=== PATIENT | male | born 1960 | race American Indian/Alaskan Native ===

== ENCOUNTER 2020-07-05 10:38 | Outpatient (REF) | payer MEDICARE, MEDICAID, SELFPAY ==
[2020-07-05 15:02] LABS: Estimated Average Glucose 154 mg/dL
[2020-07-05 15:15] LABS: Alanine Aminotransferase 23 U/L (0-40); Anion Gap 13 (12-20); Aspartate Amino Transferase 18 U/L (5-37); Blood Urea Nitrogen 25 mg/dL (9-16); Calcium 9.6 mg/dL (8.4-10.2); Carbon Dioxide 28 mmol/L (22-29); Chloride 103 mmol/L (96-108); Cholesterol 135 mg/dL; Estimated Glomerular Filt Rate > 60; Glucose Fasting 112 mg/dL (60-99); HDL Cholesterol 38 mg/dL; LDL Cholesterol Calculated 79 mg/dl; Potassium 4.9 mmol/l (3.3-5.1); Sodium 139 mmol/L (135-145); Triglycerides 91 mg/dL
== END 2020-07-05 10:39 | disposition home or self-care (01) ==
LOC: HO.HMGCLDS 10:38
PROVIDERS: PCP Internal Medicine; Visit Provider Internal Medicine
DX: E11.3213 Type 2 diabetes mellitus with mild nonproliferative diabetic retinopathy with macular edema, bilateral (principal); I10 Essential (primary) hypertension; E78.5 Hyperlipidemia, unspecified; M15.9 Polyosteoarthritis, unspecified; Z79.4 Long term (current) use of insulin
CPT/HCPCS: 80048; 80061; 83036; 84450; 84460

== ENCOUNTER 2020-11-18 09:02 | Outpatient (REF) | payer MEDICARE, MEDICAID, SELFPAY ==
[2020-11-18 11:35] LABS: Alanine Aminotransferase 22 U/L (0-40); Anion Gap 15 (12-20); Aspartate Amino Transferase 17 U/L (5-37); Blood Urea Nitrogen 18 mg/dL (9-16); Calcium 9.4 mg/dL (8.4-10.2); Carbon Dioxide 26 mmol/L (22-29); Chloride 102 mmol/L (96-108); Cholesterol 127 mg/dL; Estimated Glomerular Filt Rate > 60; Glucose Fasting 154 mg/dL (60-99); HDL Cholesterol 38 mg/dL; LDL Cholesterol Calculated 61 mg/dl; Potassium 4.6 mmol/L (3.3-5.1); Sodium 138 mmol/L (135-145); Triglycerides 140 mg/dL
[2020-11-18 11:39] LABS: Estimated Average Glucose 157 mg/dL; Hemoglobin A1c % 7.1 %
[2020-11-18 11:43] LABS: Creatinine Urine 144.13 mg/dL; Microalbumin Urine < 5.0 mg/L
== END 2020-11-18 09:03 | disposition home or self-care (01) ==
LOC: HO.HMGCLDS 09:02
PROVIDERS: PCP Internal Medicine; Visit Provider Internal Medicine
DX: E11.319 Type 2 diabetes mellitus with unspecified diabetic retinopathy without macular edema (principal); E11.8 Type 2 diabetes mellitus with unspecified complications; F32.9 Major depressive disorder, single episode, unspecified; M15.9 Polyosteoarthritis, unspecified; I10 Essential (primary) hypertension; E78.5 Hyperlipidemia, unspecified; Z79.4 Long term (current) use of insulin
CPT/HCPCS: 36415; 80048; 80061; 82043; 83036; 84450; 84460

== ENCOUNTER 2020-12-03 08:33 | Outpatient (REF) | payer MEDICARE, MEDICAID, SELFPAY ==
--- NOTE | ~2020-12-03 | XR_ITS ---
EXAMINATION: XR SHOULDER, LEFT CLINICAL INFORMATION: Left shoulder pain. COMPARISON: Left shoulder radiographs dated 08/04/2016. TECHNIQUE: AP, scapular Y, and axillary views of the left shoulder. FINDINGS: Severe glenohumeral joint space narrowing with bony remodeling, subchondral sclerosis, and prominent marginal osteophytes. Acromioclavicular marginal osteophytes. No acute fracture or dislocation. Ossified loose body within the subcoracoid recess measuring up to 1.8 cm. XR/XR shoulder LT min 2V IMPRESSION: Severe glenohumeral osteoarthritis and mild acromioclavicular osteoarthritis, progressed when compared to the prior examination. Ossified loose body within the subcoracoid recess measuring up to 1.8 cm, increased in size when compared to the prior examination.
== END 2020-12-03 08:34 | disposition home or self-care (01) ==
LOC: HO.HOSX 08:33
PROVIDERS: Visit Provider Orthopaedic Surgery
DX: M19.012 Primary osteoarthritis, left shoulder (principal)
CPT/HCPCS: 20610; 73030; 99212; J1040

== ENCOUNTER 2020-12-17 07:59 | Outpatient (REF) | payer MEDICARE, MEDICAID, SELFPAY | END 2020-12-17 08:00 | disposition home or self-care (01) | LOC: HO.HOSX 07:59 | PROVIDERS: Visit Provider Orthopaedic Surgery | DX: Z13.89 Encounter for screening for other disorder (principal) ==

== ENCOUNTER → 2021-03-05 09:23 | Outpatient (BNVA) | payer MEDICARE, MEDICAID, SELFPAY | PROVIDERS: PCP Internal Medicine; Visit Provider Orthopaedic Surgery | DX: M17.11 Unilateral primary osteoarthritis, right knee (principal) | CPT/HCPCS: 20610; 99212; J1040 ==

== ENCOUNTER 2021-05-21 08:41 | Emergency (ER) | payer MEDICARE, MEDICAID, SELFPAY ==
--- NOTE | ~2021-05-21 | CT_ITS ---
EXAMINATION: CT ABDOMEN AND PELVIS WITHOUT CONTRAST CLINICAL INFORMATION: Left-sided abdominal and back pain radiating to testicles. COMPARISON: CT abdomen pelvis 11/09/2019 TECHNIQUE: Multidetector volumetric imaging was performed from the superior aspect of the liver through the pubic symphysis. Sagittal and coronal reformatted images were obtained on the technologist's workstation. This CT examination was performed using dose optimization techniques as appropriate, variously including the following: *Automated exposure control *Adjustment of mA and/or kV according to patient size (this includes techniques or standardized protocols for targeted exams where dose is matched to indication/reason for exam; i.e. extremities or head) *Use of iterative reconstruction technique DLP: 608 mGy-cm FINDINGS: LUNG BASES: There is bandlike atelectasis right lower lobe. Rest of the visualized lung bases appear unremarkable. The heart size is normal. LIVER, GALLBLADDER, AND BILIARY TREE: The liver is normal in size, shape, and attenuation. No focal hepatic lesion or biliary ductal dilatation is present. The gallbladder is unremarkable with no evidence of radiopaque gallstones, gallbladder wall thickening, or obvious pericholecystic inflammatory changes. PANCREAS: The pancreas is unremarkable. However there is subtle fat stranding seen around the head of the pancreas but without any fluid collection. SPLEEN: Unremarkable. ADRENAL GLANDS: Unremarkable. KIDNEYS AND URETERS: The kidneys are normal in size, shape, and attenuation. There is a 1.2 cm radiopaque calculi mid pole left kidney. Previously it measured 6 mm no additional radiopaque calculi seen. There is no caliectasis or hydronephrosis.. There is mild bilateral perinephric fat stranding. BLADDER: Unremarkable. GASTROINTESTINAL TRACT: There is scattered stool, gas and diverticuli seen throughout the colon without obstruction or diverticulitis. No mural thickening or pericolic fat stranding seen. The small bowel loops are normal caliber. Appendix is not well visualized. No free air or free fluid seen. ABDOMINAL WALL: No significant hernia is appreciated. LYMPH NODES: Normal. VASCULAR: The abdominal aorta is of normal caliber. PELVIC VISCERA: Unremarkable. OSSEOUS STRUCTURES: There is vacuum disc phenomenon with loss of disc at L4-L5 disc level. Mild ventricles bridging osteophyte/spondylosis seen in the L1-L2 through L3-L4 disc levels. No lytic or sclerotic process seen. CT/CT abdomen pelvis wo con IMPRESSION: 1.2 cm nonobstructive radiopaque calculi mid pole left kidney. Previously measured 6 mm. Mild constipation without obstruction. Mild diverticulosis without hiatal hernia. Mild prostate enlargement. Degenerative disc changes L4-L5 disc level and L5/S1 disc level with a left paracentral the
[2021-05-21 08:50] VITALS: BP 124/87; PULSE 86; RESP 16; TEMP 37; O2SAT 97; BMI 29.7
--- NOTE | 2021-05-21 09:23 | ECG_ITS ---
Test Reason : BACK PAIN Blood Pressure : / mmHG Vent. Rate : 069 BPM Atrial Rate : 069 BPM P-R Int : 180 ms QRS Dur : 088 ms QT Int : 398 ms P-R-T Axes : 049 051 047 degrees QTc Int : 426 ms Normal sinus rhythm Normal ECG When compared with ECG of 18-OCT-2017 04:29, No significant change was found Referred By: Norma Price Electronically Signed By:AZAEL MCGUIRE
--- NOTE | 2021-05-21 09:37 | ED.BACK ---
HPI - Back Pain/Injury General Chief Complaint: Back Pain/Injury Stated Complaint: flank pain Time Seen by Provider: 05/21/21 09:02 Source: patient Mode of arrival: ambulatory Limitations: no limitations History of Present Illness HPI Narrative: 60-year-old male with a past medical history of BPH, hypertension, type 2 diabetes, high cholesterol, osteoarthritis, depression here with complaints of lower back pain with radiation to the groin and down the lateral thighs for 4 days. Patient is taking Motrin and Tylenol home with continued symptoms. He denies any numbness in the groin. Denies any bowel or bladder incontinence. He is complaining of some urinary frequency but no dysuria or hematuria. No nausea, vomiting, diarrhea, fevers, chills. Patient denies any known injury or trauma. 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 Related Data Home Medications Medication Instructions Recorded Confirmed insulin aspart U-100 100 unit/mL unit SUBCUT 07/12/20 01/28/21 (3 mL) subcutaneous pen pen needle, diabetic 29 gauge x #100 ea 07/12/20 01/28/21 1/2 tizanidine 4 mg tablet mg PO 07/12/20 01/28/21 insulin syringe-needle U-100 1 mL #10 ea 11/22/20 01/28/21 31 gauge x 01/05 Previous Rx's Medication Instructions Recorded fluoxetine 20 mg capsule 40 mg PO QAM #180 cap 06/14/20 blood sugar diagnostic (FreeStyle #100 ea 07/12/20 Lite Strips) pen needle, diabetic 29 gauge x See Rx Instructions .ROUTE QID 30 09/06/20 1/2 (BD Ultra-Fine Original Pen Days #200 ea Needle) insulin syringes (disposable) 1 mL #500 ea 09/18/20 lancets 28 gauge (FreeStyle See Rx Instructions .ROUTE 09/27/20 Lancets) .COMPLEX 30 Days #100 strip tamsulosin 0.4 mg capsule 0.4 mg PO DAILY #90 cap 11/28/20 dicyclomine 20 mg tablet 20 mg PO TID #270 tab 12/02/20 metformin 1,000 mg tablet 1,000 mg PO BID #180 tab 12/02/20 insulin detemir U-100 100 unit/mL 60 unit SUBCUT BEDTIME #30 ml 06/01/21 subcutaneous solution (Levemir U-100 Insulin) nabumetone 750 mg tablet 750 mg PO BID PRN #60 tab 02/26/21 atorvastatin 10 mg tablet 10 mg PO DAILY #90 tab 02/27/21 lisinopril 20 mg tablet 20 mg PO DAILY #90 tab 04/15/21 zolpidem 10 mg tablet 10 mg PO BEDTIME PRN #30 tab 04/26/21 cyclobenzaprine 10 mg tablet 10 mg PO TID PRN #10 tab 05/21/21 naproxen 500 mg tablet 500 mg PO BID PRN #20 tab 05/21/21 oxycodone 5 mg tablet 5 mg PO Q6H PRN #10 tab 05/21/21 Allergies Allergy/AdvReac Type Severity Reaction Status Date / Time peanuts Allergy Unknown shortness Verified 01/28/21 11:40 of breath, throat swelling Review of Systems Review of Systems: Yes all other systems are reviewed and are negative Constitutional: Constitutional: Reports no additional constitutional complaints, Denies body ache(s), Denies chills, Denies fever(s), Denies headache(s) and Denies weakness Eyes: Eyes: Reports no additional eye complaints and Denies change in vision ENT: Reports system reviewed and no additional complaints, except as documented, Denies dizziness, Denies headache(s), Denies nasal congestion, Denies nasal discharge and Denies neck pain Cardiovascular: Cardiovascular: Reports no additional cardiovascular complaints, Denies chest pain, Denies leg edema and Denies dyspnea Respiratory: Respiratory: Reports no additional respiratory complaints, Denies cough and Denies dyspnea Gastrointestinal: Gastrointestinal: Reports no additional gastrointestinal complaints, Denies abdominal pain, Denies diarrhea, Denies nausea and Denies vomiting Genitourinary: Genitourinary: Denies urinary incontinence Musculoskeletal: Musculoskeletal: Reports no additional musculoskeletal complaints, Denies back pain, Denies arthralgias, Denies joint swelling, Denies neck pain, Denies numbness and Denies tingling Integumentary/Breasts: Skin/Breast: Reports system reviewed and no additional complaints, except as docu and Denies rash Neurologic: Reports system reviewed and no additional complaints, except as documented, Denies Abnormal speech present, Denies dizziness, Denies headache(s), Denies numbness, Denies tingling and Denies weakness PMFSH Past Medical History Attestation statement: The following information was validated with the patient. Source: old records reviewed and nursing notes reviewed Medical History BPH (benign prostatic hyperplasia) Chronic insomnia Chronic left shoulder pain Depression Diabetes mellitus type 2 with retinopathy Diabetes mellitus with complication, with long-term current use of insulin Dyslipidemia HTN (hypertension) Osteoarthritis involving multiple joints on both sides of body Trigger finger of right hand Surgical History Umbilical hernia Family History Family History Father CVD (cardiovascular disease) Mother Unknown family medical history Social History Social History Alcohol intake: never Patient Tobacco Use Status: Never used Tobacco Use of substances other than those prescribed or required for medical reasons: No Advance Directives: No Advance Directives Information Provided: No Current occupational status: disabled 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 Physical Exam Vital Signs: Vital Signs: Last Vital Signs Temp 98.7 F 05/21/21 10:21 Pulse 66 05/21/21 10:21 Resp 16 05/21/21 11:10 BP 133/88 05/21/21 10:21 Pulse Ox 98 05/21/21 10:21 Body Mass Index 29.7 Const: General: cooperative, healthy appearing, comfortable and no acute distress Orientation/consciousness: patient oriented x3 Limitations: no limitations HENMT: Head: Yes normal to inspection Ears: hearing grossly normal bilaterally General nose exam: Normal external nose present Face and sinus: Yes normal facial exam Mouth: Normal oral and palatal mucosa present Throat: Yes posterior oropharynx normal Eyes: General: appearance normal, both eyes and all related structures Pupils: Equal, round and reactive pupils present Neck: Neck: Yes normal visual inspection Chest: Chest palpation & inspection: normal inspection of the chest Resp: Effort & Inspection: normal respiratory effort Auscultation: clear to auscultation bilaterally Cardio: Rate: regular rate Rhythm: regular rhythm Peripheral pulses: Peripheral pulses 2+ throughout GI: Inspection: Yes normal to inspection Palpation (GI): Soft to palpation and nontender Auscultation: normal bowel sounds : Other: No palpable inguinal hernia General: Yes no CVA tenderness Male General Exam: Yes normal external exam Penis: normal penis Scrotum: scrotum normal Testes: Testes normal Back/Spine/Pelvis: Other: Tenderness over the midline lumbar spine and over the soft tissue areas of the lumbar spine no palpable step-offs or deformities Back: no CVA tenderness Thoracic/Lumbar Spine: thoracic and lumbar spine normal to inspection Skin: General skin exam: no rashes or lesions noted Neuro: General: patient oriented x3, no focal motor deficits and normal sensation to monofilament Cranial nerves: Yes CN's II-XII intact bilaterally, Yes Equal, round and reactive pupils present, Yes Bilaterally intact EOM present, Yes Nystagmus not present, Yes Normal facial strength present and Yes Midline tongue present Cognition (Neuro): normal cognition Speech: No Abnormal speech present Gait exam (Neuro): Normal gait present Motor exam (neuro): 5/5 motor strength present throughout Sensory Exam: Normal double simultaneous stimulation for sensation Deep tendon reflexes (DTR's): Right patellar reflex intensity grade: 2+, Left patellar reflex intensity grade: 2+, Right ankle reflex intensity grade: 2+ and Left ankle reflex intensity grade: 2+ Coordination: [id number] test normal, [id number] test normal and tandem gait normal Extrem: General: Yes normal to inspection Course Course Course Narrative: 60-year-old male here with complaints of lower back pain with radiation to the bilateral groin and testicular area and addition to the lateral thighs for about 4-5 days. He is having some urinary frequency but no other urinary symptoms. On exam no CVA tenderness. No palpable abdominal tenderness. Patient does have some midline lumbar tenderness on exam. His exam is normal. Likely referred pain from lumbar spine. Will check labs, UA, CT. Provide pain control. 1220- IMPRESSION: 1.2 cm nonobstructive radiopaque calculi mid pole left kidney. Previously measured 6 mm. ? Mild constipation without obstruction. Mild diverticulosis without hiatal hernia. ? Mild prostate enlargement. ? Degenerative disc changes L4-L5 disc level and L5/S1 disc level with a left paracentral the? Labs and urine are negative. Patient's pain is well controlled. Pain is likely secondary to disc changes. No neurological deficits or red flag symptoms. Recommended patient follow-up with his primary care doctor for outpatient MRI. He tells me he has an appointment on Wednesday. Reviewed worrisome signs and symptoms and when to return to the emergency department. Comfortable discharge home. MDM - Back Pain/Injury Differential Diagnosis Differential diagnosis: Likely lumbar radiculopathy, renal colic and pyelonephritis Medical Records Attestation: I reviewed the patient's medical records. Lab Data Attestation: I reviewed the patient's lab results. Result diagrams: 05/21/21 10:02 05/21/21 10:02 Labs: Lab Results 05/21/21 05/21/21 05/21/21 Range/Units 10:02 10:02 10:02 WBC 7.2 (4.8-10.8) X10*3/uL RBC 4.22 L (4.60-5.80) X10*6/uL Hgb 13.1 L (14.0-18.0) g/dl Hct 38.3 L (42-52) % MCV 90.8 (80-98) fL MCH 31.0 (27.0-33.0) pg MCHC 34.2 (31.0-36.0) g/dl RDW 12.0 (11.0-16.0) % Plt Count 237 (160-400) X10*3/uL MPV 10.9 (9.4-12.4) fL Immature Gran % (Auto) 0.1 (0.0-0.4) % Neut % (Auto) 62.2 (45-73) % Lymph % (Auto) 24.0 (20-40) % [place] % (Auto) 7.6 (2-11) % Eos % (Auto) 5.3 H (0-4) % Baso % (Auto) 0.8 (0-2) % Lymph # (Auto) 1.7 (1.2-4.9) X10*3/uL [place] # (Auto) 0.6 (0.1-1.2) X10*3/uL Eos # (Auto) 0.4 (0.0-0.4) X10*3/uL Baso # (Auto) 0.1 (0.0-0.2) X10*3/uL Abs Immat Gran (auto) 0.01 (0.00-0.03) X10*3/uL Absolute Neuts (auto) 4.5 (2.0-8.3) X10*3/uL Absolute Nucleated RBC 0.000 (0.0-0.012) X10*3/uL Nucleated RBC % (auto) 0.0 (0.0-0.2) /100WBC Sodium 140 (135-145) mmol/L Potassium 4.1 (3.3-5.1) mmol/L Chloride 106 (96-108) mmol/L Carbon Dioxide 26 (22-29) mmol/L Anion Gap 12 (12-20) BUN 17 H (9-16) mg/dL Creatinine 0.86 (0.5-1.4) mg/dL Estim Creat Clear Calc 95.7 Estimated GFR > 60 Random Glucose 117 H (60-115) mg/dL Calcium 9.4 (8.4-10.2) mg/dL Magnesium 1.9 (1.6-2.6) mg/dL Total Bilirubin 0.3 (0.0-1.0) mg/dL Direct Bilirubin 0.2 (0.0-0.5) mg/dL AST 15 (5-37) U/L ALT 21 (0-40) U/L Alkaline Phosphatase 64 (39-117) U/L Total Protein 6.7 (6.5-8.0) g/dL Albumin 4.0 (3.5-5.0) g/dL Urine Color YELLOW Urine Appearance CLEAR Urine pH 6.0 (5.0-8.0) Ur Specific [place] 1.020 (1.005-1.025) Urine Protein NEG (NEG-TRACE) MG/DL Urine Glucose (UA) NEG (NEG) MG/DL Urine Ketones NEG (NEG) MG/DL Urine Blood NEG (NEG) Urine Nitrite NEG (NEG) Ur Leukocyte Esterase NEG (NEG) Urine RBC 0-2 (0) /HPF Urine WBC 0 (0-4) /HPF Ur Squamous Epith Cells TRACE /LPF Urine Bacteria NONE /LPF Imaging Data CT scan - abdomen: Attestation: I personally reviewed and interpreted this imaging study as follows: Radiologist's impression: FINDINGS: LUNG BASES: There is bandlike atelectasis right lower lobe. Rest of the visualized lung bases appear unremarkable. The heart size is normal.? LIVER, GALLBLADDER, AND BILIARY TREE: The liver is normal in size, shape, and attenuation. No focal hepatic lesion or biliary ductal dilatation is present. The gallbladder is unremarkable with no evidence of radiopaque gallstones, gallbladder wall thickening, or obvious pericholecystic inflammatory changes.? PANCREAS: The pancreas is unremarkable. However there is subtle fat stranding seen around the head of the pancreas but without any fluid collection.? SPLEEN: Unremarkable.? ADRENAL GLANDS: Unremarkable.? KIDNEYS AND URETERS: The kidneys are normal in size, shape, and attenuation. There is a 1.2 cm radiopaque calculi mid pole left kidney. Previously it measured 6 mm no additional radiopaque calculi seen. There is no caliectasis or hydronephrosis.. There is mild bilateral perinephric fat stranding.? BLADDER: Unremarkable.? GASTROINTESTINAL TRACT: There is scattered stool, gas and diverticuli seen throughout the colon without obstruction or diverticulitis. No mural thickening or pericolic fat stranding seen. The small bowel loops are normal caliber. Appendix is not well visualized. No free air or free fluid seen.? ABDOMINAL WALL: No significant hernia is appreciated.? LYMPH NODES: Normal. VASCULAR: The abdominal aorta is of normal caliber. PELVIC VISCERA: Unremarkable.? OSSEOUS STRUCTURES: There is vacuum disc phenomenon with loss of disc at L4-L5 disc level. Mild ventricles bridging osteophyte/spondylosis seen in the L1-L2 through L3-L4 disc levels. No lytic or sclerotic process seen.? CT/CT abdomen pelvis wo con IMPRESSION: 1.2 cm nonobstructive radiopaque calculi mid pole left kidney. Previously measured 6 mm. ? Mild constipation without obstruction. Mild diverticulosis without hiatal hernia. ? Mild prostate enlargement. ? Degenerative disc changes L4-L5 disc level and L5/S1 disc level with a left paracentral the? ECG Data Attestation: I personally reviewed and interpreted this ECG as follows: ECG interpretation date: 05/21/21 ECG interpretation time: 10:11 Interpretation: Normal sinus rhythm with a rate of 69, normal TX, normal QRS, normal QT Discharge Plan Discharge Clinical Impression: Lumbar radiculopathy Patient Disposition: Home, Self-Care Instructions: Lumbar Radiculopathy (ED) Additional Instructions: Your CT scan shows a bulging disc in your lumbar spine. Keep your appointment with your primary care doctor on Wednesday and discuss this with them. You will likely need an MRI No heavy lifting or bending Heat or ice, gentle stretching Prescriptions: New cyclobenzaprine 10 mg tablet 10 mg PO TID PRN (Reason: muscle spasm) Qty: 10 RF: 0 naproxen 500 mg tablet 500 mg PO BID PRN (Reason: pain) Qty: 20 RF: 0 oxycodone 5 mg tablet 5 mg PO Q6H PRN (Reason: pain) Qty: 10 RF: 0 No Action fluoxetine 20 mg capsule 40 mg PO QAM Qty: 180 RF: 3 pen needle, diabetic [BD Ultra-Fine Orig Pen Needle] 29 gauge x 1/2 needle See Rx Instructions .ROUTE QID 30 Days Qty: 200 RF: 6 (DME) insulin syringes (disposable) 1 mL syringe See Rx Instructions .ROUTE .MEDSUPPLY Qty: 500 RF: 0 lancets [FreeStyle Lancets] 28 gauge misc See Rx Instructions .ROUTE .COMPLEX 30 Days Qty: 100 RF: 6 tamsulosin 0.4 mg capsule 0.4 mg PO DAILY Qty: 90 RF: 1 metformin 1,000 mg tablet 1,000 mg PO BID Qty: 180 RF: 4 dicyclomine 20 mg tablet 20 mg PO TID Qty: 270 RF: 1 Levemir U-100 Insulin 100 unit/mL solution 60 unit subcut BEDTIME Qty: 30 RF: 4 nabumetone 750 mg tablet 750 mg PO BID PRN (Reason: for pain) Qty: 60 RF: 0 atorvastatin 10 mg tablet 10 mg PO DAILY Qty: 90 RF: 1 lisinopril 20 mg tablet 20 mg PO DAILY Qty: 90 RF: 1 zolpidem 10 mg tablet 10 mg PO BEDTIME PRN (Reason: insomnia) Qty: 30 RF: 0 insulin aspart U-100 100 unit/mL (3 mL) insulin pen subcut RF: 0 tizanidine 4 mg tablet PO RF: 0 (DME) pen needle, diabetic 29 gauge x 1/2 needle See Rx Instructions ea .ROUTE .MEDSUPPLY Qty: 100 RF: 0 (DME) FreeStyle Lite Strips Strip See Rx Instructions .ROUTE .MEDSUPPLY Qty: 100 RF: 8 (DME) insulin syringe-needle U-100 1 mL 31 gauge x 5/16 syringe See Rx Instructions ml .ROUTE .MEDSUPPLY Qty: 10 RF: 0 Referrals: Espinas,Rocio C, MD [Primary Care Provider] - 2 days Stand Alone Forms: Work/School Release
[2021-05-21 10:21] VITALS: BP 133/88; PULSE 66; RESP 19; TEMP 37.1; O2SAT 98
[2021-05-21 10:23] LABS: MANUAL DIFF FLAG NO
[2021-05-21 10:24] LABS: Basophils Absolute Auto 0.1 X10*3/uL (0.0-0.2); Basophils Percent Auto 0.8 % (0-2); Eosinophils Absolute Auto 0.4 X10*3/uL (0.0-0.4); Eosinophils Percent Auto 5.3 % (0-4); Hematocrit 38.3 % (42-52); Hemoglobin 13.1 g/dl (14.0-18.0); Imm Gran Abs Auto 0.01 X10*3/uL (0.00-0.03); Imm Gran Pct Auto 0.1 % (0.0-0.4); Lymphocytes Absolute Auto 1.7 X10*3/uL (1.2-4.9); Mean Corpuscular HGB Conc 34.2 g/dl (31.0-36.0); Mean Corpuscular Volume 90.8 fL (80-98); Mean Platelet Volume 10.9 fL (9.4-12.4); Monocytes Absolute Auto 0.6 X10*3/uL (0.1-1.2); Monocytes Percent Auto 7.6 % (2-11); Neutrophils Absolute Auto 4.5 X10*3/uL (2.0-8.3); Neutrophils Percent Auto 62.2 % (45-73); Platelet Count 237 X10*3/uL (160-400); Red Blood Count 4.22 X10*6/uL (4.60-5.80); White Blood Count 7.2 X10*3/uL (4.8-10.8)
[2021-05-21 10:27] LABS: Appearance Urine CLEAR; Color Urine YELLOW; Glucose Urine UA NEG (NEG); Leukocyte Esterase Urine NEG (NEG); Nitrite Urine NEG (NEG); Urine Blood NEG (NEG); Urine Ketones NEG (NEG); Urine Protein NEG (NEG-TRACE)
[2021-05-21 10:38] LABS: RBC Urine 0-2 /HPF (0); Squamous Epithelial Cell Urine TRACE /LPF; WBC Urine 0 /HPF (0-4)
[2021-05-21 10:46] LABS: Alanine Aminotransferase 21 U/L (0-40); Alkaline Phosphatase 64 U/L (39-117); Anion Gap 12 (12-20); Aspartate Amino Transferase 15 U/L (5-37); Bilirubin Direct 0.2 mg/dL (0.0-0.5); Bilirubin Total 0.3 mg/dL (0.0-1.0); Blood Urea Nitrogen 17 mg/dL (9-16); Calcium 9.4 mg/dL (8.4-10.2); Carbon Dioxide 26 mmol/L (22-29); Chloride 106 mmol/L (96-108); Creatinine Clr Calc Pharmacy 95.7; Estimated Glomerular Filt Rate > 60; Glucose Random 117 mg/dL (60-115); Magnesium 1.9 mg/dL (1.6-2.6); Potassium 4.1 mmol/L (3.3-5.1); Sodium 140 mmol/L (135-145); Total Protein 6.7 g/dL (6.5-8.0)
[2021-05-21 11:10] VITALS: RESP 16
[2021-05-21] MEDS: Morphine Sulfate 4 MG/ML CARTRIDGE IVPUSH (11:10)
[2021-05-21] MEDS: Ketorolac Tromethamine 15 MG/ML VIAL 30 MG IVPUSH (11:11)
[2021-05-21 12:41] VITALS: BP 125/80; PULSE 73; RESP 16; O2SAT 99
[2021-05-21 15:04] LABS: Glucose, Whole Blood 113 mg/dL (60-115)
== END 2021-05-21 12:45 | disposition home or self-care (01) ==
PROVIDERS: Nurse Practitioner Family; Emergency Provider Emergency Medicine Emergency Medical Services; PCP Internal Medicine
DX: M54.16 Radiculopathy, lumbar region (principal); R10.9 Unspecified abdominal pain; E11.9 Type 2 diabetes mellitus without complications; Z79.899 Other long term (current) drug therapy; Z79.4 Long term (current) use of insulin
CPT/HCPCS: 36415; 74176; 80048; 80076; 81001; 82947; 83735; 85025; 93005; 96374; 96375; 99284; 99285; J1885; J2270

== ENCOUNTER 2021-05-22 09:44 | Outpatient (REF) | payer MEDICARE, MEDICAID, SELFPAY ==
[2021-05-22 11:50] LABS: Estimated Average Glucose 163 mg/dL; Hemoglobin A1c % 7.3 %
[2021-05-22 11:51] LABS: Creatinine Urine 190.45 mg/dL; Microalbum/Creatinine Ratio Ur 5.2 ug/mg cr
[2021-05-22 11:53] LABS: Alanine Aminotransferase 25 U/L (0-40); Anion Gap 11 (12-20); Aspartate Amino Transferase 18 U/L (5-37); Blood Urea Nitrogen 21 mg/dL (9-16); Calcium 9.1 mg/dL (8.4-10.2); Carbon Dioxide 27 mmol/L (22-29); Chloride 106 mmol/L (96-108); Cholesterol 130 mg/dL; Estimated Glomerular Filt Rate > 60; Glucose Fasting 138 mg/dL (60-99); HDL Cholesterol 30 mg/dL; LDL Cholesterol Calculated 66 mg/dl; Potassium 4.4 mmol/L (3.3-5.1); Sodium 140 mmol/L (135-145); Triglycerides 172 mg/dL
== END 2021-05-22 09:45 | disposition home or self-care (01) ==
LOC: HO.HMGCLDS 09:44
PROVIDERS: PCP Internal Medicine; Visit Provider Internal Medicine
DX: E78.5 Hyperlipidemia, unspecified (principal); E11.8 Type 2 diabetes mellitus with unspecified complications; E11.3293 Type 2 diabetes mellitus with mild nonproliferative diabetic retinopathy without macular edema, bilateral; I10 Essential (primary) hypertension; Z79.4 Long term (current) use of insulin
CPT/HCPCS: 36415; 80048; 80061; 82043; 83036; 84450; 84460

== ENCOUNTER → 2021-07-22 09:12 | Outpatient (BNVA) | payer MEDICARE, MEDICAID, SELFPAY | PROVIDERS: PCP Internal Medicine; Visit Provider Nurse Practitioner Family | DX: M47.27 Other spondylosis with radiculopathy, lumbosacral region (principal); M79.18 Myalgia, other site | CPT/HCPCS: 99202 ==

== ENCOUNTER 2021-09-11 10:39 | Outpatient (REF) | payer MEDICARE, MEDICAID, SELFPAY | END 2021-09-11 10:40 | disposition home or self-care (01) | LOC: HO.HOSX 10:39 | PROVIDERS: Visit Provider Physician Assistant | DX: Z13.89 Encounter for screening for other disorder (principal) ==

== ENCOUNTER 2021-09-29 08:36 | Outpatient (REF) | payer MEDICARE, MEDICAID, SELFPAY ==
[2021-09-29 11:40] LABS: Alanine Aminotransferase 19 U/L (0-40); Anion Gap 11 (12-20); Aspartate Amino Transferase 15 U/L (5-37); Blood Urea Nitrogen 15 mg/dL (9-16); Calcium 9.6 mg/dL (8.4-10.2); Carbon Dioxide 28 mmol/L (22-29); Chloride 103 mmol/L (96-108); Cholesterol 139 mg/dL; Estimated Glomerular Filt Rate > 60; Glucose Fasting 173 mg/dL (60-99); HDL Cholesterol 32 mg/dL; LDL Cholesterol Calculated 82 mg/dl; Potassium 4.2 mmol/L (3.3-5.1); Sodium 138 mmol/L (135-145); Triglycerides 126 mg/dL
[2021-09-29 12:06] LABS: Estimated Average Glucose 177 mg/dL; Hemoglobin A1c % 7.8 %
== END 2021-09-29 08:37 | disposition home or self-care (01) ==
LOC: HO.HMGCLDS 08:36
PROVIDERS: Visit Provider Internal Medicine
DX: E11.8 Type 2 diabetes mellitus with unspecified complications (principal); E78.5 Hyperlipidemia, unspecified; I10 Essential (primary) hypertension; Z79.4 Long term (current) use of insulin
CPT/HCPCS: 36415; 80048; 80061; 83036; 84450; 84460

== ENCOUNTER → 2021-10-01 11:02 | Outpatient (BNVA) | payer MEDICARE, MEDICAID, SELFPAY | PROVIDERS: PCP Internal Medicine; Visit Provider Nurse Practitioner Family | DX: M79.18 Myalgia, other site (principal); M47.27 Other spondylosis with radiculopathy, lumbosacral region; M19.012 Primary osteoarthritis, left shoulder; M17.11 Unilateral primary osteoarthritis, right knee | CPT/HCPCS: 99212 ==

== ENCOUNTER → 2021-10-07 15:18 | Outpatient (BNVA) | payer MEDICARE, MEDICAID, SELFPAY | PROVIDERS: PCP Internal Medicine; Visit Provider Urology | DX: N20.0 Calculus of kidney (principal) | CPT/HCPCS: 99202 ==

== ENCOUNTER 2021-11-05 06:35 | Day surgery (SDC) | payer MEDICARE, MEDICAID, SELFPAY ==
[2021-10-31 13:23] VITALS: BMI 31.0
--- NOTE | 2021-11-03 12:06 | P.CONAN_ITS ---
Documented by User: Yvette Tan NP 11/03/21 12:08 HPI - Anesthesia Eval Consult details Narrative: 61yo M for Left Lithotripsy ESW No prev ESWL on record PMFSH Active Problems Active Problems: All Active Problems (Updated 09/02/21 @ 09:24 by Rocio Morgan MD) Primary osteoarthritis, left shoulder (Acute) Primary osteoarthritis of right knee (Acute) Myofascial pain (Acute) Lumbosacral radiculopathy due to degenerative joint disease of spine (Acute) Left nephrolithiasis (Acute) Chronic left shoulder pain (Acute) BPH (benign prostatic hyperplasia) (Acute) Chronic insomnia (Acute) Depression (Acute) Osteoarthritis involving multiple joints on both sides of body (Acute) HTN (hypertension) (Acute) Dyslipidemia (Acute) Diabetes mellitus with complication, with long-term current use of insulin (Acute) Diabetes mellitus type 2 with retinopathy (Acute) Past Medical History Medical History BPH (benign prostatic hyperplasia) Chronic insomnia Chronic left shoulder pain Depression Diabetes mellitus type 2 with retinopathy Diabetes mellitus with complication, with long-term current use of insulin Dyslipidemia HTN (hypertension) Left nephrolithiasis Lumbosacral radiculopathy due to degenerative joint disease of spine Osteoarthritis involving multiple joints on both sides of body Trigger finger of right hand Family History Family History Father CVD (cardiovascular disease) Mother Unknown family medical history Surgical History Surgical History H/O colonoscopy History of testicular surgery Umbilical hernia Social History Social History Alcohol intake: never Patient Tobacco Use Status: Former Tobacco user Tobacco use type: Cigarette Use of substances other than those prescribed or required for medical reasons: No Are you DNR?: No Advance Directives: No Advance Directives Information Provided: Yes (brochure mailed) Advance Directives on File: No Eating poorly because of decreased appetite: No Nutrition Risks: No Nutritional Risk Current occupational status: disabled 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 Rate : 069 BPM ? ? Atrial Rate : 069 BPM ?? P-R Int : 180 ms? QRS Dur : 088 ms ? ? QT Int : 398 ms ? ? ? P-R-T Axes : 049 051 047 degrees ?? QTc Int : 426 ms ? Normal sinus rhythm Normal ECG When compared with ECG of 18-OCT-2017 04:29, No significant change was found Assessment and Plan Assessment Anesthesia Assessment: Chart Reviewed Documented by User: Nancy Degroot MD 11/05/21 08:53 PMFSH Past Medical History Medical History BPH (benign prostatic hyperplasia) Chronic insomnia Chronic left shoulder pain Depression Diabetes mellitus type 2 with retinopathy Diabetes mellitus with complication, with long-term current use of insulin Dyslipidemia HTN (hypertension) Left nephrolithiasis Lumbosacral radiculopathy due to degenerative joint disease of spine Osteoarthritis involving multiple joints on both sides of body Trigger finger of right hand Family History Family History Father CVD (cardiovascular disease) Mother Unknown family medical history Surgical History Surgical History H/O colonoscopy History of testicular surgery Umbilical hernia History of Problems with Anesthesia: No Social History Social History Alcohol intake: never Patient Tobacco Use Status: Former Tobacco user Tobacco use type: Cigarette Use of substances other than those prescribed or required for medical reasons: No Are you DNR?: No Advance Directives: No Advance Directives Information Provided: Yes (brochure mailed) Advance Directives on File: No Eating poorly because of decreased appetite: No Nutrition Risks: No Nutritional Risk Current occupational status: disabled 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 Meds Allergies Allergy/AdvReac Type Severity Reaction Status Date / Time peanuts Allergy Intermediate shortness Verified 10/31/21 13:25 of breath, throat swelling Home Medications Medication Instructions Recorded Confirmed Last Taken Type insulin syringe-needle U-100 1 mL #10 ea 11/22/20 10/01/21 Unknown History 31 gauge x 5/16 Exam Airway Mallampati Class: III TM Dist: >3cm Neck ROM: Full Loose/Missing/Broken Teeth: No Heart: RRR Lungs: CTA Assessment and Plan Assessment Anesthesia Assessment: Anesthesia Plan Discussed Final Anesthetic Review History of Problems with Anesthesia: No NPO: Yes ASA Class: II Final Preanesthetic Review: Meds/Allgs Chart Reviewed, Consent Obtained/Reviewed and Anes Risks/Benef Reviewed Patient Risk: Low Procedure Risk: Low Anesthetic Plan Anesthetic Plan: MAC: Disposition: Standard PACU
--- NOTE | ~2021-11-05 | XR_ITS ---
EXAMINATION: XR ABDOMEN KUB CLINICAL INDICATION: Left renal stone COMPARISON: CT 05/21/2021 TECHNIQUE: AP view of the abdomen. FINDINGS: 0.6 cm left lower pole renal calculus again noted. No additional suspicious calcifications overlying the expected position of either kidney or ureter. Normal bowel gas pattern. Gas and stool throughout the colon. The lung bases are clear. Elevated right hemidiaphragm. Degenerative changes of the spine. XR/XR KUB IMPRESSION: Unchanged left lower pole 0.6 cm calculus.
[2021-11-05 06:52] VITALS: BP 135/91; PULSE 72; RESP 18; TEMP 36.3; O2SAT 96
--- NOTE | 2021-11-05 07:01 | ECG_ITS ---
Test Reason : cp Blood Pressure : / mmHG Vent. Rate : 071 BPM Atrial Rate : 071 BPM P-R Int : 174 ms QRS Dur : 086 ms QT Int : 378 ms P-R-T Axes : 039 039 047 degrees QTc Int : 410 ms Normal sinus rhythm Normal ECG When compared with ECG of 21-MAY-2021 10:11, No significant change was found Referred By: Steven Meyer Electronically Signed By:ISHA ENNIS
--- NOTE | 2021-11-05 07:03 | PC.NURSE ---
pt c/o 2/3 muscle soreness left chest & left arm no nausea, no numbness. Dr. Meyer aware, vss 97.4 ,72,18, 135/91 96% ra, no sob . ekg ordered, taken pt states he sleeps on Left side. pain does not increase with palpation
[2021-11-05 07:07] LABS: Glucose, Whole Blood 118 mg/dL (60-115)
[2021-11-05] MEDS: Acetaminophen 325 MG TABLET 650 MG PO (07:28)
[2021-11-05] MEDS: Lactated Ringers 1,000 ML 100 ML IVCONT (07:29)
--- NOTE | 2021-11-05 08:18 | MHC.SHP ---
Pre-Procedural Eval Section A Date of Service: 11/05/21 The patient is an INPATIENT: No Changes since office visit: No Cold of Flu in the past 2 weeks, No New Medical Problems, No Changes in Medication and No Patient answered all questions The History & Physical has been completed within 30 days and I have reviewed it.: No Section B Chief Complaint: calculus of kidney Details of Present Illness: left renal stone Relevant Family History (Specify if Yes): No Relevant Social History: None Present Medications: see Short Stay Collaborative assessment Medical History: No relevant PMH History of Previous Operations: No relevant previous surgery Allergies: Allergies Allergy/AdvReac Type Severity Reaction Status Date / Time peanuts Allergy Intermediate shortness Verified 10/31/21 13:25 of breath, throat swelling Review of Systems Sugical H&P ROS: Negative: Constitution, Cardiovascular, Respiratory, Neurological, Psychiatric, Hem-Onc, Allergic/Immunologic, Gastrointestinal, Genitourinary, Musculoskeletal, Integumentary, Endocrine and Eyes/Ears/Nose/Throat Exam Surgical H&P Exam: Normal: HEENT, Normal: Heart, Normal: Lungs, Normal: Extremities, Normal: Abdomen, Normal: Skin and Normal: Neurological Plan Diagnosis/Plan: Unchanged (left eswl) I have reviewed the history and physical and performed a pertinent physical examination on my patient. No changes have occurred unless specified.
--- NOTE | 2021-11-05 08:54 | W.PM.OPN ---
Operative Note Operative Note Date of Service: 11/05/21 Narrative: PreOperative Diagnosis: left Renal stones Post Operative Diagnosis: left Renal stones Procedure: left ESWL Surgeon: Dr Nhan Lin Anesthesia: mac/sedation Indications for procedure: The patient understands ESWL may be a staged procedure and subsequent intervention may be required based on imaging after ESWL. They also understand there is a risk of bleeding to the kidney, infection, damage to adjacent organs, and stone migration following the procedure. - Imaging 6mm lower pole stone Procedure: After informed consent was verified the patient was brought to the operating room and placed in a supine position. Anesthesia was performed per protocol. Safety pause time-out was performed. Imaging was displayed in the room and laterality confirmed. ESWL was performed. The 1st 500 shocks were performed at 60 hertz. These were performed with increasing power. Once maximum power was reached the rate was increased to 180 hertz. A total of 2500 shocks were given. Targetted imaging with ultrasound/fluoroscopy showed stone smudging suggestive of disintegration. The patient tolerated the procedure well and was transferred to the recovery area upon completion. Post procedure imaging will be organized. There was no evidence for flank discoloration.
[2021-11-05 09:05] VITALS: BP 112/72; PULSE 77; RESP 18; TEMP 36.5; O2SAT 99
[2021-11-05] MEDS: Phenazopyridine HCL 100 MG TABLET PO (09:13)
[2021-11-05 09:20] VITALS: BP 109/70; PULSE 71; RESP 18; TEMP 36.4; O2SAT 97
== END 2021-11-05 09:51 | disposition home or self-care (01) ==
PROVIDERS: PCP Internal Medicine; Visit Provider Urology
PROC: (CPT 50590; principal; 2021-11-05 08:20)
DX: N20.0 Calculus of kidney (principal); N50.819 Testicular pain, unspecified; N40.0 Benign prostatic hyperplasia without lower urinary tract symptoms; E78.5 Hyperlipidemia, unspecified; F32.9 Major depressive disorder, single episode, unspecified; I10 Essential (primary) hypertension; E11.319 Type 2 diabetes mellitus with unspecified diabetic retinopathy without macular edema; E11.8 Type 2 diabetes mellitus with unspecified complications; Z79.4 Long term (current) use of insulin; M51.16 Intervertebral disc disorders with radiculopathy, lumbar region; M15.9 Polyosteoarthritis, unspecified; Z87.891 Personal history of nicotine dependence
CPT/HCPCS: 50590; 74018; 82947; 93005; J2250; J3010

== ENCOUNTER 2021-11-13 14:50 | Outpatient (REF) | payer MEDICARE, MEDICAID, SELFPAY ==
--- NOTE | ~2021-11-13 | US_ITS ---
EXAMINATION: US RETROPERITONEAL LIMITED (RENAL ONLY) CLINICAL INFORMATION: Calculus of kidney. COMPARISON: XR abdomen KUB 11/05/2021. CT abdomen and pelvis without contrast 05/21/2021. TECHNIQUE: Real-time imaging of the kidneys. FINDINGS: RIGHT KIDNEY: 10.7 x 6.3 x 5.3 cm (SAG x AP x TRV). The kidney is normal in size, contour, and echogenicity. Renal cortical thickness is normal. No calculi or focal parenchymal lesions. No hydronephrosis. LEFT KIDNEY: 11.0 x 5.6 x 5.1 cm (SAG x AP x TRV). The kidney is normal in size, contour, and echogenicity. Renal cortical thickness is normal. There is a 6 x 5 x 5 mm stone in the lower pole. No focal parenchymal lesions or hydronephrosis. US/US renal BI IMPRESSION: Left renal stone.
== END 2021-11-13 14:51 | disposition home or self-care (01) ==
LOC: HO.US 14:50
PROVIDERS: PCP Internal Medicine; Visit Provider Urology
DX: N20.0 Calculus of kidney (principal)
CPT/HCPCS: 76775

== ENCOUNTER 2021-11-19 06:06 | Outpatient (REF) | payer MEDICARE, MEDICAID, SELFPAY ==
--- NOTE | ~2021-11-19 | FL_ITS ---
EXAMINATION: XR FLUOROSCOPY WITH IMAGES CLINICAL INFORMATION: Osteoarthritis left shoulder. COMPARISON: None. TECHNIQUE: Fluoroscopy performed by Dr. Zhang Gama. Fluoroscopy time: 0.4 minutes DAP: 1.04 Gy-cm2 Images: 1 FINDINGS: Contrast is seen about the soft tissues of the left shoulder overlying what appears to be a subcoracoid region and within the soft tissues overlying the superior glenohumeral joint. Prominent spurring is seen about the glenohumeral joint. FL/FL guidance in treatment room IMPRESSION: Fluoroscopy provided for pain management.
== END 2021-11-19 06:07 | disposition home or self-care (01) ==
LOC: HO.RADIR 06:06
PROVIDERS: Visit Provider Internal Medicine
DX: M19.012 Primary osteoarthritis, left shoulder (principal); Z87.891 Personal history of nicotine dependence
CPT/HCPCS: 20610; J3300; Q9967

== ENCOUNTER → 2021-12-17 09:23 | Outpatient (BNVA) | payer MEDICARE, MEDICAID, SELFPAY | PROVIDERS: PCP Internal Medicine; Visit Provider Nurse Practitioner Family | DX: M79.18 Myalgia, other site (principal); M19.012 Primary osteoarthritis, left shoulder | CPT/HCPCS: 99212 ==

== ENCOUNTER 2022-01-05 08:54 | Outpatient (REF) | payer MEDICARE, MEDICAID, SELFPAY ==
[2022-01-05 11:50] LABS: Estimated Average Glucose 160 mg/dL; Hemoglobin A1c % 7.2 %
[2022-01-05 12:04] LABS: Alanine Aminotransferase 21 U/L (0-40); Anion Gap 9 (12-20); Aspartate Amino Transferase 16 U/L (5-37); Blood Urea Nitrogen 26 mg/dL (9-16); Calcium 9.5 mg/dL (8.4-10.2); Carbon Dioxide 28 mmol/L (22-29); Chloride 106 mmol/L (96-108); Cholesterol 121 mg/dL; Estimated Glomerular Filt Rate > 60; Glucose Fasting 128 mg/dL (60-99); HDL Cholesterol 36 mg/dL; LDL Cholesterol Calculated 69 mg/dl; Potassium 4.1 mmol/L (3.3-5.1); Sodium 139 mmol/L (135-145); Triglycerides 84 mg/dL
[2022-01-05 12:08] LABS: Creatinine Urine 229.01 mg/dL; Microalbum/Creatinine Ratio Ur 6.5 ug/mg cr
== END 2022-01-05 08:55 | disposition home or self-care (01) ==
LOC: HO.HMGCLDS 08:54
PROVIDERS: Visit Provider Internal Medicine
DX: E11.8 Type 2 diabetes mellitus with unspecified complications (principal); E78.5 Hyperlipidemia, unspecified; I10 Essential (primary) hypertension; Z79.4 Long term (current) use of insulin
CPT/HCPCS: 36415; 80048; 80061; 82043; 83036; 84450; 84460

== ENCOUNTER 2022-02-06 12:44 | Outpatient (REF) | payer MEDICARE, MEDICAID, SELFPAY ==
--- NOTE | ~2022-02-06 | CT_ITS ---
EXAMINATION: CT ABDOMEN AND PELVIS WITHOUT CONTRAST CLINICAL INFORMATION: Left lower quadrant abdominal pain COMPARISON: CT abdomen pelvis 05/21/2021 TECHNIQUE: Multidetector volumetric imaging was performed from the superior aspect of the liver through the pubic symphysis. Sagittal and coronal reformatted images were obtained on the technologist's workstation. This CT examination was performed using dose optimization techniques as appropriate, variously including the following: *Automated exposure control *Adjustment of mA and/or kV according to patient size (this includes techniques or standardized protocols for targeted exams where dose is matched to indication/reason for exam; i.e. extremities or head) *Use of iterative reconstruction technique DLP: 536 mGy-cm FINDINGS: LUNG BASES: Linear subsegmental atelectasis or scarring at right lung base, unchanged. Lung bases otherwise clear. LIVER, GALLBLADDER, AND BILIARY TREE: The liver is normal in size, shape, and attenuation. No focal hepatic lesion or biliary ductal dilatation is present. The gallbladder is unremarkable with no evidence of radiopaque gallstones, gallbladder wall thickening, or obvious pericholecystic inflammatory changes. PANCREAS: Unremarkable. SPLEEN: Unremarkable. ADRENAL GLANDS: Unremarkable. KIDNEYS AND URETERS: The kidneys are normal in size, shape, and attenuation. No hydronephrosis, hydroureter, or calculi seen. Previously seen left renal calculus is no longer present. Mild nonspecific perinephric fat stranding/fascial edema, unchanged. BLADDER: Prominently distended and grossly unremarkable. GASTROINTESTINAL TRACT: The small and large bowel are unremarkable. The appendix is identified. No inflammatory changes in the right lower quadrant about the cecal base. No ascites or free air. Administered oral contrast has transited to the level of the sigmoid colon. ABDOMINAL WALL: Small fat-containing left inguinal hernia. LYMPH NODES: No lymphadenopathy. VASCULAR: Mild vascular calcifications. Normal caliber abdominal aorta. PELVIC VISCERA: Slight prominence of the prostate gland which slightly indents the bladder base OSSEOUS STRUCTURES: . No acute fracture or suspicious osseous lesion. Multilevel degenerative disc disease in the thoracal lumbar spine. CT/CT abdomen pelvis wo con IMPRESSION: 1. No acute intra-abdominal process identified. 2. Previously seen left renal calculus is no longer identified, presumably passed in the interval.
[2022-02-06] MEDS: Barium Sulfate Oral (Mocha) 450 ML ORAL.SUSP 900 ML PO (15:54)
== END 2022-02-06 12:45 | disposition home or self-care (01) ==
LOC: HO.CT 12:44
PROVIDERS: PCP Internal Medicine; Visit Provider Internal Medicine
DX: R10.32 Left lower quadrant pain (principal)
CPT/HCPCS: 74176

== ENCOUNTER → 2022-03-05 11:05 | Outpatient (BNVA) | payer MEDICARE, MEDICAID, SELFPAY | PROVIDERS: PCP Internal Medicine; Referring Provider Internal Medicine; Visit Provider Surgery | DX: K40.90 Unilateral inguinal hernia, without obstruction or gangrene, not specified as recurrent (principal) | CPT/HCPCS: 99212 ==

== ENCOUNTER 2022-03-24 05:51 | Day surgery (SDC) | payer MEDICARE, MEDICAID, SELFPAY ==
[2022-03-18 10:46] VITALS: BMI 29.9
--- NOTE | 2022-03-23 08:13 | HO.ANESPROP2 ---
Documented by User: Yvette Tan NP 03/23/22 08:15 HPI - Anesthesia Eval Consult details Narrative: 61yo M for Left Hernia Repair Inguinal with mesh PMFSH Active Problems Active Problems: All Active Problems (Updated 02/09/22 @ 15:09 by Rocio Morgan MD) Myofascial pain (Acute) Acute abdominal pain in left lower quadrant (Acute) Left inguinal hernia (Acute) Past Medical History Medical History BPH (benign prostatic hyperplasia) Chronic insomnia Depression Diabetes mellitus type 2 with retinopathy Diabetes mellitus with complication, with long-term current use of insulin Dyslipidemia HTN (hypertension) Left nephrolithiasis Lumbosacral radiculopathy due to degenerative joint disease of spine Osteoarthritis involving multiple joints on both sides of body Primary osteoarthritis of right knee Primary osteoarthritis, left shoulder Trigger finger of right hand Family History Family History Father CVD (cardiovascular disease) Mother Unknown family medical history Surgical History Surgical History (Updated 03/18/22 @ 10:42 by Michelle Fraire RN) H/O colonoscopy History of testicular surgery Hx of lithotripsy Umbilical hernia History of Problems with Anesthesia: No Social History Social History Housing: Apartment Alcohol intake: never Patient Tobacco Use Status: Former Tobacco user Tobacco use type: Cigarette e-Cigarette/Vaping Use: Never Used Second Hand Smoke Exposure: No Use of substances other than those prescribed or required for medical reasons: No Are you DNR?: No Advance Directives: No Advance Directives Information Provided: Yes Advance Directives on File: No service: No Current occupational status: employed 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 Rate : 071 BPM ? ? Atrial Rate : 071 BPM ?? P-R Int : 174 ms? QRS Dur : 086 ms ? ? QT Int : 378 ms ? ? ? P-R-T Axes : 039 039 047 degrees ?? QTc Int : 410 ms ? Normal sinus rhythm Normal ECG When compared with ECG of 21-MAY-2021 10:11, No significant change was found Assessment and Plan Assessment Anesthesia Assessment: Chart Reviewed Final Anesthetic Review History of Problems with Anesthesia: No Documented by User: Margy Lazo MD 03/24/22 07:19 [facility] Past Medical History Medical History BPH (benign prostatic hyperplasia) Chronic insomnia Depression Diabetes mellitus type 2 with retinopathy Diabetes mellitus with complication, with long-term current use of insulin Dyslipidemia HTN (hypertension) Left nephrolithiasis Lumbosacral radiculopathy due to degenerative joint disease of spine Osteoarthritis involving multiple joints on both sides of body Primary osteoarthritis of right knee Primary osteoarthritis, left shoulder Trigger finger of right hand Family History Family History Father CVD (cardiovascular disease) Mother Unknown family medical history Family history of problems with anesthesia: No Surgical History Surgical History (Updated 03/18/22 @ 10:42 by Michelle Fraire RN) H/O colonoscopy History of testicular surgery Hx of lithotripsy Umbilical hernia Social History Social History Housing: Apartment Alcohol intake: never Patient Tobacco Use Status: Former Tobacco user Tobacco use type: Cigarette e-Cigarette/Vaping Use: Never Used Second Hand Smoke Exposure: No Use of substances other than those prescribed or required for medical reasons: No Are you DNR?: No Advance Directives: No Advance Directives Information Provided: Yes Advance Directives on File: No service: No Current occupational status: employed 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 Cognitive needs: No Hearing needs: No Vision needs: Yes Meds Allergies Allergy/AdvReac Type Severity Reaction Status Date / Time peanuts Allergy Intermediate shortness Verified 03/05/22 11:13 of breath, throat swelling Exam Airway Mallampati Class: II TM Dist: >3cm Neck ROM: Full Assessment and Plan Assessment Anesthesia Assessment: Anesthesia Plan Discussed Final Anesthetic Review Family History of Problems with Anesthesia: No NPO: Yes Final Preanesthetic Review: No Changes in Pt Med Stat, Meds/Allgs Chart Reviewed, Consent Obtained/Reviewed and Anes Risks/Benef Reviewed Patient Risk: Intermediate Procedure Risk: Intermediate Anesthetic Plan Anesthetic Plan: GA Disposition: Standard PACU
[2022-03-24] VITALS (9 sets, daily range): BP systolic 119–134; BP diastolic 77–91; PULSE 74–90; RESP 12–18; TEMP 36.2–36.4; O2SAT 95–99
[2022-03-24] MEDS: Lactated Ringers 1,000 ML 100 ML IVCONT (06:29)
[2022-03-24 06:31] LABS: Glucose, Whole Blood 119 mg/dL (60-115)
--- NOTE | 2022-03-24 07:18 | MHC.SHP ---
Pre-Procedural Eval Section A Date of Service: 03/24/22 Section B Chief Complaint: Unilateral inguinal hernia, without obstruction Details of Present Illness: reducible mass on the left groin Relevant Family History (Specify if Yes): No Relevant Social History: None Present Medications: see Short Stay Collaborative assessment Medical History: Significant History ( diabetes, hypertension, BPH) History of Previous Operations: No relevant previous surgery Allergies: Allergies Allergy/AdvReac Type Severity Reaction Status Date / Time peanuts Allergy Intermediate shortness Verified 03/05/22 11:13 of breath, throat swelling Review of Systems Sugical H&P ROS: Negative: Constitution, Cardiovascular, Respiratory, Neurological, Psychiatric, Hem-Onc, Allergic/Immunologic, Gastrointestinal, Genitourinary, Musculoskeletal, Integumentary, Endocrine and Eyes/Ears/Nose/Throat Exam Surgical H&P Exam: Normal: HEENT, Normal: Heart, Normal: Lungs, Normal: Extremities, Normal: Skin and Normal: Neurological and Significant Findings: Abdomen ( left inguinal ) Plan Diagnosis/Plan: Unchanged I have reviewed the history and physical and performed a pertinent physical examination on my patient. No changes have occurred unless specified.
--- NOTE | 2022-03-24 08:23 | W.PM.OPN ---
Operative Note Operative Note Date of Service: 03/24/22 Narrative: Preop diagnosis: Left inguinal hernia Postop diagnosis: Left inguinal hernia, indirect Procedure: Repair of a left inguinal hernia with mesh Surgeon: Obi Villagomez MD clinical trial assistant: ELIZABETH Camacho The patient is a 61-year-old male with a reducible mass on the left groin consistent with a left inguinal hernia. He understood the technique of repair with mesh. He was aware of the risks, benefits and alternatives. He was brought to the operating room. He was placed supine under general anesthesia via laryngeal mask airway. The left groin was prepped and draped in the usual sterile fashion. A surgical time-out was done. The patient received cefazolin 2 g IV preoperatively I marked my planned line of incision on an imaginary line from the anterior superior iliac spine to the pubic ramus. I infiltrated this with lidocaine 1%. I made a short incision along this line using blade 15. This was carried down through the full-thickness of the skin and thick subcutaneous fat down to the fascia. I gently dissected the external oblique aponeurosis bluntly to expose the external ring. I then made at the incision on the external oblique aponeurosis using blade 15 and extended this inferomedially to connect with the external ring. The inguinal canal was therefore entered. I applied hemostats on the edges of the divided aponeurosis. I bluntly dissected the underside of the aponeurosis with my index finger to create space for the mesh. I bluntly dissected the spermatic cord and its contents with my index finger until was able to pass a [place] drain around this. This [place] drain was used for retraction. I identified the structures of the spermatic cord. I was able to visualize the deferens and its accompanying vessels and these were protected during the rest of the procedure. I was able to visualize a large fat containing hernia. I gently this from the rest of the cord contents until was able to reduce this completely through the internal ring. This was therefore an indirect hernia. I reinforced the internal ring with the large size Prolene plug. I secured the plug with Prolene 2-0 sutures to the shelving edge of the inguinal laterally and the internal oblique superiorly medially, as well as the pubic ramus inferomedially. I reinforced the floor of the canal with a keyhole mesh. The tails of the mesh were passed around the cord at the level of the internal ring and were secured together with Prolene 2 sutures. I secured the mesh to the pubic ramus inferomedially, the internal oblique medially and the l inguinal ligament laterally using Prolene 2 sutures. I copies irrigated. I observed for hemostasis. Once hemostasis was confirmed, I removed the [place] drain. I closed the the aponeurosis were running Dexon 2-0 stitch to re-create the internal ring. I reapposed the subcutaneous layer with Dexon 3-0 interrupted sutures. Skin closure was achieved with Dexon 4-0 subcuticular running stitch. The incision was infiltrated with Marcaine 0.5% for postop analgesia. Dressings were applied. The procedure was completed The patient tolerated procedure well. There were no complication noted. Initial and final counts of sponges instruments were correct. Estimated blood loss was about 20 cc The patient was extubated without difficulty and transferred to the recovery room with stable vital signs.
[2022-03-24] MEDS: fentaNYL citrate/PF 100 MCG/2 ML VIAL 50 MCG IVPUSH ×2 (08:52→08:57)
[2022-03-24] MEDS: oxyCODONE HCl Immed Release 5 MG TABLET PO (08:52)
== END 2022-03-24 10:13 | disposition home or self-care (01) ==
PROVIDERS: PCP Internal Medicine; Visit Provider Surgery
PROC: (CPT 49505; principal; 2022-03-24 07:30)
DX: K40.90 Unilateral inguinal hernia, without obstruction or gangrene, not specified as recurrent (principal); N40.0 Benign prostatic hyperplasia without lower urinary tract symptoms; I10 Essential (primary) hypertension; E78.5 Hyperlipidemia, unspecified; F32.A Depression, unspecified; E11.319 Type 2 diabetes mellitus with unspecified diabetic retinopathy without macular edema; Z79.4 Long term (current) use of insulin; Z79.899 Other long term (current) drug therapy; Z91.010 Allergy to peanuts; Z87.442 Personal history of urinary calculi; Z87.891 Personal history of nicotine dependence
CPT/HCPCS: 49505; 82947; C1781; J0690; J1100; J2250; J2405; J2795; J3010

== ENCOUNTER → 2022-04-07 15:14 | Outpatient (BNVA) | payer MEDICARE, MEDICAID, SELFPAY | PROVIDERS: PCP Internal Medicine; Visit Provider Surgery | DX: K40.90 Unilateral inguinal hernia, without obstruction or gangrene, not specified as recurrent (principal) | CPT/HCPCS: 99212 ==

== ENCOUNTER 2022-04-17 12:10 | Outpatient (REF) | payer MEDICARE, MEDICAID, SELFPAY ==
[2022-04-17 13:58] LABS: Estimated Average Glucose 148 mg/dL; Hemoglobin A1c % 6.8 %
[2022-04-17 14:05] LABS: Alanine Aminotransferase 16 U/L (0-40); Anion Gap 15 (12-20); Aspartate Amino Transferase 14 U/L (5-37); Blood Urea Nitrogen 17 mg/dL (9-16); Carbon Dioxide 27 mmol/L (22-29); Chloride 103 mmol/L (96-108); Cholesterol 137 mg/dL; Estimated Glomerular Filt Rate > 60; Glucose Fasting 193 mg/dL (60-99); HDL Cholesterol 41 mg/dL; LDL Cholesterol Calculated 79 mg/dl; Potassium 5.1 mmol/L (3.3-5.1); Sodium 140 mmol/L (135-145); Triglycerides 86 mg/dL
[2022-04-17 14:41] LABS: Microalbum/Creatinine Ratio Ur 4.7 ug/mg cr
== END 2022-04-17 12:11 | disposition home or self-care (01) ==
LOC: HO.HMGCLDS 12:10
PROVIDERS: PCP Internal Medicine; Visit Provider Internal Medicine
DX: E11.3293 Type 2 diabetes mellitus with mild nonproliferative diabetic retinopathy without macular edema, bilateral (principal); I10 Essential (primary) hypertension; E78.5 Hyperlipidemia, unspecified; Z79.4 Long term (current) use of insulin
CPT/HCPCS: 36415; 80048; 80061; 82043; 83036; 84450; 84460

== ENCOUNTER → 2022-04-22 15:25 | Outpatient (BNVA) | payer MEDICARE, MEDICAID, SELFPAY | PROVIDERS: PCP Internal Medicine; Visit Provider Surgery | DX: K40.90 Unilateral inguinal hernia, without obstruction or gangrene, not specified as recurrent (principal); Z98.890 Other specified postprocedural states | CPT/HCPCS: 99212 ==

== ENCOUNTER → 2022-05-22 14:14 | Outpatient (BNVA) | payer MEDICARE, MEDICAID, SELFPAY | PROVIDERS: PCP Internal Medicine; Visit Provider Urology | DX: N20.0 Calculus of kidney (principal); E11.69 Type 2 diabetes mellitus with other specified complication; N52.1 Erectile dysfunction due to diseases classified elsewhere; N32.0 Bladder-neck obstruction | CPT/HCPCS: 99212 ==

== ENCOUNTER 2022-08-04 11:53 | Outpatient (REF) | payer MEDICARE, MEDICAID, SELFPAY ==
--- NOTE | ~2022-08-04 | XR_ITS ---
EXAMINATION: XR SHOULDER, LEFT CLINICAL INFORMATION: Pain COMPARISON: Previous x-ray November 2020 TECHNIQUE: AP external rotation, Grashey, scapular Y, and axillary views of the left shoulder. FINDINGS: No fracture or dislocation. There is arthritis at the glenohumeral and acromioclavicular joints. There are 2 soft tissue ossifications inferior to the coracoid process, largest measuring 1.8 cm that appear unchanged. There are faint soft tissue calcifications adjacent to the greater tuberosity. Findings are similar to November 2020 exam. XR/XR shoulder LT min 2V IMPRESSION: Arthritis. Soft tissue ossifications inferior to the coracoid process questionable for a loose bodies in the subcoracoid recess and faint soft tissue calcifications adjacent to the greater tuberosity suggestive of calcific tendinitis or bursitis.
== END 2022-08-04 11:54 | disposition home or self-care (01) ==
LOC: HO.XRAY 11:53
PROVIDERS: Visit Provider Nurse Practitioner Family
DX: M19.012 Primary osteoarthritis, left shoulder (principal)
CPT/HCPCS: 73030; 99212

== ENCOUNTER 2022-08-14 08:29 | Emergency (ER) | payer MEDICARE, MEDICAID, SELFPAY ==
[2022-08-14 08:54] VITALS: BP 140/88; PULSE 90; RESP 18; TEMP 36.7; O2SAT 97
[2022-08-14 09:12] LABS: MANUAL DIFF FLAG NO
[2022-08-14 09:14] LABS: Basophils Absolute Auto 0.1 X10*3/uL (0.0-0.2); Basophils Percent Auto 0.8 % (0-2); Eosinophils Absolute Auto 0.5 X10*3/uL (0.0-0.4); Eosinophils Percent Auto 6.1 % (0-4); Hematocrit 40.8 % (42.0-52.0); Hemoglobin 13.5 g/dl (14.0-18.0); Imm Gran Abs Auto 0.02 X10*3/uL (0.00-0.03); Imm Gran Pct Auto 0.3 % (0.0-0.4); Lymphocytes Absolute Auto 1.7 X10*3/uL (1.2-4.9); Lymphocytes Percent Auto 23.4 % (20-40); Mean Corpuscular HGB Conc 33.1 g/dl (31.0-36.0); Mean Corpuscular Hemoglobin 29.7 pg (27.0-33.0); Mean Corpuscular Volume 89.7 fL (80.0-98.0); Mean Platelet Volume 10.5 fL (9.4-12.4); Monocytes Absolute Auto 0.5 X10*3/uL (0.1-1.2); Monocytes Percent Auto 6.8 % (2-11); Neutrophils Absolute Auto 4.6 x10*3/uL (2.0-8.3); Neutrophils Percent Auto 62.6 % (45-73); Platelet Count 245 X10*3/uL (160-400); Red Blood Count 4.55 X10*6/uL (4.60-5.80); Red Cell Distribution Width 12.6 % (11.0-16.0); White Blood Count 7.4 X10*3/uL (4.8-10.8)
[2022-08-14 09:36] LABS: Alanine Aminotransferase 32 U/L (0-40); Albumin Level 4.1 g/dL (3.5-5.0); Alkaline Phosphatase 74 U/L (39-117); Anion Gap 13 (12-20); Aspartate Amino Transferase 22 U/L (5-37); Bilirubin Direct < 0.2 mg/dL (0.0-0.5); Bilirubin Total 0.3 mg/dL (0.0-1.0); Blood Urea Nitrogen 15 mg/dL (9-16); Calcium 9.4 mg/dL (8.4-10.2); Carbon Dioxide 26 mmol/L (22-29); Chloride 105 mmol/L (96-108); Creatinine Clr Calc Pharmacy 91.8; Estimated Glomerular Filt Rate > 60; Glucose Random 167 mg/dL (60-115); Lipase 25 U/L (8-78); Sodium 140 mmol/L (135-145); Total Protein 6.8 g/dL (6.5-8.0)
[2022-08-14 10:32] VITALS: BP 136/89; PULSE 79; RESP 20; TEMP 36.7; O2SAT 95
[2022-08-14 10:44] LABS: OBS Int Ctl Valid YES; OBS1 NEGATIVE (NEGATIVE)
--- NOTE | 2022-08-14 10:45 | ED.GIBLEED ---
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 Denies any fever, chills, shortness of breath, chest pain/palpitations, abdominal pain. Related Data Previous Rx's Medication Instructions Recorded pen needle, diabetic 29 gauge x See Rx Instructions .Route QID 30 09/06/20/2 (BD Ultra-Fine Original Pen days #200 ea Needle) lancets 28 gauge (FreeStyle See Rx Instructions .Route 09/27/20 Lancets) .COMPLEX for diabetes mellitus 30 days #100 strips blood sugar diagnostic (FreeStyle #100 ea 07/25/21 Lite Strips) insulin syringe-needle U-100 1 mL #100 ea 01/07/22 31 gauge x 01/05 metformin 1,000 mg tablet 1,000 mg PO BID #180 tabs 01/07/22 nystatin-triamcinolone 100,000 1 appl topical DAILY 10 days #30 01/07/22 unit/g-0.1 % topical cream grams clotrimazole-betamethasone 1 1 appl topical BID 2 weeks #45 02/04/22 %-0.05 % topical cream grams tamsulosin 0.4 mg capsule 0.4 mg PO DAILY #90 caps 03/18/22 oxycodone-acetaminophen 5 mg-325 1 tab PO Q4-6H PRN pain #30 tabs 03/24/22 mg tablet (Percocet) pyridoxine (vitamin B6) 100 mg 100 mg PO DAILY 90 days #90 tabs 05/22/22 tablet tadalafil 5 mg tablet 5 mg PO DAILY sexual activity 90 05/22/22 days #90 tabs Novolog Flexpen U-100 Insulin 100 12 unit (0.12 mL) subcut TID #15 mL 06/16/22 unit/mL (3 mL) subcutaneous (insulin aspart U-100) atorvastatin 10 mg tablet 10 mg PO DAILY #90 tabs 06/16/22 fluoxetine 20 mg capsule 40 mg PO QAM #180 caps 06/16/22 insulin detemir U-100 100 unit/mL 60 unit (0.6 mL) subcut BEDTIME 06/16/22 subcutaneous solution (Levemir #20 mL U-100 Insulin) dicyclomine 20 mg tablet 20 mg PO TID #270 tabs 07/13/22 lisinopril 20 mg tablet 20 mg PO DAILY #90 tabs 07/18/22 zolpidem 10 mg tablet 10 mg PO BEDTIME PRN insomnia #30 07/18/22 tabs meloxicam 15 mg tablet 15 mg PO DAILY PRN pain (scale 08/04/22 score 7-10) 30 days #30 tabs Allergies Allergy/AdvReac Type Severity Reaction Status Date / Time peanuts Allergy Intermediate shortness Verified 08/04/22 11:07 of breath, throat swelling Review of Systems Review of Systems: Pertinent positives and negatives as stated in HPI 10 point review of systems is otherwise negative. [facility] Past Medical History Source: nursing notes reviewed Medical History Acquired deformity of toenail BPH (benign prostatic hyperplasia) Chronic insomnia Depression Diabetes mellitus type 2 with retinopathy Diabetes mellitus with complication, with long-term current use of insulin Dyslipidemia HTN (hypertension) Left nephrolithiasis Lumbosacral radiculopathy due to degenerative joint disease of spine Osteoarthritis involving multiple joints on both sides of body Primary osteoarthritis of right knee Primary osteoarthritis, left shoulder Trigger finger of right hand Surgical History H/O colonoscopy History of left inguinal hernia repair (03/24/22) History of testicular surgery Hx of lithotripsy Umbilical hernia Family History Family History Father CVD (cardiovascular disease) Mother Unknown family medical history Social History Social History Housing: Apartment Alcohol intake: current Alcohol intake frequency: a few times a week Alcohol type: beer Patient Tobacco Use Status: Former Tobacco user Tobacco use type: Cigarette e-Cigarette/Vaping Use: Never Used Second Hand Smoke Exposure: No Use of substances other than those prescribed or required for medical reasons: No Advance Directives: No service: No Current occupational status: employed 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 GENERAL: Well developed, well nourished, in no acute distress. HEAD: Normocephalic/atraumatic EYES: PERRLA, EOMI, no pallor conjunctiva EARS: Ext canals without abnormality OROPHARYNX: no oral lesions noted, posterior pharynx clear LUNGS: Normal breath sounds. No adventitious sounds or accessory muscle use. SpO2<95> CARDIOVASCULAR: Regular rate and rhythm without noted murmurs ABDOMEN: Soft, non-tender, non-distended with bowel sounds. NASIM: Noninflamed external hemorrhoid noted at 06:00 o'clock position, small amount of soft stool in the rectal vault, no gross blood but stool is dark in nature, good rectal tone MUSCULOSKELETAL: No tenderness, deformities, or effusions noted on gross inspection. EXTREMITIES: No cyanosis, clubbing or edema. SKIN: Inspection of the skin reveals no rashes, no pallor NEUROLOGIC: Alert and oriented x 4. Strength and sensation to light touch were grossly intact x 4. Medical Decision Making Medical Decision Making [facility] Narrative: 61-year-old male with history and clinical presentation suggestive melena and epigastric pain both likely attributable to patient's use of alcohol in NSAIDs. Differential Diagnosis Differential Diagnoses: The differential diagnosis associated with the presentation includes Melena, upper GI bleed Lab Data [facility] Lab Attestation statement: I reviewed the patient's lab results. I reviewed all laboratory investigations that demonstrate a chronically stable hemoglobin, guaiac is negative, and suspect gastritis from NSAID and alcohol use. Patient was provided with a GI cocktail and was instructed follow-up with primary care provider for re-evaluation and further outpatient management and instructed to minimize the amount NSAIDs that he is using. Result Diagrams: 08/14/22 09:08 08/14/22 09:08 Labs: Lab Results 08/14/22 08/14/22 08/14/22 Range/Units 09:08 09:08 10:38 WBC 7.4 (4.8-10.8) X10*3/uL RBC 4.55 L (4.60-5.80) X10*6/uL Hgb 13.5 L (14.0-18.0) g/dl Hct 40.8 L (42.0-52.0) % MCV 89.7 (80.0-98.0) fL MCH 29.7 (27.0-33.0) pg MCHC 33.1 (31.0-36.0) g/dl RDW 12.6 (11.0-16.0) % Plt Count 245 (160-400) X10*3/uL MPV 10.5 (9.4-12.4) fL Immature Gran % (Auto) 0.3 (0.0-0.4) % Neut % (Auto) 62.6 (45-73) % Lymph % (Auto) 23.4 (20-40) % Chase % (Auto) 6.8 (2-11) % Eos % (Auto) 6.1 H (0-4) % Baso % (Auto) 0.8 (0-2) % Lymph # (Auto) 1.7 (1.2-4.9) X10*3/uL Chase # (Auto) 0.5 (0.1-1.2) X10*3/uL Eos # (Auto) 0.5 H (0.0-0.4) X10*3/uL Baso # (Auto) 0.1 (0.0-0.2) X10*3/uL Abs Immat Gran (auto) 0.02 (0.00-0.03) X10*3/uL Absolute Neuts (auto) 4.6 (2.0-8.3) x10*3/uL Absolute Nucleated RBC 0.000 (0.0-0.012) X10*3/uL Nucleated RBC % (auto) 0.0 (0.0-0.2) /100WBC Sodium 140 (135-145) mmol/L Potassium 4.0 D (3.3-5.1) mmol/L Chloride 105 (96-108) mmol/L Carbon Dioxide 26 (22-29) mmol/L Anion Gap 13 (12-20) BUN 15 (9-16) mg/dL Creatinine 0.89 (0.5-1.4) mg/dL Estim Creat Clear Calc 91.8 Estimated GFR > 60 Random Glucose 167 H (60-115) mg/dL Calcium 9.4 (8.4-10.2) mg/dL Total Bilirubin 0.3 (0.0-1.0) mg/dL Direct Bilirubin < 0.2 (0.0-0.5) mg/dL AST 22 (5-37) U/L ALT 32 (0-40) U/L Alkaline Phosphatase 74 (39-117) U/L Total Protein 6.8 (6.5-8.0) g/dL Albumin 4.1 (3.5-5.0) g/dL Lipase 25 (8-78) U/L Stool Occult Blood NEGATIVE (NEGATIVE) Chronic Conditions Patient?s care impacted by: Diabetes Critical Care Time Critical Care Time Critical Care Time: Yes Total Critical Care Time: 30 Attestation: I personally attest to this time spent taking care of the patient. Discharge Plan Discharge Clinical Impression: Gastritis, Diabetes Patient Disposition: Home, Self-Care Instructions: Diabetes and Nutrition (ED), Diet for Stomach Ulcers and Gastritis (ED), Gastritis (ED) Additional Instructions: 1. Reanudar todos los medicamentos caseros seg?n lo prescrito. 2. Recomendar la reducci?n del uso de KENJI (ibuprofeno/Motrin/naproxeno/aspirina/Aleve). 3. Recomiende medicamentos anti?cidos de venta glenny salo Zantac o Pepcid 4. Oj un seguimiento con bullard proveedor de atenci?n primaria en los pr?ximos 2 a 3 d?as para homero reevaluaci?n. Regrese a la lizzy de emergencias si los s?ntomas empeoran. 1. Resume all home medications as prescribed. 2. Recommend reduction in NSAID use (ibuprofen/Motrin/naproxen/aspirin/Aleve). 3. Recommend nept-trm-ftavzqz anti acid medications such as Zantac or Pepcid 4. Follow-up with your primary care provider in the next 2-3 days for re-evaluation. Return to the ER for worsening symptoms. Prescriptions: No Action pen needle, diabetic [BD Ultra-Fine Orig Pen Needle] 29 gauge x 1/2 needle See Rx Instructions .ROUTE QID 30 Days Qty: 200 6RF Rx Instructions: use as directed 4 times a day, before meals and at bedtime lancets [FreeStyle Lancets] 28 gauge misc See Rx Instructions .ROUTE .COMPLEX 30 Days Qty: 100 6RF Rx Instructions: Check blood sugar t.i.d. a.c. in-vitro; (DME) FreeStyle Lite Strips Strip See Rx Instructions .ROUTE .MEDSUPPLY Qty: 100 8RF Rx Instructions: check fasting blood sugar twice a day before meals metformin 1,000 mg tablet 1,000 mg PO BID Qty: 180 2RF clotrimazole-betamethasone 1-0.05 % cream 1 appl topical BID 14 Days Qty: 45 0RF tamsulosin 0.4 mg capsule 0.4 mg PO DAILY Qty: 90 0RF atorvastatin 10 mg tablet 10 mg PO DAILY Qty: 90 1RF fluoxetine 20 mg capsule 40 mg PO QAM Qty: 180 3RF Levemir U-100 Insulin 100 unit/mL solution 60 unit subcut BEDTIME Qty: 20 5RF insulin aspart U-100 [Novolog Flexpen U-100 Insulin] 100 unit/mL (3 mL) insulin pen 12 unit subcut TID Qty: 15 0RF dicyclomine 20 mg tablet 20 mg PO TID Qty: 270 1RF lisinopril 20 mg tablet 20 mg PO DAILY Qty: 90 0RF zolpidem 10 mg tablet 10 mg PO BEDTIME PRN (Reason: insomnia) Qty: 30 0RF oxycodone-acetaminophen [Percocet] 5-325 mg tablet 1 tab PO Q4-6H PRN (Reason: pain) Qty: 30 0RF Rx Instructions: Partial Fill upon patient request. (DME) insulin syringe-needle U-100 1 mL 31 gauge x 5/16 syringe See Rx Instructions .ROUTE .MEDSUPPLY Qty: 100 3RF Rx Instructions: Use to inject insulin once a day nystatin-triamcinolone 100,000-0.1 unit/g-% cream 1 appl topical DAILY 10 Days Qty: 30 0RF tadalafil 5 mg tablet 5 mg PO DAILY 90 Days Qty: 90 0RF pyridoxine (vitamin B6) 100 mg tablet 100 mg PO DAILY 90 Days Qty: 90 1RF meloxicam 15 mg tablet 15 mg PO DAILY PRN (Reason: pain (scale score 7-10)) 30 Days Qty: 30 0RF Referrals: Rocio Morgan MD [Primary Care Provider] - Print Language: Persian
[2022-08-14] MEDS: Magnesium Hydrox/Alum Hydrox 30 ML ORAL.SUSP PO (11:32)
[2022-08-14] MEDS: Lidocaine HCl Viscous 2 % 15 ML SOLUTION 10 ML MUCOUS MEM (11:32)
== END 2022-08-14 12:09 | disposition home or self-care (01) ==
PROVIDERS: Emergency Provider Student in an Organized Health Care Education/Training Program; PCP Internal Medicine
DX: K29.70 Gastritis, unspecified, without bleeding (principal); E11.9 Type 2 diabetes mellitus without complications; R10.13 Epigastric pain; Z79.4 Long term (current) use of insulin; Z79.899 Other long term (current) drug therapy
CPT/HCPCS: 36415; 80048; 80076; 82272; 83690; 85025; 99283; 99284

== ENCOUNTER → 2022-08-25 15:16 | Outpatient (BNVA) | payer MEDICARE, MEDICAID, SELFPAY | PROVIDERS: PCP Internal Medicine; Visit Provider Urology | DX: N32.0 Bladder-neck obstruction (principal); N52.1 Erectile dysfunction due to diseases classified elsewhere; N20.0 Calculus of kidney; N40.1 Benign prostatic hyperplasia with lower urinary tract symptoms; N13.8 Other obstructive and reflux uropathy; E11.69 Type 2 diabetes mellitus with other specified complication; E11.319 Type 2 diabetes mellitus with unspecified diabetic retinopathy without macular edema; Z79.4 Long term (current) use of insulin; Z79.899 Other long term (current) drug therapy | CPT/HCPCS: 51798; 99212 ==

== ENCOUNTER 2022-08-28 11:53 | Outpatient (REF) | payer MEDICARE, MEDICAID, SELFPAY ==
[2022-08-28 14:24] LABS: Estimated Average Glucose 157 mg/dL; Hemoglobin A1c % 7.1 %
[2022-08-28 14:26] LABS: Alanine Aminotransferase 31 U/L (0-40); Anion Gap 14 (12-20); Aspartate Amino Transferase 19 U/L (5-37); Blood Urea Nitrogen 17 mg/dL (9-16); Calcium 9.6 mg/dL (8.4-10.2); Carbon Dioxide 27 mmol/L (22-29); Chloride 105 mmol/L (96-108); Cholesterol 101 mg/dL; Estimated Glomerular Filt Rate > 60; Glucose Fasting 205 mg/dL (60-99); HDL Cholesterol 32 mg/dL; LDL Cholesterol Calculated 55 mg/dl; Potassium 4.5 mmol/L (3.3-5.1); Sodium 141 mmol/L (135-145); Triglycerides 74 mg/dL
[2022-08-28 14:46] LABS: Prostate Specific Antigen 0.87 ng/mL (<0.05-4.0)
[2022-08-28 14:57] LABS: TSH reflex Free T4 0.63 uIU/mL (0.32-4.0); Vitamin D 25-OH Total 21.2 ng/mL (>30)
== END 2022-08-28 11:54 | disposition home or self-care (01) ==
LOC: HO.HMGCLDS 11:53
PROVIDERS: Urology; PCP Internal Medicine; Visit Provider Internal Medicine
DX: Z12.5 Encounter for screening for malignant neoplasm of prostate (principal); N32.0 Bladder-neck obstruction; N52.1 Erectile dysfunction due to diseases classified elsewhere; E11.319 Type 2 diabetes mellitus with unspecified diabetic retinopathy without macular edema; E78.5 Hyperlipidemia, unspecified; I10 Essential (primary) hypertension; L60.8 Other nail disorders; Z79.4 Long term (current) use of insulin; E11.69 Type 2 diabetes mellitus with other specified complication
CPT/HCPCS: 36415; 80048; 80061; 82043; 82306; 83036; 84153; 84443; 84450; 84460

== ENCOUNTER 2022-09-02 06:01 | Outpatient (REF) | payer MEDICARE, MEDICAID, SELFPAY ==
--- NOTE | ~2022-09-02 | FL_ITS ---
EXAMINATION: XR FLUOROSCOPY WITH IMAGES CLINICAL INFORMATION: M19.012 - Primary osteoarthritis, left shoulder. COMPARISON: Left shoulder radiographs 08/04/2022 TECHNIQUE: Fluoroscopy Supervised By: Dr. Zhang Gama. Fluoroscopy Time: 0.3 minutes. Cumulative Dose: 3.17 mGy. DAP: 0.365 Gycm2. Images: 1. FINDINGS: There is a needle with tip overlying the mid posterior left glenoid. There are degenerative changes again seen glenohumeral joint with associated loose bodies. FL/FL guidance in treatment room IMPRESSION: Fluoroscopy for pain management procedure.
== END 2022-09-02 06:02 | disposition home or self-care (01) ==
LOC: CF 06:01
PROVIDERS: Visit Provider Internal Medicine
DX: M19.012 Primary osteoarthritis, left shoulder (principal)
CPT/HCPCS: 64417; 64418

== ENCOUNTER → 2022-09-04 08:30 | Outpatient (BNVA) | payer MEDICARE, MEDICAID, SELFPAY | PROVIDERS: PCP Internal Medicine; Visit Provider Nurse Practitioner Family | DX: M19.012 Primary osteoarthritis, left shoulder (principal) | CPT/HCPCS: Q3014 ==

== ENCOUNTER → 2022-09-21 13:08 | Outpatient (BNVA) | payer MEDICARE, MEDICAID, SELFPAY | PROVIDERS: PCP Internal Medicine; Visit Provider Internal Medicine | DX: D64.9 Anemia, unspecified (principal); R10.13 Epigastric pain; K29.60 Other gastritis without bleeding; T39.395A Adverse effect of other nonsteroidal anti-inflammatory drugs [NSAID], initial encounter | CPT/HCPCS: 99202 ==

== ENCOUNTER 2022-09-22 12:19 | Outpatient (REF) | payer MEDICARE, MEDICAID, SELFPAY ==
[2022-09-22 14:20] LABS: Iron 68 mcg/dL (45-160); Percent Iron Saturation 23 % (15-50); Total Iron Binding Capacity 295 mcg/dL (228-428); Unsaturated Iron Binding 227 ug/dL
[2022-09-22 14:37] LABS: Ferritin 65 ng/mL (20-250)
[2022-09-24 12:53] LABS: Immunoglobulin A 437 mg/dL (70-320)
[2022-09-24 22:24] LABS: Transglutaminase IgA <1.0 U/mL
== END 2022-09-22 12:20 | disposition home or self-care (01) ==
LOC: HO.10HDL 12:19
PROVIDERS: Visit Provider Internal Medicine
DX: D64.9 Anemia, unspecified (principal)
CPT/HCPCS: 36415; 82728; 82784; 83540; 86364

== ENCOUNTER → 2022-10-27 13:00 | Outpatient (BNVA) | payer MEDICARE, MEDICAID, SELFPAY | PROVIDERS: PCP Internal Medicine; Visit Provider Urology | DX: N20.0 Calculus of kidney (principal); E11.69 Type 2 diabetes mellitus with other specified complication; N52.1 Erectile dysfunction due to diseases classified elsewhere; N32.0 Bladder-neck obstruction | CPT/HCPCS: 51798; 99212 ==

== ENCOUNTER 2022-10-30 08:42 | Emergency (ER) | payer MEDICARE, MEDICAID, SELFPAY ==
[2022-10-30 08:45] VITALS: BP 130/71; PULSE 90; RESP 16; TEMP 36.3; O2SAT 95
--- NOTE | 2022-10-30 09:11 | ED_ITS ---
HPI - General Adult General Chief complaint: Ear Problems Stated complaint: L ear pain Time Seen by Provider: 10/30/22 09:11 Source: patient and family () Mode of arrival: ambulatory Limitations: no limitations History of Present Illness HPI narrative: Patient is a 62 year old assigned male at with a history of DM presenting to the emergency department today with left ear pain. Patient states that he has been having left sided ear pain intermittently for a month. Patient denies any dizziness, lightheadedness, abdominal pain, nausea, vomiting, fever, chills, blurry vision, double vision, loss of vision, chest pain, difficulty breathing, shortness of breath, back pain, night sweats, pain with urination, increased urinary frequency, increased urinary urgency, blood in his urine or stool, syncope or a near syncopal episode, recent trauma or falls, bowel incontinence, bladder incontinence, bowel retention, bladder retention, or any other complaints at this time. Onset (ago): month(s) (1) Location: left (ear) Radiation: non-radiation Severity: mild Severity scale (1-10): 2 Quality: dull Pain Consistency: constant Relieving factors: none Exacerbating factors: none Associated symptoms: denies other symptoms Treatments prior to arrival: none Related Data Home Medications Medication Instructions Recorded Confirmed methocarbamol 500 mg tablet mg PO 10/27/22 Previous Rx's Medication Instructions Recorded pen needle, diabetic 29 gauge x See Rx Instructions .Route QID 30 09/06/20 1/2 (BD Ultra-Fine Original Pen days #200 ea Needle) lancets 28 gauge (FreeStyle See Rx Instructions .Route 09/27/20 Lancets) .COMPLEX for diabetes mellitus 30 days #100 strips insulin syringe-needle U-100 1 mL #100 ea 01/07/22 31 gauge x 01/05 metformin 1,000 mg tablet 1,000 mg PO BID #180 tabs 01/07/22 nystatin-triamcinolone 100,000 1 appl topical DAILY 10 days #30 01/07/22 unit/g-0.1 % topical cream grams clotrimazole-betamethasone 1 1 appl topical BID 2 weeks #45 02/04/22 %-0.05 % topical cream grams pyridoxine (vitamin B6) 100 mg 100 mg PO DAILY 90 days #90 tabs 05/22/22 tablet Novolog FlexPen U-100 Insulin 100 12 unit (0.12 mL) subcut TID #15 mL 06/16/22 unit/mL (3 mL) subcutaneous (insulin aspart U-100) atorvastatin 10 mg tablet 10 mg PO DAILY #90 tabs 06/16/22 fluoxetine 20 mg capsule 40 mg PO QAM #180 caps 06/16/22 insulin detemir U-100 100 unit/mL 60 unit (0.6 mL) subcut BEDTIME 06/16/22 subcutaneous solution (Levemir #20 mL U-100 Insulin) dicyclomine 20 mg tablet 20 mg PO TID #270 tabs 07/13/22 lisinopril 20 mg tablet 20 mg PO DAILY #90 tabs 07/18/22 tadalafil 5 mg tablet 5 mg PO DAILY sexual activity 90 08/25/22 days #90 tabs terazosin 10 mg capsule 10 mg PO BEDTIME 90 days #90 caps 08/25/22 omeprazole 40 mg capsule,delayed 40 mg PO BID 6 weeks #84 caps 09/21/22 release peg 3350-electrolytes 236 240 ml PO Q10M colonoscopy #4,000 09/21/22 gram-22.74 gram-6.74 gram-5.86 mL gram solution (Vincenzo) blood sugar diagnostic (FreeStyle #100 ea 10/15/22 Lite Strips) meloxicam 15 mg tablet 15 mg PO DAILY PRN for pain #30 10/15/22 tabs zolpidem 10 mg tablet 10 mg PO BEDTIME PRN insomnia #30 10/15/22 tabs amoxicillin 875 mg-potassium 1 tab PO BID 7 days #14 tabs 10/30/22 clavulanate 125 mg tablet Allergies Allergy/AdvReac Type Severity Reaction Status Date / Time peanut Allergy Intermediate Shortness Verified 10/27/22 13:09 of Breath, throat swelling Review of Systems Constitutional: Constitutional: Reports no additional constitutional complaints, Denies chills, Denies fever(s) and Denies night sweats Eyes: Eyes: Reports no additional eye complaints, Denies blurry vision, Denies change in vision, Denies diplopia, Denies eye discharge, Denies loss of vision and Denies eye pain ENT: Denies dizziness Comments: left ear pain Cardiovascular: Cardiovascular: Reports no additional cardiovascular complaints, Denies chest pain, Denies lightheadedness, Denies Loss of Consciousness and Denies dyspnea Respiratory: Respiratory: Reports no additional respiratory complaints and Denies dyspnea Gastrointestinal: Gastrointestinal: Reports no additional gastrointestinal complaints, Denies abdominal pain, Denies melena, Denies hematochezia, Denies change in bowel habits and Denies change in stool character Genitourinary: Genitourinary: Reports no additional male genitourinary complaints, Denies hematuria, Denies oliguria, Denies difficulty urinating, Denies dysuria, Denies urinary frequency, Denies urinary hesitancy, Denies urinary incontinence and Denies urinary urgency Musculoskeletal: Musculoskeletal: Reports no additional musculoskeletal complaints, Denies numbness and Denies tingling Neurologic: Denies dizziness, Denies loss of vision, Denies numbness and Denies tingling Psychiatric: Psychiatric: Reports no additional psychiatric complaints Endocrine: Endocrine: Reports no additional endocrine complaints Hematologic/Lymphatic: Hematologic/Lymphatic: Reports no additional hematologic/lymphatic complaints Allergic/Immunologic: Allergic/Immunologic: Reports no additional allergic/immunologic complaints PMF Past Medical History Attestation statement: The following information was validated with the patient. Source: old records reviewed and nursing notes reviewed Medical History Acquired deformity of toenail BPH (benign prostatic hyperplasia) Chronic insomnia Depression Diabetes mellitus type 2 with retinopathy Diabetes mellitus with complication, with long-term current use of insulin Dyslipidemia History of GI bleed HTN (hypertension) Left nephrolithiasis Lumbosacral radiculopathy due to degenerative joint disease of spine Normocytic normochromic anemia Osteoarthritis involving multiple joints on both sides of body Postprandial epigastric pain Primary osteoarthritis of right knee Primary osteoarthritis, left shoulder Trigger finger of right hand Surgical History H/O colonoscopy History of left inguinal hernia repair (03/24/22) History of testicular surgery Hx of lithotripsy Umbilical hernia Family History Family History Father CVD (cardiovascular disease) Mother Unknown family medical history Social History Social History Housing: Apartment Alcohol intake: current Alcohol intake frequency: a few times a week Alcohol type: beer Patient Tobacco Use Status: Former Tobacco user Tobacco use type: Cigarette e-Cigarette/Vaping Use: Never Used Second Hand Smoke Exposure: No service: No Current occupational status: employed 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 Cognitive needs: No Hearing needs: No Vision needs: Yes Physical Exam ED Vital Signs: Vital Signs - 24 hr 10/30/22 08:45 Temperature 97.4 F Pulse Rate 90 Respiratory Rate 16 Blood Pressure 130/71 Pulse Oximetry 95 Oxygen Delivery Method Room Air BMI result Body Mass Index 30.0 Const General: cooperative, no acute distress, alert and awake Nutritional Appearance: well nourished Orientation/consciousness: patient oriented x3 Limitations: no limitations HENMT Head: Yes normal to inspection and Yes atraumatic Ears: hearing grossly normal bilaterally, external ears normal and TM abnormal erythematous on the left General nose exam: Normal external nose present, no nasal discharge noted and no epistaxis Face and sinus: Yes normal facial exam, No abrasion and No laceration Mouth: Normal oral and palatal mucosa present, no drooling and no muffled voice Eyes General: appearance normal, both eyes and all related structures Periorbital: periorbital findings normal Eyelids: Yes eyelids normal Conjunctivae: conjunctivae normal Pupils: Equal, round and reactive pupils present EOM: EOMs intact bilaterally Neck Neck: Yes normal visual inspection, Yes full ROM and Yes no lymphadenopathy Chest Chest palpation & inspection: normal inspection of the chest Resp Effort & Inspection: normal respiratory effort and able to speak in complete sentences Auscultation: clear to auscultation bilaterally Cardio Rate: regular rate Rhythm: regular rhythm GI Inspection: Yes normal to inspection Palpation (GI): Soft to palpation, not firm, nontender, no guarding and not rigid Neuro General: patient oriented x3 and moves all extremities Cranial nerves: Yes Equal, round and reactive pupils present Cognition (Neuro): normal cognition Motor exam (neuro): 5/5 motor strength present throughout Sensory Exam: Normal double simultaneous stimulation for sensation Coordination: [id number] test normal Extrem General: Yes normal to inspection, Yes full ROM and Yes capillary refill normal Psych Appearance: grossly normal Mental Status: mental status grossly normal Affect: normal affect Attitude: cooperative Thought process: Normal thought process present Thought content: Normal thought content present Insight: Good insight present (Psych) Medical Decision Making Medical Decision Making MDM Narrative: Patient is a 62 year old assigned male at with a history of DM presenting to the emergency department today with left ear pain. Patient's physical exam showed left sided TM erythema. I explained my physical exam findings to the patient. I answered all questions asked by the patient and the patient's . I stressed the importance of the patient taking his medication as prescribed. I stressed the importance of the patient following up with his primary care provider and an ENT. I stressed the importance of the patient returning to the emergency department immediately if his symptoms were to worsen or if he were to develop any dizziness, shortness of breath, difficulty breathing, chest pain, blurry vision, loss of vision, nausea, vomiting, abdominal pain, fever, chills, back pain, or any other complaints. Patient and the patient's verbalized agreement and understanding with this treatment plan and discharge. Differential Diagnosis Differential Diagnoses: The differential diagnosis associated with the presentation includes left ear pain, otitis media Independent Historian Clinical information obtained from an independent historian. History obtained from or confirmed by: Spouse Discharge Plan Discharge Clinical Impression: Otitis media Patient Disposition: Home, Self-Care Instructions: Ear Infection (ED) Additional Instructions: Follow up with your primary care provider. Return to the emergency department immediately if your symptoms worsen or if you develop any dizziness, shortness of breath, difficulty breathing, chest pain, blurry vision, loss of vision, nausea, vomiting, abdominal pain, fever, chills, back pain, or any other complaints. Prescriptions: New amoxicillin-pot clavulanate 875-125 mg tablet 1 tab PO BID 7 Days Qty: 14 0RF No Action pen needle, diabetic [BD Ultra-Fine Orig Pen Needle] 29 gauge x 1/2 needle See Rx Instructions .ROUTE QID 30 Days Qty: 200 6RF Rx Instructions: use as directed 4 times a day, before meals and at bedtime lancets [FreeStyle Lancets] 28 gauge misc See Rx Instructions .ROUTE .COMPLEX 30 Days Qty: 100 6RF Rx Instructions: Check blood sugar t.i.d. a.c. in-vitro; metformin 1,000 mg tablet 1,000 mg PO BID Qty: 180 2RF clotrimazole-betamethasone 1-0.05 % cream 1 appl topical BID 14 Days Qty: 45 0RF atorvastatin 10 mg tablet 10 mg PO DAILY Qty: 90 1RF fluoxetine 20 mg capsule 40 mg PO QAM Qty: 180 3RF Levemir U-100 Insulin 100 unit/mL solution 60 unit subcut BEDTIME Qty: 20 5RF insulin aspart U-100 [Novolog FlexPen U-100 Insulin] 100 unit/mL (3 mL) insulin pen 12 unit subcut TID Qty: 15 0RF dicyclomine 20 mg tablet 20 mg PO TID Qty: 270 1RF lisinopril 20 mg tablet 20 mg PO DAILY Qty: 90 0RF (DME) FreeStyle Lite Strips Strip See Rx Instructions .ROUTE .MEDSUPPLY Qty: 100 8RF Rx Instructions: check fasting blood sugar twice a day before meals meloxicam 15 mg tablet 15 mg PO DAILY PRN (Reason: for pain) Qty: 30 0RF zolpidem 10 mg tablet 10 mg PO BEDTIME PRN (Reason: insomnia) Qty: 30 0RF (DME) insulin syringe-needle U-100 1 mL 31 gauge x 5/16 syringe See Rx Instructions .ROUTE .MEDSUPPLY Qty: 100 3RF Rx Instructions: Use to inject insulin once a day nystatin-triamcinolone 100,000-0.1 unit/g-% cream 1 appl topical DAILY 10 Days Qty: 30 0RF pyridoxine (vitamin B6) 100 mg tablet 100 mg PO DAILY 90 Days Qty: 90 1RF methocarbamol 500 mg tablet PO omeprazole 40 mg capsule,delayed release(DR/EC) 40 mg PO BID 42 Days Qty: 84 0RF peg 3350-electrolytes [Golytely] 236-22.74-6.74 -5.86 gram recon soln 240 ml PO Q10M Qty: 4000 0RF Rx Instructions: as per split prep instructions, until fecal effluent is clear tadalafil 5 mg tablet 5 mg PO DAILY 90 Days Qty: 90 1RF terazosin 10 mg capsule 10 mg PO BEDTIME 90 Days Qty: 90 1RF Referrals: Rocio Morgan MD [Primary Care Provider] - Jf Zhao [Physician] - (Call to establish and follow up with an ENT. ) Stand Alone Forms: Work/School Release Interventions: ED Discharge Assessment Last Done: 10/30/22 10:04 Discharge Date/Time: 10/30/22 10:04 Print Language: Belarusian
== END 2022-10-30 10:04 | disposition home or self-care (01) ==
PROVIDERS: Emergency Provider Emergency Medicine; PCP Internal Medicine
DX: H92.02 Otalgia, left ear (principal); E11.9 Type 2 diabetes mellitus without complications; I10 Essential (primary) hypertension; Z79.4 Long term (current) use of insulin
CPT/HCPCS: 99282; 99283

== ENCOUNTER 2022-12-29 10:11 | Outpatient (REF) | payer MEDICARE, MEDICAID, SELFPAY ==
[2022-12-29 11:13] LABS: MANUAL DIFF FLAG NO
[2022-12-29 11:30] LABS: Basophils Absolute Auto 0.1 X10*3/uL (0.0-0.2); Basophils Percent Auto 0.8 % (0-2); Eosinophils Absolute Auto 0.4 X10*3/uL (0.0-0.4); Eosinophils Percent Auto 6.5 % (0-4); Hematocrit 41.4 % (42.0-52.0); Hemoglobin 13.9 g/dl (14.0-18.0); Imm Gran Abs Auto 0.02 X10*3/uL (0.00-0.03); Imm Gran Pct Auto 0.3 % (0.0-0.4); Lymphocytes Absolute Auto 1.7 X10*3/uL (1.2-4.9); Lymphocytes Percent Auto 26.3 % (20-40); Mean Corpuscular HGB Conc 33.6 g/dl (31.0-36.0); Mean Corpuscular Hemoglobin 30.7 pg (27.0-33.0); Mean Corpuscular Volume 91.4 fL (80.0-98.0); Mean Platelet Volume 11.1 fL (9.4-12.4); Monocytes Absolute Auto 0.5 X10*3/uL (0.1-1.2); Monocytes Percent Auto 7.6 % (2-11); Neutrophils Absolute Auto 3.7 x10*3/uL (2.0-8.3); Neutrophils Percent Auto 58.5 % (45-73); Platelet Count 243 X10*3/uL (160-400); Red Blood Count 4.53 X10*6/uL (4.60-5.80); Red Cell Distribution Width 12.5 % (11.0-16.0); White Blood Count 6.3 X10*3/uL (4.8-10.8)
[2022-12-29 12:15] LABS: Estimated Average Glucose 143 mg/dL; Hemoglobin A1c % 6.6 %
[2022-12-29 12:45] LABS: Ferritin 38 ng/mL (20-250)
[2022-12-29 12:46] LABS: Anion Gap 13 (12-20)
[2022-12-29 12:51] LABS: Alanine Aminotransferase 24 U/L (0-40); Aspartate Amino Transferase 19 U/L (5-37); Blood Urea Nitrogen 24 mg/dL (9-16); Calcium 9.4 mg/dL (8.4-10.2); Carbon Dioxide 27 mmol/L (22-29); Chloride 107 mmol/L (96-108); Cholesterol 129 mg/dL; Estimated Glomerular Filt Rate > 60; Glucose Fasting 120 mg/dL (60-99); HDL Cholesterol 37 mg/dL; Iron 70 mcg/dL (45-160); LDL Cholesterol Calculated 75 mg/dl; Percent Iron Saturation 25 % (15-50); Potassium 4.7 mmol/L (3.3-5.1); Sodium 142 mmol/L (135-145); Total Iron Binding Capacity 280 mcg/dL (228-428); Triglycerides 86 mg/dL; Unsaturated Iron Binding 210 ug/dL
[2022-12-29 12:53] LABS: Microalbum/Creatinine Ratio Ur 5.2 ug/mg cr
== END 2022-12-29 10:12 | disposition home or self-care (01) ==
LOC: HO.HMGCLDS 10:11
PROVIDERS: PCP Internal Medicine; Visit Provider Internal Medicine
DX: R10.13 Epigastric pain (principal); I10 Essential (primary) hypertension; D64.9 Anemia, unspecified; E11.319 Type 2 diabetes mellitus with unspecified diabetic retinopathy without macular edema; E78.5 Hyperlipidemia, unspecified; Z79.4 Long term (current) use of insulin; Z87.19 Personal history of other diseases of the digestive system; N32.0 Bladder-neck obstruction
CPT/HCPCS: 36415; 52000; 80048; 80061; 82043; 82728; 83036; 83540; 84450; 84460; 85025; 99212

== ENCOUNTER 2023-01-14 06:21 | Day surgery (SDC) | payer MEDICARE, MEDICAID, SELFPAY ==
[2023-01-12 12:03] VITALS: BMI 31.5
--- NOTE | 2023-01-13 10:36 | HO.ANESPROP2 ---
HPI - Anesthesia Eval Consult details Narrative: 62yo M for Upper Endoscopy and Colonoscopy [facility] Active Problems Active Problems: All Active Problems (Updated 12/31/22 @ 16:37 by Rocio Morgan MD) Positional lightheadedness (Acute) NSAID induced gastritis (Acute) Normocytic normochromic anemia (Acute) Postprandial epigastric pain (Acute) History of GI bleed (Acute) Left shoulder pain (Acute) Primary osteoarthritis, left shoulder (Acute) Nephrolithiasis (Acute) Bladder outlet obstruction (Acute) Erectile dysfunction associated with type 2 diabetes mellitus (Acute) Acquired deformity of toenail (Acute) HTN (hypertension) (Acute) Dyslipidemia (Acute) Diabetes mellitus type 2 with retinopathy (Acute) Diabetes mellitus with complication, with long-term current use of insulin (Acute) Past Medical History Medical History Acquired deformity of toenail BPH (benign prostatic hyperplasia) Chronic insomnia Depression Diabetes mellitus type 2 with retinopathy Diabetes mellitus with complication, with long-term current use of insulin Dyslipidemia History of GI bleed HTN (hypertension) Left nephrolithiasis Lumbosacral radiculopathy due to degenerative joint disease of spine Normocytic normochromic anemia Osteoarthritis involving multiple joints on both sides of body Positional lightheadedness Postprandial epigastric pain Primary osteoarthritis of right knee Primary osteoarthritis, left shoulder Trigger finger of right hand Family History Family History Father CVD (cardiovascular disease) Mother Unknown family medical history Family history of problems with anesthesia: No Surgical History Surgical History History of esophagogastroduodenoscopy (EGD) History of left inguinal hernia repair (03/24/22) History of testicular surgery Hx of colonoscopy Hx of lithotripsy Umbilical hernia History of Problems with Anesthesia: No Social History Social History Housing: Apartment Alcohol intake: current Alcohol intake frequency: a few times a week Alcohol type: beer Patient Tobacco Use Status: Former Tobacco user Quit Date: 30 yr ago Tobacco use type: Cigarette e-Cigarette/Vaping Use: Never Used Second Hand Smoke Exposure: No service: No Current occupational status: employed 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 Cognitive needs: No Hearing needs: No Vision needs: Yes Meds Allergies Allergy/AdvReac Type Severity Reaction Status Date / Time peanut Allergy Intermediate Shortness Verified 01/25/23 11:22 of Breath, throat swelling Home Medications Medication Instructions Recorded Confirmed Last Taken Type methocarbamol 500 mg tablet 500 mg PO BID 10/27/22 01/14/23 Unknown History fluoxetine 20 mg capsule (Prozac) 40 mg PO QAM 01/14/23 01/14/23 Unknown History dicyclomine 20 mg tablet mg PO 01/25/23 Unknown History pyridoxine (vitamin B6) 100 mg 100 mg PO DAILY 01/25/23 Unknown History tablet tadalafil 20 mg tablet 20 mg PO DAILY 01/25/23 Unknown History Exam Exam Date and Time: January 13, 2023 1036 Height,Weight and Vital Signs: Height 5 ft 7 in Weight 91.172 kg Pertinent Lab Results Pertinent Lab Results: Laboratory Tests 12/29/22 12/29/22 10:16 10:16 WBC 6.3 Hgb 13.9 L Hct 41.4 L Plt Count 243 Sodium 142 Potassium 4.7 Chloride 107 Carbon Dioxide 27 BUN 24 H Creatinine 1.05 Assessment and Plan Assessment Anesthesia Assessment: Chart Reviewed Final Anesthetic Review Family History of Problems with Anesthesia: No History of Problems with Anesthesia: No
[2023-01-14 06:36] VITALS: BMI 31.0
[2023-01-14 07:00] VITALS: BP 153/96; PULSE 74; RESP 15; TEMP 36.2; O2SAT 96
[2023-01-14] MEDS: Lactated Ringers 1,000 ML 100 ML IVCONT (07:03)
[2023-01-14 07:09] LABS: Glucose, Whole Blood 86 mg/dL (60-115)
--- NOTE | 2023-01-14 07:33 | MHC.SHP ---
Pre-Procedural Eval Section A Date of Service: 01/14/23 Section B Chief Complaint: anemia,abdominal pain Details of Present Illness: PMH: Acquired deformity of toenail BPH (benign prostatic hyperplasia) Chronic insomnia Depression Diabetes mellitus type 2 with retinopathy Diabetes mellitus with complication, with long-term current use of insulin Dyslipidemia History of GI bleed HTN (hypertension) Left nephrolithiasis Lumbosacral radiculopathy due to degenerative joint disease of spine Normocytic normochromic anemia Osteoarthritis involving multiple joints on both sides of body Postprandial epigastric pain Primary osteoarthritis of right knee Primary osteoarthritis, left shoulder Trigger finger of right hand Surgical History H/O colonoscopy History of left inguinal hernia repair (03/24/22) History of testicular surgery Hx of lithotripsy Umbilical hernia Family History Father CVD (cardiovascular disease) Mother Unknown family medical history Relevant Family History (Specify if Yes): No Relevant Social History: Tobacco Use (Former ) Present Medications: see Short Stay Collaborative assessment Allergies: Allergies Allergy/AdvReac Type Severity Reaction Status Date / Time peanut Allergy Intermediate Shortness Verified 01/14/23 06:32 of Breath, throat swelling Review of Systems Review of Systems Comment: 10 point ROS negative except as above Exam Exam Comment: Gen appear: No acute distress HEENT: no icterus Chest: No overt resp distress Abd: soft, nontender, nondistended Psych: Stable affect, answering questions appropriately Neuro: A/Ox3 noted to move all extremities spontaneously Ext: no peripheral edema Plan Diagnosis/Plan: Unchanged I have reviewed the history and physical and performed a pertinent physical examination on my patient. No changes have occurred unless specified. Time Spent With Patient Time: Total time managing care of this patient today ____ minutes.
--- NOTE | 2023-01-14 07:36 | P.OP_ITS ---
Operative Note Operative Note Date of Service: 01/14/23 Narrative: Procedure: Esophagogastroduodenoscopy and colonoscopy Endoscopist: Millicent Navarro MD Indication: Anemia Anesthesia Provider: Dr Keren Cali Anesthesia Type: MAC Instrument: Olympus [id number]-[id number] and [id number]-[id number] EGD Procedure:?? The procedure, indications, preparation and potential complications were reviewed with the patient, who indicated understanding and gave written informed consent to proceed. A physical exam was performed. The endoscope was introduced through the mouth, and advanced to the second part of duodenum. The mucosa was carefully examined on slow withdrawal of the endoscope. The patient tolerated the procedure well. There were no immediate complications.? EGD Findings:? * Esophagus:? Normal mucosa noted in the entire esophagus. The Z line was at 40 cm. * Stomach:? Normal mucosa was noted in the stomach. Random cold forceps gastric biopsies were taken to rule out H Pylori infection. * Duodenum:? Normal mucosa was noted in the whole of the examined duodenum. Cold forceps biopsies were taken from duodenal bulb and second portion of the duodenum to rule out celiac sprue. Colonoscopy Procedure: The patient was then turned for the colonoscopy. A digital rectal exam was performed which was normal. A distal attachment cap was affixed to the tip of the scope and the colonoscope was then inserted through the anus and advanced through the colon to the cecum at 75 cm,and terminal ileum. Appendiceal orifice and ileocecal valve were identified. Mucosa was carefully examined under high definition white light as the instrument was slowly withdrawn in a retrograde panoramic fashion. Retroflexion was performed in rectum. The procedure was not difficult. There were no immediate obvious complications. The quality of the prep was BBPS: 2+3+2 = adequate Withdrawal time 18 minutes. Limitations: No limitations. Findings: Mucosa: Normal to cecum and terminal ileum. Protruding lesions: * 2 sessile polyp of size 3 and 8 mm in transverse colon. Cold snare polypectomy was performed. The polyps were completely removed and retrieved. * Medium external hemorrhoids without stigmata of recent bleeding. Impression: 1. Normal esophagus 2. Normal stomach (biopsy) 3. Normal duodenum (biopsy) 4. Normal colon mucosa 5. Total of 2 polyps removed from transverse colon. 6. External hemorrhoids Recommendations:?? * Follow biopsy results. Our office will call or send a letter with results within 7-10 days. * If H pylori +, patient will be prescribed eradication therapy followed by test of cure. * Avoid NSAIDs and smoking. * Repeat colonoscopy in 5-7 years if polyps are adenomas or sessile serrated. * Follow up in GI office as scheduled. Above has been reviewed with the patient. Educational hand outs were provided at discharge.
--- NOTE | 2023-01-14 08:03 | HO.ANESPROP2 ---
[facility] Active Problems Active Problems: All Active Problems (Updated 12/31/22 @ 16:37 by Rocio Morgan MD) Erectile dysfunction associated with type 2 diabetes mellitus (Acute) Bladder outlet obstruction (Acute) Nephrolithiasis (Acute) Left shoulder pain (Acute) NSAID induced gastritis (Acute) Positional lightheadedness (Acute) Normocytic normochromic anemia (Acute) Postprandial epigastric pain (Acute) History of GI bleed (Acute) Primary osteoarthritis, left shoulder (Acute) Acquired deformity of toenail (Acute) HTN (hypertension) (Acute) Dyslipidemia (Acute) Diabetes mellitus type 2 with retinopathy (Acute) Diabetes mellitus with complication, with long-term current use of insulin (Acute) Past Medical History Medical History Acquired deformity of toenail BPH (benign prostatic hyperplasia) Chronic insomnia Depression Diabetes mellitus type 2 with retinopathy Diabetes mellitus with complication, with long-term current use of insulin Dyslipidemia History of GI bleed HTN (hypertension) Left nephrolithiasis Lumbosacral radiculopathy due to degenerative joint disease of spine Normocytic normochromic anemia Osteoarthritis involving multiple joints on both sides of body Positional lightheadedness Postprandial epigastric pain Primary osteoarthritis of right knee Primary osteoarthritis, left shoulder Trigger finger of right hand Family History Family History Father CVD (cardiovascular disease) Mother Unknown family medical history Family history of problems with anesthesia: No Surgical History Surgical History History of left inguinal hernia repair (03/24/22) History of testicular surgery Hx of lithotripsy Umbilical hernia History of Problems with Anesthesia: No Social History Social History Housing: Apartment Alcohol intake: current Alcohol intake frequency: a few times a week Alcohol type: beer Patient Tobacco Use Status: Former Tobacco user Quit Date: 30 yr ago Tobacco use type: Cigarette e-Cigarette/Vaping Use: Never Used Second Hand Smoke Exposure: No Use of substances other than those prescribed or required for medical reasons: No Advance Directives: No Advance Directives Information Provided: Yes service: No Current occupational status: employed 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 Cognitive needs: No Hearing needs: No Vision needs: Yes Meds Allergies Allergy/AdvReac Type Severity Reaction Status Date / Time peanut Allergy Intermediate Shortness Verified 01/14/23 06:32 of Breath, throat swelling Active Medications: Current Medications Lactated Ringer's (Lr) 1,000 mls @ 100 mls/hr IVCONT .Q10H SELINA Last Admin: 01/14/23 07:03 Dose: 100 mls/hr Home Medications Medication Instructions Recorded Confirmed Last Taken Type methocarbamol 500 mg tablet 500 mg PO BID 10/27/22 01/14/23 Unknown History atorvastatin 10 mg tablet (Lipitor) 10 mg PO DAILY 01/14/23 01/14/23 Unknown History fluoxetine 20 mg capsule (Prozac) 40 mg PO QAM 01/14/23 01/14/23 Unknown History lisinopril 20 mg tablet (Zestril) 20 mg PO DAILY 01/14/23 01/14/23 Unknown History zolpidem 10 mg tablet (Ambien) 10 mg PO BEDTIME PRN insomnia 01/14/23 01/14/23 Unknown History Exam Exam Date and Time: January 14, 2023 0803 Height,Weight and Vital Signs: Height 5 ft 7 in Weight 89.811 kg Last Vital Signs Temp 97.1 F 01/14/23 07:00 Pulse 74 01/14/23 07:00 Resp 15 01/14/23 07:00 BP 153/96 H 01/14/23 07:00 Pulse Ox 96 01/14/23 07:00 O2 Del Method Room Air 01/14/23 07:00 Pertinent Lab Results Pertinent Lab Results: Laboratory Tests 01/14/23 07:01 POC Glucose 86 Airway Mallampati Class: III TM Dist: >3cm Neck ROM: Full Heart: RRR Lungs: CTA Assessment and Plan Final Anesthetic Review Family History of Problems with Anesthesia: No History of Problems with Anesthesia: No ASA Class: III Final Preanesthetic Review: Meds/Allgs Chart Reviewed, Consent Obtained/Reviewed and Anes Risks/Benef Reviewed Patient Risk: Intermediate Procedure Risk: Low Anesthetic Plan Anesthetic Plan: MAC: Disposition: Standard PACU
[2023-01-14 08:25] VITALS: BP 98/72; PULSE 72; RESP 16; TEMP 36.2; O2SAT 94
[2023-01-14 08:40] VITALS: BP 115/80; PULSE 71; RESP 18; TEMP 36.7; O2SAT 98
[2023-01-14 08:55] VITALS: BP 134/88; PULSE 71; RESP 20; TEMP 36.3; O2SAT 97
--- NOTE | 2023-01-14 09:53 | HO.POSTANES ---
Post Anesthesia Evaluation Post Anesthesia Evaluation Date of Service: 01/14/23 Vital Signs: Vital Signs Temp Pulse Resp BP Pulse Ox O2 Del Method 01/14/23 08:55 97.3 F 71 20 134/88 97 Room Air 01/14/23 08:40 98.1 F 71 18 115/80 98 Room Air 01/14/23 08:25 97.2 F 72 16 98/72 94 Room Air 01/14/23 07:00 97.1 F 74 15 153/96 H 96 Room Air Anesthesia: Monitored Mental Status: Awake Pain Control: Satisfactory Nausea/Vomiting: None Hydration: Adequate Anesthesia-Related Issues: No Anes. Related Issues
== END 2023-01-14 09:42 | disposition home or self-care (01) ==
PROVIDERS: PCP Internal Medicine; Visit Provider Internal Medicine
PROC: (CPT 45385; principal; 2023-01-14 07:30)
DX: D64.9 Anemia, unspecified (principal); D12.3 Benign neoplasm of transverse colon; K64.4 Residual hemorrhoidal skin tags; R10.9 Unspecified abdominal pain; K29.50 Unspecified chronic gastritis without bleeding; N40.0 Benign prostatic hyperplasia without lower urinary tract symptoms; I10 Essential (primary) hypertension; E78.5 Hyperlipidemia, unspecified; M15.9 Polyosteoarthritis, unspecified; E11.319 Type 2 diabetes mellitus with unspecified diabetic retinopathy without macular edema; Z79.4 Long term (current) use of insulin; Z79.899 Other long term (current) drug therapy; Z87.442 Personal history of urinary calculi; Z98.890 Other specified postprocedural states; Z87.891 Personal history of nicotine dependence
CPT/HCPCS: 45385; 43239; 82947; 88305; 88342

== ENCOUNTER → 2023-01-25 11:17 | Outpatient (BNVA) | payer MEDICARE, MEDICAID, SELFPAY | PROVIDERS: PCP Internal Medicine; Referring Provider Internal Medicine; Visit Provider Internal Medicine | DX: D64.9 Anemia, unspecified (principal); R10.13 Epigastric pain; K29.60 Other gastritis without bleeding; T39.395D Adverse effect of other nonsteroidal anti-inflammatory drugs [NSAID], subsequent encounter; Z86.010 Personal history of colon polyps | CPT/HCPCS: 99212 ==

== ENCOUNTER 2023-01-28 13:58 | Outpatient (RCR) | payer MEDICARE, MEDICAID, SELFPAY | END 2023-04-15 08:33 | disposition home or self-care (01) | LOC: HO.PT 13:58 | PROVIDERS: PCP Internal Medicine; Visit Provider Internal Medicine | DX: R42 Dizziness and giddiness (principal) ==

== ENCOUNTER 2023-01-29 09:10 | Outpatient (RCR) | payer MEDICARE, MEDICAID, SELFPAY ==
[2023-01-29 09:26] VITALS: BP 185/100; PULSE 75
== END 2023-02-15 14:03 | disposition home or self-care (01) ==
LOC: HO.PT 09:10
PROVIDERS: PCP Internal Medicine; Visit Provider Internal Medicine
DX: R42 Dizziness and giddiness (principal)
CPT/HCPCS: 97161

== ENCOUNTER 2023-03-29 09:00 | Day surgery (SDC) | payer MEDICARE, MEDICAID, SELFPAY ==
[2023-03-24 14:59] VITALS: BMI 31.6
[2023-03-29] VITALS (8 sets, daily range): BP systolic 91–135; BP diastolic 56–90; PULSE 67–78; RESP 12–18; TEMP 36.1–36.8; O2SAT 97–100
--- NOTE | 2023-03-29 09:33 | ECG_ITS ---
Test Reason : CHEST PRESSURE Blood Pressure : / mmHG Vent. Rate : 080 BPM Atrial Rate : 080 BPM P-R Int : 164 ms QRS Dur : 094 ms QT Int : 376 ms P-R-T Axes : 044 045 052 degrees QTc Int : 433 ms Normal sinus rhythm Normal ECG When compared with ECG of 05-NOV-2021 07:09, No significant change was found Referred By: Steven Meyer Electronically Signed By:Ronaldo Ricketts
[2023-03-29 09:49] LABS: Glucose, Whole Blood 135 mg/dL (60-115)
--- NOTE | 2023-03-29 10:11 | P.CONAN_ITS ---
[facility] Active Problems Active Problems: All Active Problems (Updated 01/25/23 @ 12:32 by Millicent Navarro MD) Erectile dysfunction associated with type 2 diabetes mellitus (Acute) Bladder outlet obstruction (Acute) Nephrolithiasis (Acute) Left shoulder pain (Acute) NSAID induced gastritis (Acute) Personal history of colonic polyps (Acute) Positional lightheadedness (Acute) Normocytic normochromic anemia (Acute) Postprandial epigastric pain (Acute) History of GI bleed (Acute) Primary osteoarthritis, left shoulder (Acute) Acquired deformity of toenail (Acute) HTN (hypertension) (Acute) Dyslipidemia (Acute) Diabetes mellitus type 2 with retinopathy (Acute) Diabetes mellitus with complication, with long-term current use of insulin (Acute) Past Medical History Medical History Acquired deformity of toenail BPH (benign prostatic hyperplasia) Chronic insomnia Depression Diabetes mellitus type 2 with retinopathy Diabetes mellitus with complication, with long-term current use of insulin Dyslipidemia History of GI bleed HTN (hypertension) Left nephrolithiasis Lumbosacral radiculopathy due to degenerative joint disease of spine Normocytic normochromic anemia Osteoarthritis involving multiple joints on both sides of body Positional lightheadedness Postprandial epigastric pain Primary osteoarthritis of right knee Primary osteoarthritis, left shoulder Trigger finger of right hand Family History Family History Father CVD (cardiovascular disease) Mother Unknown family medical history Family history of problems with anesthesia: No Surgical History Surgical History History of esophagogastroduodenoscopy (EGD) History of left inguinal hernia repair (03/24/22) History of testicular surgery Hx of colonoscopy Hx of lithotripsy Umbilical hernia History of Problems with Anesthesia: No Social History Social History Housing: Apartment Alcohol intake: current Alcohol intake frequency: a few times a week Alcohol type: beer Patient Tobacco Use Status: Former Tobacco user Quit Date: age 32 Tobacco use type: Cigarette e-Cigarette/Vaping Use: Never Used Second Hand Smoke Exposure: No Use of substances other than those prescribed or required for medical reasons: No Have you been hit, kicked, punched, or otherwise hurt by someone within the past year? 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 Cognitive needs: No Hearing needs: No Vision needs: Yes Meds Allergies Allergy/AdvReac Type Severity Reaction Status Date / Time peanut Allergy Intermediate Shortness Verified 02/01/23 11:38 of Breath, throat swelling Active Medications: Current Medications Levofloxacin (Levaquin) 500 mg in 100 mls @ 100 mls/hr IV PREOP ONE Stop: 03/29/23 10:15 Lactated Ringer's (Lr) 1,000 mls @ 100 mls/hr IVCONT .Q10H SELINA Home Medications Medication Instructions Recorded Confirmed Last Taken Type methocarbamol 500 mg tablet 500 mg PO BID 10/27/22 03/24/23 Unknown History fluoxetine 20 mg capsule (Prozac) 40 mg PO QAM 01/14/23 03/24/23 Unknown History dicyclomine 20 mg tablet 20 mg PO BID 01/25/23 03/24/23 Unknown History pyridoxine (vitamin B6) 100 mg 100 mg PO DAILY 01/25/23 03/24/23 Unknown History tablet tadalafil 20 mg tablet 20 mg PO DAILY 01/25/23 03/24/23 Unknown History Exam Exam Date and Time: March 29, 2023 1011 Height,Weight and Vital Signs: Height 5 ft 7 in Weight 91.626 kg Last Vital Signs Temp 98.2 F 03/29/23 09:56 Pulse 78 03/29/23 09:56 Resp 18 03/29/23 09:56 BP 135/90 H 03/29/23 09:56 Pulse Ox 98 03/29/23 09:56 O2 Del Method Room Air 03/29/23 09:56 Pertinent Lab Results Pertinent Lab Results: Laboratory Tests 03/29/23 09:38 POC Glucose 135 H Airway Mallampati Class: II TM Dist: >3cm Neck ROM: Full Assessment and Plan Assessment Anesthesia Assessment: Anesthesia Plan Discussed and Chart Reviewed Final Anesthetic Review Family History of Problems with Anesthesia: No History of Problems with Anesthesia: No NPO: Yes ASA Class: III Final Preanesthetic Review: No Changes in Pt Med Stat, Meds/Allgs Chart Reviewed, Consent Obtained/Reviewed and Anes Risks/Benef Reviewed Patient Risk: Intermediate Procedure Risk: Intermediate Anesthetic Plan Anesthetic Plan: GA Disposition: Standard PACU
--- NOTE | 2023-03-29 10:42 | MHC.SHP ---
Pre-Procedural Eval Section A Date of Service: 03/29/23 The patient is an INPATIENT: No Changes since office visit: No Cold of Flu in the past 2 weeks, No New Medical Problems, No Changes in Medication and No Patient answered all questions The History & Physical has been completed within 30 days and I have reviewed it.: No Section B Chief Complaint: Bladder-neck obstruction Details of Present Illness: laser incision Relevant Social History: None Present Medications: see Short Stay Collaborative assessment Medical History: No relevant PMH History of Previous Operations: No relevant previous surgery Allergies: Allergies Allergy/AdvReac Type Severity Reaction Status Date / Time peanut Allergy Intermediate Shortness Verified 02/01/23 11:38 of Breath, throat swelling Review of Systems Sugical H&P ROS: Negative: Constitution, Cardiovascular, Respiratory, Neurological, Psychiatric, Hem-Onc, Allergic/Immunologic, Gastrointestinal, Genitourinary, Musculoskeletal, Integumentary, Endocrine and Eyes/Ears/Nose/Throat Exam Surgical H&P Exam: Normal: HEENT, Normal: Heart, Normal: Lungs, Normal: Extremities, Normal: Abdomen, Normal: Skin and Normal: Neurological Plan Diagnosis/Plan: Unchanged (laser incision of prostate) I have reviewed the history and physical and performed a pertinent physical examination on my patient. No changes have occurred unless specified. Time Spent With Patient Time: Total time managing care of this patient today ____ minutes.
--- NOTE | 2023-03-29 11:45 | W.PM.OPN ---
Operative Note Operative Note Date of Service: 03/29/23 Narrative: PreOperative Diagnosis: Bladder outlet obstruction Post Operative Diagnosis: Bladder outlet obstruction Procedure: GreenLight Laser Enucleation of the prostate Surgeon: Dr Nhan Lin Anesthesia: General Indications for procedure: bladder outlet obstruction History of bladder outlet obstruction. Treated with alpha-steph and other medications. Still with symptoms. On cystoscopy in office has tight bladder neck. Recommendation for prostate procedure with laser enucleation of prostate. Risks and benefits have been discussed. Focus was placed on development of retrograde ejaculation which is a normal part of this procedure. Procedure: After informed consent was verified the patient was brought to the operating room and placed in a supine position. Anesthesia was administered per protocol. Patient was placed in modified dorsal lithotomy position and prepped and draped in a sterile fashion. Safety pause time-out was confirmed. Antibiotics have been given. A Twenty-four Wolof laser cystoscope was inserted per urethra. No abnormalities were found of the anterior and bulbar urethra. The bladder was examined and both ureteric orifices were seen in their normal positions away from the area of interest. Using a GreenLight laser with settings of 80 w incisions were made at the 5 and 7 o'clock position. The incisions were taken down from the bladder neck down to the level of the veru. These were gradually deepened in order to define the lateral aspects of the median lobe area. Once clearly defined they will also extended in the lateral directions in order to create a deep groove. The median lobe was then ablated and enucleated tissue released into the bladder with the laser power increased to 120 W. When this was had been completed debris and pieces of prostate were removed from the bladder with irrigation. Both ureteric orifices were reviewed again in shown to be patent in away from any areas of energy damage. The apical area was reviewed in any stray ooze was controlled. A 22 Wolof 30 cc balloon Owens catheter was placed over a stylet into the bladder. Clear efflux was obtained upopn irrigation with a Lisa piston syringe. 30 cc was placed in the balloon and gentle traction was placed. A snap was used to hold tension on the catheter to control bleeding during patient moved and transported. A drainage bag was placed. Once transportation is complete to the PACU the snap will be removed. The patient tolerated the procedure well, he was extubated in the operating and transferred in a stable condition to the recovery area. Total Power 37 kW Lasing time 5:40 Pathology: Prostate tissue Drains: Owens catheter
== END 2023-03-29 13:25 | disposition home or self-care (01) ==
PROVIDERS: PCP Internal Medicine; Visit Provider Urology
PROC: (CPT 52649; principal; 2023-03-29 10:50)
DX: N32.0 Bladder-neck obstruction (principal); N40.0 Benign prostatic hyperplasia without lower urinary tract symptoms; I10 Essential (primary) hypertension; E11.319 Type 2 diabetes mellitus with unspecified diabetic retinopathy without macular edema; Z79.4 Long term (current) use of insulin; D64.9 Anemia, unspecified; Z91.010 Allergy to peanuts; Z98.890 Other specified postprocedural states; Z87.891 Personal history of nicotine dependence
CPT/HCPCS: 52649; 82947; 88305; 93005; J0131; J1100; J1956; J2250; J2405; J3010

== ENCOUNTER → 2023-03-29 09:00 | Outpatient (BNV) | payer MEDICARE, MEDICAID, SELFPAY | PROVIDERS: PCP Internal Medicine; Visit Provider Urology | DX: N32.0 Bladder-neck obstruction (principal) | CPT/HCPCS: 52649 ==

== ENCOUNTER → 2023-03-29 09:33 | Outpatient (BNV) | payer MEDICARE, MEDICAID, SELFPAY | PROVIDERS: PCP Internal Medicine; Visit Provider Internal Medicine Cardiovascular Disease | DX: R07.9 Chest pain, unspecified (principal) | CPT/HCPCS: 93010 ==

== ENCOUNTER → 2023-04-01 11:17 | Outpatient (BNVA) | payer MEDICARE, MEDICAID, SELFPAY | PROVIDERS: PCP Internal Medicine; Visit Provider Urology ==

== ENCOUNTER 2023-05-12 14:23 | Outpatient (AMB) | payer MEDICARE, MEDICAID, SELFPAY ==
--- NOTE | 2023-05-12 14:25 | MHC.OFFVIS ---
Intake Intake Visit Reasons: Tulp post op Intake Note: Patient is present for Follow Up TURP Post Op Urology Med: Patient states that he is no longer taking Oxybutynin, Vitamin B6, Tadalafil, Terazosin because none was refilled Antibiotic Allergy: None Blood Thinner: None Pharmacy: [facility] Allergies peanut Allergy (Intermediate, Verified 05/12/23 14:26) Shortness of Breath, throat swelling HPI HPI Comments History of Present Illness Details Germán IYER is a very pleasant male. He is a patient of Dr Morgan. He is seen for the following urologic conditions. - testicular pain - nephrolithiasis - lower urinary tract symptoms PVR review 6 weeks post TURP Would restart tadalafil daily And vitamin B6 nephrolithiasis Lower urinary tract symptoms Progressive Hesitancy with feeling of incomplete emptying Current medications terazosin 10 mg PSA 09/14 0.9 Erectile dysfunction setting of type 2 diabetes Type 2 diabetic - HBA1c 06/13 6.8 Progressive Able to obtain but cannot maintain erection Tadalafil daily trial 05/14 with on demand 20 mg Nephrolithiasis Follow-up nephrolithiasis Current therapy includes vitamin B6 Imaging - 05/13 CT scan 1.2 cm left renal stone - 02/11 CT no stone seen Intervention - 11/11 left ESWL Testicular/Scotal orchalgia-swelling:? Primary complaint of?inguinal groins, pain.? The symptoms started or were observed:?since May 2018 ?- prior bilateral hydrocele repair.? The pain is located?bilaterally, groin.? Imaging includes?07/10 , testicular ultrasound, reported as, normal epididiymal head, normal parenchyma and normal flow.? Character of the pain is?constant, chronic.? Based on imaging and exam diagnosis is most consistent with?inguinal disruption ?- bilateral insertion tenderness.? Prior therapy(ies) include?no prior therapy.? Therapeutic plan includes?conservative therapy PFSH Medical History Positional lightheadedness Normocytic normochromic anemia Postprandial epigastric pain History of GI bleed Acquired deformity of toenail Lumbosacral radiculopathy due to degenerative joint disease of spine Left nephrolithiasis Primary osteoarthritis of right knee Primary osteoarthritis, left shoulder Trigger finger of right hand BPH (benign prostatic hyperplasia) Chronic insomnia Depression Osteoarthritis involving multiple joints on both sides of body HTN (hypertension) Dyslipidemia Diabetes mellitus with complication, with long-term current use of insulin Diabetes mellitus type 2 with retinopathy Surgical History Hx of colonoscopy History of esophagogastroduodenoscopy (EGD) History of left inguinal hernia repair (03/24/22) Hx of lithotripsy History of testicular surgery Umbilical hernia Family History Father CVD (cardiovascular disease) Mother Unknown family medical history Social History Housing: Apartment Alcohol intake: current Alcohol intake frequency: a few times a week Alcohol type: beer Patient Tobacco Use Status: Former Tobacco user Quit Date: age 32 Tobacco use type: Cigarette e-Cigarette/Vaping Use: Never Used Second Hand Smoke Exposure: No service: No Current occupational status: employed 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 Cognitive needs: No Hearing needs: No Vision needs: Yes Review of Systems Const Denies chills and Denies fever(s) Card Reports no additional complaints and Denies syncope Resp Denies cough GI Denies abdominal pain and Denies heartburn Reports as per HPI and Denies change in libido Neuro Denies syncope Psych Denies change in libido Endo Denies change in libido Physical Exam Const General: cooperative, healthy appearing, comfortable and no acute distress Orientation/consciousness: patient oriented x3 HEENT Face and sinus: Yes normal facial exam Mouth: moist mucous membranes Neck Neck: Yes normal visual inspection, Yes full ROM and Yes trachea midline Chest Chest palpation & inspection: normal inspection of the chest Resp Effort & Inspection: normal respiratory effort, able to speak in complete sentences and no respiratory distress GI Inspection: Yes normal to inspection Back/Spine/Pelvis Cervical Spine: normal cervical lordosis Thoracic/Lumbar Spine: thoracic and lumbar spine normal to inspection Skin General skin exam: no rashes or lesions noted Neuro General: patient oriented x3, gait normal, tone normal and moves all extremities Extrem General: Yes normal to inspection and Yes capillary refill normal Assessment & Plan Assessment & Plan (1) Nephrolithiasis: Code(s): N20.0 - Calculus of kidney (2) Bladder outlet obstruction: Code(s): N32.0 - Bladder-neck obstruction (3) Erectile dysfunction associated with type 2 diabetes mellitus: Code(s): E11.69 - Type 2 diabetes mellitus with other specified complication; N52.1 - Erectile dysfunction due to diseases classified elsewhere Plan Six month follow-up Orders: Orders US renal BI 6 Months - Type 2 diabetes mellitus with other specified complication, N52.1 - Erectile dysfunction due to diseases classified elsewhere Medications: New pyridoxine (vitamin B6) 50 mg PO DAILY 90 tabs 1RF 90 days - Type 2 diabetes mellitus with other specified complication, N20.0 - Calculus of kidney, N52.1 - Erectile dysfunction due to diseases classified elsewhere tadalafil 5 mg PO DAILY 90 tabs 1RF sexual activity 90 days - Type 2 diabetes mellitus with other specified complication, N52.1 - Erectile dysfunction due to diseases classified elsewhere Patient Instructions: Imaging studies, laboratory and physical exam results were discussed and reviewed in detail. No major barriers to patient understanding were identified. An opportunity to ask questions regarding the treatment plan was provided. All questions were answered. The patient expressed understanding and agreement with the above treatment plan. The patient is aware they should contact our office by phone for worsening of their current condition or the appearance of new urologic symptoms. Compliance is encouraged with any medications and followup testing that is ordered. It is a privilege to participate in the urologic care of your patient. If you have any questions or concerns regarding treatment for the above conditions, or other urologic issues, please do not hesitate to contact me. The office telephone contact is [phone]. This note is constructed using voice recognition software. While every effort has been made to ensure accuracy senior application software engineer errors may have been included. Yours sincerely, Dr Nhan Lin MD, [facility] - Urology Providers of Expert, Compassionate Care for the Genitourinary System Coding Level of Care Code Est Pt Level 4 (94813) Diagnoses Nephrolithiasis N20.0 Bladder outlet obstruction N32.0 Erectile dysfunction associated with type 2 diabetes mellitus E11.; N52.1
== END 2023-05-12 14:44 | disposition home or self-care (01) ==
PROVIDERS: PCP Internal Medicine; Visit Provider Urology
DX: N20.0 Calculus of kidney (principal); N32.0 Bladder-neck obstruction; E11.69 Type 2 diabetes mellitus with other specified complication; N52.1 Erectile dysfunction due to diseases classified elsewhere
CPT/HCPCS: 99024

== ENCOUNTER → 2023-05-12 14:23 | Outpatient (BNVA) | payer MEDICARE, MEDICAID, SELFPAY | PROVIDERS: PCP Internal Medicine; Visit Provider Urology | DX: N20.0 Calculus of kidney (principal); N32.0 Bladder-neck obstruction; E11.69 Type 2 diabetes mellitus with other specified complication; N52.1 Erectile dysfunction due to diseases classified elsewhere | CPT/HCPCS: 99212 ==

== ENCOUNTER 2023-06-01 08:32 | Outpatient (AMB) | payer MEDICARE, MEDICAID, SELFPAY ==
--- NOTE | 2023-06-01 09:17 | MHC.PC.OV ---
Vital Signs 06/01/23 09:21 Height 5 ft 7 in Weight 202 lb BMI 31.6 BP 120/78 Blood Pressure Location Lt brachial Position Sitting Pulse 86 Pulse Source Pulse Oximeter Pulse Oximetry (%) 98 Oxygen Delivery Method Room Air Intake Visit Reasons: Loss of Hearing Intake Note: patient is here today for loss of hearing Allergies peanut Allergy (Intermediate, Verified 06/01/23 09:18) Shortness of Breath, throat swelling Medication List - Last Reconciled 06/01/23 by Rocio Morgan MD amlodipine 5 mg PO QPM atorvastatin (Lipitor) 10 mg PO DAILY blood sugar diagnostic (FreeStyle Lite Strips) check fasting blood sugar twice a day before meals dicyclomine 20 mg PO BID fluoxetine 40 mg (2 x 20 mg) PO QAM insulin detemir U-100 (Levemir U-100 Insulin) 60 units (0.6 mL) subcut BEDTIME insulin syringe-needle U-100 Use to inject insulin once a day lisinopril (Zestril) 20 mg PO DAILY meloxicam 15 mg PO DAILY PRN metformin 1,000 mg PO BID methocarbamol 500 mg PO BID Novolog FlexPen U-100 Insulin (insulin aspart U-100) 12 units (0.12 mL) subcut TID NS omeprazole 40 mg PO DAILY 6 weeks oxybutynin chloride 5 mg PO TID PRN 3 days pyridoxine (vitamin B6) 100 mg PO DAILY pyridoxine (vitamin B6) 50 mg PO DAILY 90 days sulfamethoxazole-trimethoprim 400-80 mg (Bactrim) 1 tab PO DAILY tadalafil 20 mg PO DAILY tadalafil 5 mg PO DAILY 90 days terazosin 10 mg PO BEDTIME 90 days zolpidem (Ambien) 10 mg PO BEDTIME PRN Tobacco use date assessed: 06/01/23 Dental Screening Dental Screen Date: 06/01/23 Did you have a dental visit in the last 12 months?: No Did you have a dental problem in the last 6 months where you did not have access to dental care?: No Was dental information given to patient?: Patient has dentist HPI Loss of Hearing HPI Details 62-year-old male here today complaining of decreased hearing in left ear accompanied by pain inside left ear canal. Denies any fever, no ear discharge reported. Also requesting a refill on a cream that he was prescribed in the past for recurrent itchy rash in his groin area [facility] Medical History Positional lightheadedness Normocytic normochromic anemia Postprandial epigastric pain History of GI bleed Acquired deformity of toenail Lumbosacral radiculopathy due to degenerative joint disease of spine Left nephrolithiasis Primary osteoarthritis of right knee Primary osteoarthritis, left shoulder Trigger finger of right hand BPH (benign prostatic hyperplasia) Chronic insomnia Depression Osteoarthritis involving multiple joints on both sides of body HTN (hypertension) Dyslipidemia Diabetes mellitus with complication, with long-term current use of insulin Diabetes mellitus type 2 with retinopathy Surgical History Hx of colonoscopy History of esophagogastroduodenoscopy (EGD) History of left inguinal hernia repair (03/24/22) Hx of lithotripsy History of testicular surgery Umbilical hernia Family History Father CVD (cardiovascular disease) Mother Unknown family medical history Social History Housing: Apartment Alcohol intake: current Alcohol intake frequency: a few times a week Alcohol type: beer Patient Tobacco Use Status: Former Tobacco user Quit Date: age 32 Tobacco use type: Cigarette e-Cigarette/Vaping Use: Never Used Second Hand Smoke Exposure: No service: No Current occupational status: employed 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 How often do you have a drink containing alcohol?: Monthly or less 2. How many drinks containing alcohol do you have on a typical day when you are drinking?: 1 or 2 Total Score: 1 YASMEEN-7 AMB Questionnaire YASMEEN-7 Date YASMEEN - 7 assessed: 12/31/22 Source: Developed by Drs. Junior Kennedy, Brianna Adhikari, Nixon Abreu and colleagues, with an educational milagros from [employer]. Review of Systems Const Denies frequent falls, Denies headache(s) and Denies weakness Eyes Reports no additional complaints ENT Denies vertigo, Denies dizziness, Denies ear discharge, Denies headache(s), Denies tinnitus, Denies sinus pain and Denies sore throat Skin/Breast Reports as per HPI Neuro Denies vertigo, Denies dizziness, Denies frequent falls, Denies headache(s) and Denies weakness Physical exam (Primary Care) Vital Signs: Last Vital Signs Pulse 86 06/01/23 09:21 BP 120/78 06/01/23 09:21 Pulse Ox 98 06/01/23 09:21 Oxygen Delivery Method Room Air 06/01/23 09:21 BMI result Body Mass Index 31.6 Tobacco/Smoking Status: Tobacco use Status Tobacco use date assessed 06/01/23 06/01/23 09:18 Patient Tobacco Use Status Former Tobacco user 06/01/23 09:18 Tobacco use type Cigarette 06/01/23 09:18 e-Cigarette/Vaping Use Never Used 06/01/23 09:18 Thrive Assessment: Date of Thrive Assessment Date Thrive assessed 12/31/22 06/01/23 09:18 Const Other: Alert oriented x3, no acute distress noted, ambulatory normal gait HENMT Head: Yes normocephalic and Yes atraumatic Ears: TM normal on the left and Abnormal EAC present erythema on the left, edema on the left and EAC tenderness on the left General nose exam: Normal external nose present and No nasal discharge present Neck Neck: Yes full ROM, Yes no lymphadenopathy and Yes supple Resp Auscultation: clear to auscultation bilaterally Skin Other: Moist hyper pigmented patch on right groin/inguinal area Assessment and Plan Assessment & Plan (1) Tinea cruris: Code(s): B35.6 - Tinea cruris Plan: Prescription sent for clotrimazole-betamethasone 1-0.05% cream to apply sparingly to affected area twice a day for no more than 10 days at a time, advised to keep areas clean and dry at all times (2) Otitis externa in other diseases classified elsewhere, left ear: Code(s): H62.42 - Otitis externa in other diseases classified elsewhere, left ear Plan: Prescription sent for ofloxacin 0.3%, instill 10 drops inside left ear canal for 7 days. To the clinic if no improvement of symptoms noted Medications: New clotrimazole-betamethasone 1-0.05 % 1 appl topical BID 45 grams 0RF 10 days ofloxacin 0.3% 10 drps otic (ear) left DAILY 10 mL 0RF 7 days H62.42 - Otitis externa in other diseases classified elsewhere, left ear Coding Level of Care Code Est Pt Level 3 (52721) Diagnoses Tinea cruris B35.6 Otitis externa in other diseases classified elsewhere, left ear H62.42
[2023-06-01 09:21] VITALS: BP 120/78; PULSE 86; O2SAT 98; BMI 31.6
== END 2023-06-01 11:36 | disposition home or self-care (01) ==
PROVIDERS: PCP Internal Medicine; Visit Provider Internal Medicine
DX: B35.6 Tinea cruris (principal); H62.42 Otitis externa in other diseases classified elsewhere, left ear; E11.8 Type 2 diabetes mellitus with unspecified complications
CPT/HCPCS: 99213

== ENCOUNTER 2023-07-01 09:42 | Outpatient (REF) | payer MEDICARE, MEDICAID, SELFPAY ==
[2023-07-01 13:17] LABS: MANUAL DIFF FLAG NO
[2023-07-01 13:26] LABS: Basophils Absolute Auto 0.1 X10*3/uL (0.0-0.2); Basophils Percent Auto 1.1 % (0-2); Eosinophils Absolute Auto 0.3 X10*3/uL (0.0-0.4); Eosinophils Percent Auto 5.3 % (0-4); Hematocrit 43.3 % (42.0-52.0); Hemoglobin 14.3 g/dl (14.0-18.0); Imm Gran Abs Auto 0.01 X10*3/uL (0.00-0.03); Imm Gran Pct Auto 0.2 % (0.0-0.4); Lymphocytes Absolute Auto 1.6 X10*3/uL (1.2-4.9); Lymphocytes Percent Auto 29.1 % (20-40); Mean Corpuscular Hemoglobin 30.4 pg (27.0-33.0); Mean Corpuscular Volume 91.9 fL (80.0-98.0); Mean Platelet Volume 11.3 fL (9.4-12.4); Monocytes Absolute Auto 0.3 X10*3/uL (0.1-1.2); Monocytes Percent Auto 5.9 % (2-11); Neutrophils Absolute Auto 3.2 x10*3/uL (2.0-8.3); Neutrophils Percent Auto 58.4 % (45-73); Platelet Count 227 X10*3/uL (160-400); Red Blood Count 4.71 X10*6/uL (4.60-5.80); Red Cell Distribution Width 12.2 % (11.0-16.0); White Blood Count 5.5 X10*3/uL (4.8-10.8)
[2023-07-01 13:44] LABS: Alanine Aminotransferase 21 U/L (0-40); Anion Gap 13 (12-20); Aspartate Amino Transferase 18 U/L (5-37); Blood Urea Nitrogen 18 mg/dL (9-16); Calcium 9.8 mg/dL (8.4-10.2); Carbon Dioxide 29 mmol/L (22-29); Chloride 105 mmol/L (96-108); Cholesterol 122 mg/dL (<200); Estimated Glomerular Filt Rate > 60; Glucose Fasting 165 mg/dL (60-99); HDL Cholesterol 39 mg/dL (>40); LDL Cholesterol Calculated 68 mg/dL (<100); Potassium 4.5 mmol/L (3.3-5.1); Sodium 142 mmol/L (135-145); Triglycerides 76 mg/dL (<150)
[2023-07-01 13:59] LABS: Prostate Specific Antigen 0.98 ng/mL (<0.05-4.0)
[2023-07-01 14:08] LABS: Creatinine Urine 109.36 mg/dL; Microalbum/Creatinine Ratio Ur 19.2 ug/mg cr (<30)
== END 2023-07-01 09:43 | disposition home or self-care (01) ==
LOC: HO.HMGCLDS 09:42
PROVIDERS: Urology; PCP Internal Medicine; Visit Provider Internal Medicine
DX: Z12.5 Encounter for screening for malignant neoplasm of prostate (principal); N52.1 Erectile dysfunction due to diseases classified elsewhere; E11.69 Type 2 diabetes mellitus with other specified complication; R42 Dizziness and giddiness; D64.9 Anemia, unspecified; I10 Essential (primary) hypertension; E78.5 Hyperlipidemia, unspecified; E11.319 Type 2 diabetes mellitus with unspecified diabetic retinopathy without macular edema; Z79.4 Long term (current) use of insulin
CPT/HCPCS: 36415; 80048; 80061; 82043; 82570; 84153; 84450; 84460; 85025

== ENCOUNTER 2023-07-06 11:55 | Outpatient (AMB) | payer MEDICARE, MEDICAID, SELFPAY ==
[2023-07-06 11:59] VITALS: BP 120/80; PULSE 76; O2SAT 97; BMI 31.0
--- NOTE | 2023-07-06 11:59 | A.OFFPC_ITS ---
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 Required: No Accompanied by: Self / Same As Patient Allergies peanut Allergy (Intermediate, Verified 11/10/23 01:12) Shortness of Breath, throat swelling Medication List - Last Reconciled 07/06/23 by Rocio Morgan MD amlodipine 5 mg PO QPM atorvastatin (Lipitor) 10 mg PO DAILY blood sugar diagnostic (FreeStyle Lite Strips) check fasting blood sugar twice a day before meals clotrimazole-betamethasone 1-0.05 % 1 appl topical BID 10 days dicyclomine 20 mg PO BID PRN fluoxetine 40 mg (2 x 20 mg) PO QAM insulin detemir U-100 (Levemir U-100 Insulin) 60 units (0.6 mL) subcut BEDTIME insulin syringe-needle U-100 Use to inject insulin once a day lisinopril (Zestril) 20 mg PO DAILY meloxicam 15 mg PO DAILY PRN metformin 1,000 mg PO BID methocarbamol 500 mg PO BID Novolog FlexPen U-100 Insulin (insulin aspart U-100) 12 units (0.12 mL) subcut TID NS omeprazole 40 mg PO DAILY 6 weeks pyridoxine (vitamin B6) 50 mg PO DAILY 90 days tadalafil 20 mg PO DAILY terazosin 10 mg PO BEDTIME 90 days zolpidem (Ambien) 10 mg PO BEDTIME PRN Tobacco use date assessed: 06/01/23 Dental Screening Dental Screen Date: 07/06/23 Did you have a dental visit in the last 12 months?: Yes Did you have a dental problem in the last 6 months where you did not have access to dental care?: No Was dental information given to patient?: Patient has dentist HPI 6m dm,lipids, htn HPI Details 63-year-old male with hypertension, hype r lipidemia and diabetes mellitus, here today for his follow-up. He has been compliant with taking his medications, stays active, and compliant with diet. He has been feeling well [facility] Medical History Hypercalcemia Positional lightheadedness Normocytic normochromic anemia Postprandial epigastric pain History of GI bleed Acquired deformity of toenail Lumbosacral radiculopathy due to degenerative joint disease of spine Left nephrolithiasis Primary osteoarthritis of right knee Primary osteoarthritis, left shoulder Trigger finger of right hand BPH (benign prostatic hyperplasia) Chronic insomnia Depression Osteoarthritis involving multiple joints on both sides of body HTN (hypertension) Dyslipidemia Diabetes mellitus with complication, with long-term current use of insulin Diabetes mellitus type 2 with retinopathy Surgical History Hx of colonoscopy History of esophagogastroduodenoscopy (EGD) History of left inguinal hernia repair (03/24/22) Hx of lithotripsy History of testicular surgery Umbilical hernia Family History Father CVD (cardiovascular disease) Mother Unknown family medical history Social History Housing: Apartment Alcohol intake: current Alcohol intake frequency: a few times a week Alcohol type: beer Comment: COUNTS CORRECT Patient Tobacco Use Status: Former Tobacco user Quit Date: 30 yrs ago Tobacco use type: Cigarette e-Cigarette/Vaping Use: Never Used Second Hand Smoke Exposure: No Use of substances other than those prescribed or required for medical reasons: No Are you DNR?: No Advance Directives: No Advance Directives Information Provided: Yes service: No Current occupational status: employed 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 Junior Kennedy, Brianna Adhikari, Nixon Abreu and colleagues, with an educational milagros from [employer]. Review of Systems Const Denies body aches, Denies fatigue and Denies headache(s) Eyes Details: Goes to [facility] Denies change in vision ENT Denies dizziness, Denies headache(s), Denies tinnitus and Denies sinus pain Card Denies chest pain, Denies chest pain with activity, Denies irregular heart rhythm, Denies lightheadedness, Denies palpitations and Denies dyspnea Resp Denies cough and Denies dyspnea GI Denies abdominal pain, Denies change in bowel habits and Denies heartburn (Controlled on omeprazole) Denies hematuria, Denies oliguria, Denies difficulty urinating, Denies dysuria, Denies penile discharge and Denies testicular mass Musc Reports no additional complaints Skin/Breast Denies rash Neuro Reports as per HPI, Denies dizziness, Denies headache(s) and Denies focal weakness Endo Denies fatigue, Denies polydipsia, Denies polyuria and Denies palpitations Bruno/Lymph Reports no additional complaints Aller/Immun Reports no additional complaints Physical exam (Primary Care) Vital Signs: Last Vital Signs Pulse 76 07/06/23 11:59 BP 120/80 07/06/23 11:59 Pulse Ox 97 07/06/23 11:59 Oxygen Delivery Method Room Air 07/06/23 11:59 BMI result Body Mass Index 31.0 Tobacco/Smoking Status: Tobacco use Status Tobacco use date assessed 06/01/23 07/06/23 12:02 Patient Tobacco Use Status Former Tobacco user 07/06/23 12:02 Tobacco use type Cigarette 07/06/23 12:02 e-Cigarette/Vaping Use Never Used 07/06/23 12:02 Thrive Assessment: Date of Thrive Assessment Date Thrive assessed 12/31/22 07/06/23 12:02 Const General: comfortable, no acute distress and alert Nutritional Appearance: obese Orientation/consciousness: patient oriented x3 HENMT Mouth: Normal oral and palatal mucosa present, oropharynx normal and moist mucous membranes Eyes General: appearance normal, both eyes and all related structures Conjunctivae: conjunctivae normal Sclerae: sclerae normal Pupils: Equal, round and reactive pupils present EOM: EOMs intact bilaterally Neck Neck: Yes full ROM, Yes no lymphadenopathy and Yes supple Resp Effort & Inspection: normal respiratory effort and able to speak in complete sentences Auscultation: clear to auscultation bilaterally Cardio Rate: regular rate Rhythm: regular rhythm Heart sounds: S1 normal heart sound present and S2 normal heart sound present GI Inspection: Yes obesity Palpation (GI): Soft to palpation, nontender, no guarding and No Rebound tenderness present Auscultation: normal bowel sounds Male General Exam: Yes normal external exam Back/Spine/Pelvis Back: No back tenderness Skin General skin exam: no rashes or lesions noted Neuro General: patient oriented x3, gait normal, tone normal, moves all extremities, no focal motor deficits and decrease sensation to monofilament (Both feet) Cranial nerves: Yes CN's II-XII intact bilaterally and Yes Equal, round and reactive pupils present Cognition (Neuro): normal cognition Gait exam (Neuro): Normal gait present Extrem General: Yes full ROM, Yes no joint enlargement, Yes no clubbing, cyanosis or edema and Yes no calf tenderness Psych Appearance: grossly normal and well kempt Mental Status: mental status grossly normal Speech and movement: Normal speech and movement present Affect: normal affect Attitude: cooperative Thought process: Normal thought process present Results AMB Hemoglobin A1c AMB Hemoglobin A1c 6.5 % Last Edit by Alex Fan CMA on 07/06/23 12: 48 Results Reviewed Results Reviewed: Laboratory Last Values Hgb A1c (Clinic) 6.5 % (4.0-6.0) H 07/06/23 12:48 Name: Germán Carlos Age/Sex: 62/M : 1960 Unit#: [id number] Attend Dr: Rocio Morgan MD Re07/01/23 Status: DEP REF Location: [facility] Disch: SPEC : [id number] SUSAN: 07/01/23 STATUS: COMP REQ : [id number] RECD: 07/01/[address]: Rocio Morgan MD COMP: 07/01/23 ENTERED: 07/01/[address] [facility] [address]: ORDERED: CBC Auto Diff Test Result Flag Reference Site WBC 5.5 4.8-10.8 X10*3/uL RBC 4.71 4.60-5.80 X10*6/uL HGB 14.3 14.0-18.0 g/dl HCT 43.3 42.0-52.0 % MCV 91.9 80.0-98.0 fL MCH 30.4 27.0-33.0 pg MCHC 33.0 31.0-36.0 g/dl RDW 12.2 11.0-16.0 % PLT 227 160-400 X10*3/uL RUN: 07/06/23 1233 PAGE 1 [facility] [address] [place] [id number] Microwave Oven Assembler: Constantin Briones M.D. Specimen Inquiry Name: Germán Carlos Age/Sex: 62/M : 1960 Unit#: [id number] Attend Dr: Rocio Morgan MD Re07/01/23 Status: DEP REF Location: [facility] Disch: SPEC : [id number] SUSAN: 07/01/23 STATUS: COMP REQ : [id number] RECD: 07/01/[address]: Rocio Morgan MD COMP: 07/01/23 ENTERED: 07/01/[address] [facility] [address]: ORDERED: Met Prof Fast, AST, ALT, Lipid Panel Test Result Flag Reference Site Sodium 142 135-145 mmol/L Potassium 4.5 3.3-5.1 mmol/L CL 105 96-108 mmol/L CO2 29 22-29 mmol/L Gap 13 12-20 BUN 18 H 9-16 mg/dL Creat 0.91 0.5-1.4 mg/dL EGFR > 60 NOTE: For -[place] individuals, multiply the result by 1.210. Chronic Kidney Disease: Estimated GFR < 60 mL/min/1.73m2 Severe Kidney Disease: Estimated GFR < 15 mL/min/1.73m2 FBS 165 H 60-99 mg/dL A fasting glucose of 126 mg/dl or greater on more than one occasion is considered diagnostic of diabetes. CA 9.8 8.4-10.2 mg/dL AST (GOT) 18 5-37 U/L ALT (GPT) 21 0-40 U/L Triglyceride 76 <150 mg/dL Desirable Triglyceride: less than 150 mg/dL Borderline High Triglyceride 150-199 mg/dL High Triglyceride: 200-499 mg/dL Very High Triglyceride: greater than or equal to 5OO mg/dL Cholesterol 122 <200 mg/dL Desirable Cholesterol: less than 200 mg/dL Borderline High Cholesterol: 200-239 mg/dL High Cholesterol: greater than 239 mg/dL LDL Calculated 68 <100 mg/dL Desirable LDL: less than 100 mg/dL Near Optimal/Above Optimal LDL: 110-129 mg/dL Borderline High LDL: 130-159 mg/dL High LDL: 160-189 mg/dL Very High LDL: greater than or equal to 190 mg/dL HDL 39 L >40 mg/dL Desirable HDL: greater than 40 mg/dL Assessment and Plan Assessment & Plan (1) HTN (hypertension): Code(s): I10 - Essential (primary) hypertension Qualifiers: Hypertension type: essential hypertension Qualified Code(s): I10 - Essential (primary) hypertension Plan: Blood pressure at goal of less than 130/80. Continue with current medication. Reinforced importance of following a low sodium diet, getting regular exercise, and lowering stress levels. (2) Dyslipidemia: Code(s): E78.5 - Hyperlipidemia, unspecified Plan: Lipids are within normal limits, continue with atorvastatin 10 mg daily. (3) Diabetes mellitus type 2 with retinopathy: Code(s): E11.319 - Type 2 diabetes mellitus with unspecified diabetic retinopathy without macular edema Qualifiers: Diabetes mellitus terminal clerk insulin use: with terminal clerk use Diabetes mellitus macular edema: without macular edema Diabetic retinopathy severity: with mild nonproliferative retinopathy Laterality: bilateral Qualified Code(s): E11.3293 - Type 2 diabetes mellitus with mild nonproliferative diabetic retinopathy without macular edema, bilateral; Z79.4 - vermin exterminator (current) use of insulin Plan: Diabetes mellitus stable controlled with hemoglobin A1c at 6.5%, continued on Levemir 60 units at bedtime, metformin 1000 mg twice a day and NovoLog t.i.d. by sliding scale coverage. Reminded to get yearly diabetes retinopathy screening and yearly diabetes foot exam Orders: Orders AMB Hemoglobin A1c 07/06/23 Z13.9 - Encounter for screening, unspecified, E11.8 - Type 2 diabetes mellitus with unspecified complications, Z79.4 - FDC (current) use of insulin Lipid Panel 10/22/23 I10 - Essential (primary) hypertension, E78.5 - Hyperlipidemia, unspecified, E11.319 - Type 2 diabetes mellitus with unspecified diabetic retinopathy without macular edema Aspartate Amino Transferase 10/22/23 I10 - Essential (primary) hypertension, E78.5 - Hyperlipidemia, unspecified, E11.319 - Type 2 diabetes mellitus with unspecified diabetic retinopathy without macular edema Basic Metabolic Panel Fasting 10/22/23 I10 - Essential (primary) hypertension, E78.5 - Hyperlipidemia, unspecified, E11.319 - Type 2 diabetes mellitus with unspecified diabetic retinopathy without macular edema Microalbumin, Random (w Creat) 10/22/23 I10 - Essential (primary) hypertension, E78.5 - Hyperlipidemia, unspecified, E11.319 - Type 2 diabetes mellitus with unspecified diabetic retinopathy without macular edema Hemoglobin A1c 10/22/23 I10 - Essential (primary) hypertension, E78.5 - H yperlipidemia, unspecified, E11.319 - Type 2 diabetes mellitus with unspecified diabetic retinopathy without macular edema Alanine Aminotransferase 10/22/23 I10 - Essential (primary) hypertension, E78.5 - Hyperlipidemia, unspecified, E11.319 - Type 2 diabetes mellitus with unspecified diabetic retinopathy without macular edema Coding Level of Care Code Est Pt Level 4 (23825) Diagnoses Essential hypertension I10 Hypertension type: essential hypertension Dyslipidemia E78.5 Type 2 diabetes mellitus with both eyes affected by mild nonproliferative retinopathy without macular edema, with long-term current use of insulin E11.3293; Z79.4 Diabetes mellitus long-term insulin use: with terminal clerk use Diabetes mellitus macular edema: without macular edema Diabetic retinopathy severity: with mild nonproliferative retinopathy Laterality: bilateral
== END 2023-07-06 13:37 | disposition home or self-care (01) ==
PROVIDERS: Visit Provider Internal Medicine
DX: I10 Essential (primary) hypertension (principal); E78.5 Hyperlipidemia, unspecified; E11.3293 Type 2 diabetes mellitus with mild nonproliferative diabetic retinopathy without macular edema, bilateral; Z79.4 Long term (current) use of insulin
CPT/HCPCS: 83036; 99214

== ENCOUNTER 2023-07-23 08:17 | Outpatient (AMB) | payer MEDICARE, MEDICAID, SELFPAY ==
--- NOTE | 2023-07-23 09:19 | AM.OFFWIN_ITS ---
Intake Vital Signs 07/23/23 09:20 Height 5 ft 7 in Weight 198 lb BMI 31.0 BP 130/92 H Blood Pressure Location Rt brachial Position Sitting Pulse 74 Pulse Source Pulse Oximeter Temp 96.9 F Temp Source Temporal Artery Scan Pulse Oximetry (%) 97 Oxygen Delivery Method Room Air Intake Visit Reasons: EP, body ache, cough, congestion ([phone]) Intake Note: Pt is here c/o body aches, cough and chest congestion for 4 days. Patient Tobacco Use Status: Former Tobacco user Quit Date: age 32 Allergies peanut Allergy (Intermediate, Verified 07/23/23 09:19) Shortness of Breath, throat swelling Do you need a note to return to daycare/school/sports/work: Yes HPI HPI Comments History of Present Illness Details This is a 62-year-old male who presents to the office today for sick visit. Patient complaining of chest congestion and cough, which is sometimes dry but sometimes productive. patient states he did have an episode of shortness of breath several days ago, but he has had no further shortness of breath. He denies any chest pain. He denies any abdominal pain or nausea/ vomiting / diarrhea. He reports chills but no fevers. He reports some nasal congestion and rhinorrhea as well as sore throat. He reports feeling fatigued and malaise. FOR[facility]LY [facility], [facility] Medical History Positional lightheadedness Normocytic normochromic anemia Postprandial epigastric pain History of GI bleed Acquired deformity of toenail Lumbosacral radiculopathy due to degenerative joint disease of spine Left nephrolithiasis Primary osteoarthritis of right knee Primary osteoarthritis, left shoulder Trigger finger of right hand BPH (benign prostatic hyperplasia) Chronic insomnia Depression Osteoarthritis involving multiple joints on both sides of body HTN (hypertension) Dyslipidemia Diabetes mellitus with complication, with long-term current use of insulin Diabetes mellitus type 2 with retinopathy Surgical History Hx of colonoscopy History of esophagogastroduodenoscopy (EGD) History of left inguinal hernia repair (03/24/22) Hx of lithotripsy History of testicular surgery Umbilical hernia Family History Father CVD (cardiovascular disease) Mother Unknown family medical history Social History Housing: Apartment Alcohol intake: current Alcohol intake frequency: a few times a week Alcohol type: beer Patient Tobacco Use Status: Former Tobacco user Quit Date: age 32 Tobacco use type: Cigarette e-Cigarette/Vaping Use: Never Used Second Hand Smoke Exposure: No service: No Current occupational status: employed 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 Cognitive needs: No Hearing needs: No Vision needs: Yes Review of Systems Const All systems reviewed & are unremarkable except as noted in HPI and below Reports no additional complaints Eyes Reports no additional complaints ENT Reports no additional complaints Card Reports no additional complaints Resp Reports no additional complaints GI Reports no additional complaints Reports no additional complaints Musc Reports no additional complaints Skin/Breast Reports system reviewed and no additional complaints, except as documented Neuro Reports no additional complaints Psych Reports no additional complaints Endo Reports no additional complaints Bruno/Lymph Reports no additional complaints Aller/Immun Reports no additional complaints Physical Exam Vital Signs: Last Vital Signs Temp 96.9 F 07/23/23 09:20 Pulse 74 07/23/23 09:20 BP 130/92 H 07/23/23 09:20 Pulse Ox 97 07/23/23 09:20 Oxygen Delivery Method Room Air 07/23/23 09:20 BMI result Body Mass Index 31.0 Const Other: Vital signs reviewed. Constitutional: Non-toxic appearing. No acute distress. Well-developed and well-nourished. HEENT: Normocephalic and atraumatic. Tympanic membranes without erythema, edema, or bulging bilaterally. External auditory canals without erythema or edema bilaterally. Moist mucous membranes. No pharyngeal erythema or exudates. Skin: Warm and dry. No rashes or lesions noted. Neck: Full and painless range of motion. No cervical lymphadenopathy. Cardio: Regular rate and rhythm. No murmurs, gallops, or rubs. No lower extremity edema. No JVD. Pulmonary: No respiratory distress. No accessory muscle usage. Clear to auscultation bilaterally without wheezing, crackles, or rhonchi. Gastrointestinal: Soft, nontender, and nondistended in all 4 quadrants. Normoactive bowel sounds in all 4 quadrants. Genitourinary: No CVA tenderness. Musculoskeletal: Normal range of motion in joints throughout the body. No deformity or other signs of injury. Neuro: Alert and oriented x4. Cranial nerves 2-12 grossly intact. No focal deficits appreciated. Psych: Normal mood and affect. Assessment & Plan Assessment & Plan (1) Upper respiratory tract infection: Code(s): J06.9 - Acute upper respiratory infection, unspecified Plan: This is a 62-year-old male presenting to the office complaining of chest congestion and sometimes productive cough in the setting of viral URI symptoms. Patient presenting with signs and symptoms most consistent with acute respiratory tract infection. Recommended symptomatic management including rest, increased fluids, advil/tylenol for pain/fever as long as he has no medical contraindications, and over the counter throat lozenges/decongestants and mucinex. COVID/flu/ RSV sent. Chest x-ray ordered to evaluate for pneumonia; if positive, will send antibiotics to patient's pharmacy. Patient has no expiratory wheezing or shortness of breath to suggest acute bronchitis. I do not believe that steroids are warranted at this time. Patient's vital signs are stable, his physical exam is benign, and he is overall nontoxic appearing. Patient advised to follow up here or go to the emergency room for worsening/persistent symptoms. Patient verbalized understanding and is agreeable with the plan. Orders: Orders XR chest 2V Today R05.9 - Cough, unspecified SARS-CoV2/FLU/RSV Today R09.89 - Other specified symptoms and signs involving the circulatory and respiratory systems Coding Level of Care Code Est Pt Level 3 (06669) Diagnoses Upper respiratory tract infection J06.9
[2023-07-23 09:20] VITALS: BP 130/92; PULSE 74; TEMP 36.1; O2SAT 97; BMI 31.0
== END 2023-07-23 09:46 | disposition home or self-care (01) ==
PROVIDERS: PCP Internal Medicine; Visit Provider Physician Assistant Medical
DX: J06.9 Acute upper respiratory infection, unspecified (principal)
CPT/HCPCS: 99213

== ENCOUNTER 2023-07-23 09:45 | Outpatient (REF) | payer MEDICARE, MEDICAID, SELFPAY ==
--- NOTE | ~2023-07-23 | XR_ITS ---
EXAMINATION: XR CHEST CLINICAL INFORMATION: Cough COMPARISON: None available. TECHNIQUE: 2 views of the chest were obtained. FINDINGS: No significant abnormality is noted involving the heart, lungs, mediastinum, bony thorax or soft tissues. XR/XR chest 2V IMPRESSION: Unremarkable chest examination.
[2023-07-23 13:00] LABS: Influenza A PCR NEGATIVE (Negative); Influenza B PCR NEGATIVE (Negative); Resp Syncy Virus RNA Qual PCR NEGATIVE (Negative); SARS COV2 PCR INHOUSE NEGATIVE (Negative)
== END 2023-07-23 09:46 | disposition home or self-care (01) ==
LOC: HO.HMGCX 09:45
PROVIDERS: PCP Internal Medicine; Visit Provider Physician Assistant Medical
DX: Z11.52 Encounter for screening for COVID-19 (principal); Z20.822 Contact with and (suspected) exposure to COVID-19; R05.9 Cough, unspecified; R09.89 Other specified symptoms and signs involving the circulatory and respiratory systems
CPT/HCPCS: 0241U; 71046

== ENCOUNTER 2023-08-05 10:02 | Outpatient (AMB) | payer MEDICARE, MEDICAID, SELFPAY ==
[2023-08-05 12:22] VITALS: BP 120/80; PULSE 88; TEMP 36.7; O2SAT 96; BMI 31.2
--- NOTE | 2023-08-05 12:22 | AM.OFFWIN_ITS ---
Intake Vital Signs 08/05/23 12:22 Height 5 ft 7 in Weight 199 lb BMI 31.2 BP 120/80 Blood Pressure Location Lt brachial Position Sitting Pulse 88 Pulse Source Pulse Oximeter Temp 98.0 F Temp Source Temporal Artery Scan Pulse Oximetry (%) 96 Oxygen Delivery Method Room Air Intake Visit Reasons: Est/eye irritation ([id number]) Intake Note: pt is here today for eye irritation started 2 days ago Patient Tobacco Use Status: Former Tobacco user Quit Date: age 32 Allergies peanut Allergy (Intermediate, Verified 08/05/23 12:35) Shortness of Breath, throat swelling Do you need a note to return to daycare/school/sports/work: No HPI Est/eye irritation ([id number]) HPI Details Patient presents today with a 2-3 day history of b/l eye itchiness and irritation R>L. He states he has been waking up with yellowish crust on lashes and watery eye discharge. Denies known exposure to contacts with similar symptoms. Denies any known irritants that he has come in contact with. Is not a contact lens wear. Denies any eye pain, vision changes, or photophobia. [facility] Medical History Positional lightheadedness Normocytic normochromic anemia Postprandial epigastric pain History of GI bleed Acquired deformity of toenail Lumbosacral radiculopathy due to degenerative joint disease of spine Left nephrolithiasis Primary osteoarthritis of right knee Primary osteoarthritis, left shoulder Trigger finger of right hand BPH (benign prostatic hyperplasia) Chronic insomnia Depression Osteoarthritis involving multiple joints on both sides of body HTN (hypertension) Dyslipidemia Diabetes mellitus with complication, with long-term current use of insulin Diabetes mellitus type 2 with retinopathy Surgical History Hx of colonoscopy History of esophagogastroduodenoscopy (EGD) History of left inguinal hernia repair (03/24/22) Hx of lithotripsy History of testicular surgery Umbilical hernia Family History Father CVD (cardiovascular disease) Mother Unknown family medical history Social History Housing: Apartment Alcohol intake: current Alcohol intake frequency: a few times a week Alcohol type: beer Patient Tobacco Use Status: Former Tobacco user Quit Date: age 32 Tobacco use type: Cigarette e-Cigarette/Vaping Use: Never Used Second Hand Smoke Exposure: No service: No Current occupational status: employed 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 Cognitive needs: No Hearing needs: No Vision needs: Yes Review of Systems Const All systems reviewed & are unremarkable except as noted in HPI and below Physical Exam Vital Signs: Last Vital Signs Temp 98.0 F 08/05/23 12:22 Pulse 88 08/05/23 12:22 BP 120/80 08/05/23 12:22 Pulse Ox 96 08/05/23 12:22 Oxygen Delivery Method Room Air 08/05/23 12:22 BMI result Body Mass Index 31.2 Const General: cooperative, healthy appearing, comfortable and no acute distress HEENT Head: Yes normal to inspection Ears: hearing grossly normal bilaterally General nose exam: Normal external nose present Eyes Alignment and Position: alignment normal Eyelids: Yes eyelids normal Conjunctivae: conjunctival abnormal bilateral conjunctival injection (R>L) diffuse and discharge mucoid Pupils: Equal, round and reactive pupils present and Pupil accommodation reflex normal Direct Ophthalmoscopy: normal light reflex and no photophobia Resp Effort & Inspection: normal respiratory effort Skin General skin exam: no rashes or lesions noted Neuro Cranial nerves: Yes Equal, round and reactive pupils present Extrem General: Yes no clubbing, cyanosis or edema Psych Appearance: grossly normal Mental Status: mental status grossly normal Assessment & Plan Assessment & Plan (1) Conjunctivitis, acute, bilateral: Code(s): H10.33 - Unspecified acute conjunctivitis, bilateral Qualifiers: Acute conjunctivitis type: unspecified Qualified Code(s): H10.33 - Unspecified acute conjunctivitis, bilateral Plan: Erythromycin ointment for b/l conjuntivitis treatment. Reviewed indications, use, application, possible side effects of this medication. Reviewed good hand hygiene and recommended avoidance of touching eyes as much as possible. He may do warm compresses for any crusty discharge on eyes. If he does not improve with treatment, or if any symptoms worsen or new eye symptoms/vision changes develop, he should return to the clinic for further evaluation. He verbalizes understanding and agrees to plan. Medications: New erythromycin Apply 0.5 inch to lower lid of left eye 4 times daily for 5 days 1 appl ophthalmic (eye) QID 5 days 3.5 grams 1RF H10.33 - Unspecified acute conjunctivitis, bilateral Coding Level of Care Code Est Pt Level 3 (39641) Diagnoses Acute conjunctivitis of both eyes, unspecified acute conjunctivitis type H10.33 Acute conjunctivitis type: unspecified
== END 2023-08-05 13:10 | disposition home or self-care (01) ==
PROVIDERS: PCP Internal Medicine; Visit Provider Nurse Practitioner Family
DX: H10.33 Unspecified acute conjunctivitis, bilateral (principal)
CPT/HCPCS: 99213

== ENCOUNTER 2023-09-29 08:29 | Outpatient (AMB) | payer OTHER, SELFPAY ==
[2023-09-29 08:28] VITALS: BP 130/90; PULSE 91; TEMP 36.6; O2SAT 96; BMI 29.4
--- NOTE | 2023-09-29 08:28 | AM.OFFWIN_ITS ---
Intake Vital Signs 09/29/23 08:28 Height 5 ft 7 in Weight 188 lb BMI 29.4 BP 130/90 H Blood Pressure Location Lt brachial Position Sitting Pulse 91 Pulse Source Pulse Oximeter Temp 97.9 F Temp Source Temporal Artery Scan Pulse Oximetry (%) 96 Intake Visit Reasons: EP Pain lower AB Intake Note: pt is here today for pain lower AB started 1 week ago Patient Tobacco Use Status: Former Tobacco user Quit Date: age 32 Allergies peanut Allergy (Intermediate, Verified 09/29/23 08:29) Shortness of Breath, throat swelling Do you need a note to return to daycare/school/sports/work: No HPI HPI Comments History of Present Illness Details This is a 62-year-old male with a past medical history of insulin- dependent diabetes, hyperlipidemia, hypertension and abdominal hernia repair presenting for evaluation of lower abdominal pain that he has had for the past 1 week. Patient describes the pain as an aching sensation that is intermittent and has not worsened throughout the week however has not resolved. Patient has not taken any medication for treatment of his discomfort. Patient describes having bowel movements of normal caliber, last bowel movement last night, denies any hyperglycemia fevers, chills, chest pain, nausea, vomiting, diarrhea or dysuria. Patient does report urinary frequency. [facility] Medical History Positional lightheadedness Normocytic normochromic anemia Postprandial epigastric pain History of GI bleed Acquired deformity of toenail Lumbosacral radiculopathy due to degenerative joint disease of spine Left nephrolithiasis Primary osteoarthritis of right knee Primary osteoarthritis, left shoulder Trigger finger of right hand BPH (benign prostatic hyperplasia) Chronic insomnia Depression Osteoarthritis involving multiple joints on both sides of body HTN (hypertension) Dyslipidemia Diabetes mellitus with complication, with long-term current use of insulin Diabetes mellitus type 2 with retinopathy Surgical History Hx of colonoscopy History of esophagogastroduodenoscopy (EGD) History of left inguinal hernia repair (03/24/22) Hx of lithotripsy History of testicular surgery Umbilical hernia Family History Father CVD (cardiovascular disease) Mother Unknown family medical history Social History Housing: Apartment Alcohol intake: current Alcohol intake frequency: a few times a week Alcohol type: beer Patient Tobacco Use Status: Former Tobacco user Quit Date: age 32 Tobacco use type: Cigarette e-Cigarette/Vaping Use: Never Used Second Hand Smoke Exposure: No service: No Current occupational status: employed 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 Cognitive needs: No Hearing needs: No Vision needs: Yes Review of Systems Const All systems reviewed & are unremarkable except as noted in HPI and below Denies body aches, Denies chills and Denies fever(s) Eyes Reports no additional complaints ENT Reports no additional complaints Card Reports no additional complaints GI Reports abdominal pain (lower), Denies melena, Denies bloating, Denies change in bowel habits, Denies constipation, Denies diarrhea, Denies loose stools, Denies nausea and Denies vomiting Denies difficulty urinating, Denies dysuria and Reports urinary frequency Skin/Breast Reports system reviewed and no additional complaints, except as documented Physical Exam Const General: no acute distress Nutritional Appearance: well nourished Orientation/consciousness: patient oriented x3 Limitations: no limitations Cardio Rate: regular rate Rhythm: regular rhythm GI Inspection: Yes normal to inspection Palpation (GI): Soft to palpation, not firm, nontender (no pain on examination of the abdomen, no CVAT, no flank tenderness), no guarding and not rigid Auscultation: normal bowel sounds Rectal Exam - Male: Yes deferred Skin General skin exam: no rashes or lesions noted Neuro General: patient oriented x3 Psych Appearance: grossly normal Mental Status: mental status grossly normal Insight: Good insight present (Psych) Judgement: Good judgement present (Psych) Results Reviewed Results Reviewed: POC glucose and urinalysis reviewed with patient. Assessment & Plan Assessment & Plan (1) Lower abdominal pain: Comment: There is no evidence of an acute urinary tract infection and the patient's blood glucose is 161mg/dL. Code(s): R10.30 - Lower abdominal pain, unspecified Plan: No intervention warranted today; patient to monitor sx. and follow-up with PCP as needed. Return precautions reviewed and patient is agreeable with this plan of care. Orders: Orders AMB Urinalysis Automated Today Z13.9 - Encounter for screening, unspecified AMB Random Glucose (hemocue) Today Z13.9 - Encounter for screening, unspecified Coding Level of Care Code Est Pt Level 3 (22640) Diagnoses Lower abdominal pain R10.30 Time Spent (min) 25
== END 2023-09-29 08:55 | disposition home or self-care (01) ==
PROVIDERS: PCP Internal Medicine; Visit Provider Physician Assistant
DX: R10.30 Lower abdominal pain, unspecified (principal)
CPT/HCPCS: 81003; 82948; 99213

== ENCOUNTER 2023-10-08 10:35 | Emergency (ER) | payer OTHER, SELFPAY ==
--- NOTE | ~2023-10-08 | CT_ITS ---
EXAMINATION: CT ABDOMEN AND PELVIS WITHOUT CONTRAST CLINICAL INFORMATION: Right inguinal hernia COMPARISON: Previous CT of the abdomen and pelvis January 2022 TECHNIQUE: Multidetector volumetric imaging was performed from the superior aspect of the liver through the pubic symphysis. Sagittal and coronal reformatted images were obtained on the technologist's workstation. This CT examination was performed using dose optimization techniques as appropriate, variously including the following: *Automated exposure control *Adjustment of mA and/or kV according to patient size (this includes techniques or standardized protocols for targeted exams where dose is matched to indication/reason for exam; i.e. extremities or head) *Use of iterative reconstruction technique DLP: 7 5 8 mGy-cm FINDINGS: LUNG BASES: The visualized lung bases are unremarkable. LIVER, GALLBLADDER, AND BILIARY TREE: The liver is normal in size, shape, and attenuation. No focal hepatic lesion or biliary ductal dilatation is present. The gallbladder is unremarkable with no evidence of radiopaque gallstones, gallbladder wall thickening, or obvious pericholecystic inflammatory changes. PANCREAS: Unremarkable. SPLEEN: Unremarkable. ADRENAL GLANDS: Unremarkable. KIDNEYS AND URETERS: The kidneys are normal in size, shape, and attenuation. No hydronephrosis, hydroureter, or calculi seen. No perinephric stranding. BLADDER: Unremarkable. GASTROINTESTINAL TRACT: The small and large bowel are unremarkable. The appendix is unremarkable. ABDOMINAL WALL: Small right inguinal hernia containing fat. New postsurgical change in the left inguinal region. LYMPH NODES: Normal. VASCULAR: Unremarkable. PELVIC VISCERA: Crosstable gland is slightly enlarged. OSSEOUS STRUCTURES: Degenerative changes of the spine and mild scoliosis. CT/CT abdomen pelvis wo IV con IMPRESSION: Small right inguinal hernia containing fat. Fleischner guidelines were followed.
[2023-10-08 10:39] VITALS: BP 132/79; PULSE 87; RESP 16; TEMP 36.1; O2SAT 97; BMI 29.4
[2023-10-08 11:19] LABS: MANUAL DIFF FLAG NO
[2023-10-08 11:40] LABS: Anion Gap 12 (12-20); Blood Urea Nitrogen 19 mg/dL (9-16); Calcium 10.8 mg/dL (8.4-10.2); Carbon Dioxide 26 mmol/L (22-29); Chloride 105 mmol/L (96-108); Creatinine Clr Calc Pharmacy 88.7; Estimated Glomerular Filt Rate > 60; Glucose Random 137 mg/dL (60-115); Potassium 4.3 mmol/L (3.3-5.1); Sodium 139 mmol/L (135-145)
[2023-10-08 11:46] LABS: Appearance Urine Clear; Color Urine Yellow; Glucose Urine UA Negative (Negative); Leukocyte Esterase Urine Negative (Negative); Nitrite Urine Negative (Negative); PH 5.5 (5.0-9.0); Urine Blood Negative (Negative); Urine Ketones Negative (Negative); Urine Protein Negative (Neg-Trace)
[2023-10-08 11:57] LABS: Basophils Absolute Auto 0.1 X10*3/uL (0.0-0.2); Basophils Percent Auto 0.7 % (0-2); Eosinophils Absolute Auto 0.2 X10*3/uL (0.0-0.4); Eosinophils Percent Auto 3.1 % (0-4); Hematocrit 40.3 % (42.0-52.0); Hemoglobin 13.6 g/dl (14.0-18.0); Imm Gran Abs Auto 0.03 X10*3/uL (0.00-0.03); Imm Gran Pct Auto 0.4 % (0.0-0.4); Lymphocytes Absolute Auto 1.6 X10*3/uL (1.2-4.9); Lymphocytes Percent Auto 20.9 % (20-40); Mean Corpuscular HGB Conc 33.7 g/dl (31.0-36.0); Mean Corpuscular Hemoglobin 30.5 pg (27.0-33.0); Mean Corpuscular Volume 90.4 fL (80.0-98.0); Mean Platelet Volume 10.8 fL (9.4-12.4); Monocytes Absolute Auto 0.4 X10*3/uL (0.1-1.2); Monocytes Percent Auto 5.7 % (2-11); Neutrophils Absolute Auto 5.3 x10*3/uL (2.0-8.3); Neutrophils Percent Auto 69.2 % (45-73); Platelet Count 258 X10*3/uL (160-400); Red Blood Count 4.46 X10*6/uL (4.60-5.80); Red Cell Distribution Width 12.7 % (11.0-16.0); White Blood Count 7.7 X10*3/uL (4.8-10.8)
[2023-10-08 13:47] VITALS: BP 146/84; PULSE 76; RESP 18; O2SAT 98
--- NOTE | 2023-10-08 13:47 | ED.ABDPAIN ---
HPI - Abdominal Pain General Chief Complaint: Abdominal Pain Stated Complaint: lower abd pain Time Seen by Provider: 10/08/23 16:15 Source: patient Mode of arrival: ambulatory Limitations: no limitations History of Present Illness HPI narrative: 62 year old male with pmhx significant for T2DM, HTN, HDL, OA, normocytic normochromic anemia, gastritis and left inguinal hernia requiring surgical repair presents to the ED today for evaluation of right lower quadrant pain/groin pain x1 week. Has noticed a bulge to his right groin present with coughing and straining. States this feels like his previous hernia. Saw general surgeon, Dr. Villagomez for previous hernia. Denies fever, chills, nausea, vomiting, diarrhea, dysuria, hematuria, penile discharge. Denies scrotal swelling. MD elicited complaint: abdominal pain Pertinent past history: other (inguinal hernia) Onset (ago): week(s) (1) Pain Consistency: constant Location: RLQ and groin Severity: mild Quality: dull Related Data Home Medications Medication Instructions Recorded Confirmed tadalafil 20 mg tablet 20 mg PO DAILY 01/25/23 07/06/23 tadalafil 5 mg tablet 5 mg PO DAILY 09/29/23 Previous Rx's Medication Instructions Recorded Novolog FlexPen U-100 Insulin 100 12 unit (0.12 mL) subcut TID #15 mL 06/16/22 unit/mL (3 mL) subcutaneous (insulin aspart U-100) terazosin 10 mg capsule 10 mg PO BEDTIME 90 days #90 caps 08/25/22 blood sugar diagnostic (FreeStyle #100 ea 10/15/22 Lite Strips) amlodipine 5 mg tablet 5 mg PO QPM #90 tabs 05/12/23 pyridoxine (vitamin B6) 50 mg 50 mg PO DAILY 90 days #90 tabs 05/12/23 tablet insulin detemir U-100 100 unit/mL 60 unit (0.6 mL) subcut BEDTIME 05/25/23 subcutaneous solution (Levemir #20 mL U-100 Insulin) fluoxetine 20 mg capsule 40 mg (2 x 20 mg) PO QAM #180 caps 05/26/23 clotrimazole-betamethasone 1 1 appl topical BID 10 days #45 06/01/23 %-0.05 % topical cream grams insulin syringe-needle U-100 1 mL #100 ea 06/21/23 31 gauge x 01/05 metformin 1,000 mg tablet 1,000 mg PO BID #180 tabs 06/21/23 lisinopril 20 mg tablet (Zestril) 20 mg PO DAILY #90 tabs 07/12/23 methocarbamol 500 mg tablet 500 mg PO TID PRN muscle spasm #90 07/19/23 tabs erythromycin 5 mg/gram (0.5 %) eye 1 appl ophthalmic (eye) QID 5 days 08/05/23 ointment #3.5 grams atorvastatin 10 mg tablet (Lipitor) 10 mg PO DAILY #90 tabs 08/18/23 omeprazole 40 mg capsule,delayed 40 mg PO DAILY 6 weeks #84 caps 08/18/23 release zolpidem 10 mg tablet (Ambien) 10 mg PO BEDTIME PRN insomnia #30 09/16/23 tabs meloxicam 15 mg tablet 15 mg PO DAILY PRN for pain #30 09/27/23 tabs dicyclomine 20 mg tablet 20 mg PO BID PRN abdominal pain 09/28/23 #180 tabs Allergies Allergy/AdvReac Type Severity Reaction Status Date / Time peanut Allergy Intermediate Shortness Verified 09/29/23 08:29 of Breath, throat swelling Review of Systems Review of Systems Constitutional: No fever, chills, fatigue, night sweats, weight changes ENT/Mouth: No ear pain, hearing loss, nasal congestion, sinus pain, rhinorrhea, sore throat Eyes: No eye pain, swelling, redness, vision changes, discharge Cardio: No chest pain, palpitations, ALEXIS, orthopnea, peripheral edema Pulm: No SOB, cough, sputum, wheezing, dyspnea, hemoptysis GI: No nausea, vomiting, hematemesis,+abdominal pain, No diarrhea, constipation, hematochezia, melena : No irregular bleeding, dysuria, frequency, urgency, hesitancy, hematuria, flank pain, urinary flow changes, urinary incontinence or retention MSK: No back pain, neck pain, joint pain, myalgias Skin: No lesions, rashes Neuro: No weakness, numbness, paresthesias, LOC, dizziness, headache All other systems reviewed and are negative. [facility] Past Medical History Attestation statement: The following information was validated with the patient. Source: old records reviewed and nursing notes reviewed Medical History Positional lightheadedness Normocytic normochromic anemia Postprandial epigastric pain History of GI bleed Acquired deformity of toenail Lumbosacral radiculopathy due to degenerative joint disease of spine Left nephrolithiasis Primary osteoarthritis of right knee Primary osteoarthritis, left shoulder Trigger finger of right hand BPH (benign prostatic hyperplasia) Chronic insomnia Depression Osteoarthritis involving multiple joints on both sides of body HTN (hypertension) Dyslipidemia Diabetes mellitus with complication, with long-term current use of insulin Diabetes mellitus type 2 with retinopathy Surgical History Hx of colonoscopy History of esophagogastroduodenoscopy (EGD) History of left inguinal hernia repair (03/24/22) Hx of lithotripsy History of testicular surgery Umbilical hernia Family History Family History Father CVD (cardiovascular disease) Mother Unknown family medical history Social History Social History Housing: Apartment Alcohol intake: current Alcohol intake frequency: a few times a week Alcohol type: beer Patient Tobacco Use Status: Former Tobacco user Quit Date: age 32 Tobacco use type: Cigarette e-Cigarette/Vaping Use: Never Used Second Hand Smoke Exposure: No Advance Directives: No Advance Directives Information Provided: Yes service: No Current occupational status: employed 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 Cognitive needs: No Hearing needs: No Vision needs: Yes Physical Exam ED Vital Signs: Vital Signs - 24 hr 10/08/23 10:39 10/08/23 13:47 Temperature 97 F Pulse Rate 87 76 Respiratory Rate 16 18 Blood Pressure 132/79 146/84 H Pulse Oximetry 97 98 Oxygen Delivery Method Room Air Room Air BMI result Body Mass Index 29.4 Vitals WNL Const General: cooperative, healthy appearing, comfortable and no acute distress Orientation/consciousness: patient oriented x3 Limitations: no limitations HENMT Head: Yes normal to inspection Eyes General: appearance normal, both eyes and all related structures Conjunctivae: conjunctivae normal Sclerae: sclerae normal Pupils: Equal, round and reactive pupils present Resp Effort & Inspection: normal respiratory effort Auscultation: clear to auscultation bilaterally Cardio Rate: regular rate Rhythm: regular rhythm Peripheral pulses: Peripheral pulses 2+ throughout GI Other: + right sided inguinal bulge palpated on coughing Inspection: Yes normal to inspection Other: + sensitive exam performed with Kimmie CHÁVEZ in the room to chaparone + external genetalia without lesions. no penile discharge. Normal testicular lie. no scrotal swelling or varicosities. No palpable masses. Positive cremasteric reflex. General: Yes no CVA tenderness Back/Spine/Pelvis Back: no CVA tenderness Skin General skin exam: no rashes or lesions noted Neuro General: patient oriented x3 Cranial nerves: Yes Equal, round and reactive pupils present Gait exam (Neuro): Normal gait present Extrem General: Yes normal to inspection Course Course Course Narrative: RME:?62 year old male gx id T2DM, HTN, HDL, gastritis, and left inguinal hernia, here for eval of right lower quadrant/right groin pain x1 week. Pain is worse with coughing and straining. Reports bump in his right groin area. Reports history of left inguinal hernia requiring repair. States this feels similar. pain has been worsening over last week. Denies nausea, vomiting, diarrhea, dysuria, hematuria, penile discharge. labs, UA, ct ordered. Full HPI, ROS and PE to be performed by the primary ED provider. Reevaluation(s) Reevaluation #1: 1865-- mildly anemic, H and H stable when compared to priors. No leukocytosis or left shift. Chemistry without acute electrolyte abnormality requiring intervention. Calcium slightly elevated to 10.8. He is asymptomatic and I advised him to follow up with his PCP regarding this. Urine is negative for infection. CT abdomen and pelvis shows a small right inguinal hernia containing fat. There is no bowel involvement and I do not have concern for incarceration or strangulation. I have discussed workup results with patient. I will provide him with referral to General surgery. He has previously seen Dr. Villagomez and I advised him to call their office for an appointment. Discussed worrisome signs and symptoms of when to return to the ED. All questions answered at this time. Patient is agreeable disposition stable for discharge. Medical Decision Making Medical Decision Making MDM Narrative: 62 year old male with pmhx significant for T2DM, HTN, HDL, OA, normocytic normochromic anemia, gastritis and left inguinal hernia requiring surgical repair presents to the ED today for evaluation of right lower quadrant pain/groin pain x1 week. Vital signs WNL. Afebrile. He is nontoxic-appearing and in no acute distress. Please refer to physical exam section for findings. Clinical concern for inguinal hernia, UTI. Unlikely incarcerated or strangulated hernia, testicular torsion, epididymitis, varicocele, hydrocele, SBO or acute abdomen. Plan for labs, UA, CT scan, and re-evaluation. Differential Diagnosis Differential Diagnoses: The differential diagnosis associated with the presentation includes As above. Admission/Observation Not indicated. Lab Data MDM Lab Attestation statement: I reviewed the patient's lab results. As above. 10/08/23 11:16 10/08/23 11:16 Labs: Lab Results 10/08/23 10/08/23 Range/Units 11:16 11:20 WBC 7.7 (4.8-10.8) X10*3/uL RBC 4.46 L (4.60-5.80) X10*6/uL Hgb 13.6 L (14.0-18.0) g/dl Hct 40.3 L (42.0-52.0) % MCV 90.4 (80.0-98.0) fL MCH 30.5 (27.0-33.0) pg MCHC 33.7 (31.0-36.0) g/dl RDW 12.7 (11.0-16.0) % Plt Count 258 (160-400) X10*3/uL MPV 10.8 (9.4-12.4) fL Immature Gran % (Auto) 0.4 (0.0-0.4) % Neut % (Auto) 69.2 (45-73) % Lymph % (Auto) 20.9 (20-40) % [place] % (Auto) 5.7 (2-11) % Eos % (Auto) 3.1 (0-4) % Baso % (Auto) 0.7 (0-2) % Lymph # (Auto) 1.6 (1.2-4.9) X10*3/uL [place] # (Auto) 0.4 (0.1-1.2) X10*3/uL Eos # (Auto) 0.2 (0.0-0.4) X10*3/uL Baso # (Auto) 0.1 (0.0-0.2) X10*3/uL Abs Immat Gran (auto) 0.03 (0.00-0.03) X10*3/uL Absolute Neuts (auto) 5.3 (2.0-8.3) x10*3/uL Absolute Nucleated RBC 0.000 (0.0-0.012) X10*3/uL Nucleated RBC % (auto) 0.0 (0.0-0.2) /100WBC Sodium 139 (135-145) mmol/L Potassium 4.3 (3.3-5.1) mmol/L Chloride 105 (96-108) mmol/L Carbon Dioxide 26 (22-29) mmol/L Anion Gap 12 (12-20) BUN 19 H (9-16) mg/dL Creatinine 0.90 (0.5-1.4) mg/dL Estim Creat Clear Calc 88.7 Estimated GFR > 60 Random Glucose 137 H (60-115) mg/dL Calcium 10.8 H D (8.4-10.2) mg/dL Urine Color Yellow Urine Appearance Clear Urine pH 5.5 (5.0-9.0) Ur Specific [place] 1.020 (1.005-1.025) Urine Protein Negative (Neg-Trace) mg/dL Urine Glucose (UA) Negative (Negative) mg/dL Urine Ketones Negative (Negative) mg/dL Urine Blood Negative (Negative) Urine Nitrite Negative (Negative) Ur Leukocyte Esterase Negative (Negative) Independent Interpretation I performed an independent interpretation of an: CT Scan Interpretation: I have personally reviewed CT scan abdomen/pelvis and agree with radiologist's interpretation. Radiology Impression Discussion of test interpretation with radiology: I have reviewed the radiologist's reading. Radiologist Impression: CT abdomen pelvis wo IV con IMPRESSION: Small right inguinal hernia containing fat. Fleischner guidelines were followed. External Record Review External record reviewed: Inpatient record, Office record, Outpatient record, Prior outpatient labs, Prior outpatient radiology, Primary care record and Outside ED record Prescription Management I considered prescription management with: Pain Medication Social Determinants Patient?s care significantly limited by Social Determinants of Health including: Other Social Determinant of Health Critical Care Time Critical Care Time Critical Care Time: Yes Total Critical Care Time: 34 Attestation: Critical care time in the amount of 34minutes has been provided to the patient in terms of direct patient care, frequent reevaluation, review and interpretation of medical data and results, and management of potentially life-threatening conditions. This is all outside of any medical procedures. Discharge Plan Discharge Clinical Impression: Right inguinal hernia Patient Disposition: Home, Self-Care Instructions: Inguinal Hernia (ED), Inguinal Hernia Repair (DC) Additional Instructions: your labs today are reassuring. Your calcium was slightly elevated. Please follow-up with PCP regarding this finding as this may requiring serial calcium levels or further workup. The CT scan of your abdomen shows a small right inguinal hernia containing fat. You have been provided with a referral to a general surgeon. Call them to make an appointment for evaluation as this may acquire surgical repair. You may take Tylenol and ibuprofen as needed for pain or discomfort. If pain is intractable with medications or if the hernia protrudes and does not go back in, please return to the ED as this may require emergent surgery. The case of an emergency call 911. [facility] general surgery: [phone] Prescriptions: No Action insulin aspart U-100 [Novolog FlexPen U-100 Insulin] 100 unit/mL (3 mL) insulin pen 12 unit subcut TID Qty: 15 0RF (DME) FreeStyle Lite Strips Strip See Rx Instructions .ROUTE .MEDSUPPLY Qty: 100 8RF Rx Instructions: check fasting blood sugar twice a day before meals amlodipine 5 mg tablet 5 mg PO QPM Qty: 90 1RF Levemir U-100 Insulin 100 unit/mL solution 60 unit subcut BEDTIME Qty: 20 5RF fluoxetine 20 mg capsule 40 mg PO QAM Qty: 180 1RF metformin 1,000 mg tablet 1,000 mg PO BID Qty: 180 1RF (DME) insulin syringe-needle U-100 1 mL 31 gauge x 5/16 syringe See Rx Instructions .ROUTE .MEDSUPPLY Qty: 100 3RF Rx Instructions: Use to inject insulin once a day lisinopril [Zestril] 20 mg tablet 20 mg PO DAILY Qty: 90 1RF methocarbamol 500 mg tablet 500 mg PO TID PRN (Reason: muscle spasm) Qty: 90 3RF omeprazole 40 mg capsule,delayed release(DR/EC) 40 mg PO DAILY 42 Days Qty: 84 0RF atorvastatin [Lipitor] 10 mg tablet 10 mg PO DAILY Qty: 90 1RF zolpidem [Ambien] 10 mg tablet 10 mg PO BEDTIME PRN (Reason: insomnia) Qty: 30 0RF meloxicam 15 mg tablet 15 mg PO DAILY PRN (Reason: for pain) Qty: 30 0RF dicyclomine 20 mg tablet 20 mg PO BID PRN (Reason: abdominal pain) Qty: 180 0RF erythromycin 5 mg/gram (0.5 %) ointment 1 appl ophthalmic (eye) QID 5 Days Qty: 3.5 1RF Rx Instructions: Apply 0.5 inch to lower lid of left eye 4 times daily for 5 days clotrimazole-betamethasone 1-0.05 % cream 1 appl topical BID 10 Days Qty: 45 0RF tadalafil 5 mg tablet 5 mg PO DAILY terazosin 10 mg capsule 10 mg PO BEDTIME 90 Days Qty: 90 1RF tadalafil 20 mg tablet 20 mg PO DAILY pyridoxine (vitamin B6) 50 mg tablet 50 mg PO DAILY 90 Days Qty: 90 1RF Referrals: [facility] General Surgeons [Provider Group] Interventions: ED Discharge Assessment Last Done: 10/08/23 16:23 Discharge Date/Time: 10/08/23 16:24
== END 2023-10-08 16:24 | disposition home or self-care (01) ==
PROVIDERS: Emergency Provider Emergency Medicine; PCP Internal Medicine
DX: K40.90 Unilateral inguinal hernia, without obstruction or gangrene, not specified as recurrent (principal); R10.30 Lower abdominal pain, unspecified; R10.2 Pelvic and perineal pain; Z79.899 Other long term (current) drug therapy
CPT/HCPCS: 36415; 74176; 80048; 81003; 85025; 99284

== ENCOUNTER 2023-10-15 09:54 | Outpatient (REF) | payer OTHER, SELFPAY ==
--- NOTE | ~2023-10-15 | US_ITS ---
EXAMINATION: US RETROPERITONEAL LIMITED (RENAL ONLY) CLINICAL INFORMATION: Type 2 diabetes mellitus with other specified complication. COMPARISON: CT abdomen and pelvis 10/08/2023. Renal ultrasound 11/13/2021. X-ray KUB 11/05/2021. TECHNIQUE: Real-time imaging of the kidneys. Limited visualization due to bowel gas. FINDINGS: RIGHT KIDNEY: 10.1 x 6.4 x 5.3 cm (SAG x AP x TRV). Midpole 0.5 cm calculus. Renal cortical thickness is normal. No hydronephrosis. Limited visualization. LEFT KIDNEY: 10.4 x 5.6 x 5.4 cm (SAG x AP x TRV). 0.6 cm lower pole calculus. No hydronephrosis. No renal calculi. Limited visualization. US/US renal BI IMPRESSION: Bilateral renal calculi. No hydronephrosis.
== END 2023-10-15 09:55 | disposition home or self-care (01) ==
LOC: HO.US 09:54
PROVIDERS: PCP Internal Medicine; Visit Provider Urology
DX: E11.69 Type 2 diabetes mellitus with other specified complication (principal); N52.1 Erectile dysfunction due to diseases classified elsewhere
CPT/HCPCS: 76775

== ENCOUNTER 2023-10-21 09:02 | Outpatient (AMB) | payer OTHER, SELFPAY ==
--- NOTE | 2023-10-21 09:18 | MHC.OFFVIS ---
Intake Vital Signs 10/21/23 09:34 Height 5 ft 7 in Weight 188 lb BMI 29.4 Intake Visit Reasons: Inguinal hernia, 10/08/23 [facility] follow up Intake Note: This patient presents for [facility] follow-up for right inguinal hernia. Patient c/o; reports bulge, reports throbbing sensation when coughs, reports pain last week. Customer Service Coordinator Required: Yes Customer Service Coordinator Language: Irish Information Interpreted: non-clinical & clinical Accompanied by: Self / Same As Patient Allergies peanut Allergy (Intermediate, Verified 10/21/23 09:22) Shortness of Breath, throat swelling Medication List - Last Reconciled 10/21/23 by Obi Villagomez MD amlodipine 5 mg PO QPM atorvastatin (Lipitor) 10 mg PO DAILY blood sugar diagnostic (FreeStyle Lite Strips) check fasting blood sugar twice a day before meals clotrimazole-betamethasone 1-0.05 % 1 appl topical BID 10 days dicyclomine 20 mg PO BID PRN erythromycin 1 appl ophthalmic (eye) QID 5 days fluoxetine 40 mg (2 x 20 mg) PO QAM insulin detemir U-100 (Levemir U-100 Insulin) 60 units (0.6 mL) subcut BEDTIME insulin syringe-needle U-100 Use to inject insulin once a day lisinopril (Zestril) 20 mg PO DAILY meloxicam 15 mg PO DAILY PRN metformin 1,000 mg PO BID methocarbamol 500 mg PO TID PRN Novolog FlexPen U-100 Insulin (insulin aspart U-100) 12 units (0.12 mL) subcut TID NS omeprazole 40 mg PO DAILY 6 weeks pyridoxine (vitamin B6) 50 mg PO DAILY 90 days tadalafil 5 mg PO DAILY tadalafil 20 mg PO DAILY terazosin 10 mg PO BEDTIME 90 days zolpidem (Ambien) 10 mg PO BEDTIME PRN HPI Inguinal hernia, 10/08/23 [facility] follow up HPI Details 63-year-old male referred for right inguinal hernia. He went to the ER last October 15, 2023 because of what he felt was right groin pain along with a palpable mass. He said that he had been noticing this for about a month now. He would feel this lump whenever he is coughing or straining. He had a CAT scan showing a right inguinal hernia which was fat containing. He denies GI complaints. He says he feels well overall. [facility] Medical History Positional lightheadedness Normocytic normochromic anemia Postprandial epigastric pain History of GI bleed Acquired deformity of toenail Lumbosacral radiculopathy due to degenerative joint disease of spine Left nephrolithiasis Primary osteoarthritis of right knee Primary osteoarthritis, left shoulder Trigger finger of right hand BPH (benign prostatic hyperplasia) Chronic insomnia Depression Osteoarthritis involving multiple joints on both sides of body HTN (hypertension) Dyslipidemia Diabetes mellitus with complication, with long-term current use of insulin Diabetes mellitus type 2 with retinopathy Surgical History Hx of colonoscopy History of esophagogastroduodenoscopy (EGD) History of left inguinal hernia repair (03/24/22) Hx of lithotripsy History of testicular surgery Umbilical hernia Family History Father CVD (cardiovascular disease) Mother Unknown family medical history Social History Housing: Apartment Alcohol intake: current Alcohol intake frequency: a few times a week Alcohol type: beer Patient Tobacco Use Status: Former Tobacco user Quit Date: age 32 Tobacco use type: Cigarette e-Cigarette/Vaping Use: Never Used Second Hand Smoke Exposure: No service: No Current occupational status: employed 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 Cognitive needs: No Hearing needs: No Vision needs: Yes Review of Systems Const Denies chills and Denies fever(s) Card Denies chest pain, Denies dyspnea and Denies dyspnea on exertion Resp Denies cough, Denies dyspnea and Denies dyspnea on exertion GI Denies hematochezia and Denies change in bowel habits Denies hematuria and Denies difficulty urinating Musc Denies back pain and Denies limited range of motion Neuro Denies focal weakness and Denies convulsions Psych Denies depression and Denies mood swings Physical Exam Vital Signs: BMI result Body Mass Index 29.4 Const General: comfortable and no acute distress Orientation/consciousness: patient oriented x3 Neck Neck: Yes no lymphadenopathy Resp Auscultation: clear to auscultation bilaterally Cardio Rhythm: regular rhythm GI Other: Right inguinal hernia, palpable with Valsalva easily reducible Palpation (GI): Soft to palpation, nontender and no guarding Neuro General: patient oriented x3 Assessment & Plan Assessment & Plan (1) Right inguinal hernia: Comment: Seen on CT scan done 10/08/2023 at ER, referred to surgery Code(s): K40.90 - Unilateral inguinal hernia, without obstruction or gangrene, not specified as recurrent Plan: He has a reducible right inguinal hernia. He says that this has been causing him some occasional pain and discomfort. He wants to proceed with repair. I explained the technique of repair with mesh placement. I reviewed the risks including but not limited to bleeding, infections, injury to other organs including bowel and testicle, recurrence, postop pain, as well as the benefits and alternatives. I described to him what to expect postoperatively He is given consent. Coding Level of Care Code New Pt Level 3 (20658) Diagnoses Right inguinal hernia K40.90
[2023-10-21 09:34] VITALS: BMI 29.4
== END 2023-10-21 09:35 | disposition home or self-care (01) ==
PROVIDERS: PCP Internal Medicine; Visit Provider Surgery
DX: K40.90 Unilateral inguinal hernia, without obstruction or gangrene, not specified as recurrent (principal)
CPT/HCPCS: 99213

== ENCOUNTER → 2023-10-21 09:02 | Outpatient (BNVA) | payer OTHER, SELFPAY | PROVIDERS: PCP Internal Medicine; Visit Provider Surgery | DX: K40.90 Unilateral inguinal hernia, without obstruction or gangrene, not specified as recurrent (principal) | CPT/HCPCS: 99212 ==

== ENCOUNTER 2023-11-04 09:51 | Outpatient (AMB) | payer OTHER, SELFPAY ==
[2023-11-04 09:57] VITALS: BP 138/82; PULSE 84; O2SAT 97; BMI 30.7
--- NOTE | 2023-11-04 09:57 | A.OFFPC_ITS ---
Vital Signs 11/04/23 09:57 Height 5 ft 7 in Weight 196 lb BMI 30.7 BP 138/82 Blood Pressure Location Rt brachial Position Sitting Pulse 84 Pulse Source Pulse Oximeter Pulse Oximetry (%) 97 Oxygen Delivery Method Room Air Intake Visit Reasons: Annual PE Allergies peanut Allergy (Intermediate, Verified 11/05/23 23:54) Shortness of Breath, throat swelling Medication List - Last Reconciled 11/05/23 by Rocio Morgan MD amlodipine 5 mg PO QPM atorvastatin (Lipitor) 10 mg PO DAILY blood sugar diagnostic (FreeStyle Lite Strips) check fasting blood sugar twice a day before meals clotrimazole-betamethasone 1-0.05 % 1 appl topical BID 10 days dicyclomine 20 mg PO BID PRN erythromycin 1 appl ophthalmic (eye) QID 5 days fluoxetine 40 mg (2 x 20 mg) PO QAM insulin detemir U-100 (Levemir U-100 Insulin) 60 units (0.6 mL) subcut BEDTIME insulin syringe-needle U-100 Use to inject insulin once a day lisinopril (Zestril) 20 mg PO DAILY meloxicam 15 mg PO DAILY PRN metformin 1,000 mg PO BID methocarbamol 500 mg PO TID PRN Novolog FlexPen U-100 Insulin (insulin aspart U-100) 12 units (0.12 mL) subcut TID NS omeprazole 40 mg PO DAILY 6 weeks pyridoxine (vitamin B6) 50 mg PO DAILY 90 days tadalafil 5 mg PO DAILY terazosin 10 mg PO BEDTIME 90 days zolpidem (Ambien) 10 mg PO BEDTIME PRN Tobacco use date assessed: 11/04/23 Dental Screening Dental Screen Date: 11/04/23 Did you have a dental visit in the last 12 months?: No Was dental information given to patient?: Patient has dentist HPI Annual PE HPI Details 63-year-old male, with history of diabet es mellitus with retinopathy and neuropathy, has dyslipidemia, hypertension, anemia, osteoarthritis, depression , history of bladder outlet obstruction and chronic insomnia, here today for his annual physical exam. He is up-to-date with his screening colono scopy, done 01/14/23, and latest hemoglobin A1c is at 6.6%. Last fasting lipids were done in June 2023 which showed results within normal limits. He has been feeling well, except for intermittent episodes of numbness and tingling in both feet extending to toes. He had labs done which showed presence of elevated serum calcium. [facility] Medical History (Updated 11/04/23 @ 10:42 by Rocio Morgan MD) Hypercalcemia Positional lightheadedness Normocytic normochromic anemia Postprandial epigastric pain History of GI bleed Acquired deformity of toenail Lumbosacral radiculopathy due to degenerative joint disease of spine Left nephrolithiasis Primary osteoarthritis of right knee Primary osteoarthritis, left shoulder Trigger finger of right hand BPH (benign prostatic hyperplasia) Chronic insomnia Depression Osteoarthritis involving multiple joints on both sides of body HTN (hypertension) Dyslipidemia Diabetes mellitus with complication, with long-term current use of insulin Diabetes mellitus type 2 with retinopathy Surgical History Hx of colonoscopy History of esophagogastroduodenoscopy (EGD) History of left inguinal hernia repair (03/24/22) Hx of lithotripsy History of testicular surgery Umbilical hernia Family History Father CVD (cardiovascular disease) Mother Unknown family medical history Social History Housing: Apartment Alcohol intake: current Alcohol intake frequency: a few times a week Alcohol type: beer Patient Tobacco Use Status: Former Tobacco user Quit Date: age 32 Tobacco use type: Cigarette e-Cigarette/Vaping Use: Never Used Second Hand Smoke Exposure: No service: No Current occupational status: employed 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 1. Little interest or pleasure in doing things: not at all 2. Feeling down, depressed, or hopeless: not at all 3. Trouble falling or staying asleep, or sleeping too much: more than half the days 4. Feeling tired or having little energy: not at all 5. Poor appetite or overeating: not at all 6. Feeling bad about yourself - or that you are a failure or have let yourself or your family down: not at all 7. Trouble concentrating on things, such as reading the newspaper or watching television: not at all 8. Moving or speaking so slowly that other people could have noticed. Or the opposite - being so fidgety or restless that you have been moving around a lot more than usual: not at all 9. Thoughts that you would be better off or of hurting yourself in some way: not at all Total score: 2 Depression Screening Interpretation: Negative (Depression stable controlled on fluoxetine) Depression Screening Done: Yes 85875 - PHQ-9 Billing: Yes Source: Developed by Drs. Junior Kennedy, Biranna Adhikari, Nixon Abreu and colleagues, with an educational milagros from [employer]. Thrive Questionnaire Date Thrive assessed: 11/04/23 I am a: Patient What is your living situation today?: I have a steady place to live Within the past 12 months, did the food you bought not last and you didn't have the money to get more?: Never true Within the past 12 months, did you worry whether your food would run out before you got money to buy more?: Never true Do you have trouble paying for medicines?: No Do you have trouble getting transportation to medical appointments?: No Do you have trouble paying your heating and electricity bill?: No Do you have trouble taking care of your child, family member or friend?: No Do you have trouble with day-to-day activities such as bathing, preparing meals, shopping, managing finances, etc.?: No Are you currently unemployed and looking for a job?: No Are you interested in more education?: No THRIVE Score: 0 AUDIT C Alcohol Use Questionnaire (AUDIT-C) 1. How often do you have a drink containing alcohol?: Monthly or less 2. How many drinks containing alcohol do you have on a typical day when you are drinking?: 1 or 2 3. How often do you have six or more drinks on one occasion?: Never Total Score: 1 YASMEEN-7 AMB Questionnaire YASMEEN-7 Date YASMEEN - 7 assessed: 11/04/23 Feeling nervous, anxious, or on edge: 0 = Not at all Not being able to stop or control worryin = Not at all Worrying too much about different things: 0 = Not at all Trouble relaxin = Not at all Being so restless that it is hard to sit still: 0 = Not at all Becoming easily annoyed or irritable: 0 = Not at all Feeling afraid as if something awful might happen: 0 = Not at all Total YASMEEN-7 score (0-4 normal; 5-9 mild; 10-14 moderate; 15-21 severe): 0 Source: Developed by Drs. Junior Kennedy, Brianna Adhikari, Nixon Abreu and colleagues, with an educational milagros from [employer]. YASMEEN-7 Assessment Billing YASMEEN-7 Assessment Tool: YASMEEN-7 Assessment 02432 Review of Systems Const Denies body aches, Denies fatigue and Denies headache(s) Eyes Details: Goes to [facility] Denies change in vision ENT Denies dizziness, Denies headache(s), Denies tinnitus and Denies sinus pain Card Denies chest pain, Denies chest pain with activity, Denies irregular heart rhythm, Denies lightheadedness, Denies palpitations and Denies dyspnea Resp Denies cough and Denies dyspnea GI Denies abdominal pain, Denies change in bowel habits and Denies heartburn (Controlled on omeprazole) Denies hematuria, Denies oliguria, Denies difficulty urinating, Denies dysuria, Denies penile discharge and Denies testicular mass Musc Reports no additional complaints Skin/Breast Denies rash Neuro Reports as per HPI, Denies dizziness, Denies headache(s) and Denies focal weakness Psych Reports as per HPI Endo Denies fatigue, Denies polydipsia, Denies polyuria and Denies palpitations Bruno/Lymph Reports no additional complaints Aller/Immun Reports no additional complaints Physical exam (Primary Care) Vital Signs: Last Vital Signs Pulse 84 11/04/23 09:57 BP 138/82 11/04/23 09:57 Pulse Ox 97 11/04/23 09:57 Oxygen Delivery Method Room Air 11/04/23 09:57 BMI result Body Mass Index 30.7 Tobacco/Smoking Status: Tobacco use Status Tobacco use date assessed 11/04/23 11/04/23 10:08 Patient Tobacco Use Status Former Tobacco user 11/04/23 10:00 Tobacco use type Cigarette 11/04/23 10:00 e-Cigarette/Vaping Use Never Used 11/04/23 10:00 PHQ-9: PHQ-9 Score PHQ-9: Total score 2 11/06/23 00:34 Depression Screening Interpretation: Negative (Depression stable controlled on fluoxetine) Thrive Assessment: Date of Thrive Assessment Date Thrive assessed 11/04/23 11/06/23 00:34 Const General: comfortable, no acute distress and alert Nutritional Appearance: obese Orientation/consciousness: patient oriented x3 HENMT Mouth: Normal oral and palatal mucosa present, oropharynx normal and moist mucous membranes Eyes General: appearance normal, both eyes and all related structures Conjunctivae: conjunctivae normal Sclerae: sclerae normal Pupils: Equal, round and reactive pupils present EOM: EOMs intact bilaterally Neck Neck: Yes full ROM, Yes no lymphadenopathy and Yes supple Resp Effort & Inspection: normal respiratory effort and able to speak in complete sentences Auscultation: clear to auscultation bilaterally Cardio Rate: regular rate Rhythm: regular rhythm Heart sounds: S1 normal heart sound present and S2 normal heart sound present GI Inspection: Yes obesity Palpation (GI): Soft to palpation, nontender, no guarding and No Rebound tenderness present Auscultation: normal bowel sounds Male General Exam: Yes normal external exam Back/Spine/Pelvis Back: No back tenderness Skin General skin exam: no rashes or lesions noted Neuro General: patient oriented x3, gait normal, tone normal, moves all extremities, no focal motor deficits and decrease sensation to monofilament (Both feet) Cranial nerves: Yes CN's II-XII intact bilaterally and Yes Equal, round and reactive pupils present Cognition (Neuro): normal cognition Gait exam (Neuro): Normal gait present Extrem General: Yes full ROM, Yes no joint enlargement, Yes no clubbing, cyanosis or edema and Yes no calf tenderness Psych Appearance: grossly normal and well kempt Mental Status: mental status grossly normal Speech and movement: Normal speech and movement present Affect: normal affect Attitude: cooperative Thought process: Normal thought process present Results AMB Hemoglobin A1c AMB Hemoglobin A1c 6.6 % Last Edit by Briseyda Bright CMA on 11/04/23 10:28 Results Reviewed Results Reviewed: Laboratory Last Values Hgb A1c (Clinic) 6.6 % (4.0-6.0) H 11/04/23 10:03 ENTERED: 10/08/23-[address]: Rocio Morgan MD Generic ED Physician ORDERED: CBC Auto Diff Test Result Flag Reference WBC 7.7 4.8-10.8 X10*3/uL RBC 4.46 L 4.60-5.80 X10*6/uL HGB 13.6 L 14.0-18.0 g/dl HCT 40.3 L 42.0-52.0 % MCV 90.4 80.0-98.0 fL MCH 30.5 27.0-33.0 pg MCHC 33.7 31.0-36.0 g/dl RDW 12.7 11.0-16.0 % PLT 258 160-400 X10*3/uL MPV 10.8 9.4-12.4 fL Neut Pct Auto 69.2 45-73 % ImGran Pct Auto 0.4 0.0-0.4 % Lymp Pct Auto 20.9 20-40 % Weston Pct Auto 5.7 2-11 % Eos Pct Auto 3.1 0-4 % Baso Pct Auto 0.7 0-2 % NRBC Pct Auto 0.0 0.0-0.2 /100WBC ANC Neut Abs # 5.3 2.0-8.3 x10*3/uL ImGran Abs Auto 0.03 0.00-0.03 X10*3/uL Lymph Abs Auto 1.6 1.2-4.9 X10*3/uL Weston Abs Auto 0.4 0.1-1.2 X10*3/uL Eos Abs Auto 0.2 0.0-0.4 X10*3/uL Baso Abs Auto 0.1 0.0-0.2 X10*3/uL NRBC Abs Auto 0.000 0.0-0.012 X10*3/uL RUN: 11/04/23 1025 PAGE 1 [facility] [address] [place] [id number] Bi Manager: Constantin Briones M.D. Specimen Inquiry Name: Germán Carlos Age/Sex: 62/[facility] 1960 [id number]#: [id number] Attend Dr: Candace Amador MD Re10/08/23 Status: [facility] Dis[facility]: SPEC : [id number] SUSAN: 10/08/23-1115 STATUS: COMP REQ : [id number] RECD: 10/08/23-[address]: Candace Amador MD COMP: 10/08/23-114 ENTERED: 10/08/23-[address]: Rocio Morgan MD [facility] ED Physician ORDERED: BMP Test Result Flag Reference Sodium 139 135-145 mmol/L Potassium 4.3 3.3-5.1 mmol/L CL 105 96-108 mmol/L CO2 26 22-29 mmol/L Gap 12 12-20 BUN 19 H 9-16 mg/dL Creat 0.90 0.5-1.4 mg/dL Estimated CrCl 88.7 eGFR (calculated from the MDRD study equation) and eCrCl (calculated from the Cockcroft-Gault equation) are based on different parameters and may not yield comparable results. If eCrCl result is absurd, please check patient's height/weight. EGFR > 60 NOTE: For -Spanish individuals, multiply the result by 1.210. Chronic Kidney Disease: Estimated GFR < 60 mL/min/1.73m2 Severe Kidney Disease: Estimated GFR < 15 mL/min/1.73m2 Glucose, Random 137 H 60-115 mg/dL CA 10.8 # H 8.4-10.2 mg/dL Assessment and Plan Assessment & Plan (1) Annual visit for general adult medical examination with abnormal findings: Code(s): Z00.01 - Encounter for general adult medical examination with abnormal findings Plan: Fasting labs ordered. Up-to-date with his screening colonoscopy, reminded to get his diabetes retinopathy screening. Continue with adherence to healthy eating habits and regular exercise. Up-to-date with all his vaccinations. (2) Hypercalcemia: Code(s): E83.52 - Hypercalcemia Plan: Ordered ionized serum calcium (3) Normocytic normochromic anemia: Code(s): D64.9 - Anemia, unspecified (4) Dyslipidemia: Code(s): E78.5 - Hyperlipidemia, unspecified Plan: Fasting lipid panel to be done again in February 2024, continue with atorvastatin 10 mg daily (5) Diabetes mellitus type 2 with retinopathy: Code(s): E11.319 - Type 2 diabetes mellitus with unspecified diabetic retinopathy without macular edema Qualifiers: Diabetes mellitus custodial insulin use: with middle or intermediate school principal use Diabetes mellitus macular edema: without macular edema Diabetic retinopathy severity: with mild nonproliferative retinopathy Laterality: bilateral Qualified Code(s): E11.3293 - Type 2 diabetes mellitus with mild nonproliferative diabetic retinopathy without macular edema, bilateral; Z79.4 - MCFP (current) use of insulin Plan: today's HBA1c is at 6.6%, continue with Levemir, mealtime NovoLog and metformin at the same dose. Reminded to get a diabetic retinopathy eye screening this year, overdue, goes to [facility] (6) Diabetes mellitus with complication, with long-term current use of insulin: Code(s): E11.8 - Type 2 diabetes mellitus with unspecified complications; Z79.4 - MCFP (current) use of insulin (7) Numbness and tingling of both lower extremities: Code(s): R20.0 - Anesthesia of skin; R20.2 - Paresthesia of skin Plan: Referred to podiatry for diabetes foot (8) HTN (hypertension): Code(s): I10 - Essential (primary) hypertension Qualifiers: Hypertension type: essential hypertension Qualified Code(s): I10 - Essential (primary) hypertension Plan: Continue lisinopril and amlodipine, reinforced importance of following a low- salt diet and getting regular exercise. Orders: Orders Calcium, Ionized 11/04/23 D64.9 - Anemia, unspecified, E11.319 - Type 2 diabetes mellitus with unspecified diabetic retinopathy without macular edema, E11.8 - Type 2 diabetes mellitus with unspecified complications, E78.5 - Hyperlipidemia, unspecified, E83.52 - Hypercalcemia, Z79.4 - MCFP (current) use of insulin Hemoglobin A1c 02/21/24 D64.9 - Anemia, unspecified, E11.319 - Type 2 diabetes mellitus with unspecified diabetic retinopathy without macular edema, E11.8 - Type 2 diabetes mellitus with unspecified complications, E78.5 - Hyperlipidemia, unspecified, I10 - Essential (primary) hypertension, Z79.4 - MCFP (current) use of insulin, Z87.19 - Personal history of other diseases of the digestive system Basic Metabolic Panel Fasting 02/21/24 D64.9 - Anemia, unspecified, E11.319 - Type 2 diabetes mellitus with unspecified diabetic retinopathy without macular e jordin, E11.8 - Type 2 diabetes mellitus with unspecified complications, E78.5 - Hyperlipidemia, unspecified, I10 - Essential (primary) hypertension, Z79.4 - intermediate project manager (current) use of insulin, Z87.19 - Personal history of other diseases of the digestive system Aspartate Amino Transferase 02/21/24 D64.9 - Anemia, unspecified, E11.319 - Type 2 diabetes mellitus with unspecified diabetic retinopathy without macular edema, E11.8 - Type 2 diabetes mellitus with unspecified complications, E78.5 - Hyperlipidemia, unspecified, I10 - Essential (primary) hypertension, Z79.4 - L leanna term (current) use of insulin, Z87.19 - Personal history of other diseases of the digestive system Alanine Aminotransferase 02/21/24 D64.9 - Anemia, unspecified, E11.319 - Type 2 diabetes mellitus with unspecified diabetic retinopathy without macular edema, E11.8 - Type 2 diabetes mellitus with unspecified complications, E78.5 - Hyperlipidemia, unspecified, I10 - Essential (primary) hypertension, Z79.4 - intermediate project manager (current) use of insulin, Z87.19 - Personal history of other diseases of the digestive system Complete Blood Count Auto Diff 02/21/24 D64.9 - Anemia, unspecified, E11.319 - Type 2 diabetes mellitus with unspecified diabetic retinopathy without macular edema, E11.8 - Type 2 diabetes mellitus with unspecified complications, E78.5 - Hyperlipidemia, unspecified, I10 - Essential (primary) hypertension, Z79.4 - intermediate project manager (current) use of insulin, Z87.19 - Personal history of other diseases of the digestive system AMB Hemoglobin A1c 11/04/23 E11.319 - Type 2 diabetes mellitus with unspecified diabetic retinopathy without macular edema Parathyroid Hormone Intact 11/04/23 D64.9 - Anemia, unspecified, E11.319 - Type 2 diabetes mellitus with unspecified diabetic retinopathy without macular edema, E11.8 - Type 2 diabetes mellitus with unspecified complications, E78.5 - Hyperlipidemia, unspecified, E83.52 - Hypercalcemia, Z79.4 - intermediate project manager (current) use of insulin Lipid Panel 02/21/24 D64.9 - Anemia, unspecified, E11.319 - Type 2 diabetes m ellitus with unspecified diabetic retinopathy without macular edema, E11.8 - Type 2 diabetes mellitus with unspecified complications, E78.5 - Hyperlipidemia, unspecified, I10 - Essential (primary) hypertension, Z79.4 - intermediate project manager (current) use of insulin, Z87.19 - Personal history of other diseases of the digestive system Referrals Podiatry Referral E11.319 - Type 2 diabetes mellitus with unspecified diabetic retinopathy without macular edema, E11.8 - Type 2 diabetes mellitus with unspecified complications, R20.0 - Anesthesia of skin, R20.2 - Paresthesia of skin, Z79.4 - MCFP (current) use of insulin Coding Level of Care Code Est [facility] 40-64y([id number]) Diagnoses Annual visit for general adult medical examination with abnormal findings Z00.01 Hypercalcemia E83.52 Normocytic normochromic anemia D64.9 Dyslipidemia E78.5 Type 2 diabetes mellitus with both eyes affected by mild nonproliferative retinopathy without macular edema, with long-term current use of insulin E11.3293; Z79.4 Diabetes mellitus custodial insulin use: with middle or intermediate school principal use Diabetes mellitus macular edema: without macular edema Diabetic retinopathy severity: with mild nonproliferative retinopathy Laterality: bilateral Diabetes mellitus with complication, with long-term current use of insulin E11.8; Z79.4 Numbness and tingling of both lower extremities R20.0; R20.2 Essential hypertension I10 Hypertension type: essential hypertension Additional Codes YASMEEN-7 Assessment Billing - YASMEEN-7 Assessment Tool: YASMEEN-7 Assessment [id number] ([id number])
== END 2023-11-04 10:53 | disposition home or self-care (01) ==
PROVIDERS: PCP Internal Medicine; Visit Provider Internal Medicine
DX: Z00.00 Encounter for general adult medical examination without abnormal findings (principal); E11.3293 Type 2 diabetes mellitus with mild nonproliferative diabetic retinopathy without macular edema, bilateral; Z79.4 Long term (current) use of insulin; E11.8 Type 2 diabetes mellitus with unspecified complications; E83.52 Hypercalcemia; D64.9 Anemia, unspecified; E78.5 Hyperlipidemia, unspecified; R20.0 Anesthesia of skin; R20.2 Paresthesia of skin; I10 Essential (primary) hypertension
CPT/HCPCS: 83036; 99396

== ENCOUNTER 2023-11-08 09:34 | Outpatient (AMB) | payer OTHER, SELFPAY ==
--- NOTE | 2023-11-08 10:08 | MHC.OFFVIS ---
Intake Vital Signs 11/08/23 10:09 Height 5 ft 7 in Weight 198 lb 13.711 oz BMI 31.1 BP 165/98 H Blood Pressure Location Rt brachial Position Sitting Pulse 81 Pulse Source Pulse Oximeter Intake Visit Reasons: diarrhea, stomach pain Intake Note: Pt presents to the office today for diarrhea and stomach pain. Pt states this started a few weeks ago. Pt states almost everytime that he eats he gets stomach pain. He states he is having acid reflux as well. Pt denies any N/V. Allergies peanut Allergy (Intermediate, Verified 11/08/23 10:10) Shortness of Breath, throat swelling HPI HPI Comments History of Present Illness Details This is a 61y.o M with PMH of T2DM, HTN, ED who presented to the ER for melena last month and is here today for follow up for GI sx as below. Pt reports that almost 3-4 weeks ago, he developed severe epigatric pain with burning, associated with nausea and loss of appetite. He also started noticing black soft stools 2-3 times a day. Eating made sx worse. Also with some correlation to movement. This was in the context of taking motrin/meloxicam 3-4 times a day for arthritis. When he was seen in the ER, he was advised to minimize NSAIDs and given Omeprazole. CBC with mild anemia. Interestingly FOBT was negative. His melena resolved in 3-4 days after starting the Omeprazole and discontinuing NSAIDs. However he continues to have epigastric pain. No diarrhea or bunny blood in stool. No unintentional weight loss. Non smoker, Occ etOH. No fam hx of CRC. Last colonoscopy 2018: (Dr Villagomez) hyperplastic polyp EGD/colo 01/14/23: 1. Normal esophagus 2. Normal stomach (biopsy) 3. Normal duodenum (biopsy) 4. Normal colon mucosa 5. Total of 2 polyps removed from transverse colon. 6. External hemorrhoids Path: A.? Duodenum, biopsy:? Duodenal mucosa with preserved villi and no specific change.? B.? Stomach, random, biopsy:? Gastric antral and body mucosa with mild chronic inactive gastritis and focal intestinal metaplasia; negative for H pylori and dysplasia. C.? Colon, transverse, polyps:? Tubulovillous adenomas with focal serrated features; multiple pieces involved; negative for high-grade dysplasia and carcinoma.? 01/25/23: Reports no acute gastrointestinal complaints. His epigastric pain and nausea and have resolved. EGD and colonoscopy path reviewed with the patient. 11/08/23: For a few weeks has been experiencing epigastric pain which is sharp and associated with frequent burping and soft bowel movements. Noted the color of the stools was like charcoal initially and then improved after 2-3 days. Now brown. Loss of appetite. No nausea or vomiting. Was seen in ER last month for R inguinal hernia sx at which time H/H noted to be lower than baseline. Cont to use NSAIDS (meloxicam) off and on for arthritis pain. USe is limited to 2-3 tiems a week. [facility] Medical History Hypercalcemia Positional lightheadedness Normocytic normochromic anemia Postprandial epigastric pain History of GI bleed Acquired deformity of toenail Lumbosacral radiculopathy due to degenerative joint disease of spine Left nephrolithiasis Primary osteoarthritis of right knee Primary osteoarthritis, left shoulder Trigger finger of right hand BPH (benign prostatic hyperplasia) Chronic insomnia Depression Osteoarthritis involving multiple joints on both sides of body HTN (hypertension) Dyslipidemia Diabetes mellitus with complication, with long-term current use of insulin Diabetes mellitus type 2 with retinopathy Surgical History Hx of colonoscopy History of esophagogastroduodenoscopy (EGD) History of left inguinal hernia repair (03/24/22) Hx of lithotripsy History of testicular surgery Umbilical hernia Family History Father CVD (cardiovascular disease) Mother Unknown family medical history Social History Housing: Apartment Alcohol intake: current Alcohol intake frequency: a few times a week Alcohol type: beer Patient Tobacco Use Status: Former Tobacco user Quit Date: age 32 Tobacco use type: Cigarette e-Cigarette/Vaping Use: Never Used Second Hand Smoke Exposure: No service: No Current occupational status: employed 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 Cognitive needs: No Hearing needs: No Vision needs: Yes Review of Systems Const All systems reviewed & are unremarkable except as noted in HPI and below Physical Exam Vital Signs: Last Vital Signs Pulse 81 11/08/23 10:09 BP 165/98 H 11/08/23 10:09 BMI result Body Mass Index 31.1 NAD Abd soft, nondistended NO resp distress A/Ox3, normal gait Assessment & Plan Assessment & Plan (1) NSAID induced gastritis: Code(s): K29.60 - Other gastritis without bleeding; T39.395A - Adverse effect of other nonsteroidal anti-inflammatory drugs [NSAID], initial encounter (2) Abdominal pain: Code(s): R10.9 - Unspecified abdominal pain (3) Normocytic normochromic anemia: Code(s): D64.9 - Anemia, unspecified Plan Has prev CLINICAL hx of NSAID related gastritis - EGD 12/2022 was normal. Currently given report of recurrent anemia with ? melena in the background of meloxicam use, PUD vs gastritis vs duodenitis as differentials. Plan: - Start omeprazole 40mg BID x 8 weeks - Check CBC and iron studies - Pt was given the option to assess response with high dose PPI obed as had also responded last time and by the time EGD was done it was normal, but prefers to book EGD today regardless. - Again counseled to avoid NSAIDs. Tylenol ok. Can use celecoxib instead for short term. Follow up after EGD Medications: New omeprazole 40 mg PO BID 60 caps 0RF Z87.19 - Personal history of other diseases of the digestive system Discontinued omeprazole Discontinued Reason: Doctor's Order 40 mg PO DAILY 6 weeks 84 caps 0RF Coding Level of Care Code Est Pt Level 4 (98966) Diagnoses NSAID induced gastritis K29.60; T39.395A Abdominal pain R10.9 Normocytic normochromic anemia D64.9
[2023-11-08 10:09] VITALS: BP 165/98; PULSE 81; BMI 31.1
== END 2023-11-08 10:29 | disposition home or self-care (01) ==
PROVIDERS: PCP Internal Medicine; Visit Provider Internal Medicine
DX: K29.60 Other gastritis without bleeding (principal); T39.395A Adverse effect of other nonsteroidal anti-inflammatory drugs [NSAID], initial encounter; R10.9 Unspecified abdominal pain; D64.9 Anemia, unspecified
CPT/HCPCS: 99214

== ENCOUNTER → 2023-11-08 09:34 | Outpatient (BNVA) | payer OTHER, SELFPAY | PROVIDERS: PCP Internal Medicine; Visit Provider Internal Medicine | DX: R19.7 Diarrhea, unspecified (principal); R10.9 Unspecified abdominal pain; K29.60 Other gastritis without bleeding; D64.9 Anemia, unspecified; T39.395A Adverse effect of other nonsteroidal anti-inflammatory drugs [NSAID], initial encounter | CPT/HCPCS: 99212 ==

== ENCOUNTER 2023-11-08 11:41 | Outpatient (REF) | payer OTHER, SELFPAY ==
[2023-11-08 14:18] LABS: Parathyroid Hormone Intact 35.5 pg/mL (8.7-77.1)
[2023-11-08 14:22] LABS: Cholesterol 149 mg/dL (<200); HDL Cholesterol 46 mg/dL (>40); LDL Cholesterol Calculated 91 mg/dL (<100); Triglycerides 64 mg/dL (<150)
[2023-11-08 16:50] LABS: Creatinine Urine 44.09 mg/dL; Microalbumin Urine < 5.0 mg/L
[2023-11-10 14:48] LABS: Calcium, Ionized 5.3 mg/dL (4.7-5.5)
== END 2023-11-08 11:42 | disposition home or self-care (01) ==
LOC: HO.HMGCLDS 11:41
PROVIDERS: PCP Internal Medicine; Visit Provider Internal Medicine
DX: E83.52 Hypercalcemia (principal); D64.9 Anemia, unspecified; E78.5 Hyperlipidemia, unspecified; E11.319 Type 2 diabetes mellitus with unspecified diabetic retinopathy without macular edema; E11.8 Type 2 diabetes mellitus with unspecified complications; I10 Essential (primary) hypertension; Z79.4 Long term (current) use of insulin
CPT/HCPCS: 36415; 80061; 82043; 82330; 82570; 83970

== ENCOUNTER 2023-11-09 08:50 | Day surgery (SDC) | payer OTHER, SELFPAY ==
[2023-11-05 13:50] VITALS: BMI 29.4
--- NOTE | 2023-11-08 10:53 | HO.ANESPROP2 ---
Documented by User: Yvette Tan NP 11/08/23 10:54 HPI - Anesthesia Eval Consult details Narrative: 63yo M for Right Hernia Inguinal Reducible with mesh PMFSH Active Problems Active Problems: All Active Problems (Updated 11/04/23 @ 10:42 by Rocio Morgan MD) Hypercalcemia (Acute) Lower abdominal pain (Acute) Personal history of colonic polyps (Acute) NSAID induced gastritis (Acute) Left shoulder pain (Acute) Nephrolithiasis (Acute) Bladder outlet obstruction (Acute) Erectile dysfunction associated with type 2 diabetes mellitus (Acute) Positional lightheadedness (Acute) Normocytic normochromic anemia (Acute) Postprandial epigastric pain (Acute) History of GI bleed (Acute) Primary osteoarthritis, left shoulder (Acute) Acquired deformity of toenail (Acute) HTN (hypertension) (Acute) Dyslipidemia (Acute) Diabetes mellitus type 2 with retinopathy (Acute) Diabetes mellitus with complication, with long-term current use of insulin (Acute) Past Medical History Medical History Anemia Hypercalcemia Positional lightheadedness Normocytic normochromic anemia Postprandial epigastric pain History of GI bleed Acquired deformity of toenail Lumbosacral radiculopathy due to degenerative joint disease of spine Left nephrolithiasis Primary osteoarthritis of right knee Primary osteoarthritis, left shoulder Trigger finger of right hand BPH (benign prostatic hyperplasia) Chronic insomnia Depression Osteoarthritis involving multiple joints on both sides of body HTN (hypertension) Dyslipidemia Diabetes mellitus with complication, with long-term current use of insulin Diabetes mellitus type 2 with retinopathy Family History Family History Father CVD (cardiovascular disease) Mother Unknown family medical history Family history of problems with anesthesia: No Surgical History Surgical History Hx of colonoscopy History of esophagogastroduodenoscopy (EGD) History of left inguinal hernia repair (03/24/22) Hx of lithotripsy History of testicular surgery Umbilical hernia History of Problems with Anesthesia: No Social History Social History Housing: Apartment Alcohol intake: current Alcohol intake frequency: a few times a week Alcohol type: beer Patient Tobacco Use Status: Former Tobacco user Quit Date: 30 yrs ago Tobacco use type: Cigarette e-Cigarette/Vaping Use: Never Used Second Hand Smoke Exposure: No Use of substances other than those prescribed or required for medical reasons: No Are you DNR?: No Advance Directives: No Advance Directives Information Provided: Yes service: No Current occupational status: employed 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 Cognitive needs: No Hearing needs: No Vision needs: Yes Meds Allergies Allergy/AdvReac Type Severity Reaction Status Date / Time peanut Allergy Intermediate Shortness Verified 11/09/23 09:25 of Breath, throat swelling Home Medications Medication Instructions Recorded Confirmed Last Taken Type tadalafil 5 mg tablet 5 mg PO DAILY 09/29/23 11/09/23 11/02/23 History Exam Height,Weight and Vital Signs: Height 5 ft 7 in Weight 85.275 kg Pertinent Lab Results Pertinent Lab Results: Laboratory Tests 10/08/23 11:16 WBC 7.7 Hgb 13.6 L Hct 40.3 L Plt Count 258 Sodium 139 Potassium 4.3 Chloride 105 Carbon Dioxide 26 BUN 19 H Creatinine 0.90 Narrative Narrative: EKG 03/2023 Vent. Rate : 080 BPM Atrial Rate : 080 BPM P-R Int : 164 ms QRS Dur : 094 ms QT Int : 376 ms P-R-T Axes : 044 045 052 degrees QTc Int : 433 ms Normal sinus rhythm Normal ECG When compared with ECG of 05-NOV-2021 07:09, No significant change was found Assessment and Plan Assessment Anesthesia Assessment: Chart Reviewed Final Anesthetic Review Family History of Problems with Anesthesia: No History of Problems with Anesthesia: No Documented by User: Karol Caputo MD 11/09/23 09:58 [facility] Active Problems Active Problems: All Active Problems (Updated 11/08/23 @ 09:27 by Karol Caputo MD) Hypercalcemia (Acute) Lower abdominal pain (Acute) Personal history of colonic polyps (Acute) NSAID induced gastritis (Acute) Left shoulder pain (Acute) Nephrolithiasis (Acute) Bladder outlet obstruction (Acute) Erectile dysfunction associated with type 2 diabetes mellitus (Acute). Last dose of tadalafil 1 week ago Positional lightheadedness (Acute) Normocytic normochromic anemia (Acute) Postprandial epigastric pain (Acute) History of GI bleed (Acute) Primary osteoarthritis, left shoulder (Acute) Acquired deformity of toenail (Acute) HTN (hypertension) (Acute) Dyslipidemia (Acute) Diabetes mellitus type 2 with retinopathy (Acute) Diabetes mellitus with complication, with long-term current use of insulin (Acute) Past Medical History Medical History Anemia Hypercalcemia Positional lightheadedness Normocytic normochromic anemia Postprandial epigastric pain History of GI bleed Acquired deformity of toenail Lumbosacral radiculopathy due to degenerative joint disease of spine Left nephrolithiasis Primary osteoarthritis of right knee Primary osteoarthritis, left shoulder Trigger finger of right hand BPH (benign prostatic hyperplasia) Chronic insomnia Depression Osteoarthritis involving multiple joints on both sides of body HTN (hypertension) Dyslipidemia Diabetes mellitus with complication, with long-term current use of insulin Diabetes mellitus type 2 with retinopathy Family History Family History Father CVD (cardiovascular disease) Mother Unknown family medical history Family history of problems with anesthesia: No Surgical History Surgical History Hx of colonoscopy History of esophagogastroduodenoscopy (EGD) History of left inguinal hernia repair (03/24/22) Hx of lithotripsy History of testicular surgery Umbilical hernia History of Problems with Anesthesia: Yes (Slow awakening ) Social History Social History Housing: Apartment Alcohol intake: current Alcohol intake frequency: a few times a week Alcohol type: beer Patient Tobacco Use Status: Former Tobacco user Quit Date: 30 yrs ago Tobacco use type: Cigarette e-Cigarette/Vaping Use: Never Used Second Hand Smoke Exposure: No Use of substances other than those prescribed or required for medical reasons: No Are you DNR?: No Advance Directives: No Advance Directives Information Provided: Yes service: No Current occupational status: employed 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 Cognitive needs: No Hearing needs: No Vision needs: Yes Meds Allergies Allergy/AdvReac Type Severity Reaction Status Date / Time peanut Allergy Intermediate Shortness Verified 11/09/23 09:25 of Breath, throat swelling Home Medications Medication Instructions Recorded Confirmed Last Taken Type tadalafil 5 mg tablet 5 mg PO DAILY 09/29/23 11/09/23 11/02/23 History Exam Height,Weight and Vital Signs: Height 5 ft 7 in Weight 85.275 kg Vital Signs Temp Pulse Resp BP Pulse Ox O2 Del Method 11/09/23 09:32 97.8 F 78 15 144/91 H 99 Room Air Pertinent Lab Results Pertinent Lab Results: Laboratory Tests 10/08/23 11:16 WBC 7.7 Hgb 13.6 L Hct 40.3 L Plt Count 258 Sodium 139 Potassium 4.3 Chloride 105 Carbon Dioxide 26 BUN 19 H Creatinine 0.90 Lab Results 11/09/23 Range/Units 09:30 POC Glucose 179 H (60-115) mg/dL Airway Mallampati Class: III TM Dist: >3cm Neck ROM: Full Loose/Missing/Broken Teeth: Yes (Missing tooth bootom front. Denies broken or loose teeth) Heart: RRR Lungs: CTAB Assessment and Plan Assessment Anesthesia Assessment: Anesthesia Plan Discussed and Chart Reviewed Final Anesthetic Review Family History of Problems with Anesthesia: No History of Problems with Anesthesia: Yes (Slow awakening ) NPO: Yes ASA Class: III Final Preanesthetic Review: No Changes in Pt Med Stat, Meds/Allgs Chart Reviewed, Consent Obtained/Reviewed and Anes Risks/Benef Reviewed Patient Risk: Intermediate Procedure Risk: Low Assessment/Block/Sedation in SS: Assess/Block/Sedation- Anesthetic Plan Anesthetic Plan: GA Disposition: Standard PACU
[2023-11-09] VITALS (15 sets, daily range): BP systolic 113–144; BP diastolic 69–92; PULSE 4–81; RESP 7–20; TEMP 36.1–36.6; O2SAT 94–100; BMI 30.1
[2023-11-09 09:34] LABS: Glucose, Whole Blood 179 mg/dL (60-115)
--- NOTE | 2023-11-09 09:55 | MHC.SHP ---
Pre-Procedural Eval Section A - 24 Hr Update-Section A only Date of Service: 11/09/23 The patient is an INPATIENT: No Changes since office visit: No Cold of Flu in the past 2 weeks, No New Medical Problems, No Changes in Medication and No Patient answered all questions The patient has been examined within 24 hours of the surgical procedure. The History & Physical has been completed within 30 days and I have reviewed it.: Yes Section B - Complete if H&P > 30 days Chief Complaint: Unilateral inguinal hernia, without obstruction Allergies: Allergies Allergy/AdvReac Type Severity Reaction Status Date / Time peanut Allergy Intermediate Shortness Verified 11/09/23 09:25 of Breath, throat swelling Plan I have reviewed the history and physical and performed a pertinent physical examination on my patient. No changes have occurred unless specified. Time Spent With Patient Time: Total time managing care of this patient today ____ minutes.
--- NOTE | 2023-11-09 11:26 | P.OP_ITS ---
Operative Note Operative Note Date of Service: 11/09/23 Narrative: Preop diagnosis: Right inguinal hernia Postop diagnosis: Right inguinal hernia, indirect Procedure: Repair of a right inguinal hernia with mesh Surgeon: Obi Villagomez MD volleyball assistant coach: ELIZABETH Jarquin The patient is a 63 year old male with a reducible mass on the right groin consistent with a right inguinal hernia. He understood the technique of repair with mesh. He was aware of the risks, benefits, and alternatives. He was brought to the operating room. He was placed supine under general anesthesia via laryngeal mask airway. The right groin was prepped and draped in the usual sterile fashion. A surgical time-out was done. The patient received cefazolin 2 g IV preoperatively. I infiltrated my planned line of incision with lidocaine 1%. I made the incision on the skin using blade 15 along an imaginary line from the anterior superior iliac spine to the pubic ramus. This was carried down through the full-thickness of the skin and subcutaneous fat until I was able to visualize the external oblique aponeurosis. We were able to clearly define the external ring. I made an incision on the external oblique aponeurosis overlying the canal and this was extended inferomedially to connect to the external ring. At this point the inguinal canal was therefore entered. I applied hemostats at the divided edges of the external oblique aponeurosis for retraction. The spermatic cord was seen. I was able to pass a [place] drain around this to use this for retraction. I proceeded to bluntly dissect the cord to visualize the structures within the cord itself especially the vas deferens. I identified a fat containing hernia on the anterior medial aspect. I carefully this from the rest of the cord contents. I identified the vas deferens and accompanying vessels. These were protected during the dissection. I the sac off of the rest of the cord contents. This sac contained fat. I was able to reduce the sac and omental fat through the internal ring. This was therefore an indirect hernia.. I reinforced the internal ring with a medium sized Prolene plug. The plug was secured to the shelving edge of the inguinal ligament laterally and the internal oblique superiorly and medially using the inner leaves of the mesh with Prolene 2 sutures. I reinforced the floor of the canal with a keyhole mesh. The tails of the mesh were passed around the cord at the level of the internal ring and were secured together with Prolene 2 sutures. I flattened the mesh to cover the entire floor. Secured the mesh with Prolene 2 sutures to the shelving edge of the inguinal meant laterally and the internal oblique superiorly and medially as well as the pubic ramus inferomedially. I copiously irrigated. There was note of good hemostasis. Once hemostasis was confirmed, I proceeded to close the divided external oblique aponeurosis using Prolene 2 sutures to recreate the external ring. I reapposed the subcutaneous layer with Polysorb 3- 0 interrupted sutures. Skin closure was achieved with Polysorb 4-0 subcuticular running sutures. The incision was infiltrated with Marcaine 0.5% for postop analgesia. Dressings were applied. The procedure was completed. The patient tolerated procedure well. There were no immediate complications. Initial and final counts of sponges and instruments were correct. Estimated blood loss was about 20 cc. The patient was extubated without difficulty and transferred to the recovery room with stable vital signs.
[2023-11-09] MEDS: fentaNYL citrate/PF 100 MCG/2 ML VIAL 50 MCG IVPUSH ×3 (12:05→12:32)
== END 2023-11-09 13:38 | disposition home or self-care (01) ==
PROVIDERS: PCP Internal Medicine; Visit Provider Surgery
PROC: (CPT 49505; principal; 2023-11-09 10:50)
DX: K40.90 Unilateral inguinal hernia, without obstruction or gangrene, not specified as recurrent (principal); I10 Essential (primary) hypertension; E78.5 Hyperlipidemia, unspecified; E11.319 Type 2 diabetes mellitus with unspecified diabetic retinopathy without macular edema; Z79.4 Long term (current) use of insulin; Z79.84 Long term (current) use of oral hypoglycemic drugs; Z79.899 Other long term (current) drug therapy; Z98.890 Other specified postprocedural states; Z87.442 Personal history of urinary calculi; Z91.010 Allergy to peanuts
CPT/HCPCS: 49505; 82947; C1781; J0131; J0690; J1100; J2250; J2371; J2405; J2704; J2795; J3010

== ENCOUNTER → 2023-11-09 08:50 | Outpatient (BNV) | payer OTHER, SELFPAY | PROVIDERS: PCP Internal Medicine; Visit Provider Surgery | DX: K40.90 Unilateral inguinal hernia, without obstruction or gangrene, not specified as recurrent (principal) | CPT/HCPCS: 49505 ==

== ENCOUNTER 2023-11-22 10:50 | Outpatient (AMB) | payer OTHER, SELFPAY ==
--- NOTE | 2023-11-22 10:51 | A.OFFVIS_ITS ---
Intake Vital Signs 11/22/23 10:56 Weight 192 lb BP 144/94 H Blood Pressure Location Rt brachial Position Sitting Pulse 89 Intake Visit Reasons: S/P RIH w/mesh Intake Note: This patient presents for a post-op assessment status post right inguinal hernia repair with mesh. Pt c/o; reports right groin pain and right testicular pain. Surgery date: 11/09/2023 Student Accounts Coordinator Required: No Accompanied by: Self / Same As Patient Allergies peanut Allergy (Intermediate, Verified 11/22/23 10:57) Shortness of Breath, throat swelling HPI S/P RIH w/mesh HPI Details He underwent repair of a right inguinal hernia with mesh last 11/09/2023. He tolerated the procedure well. He currently denies significant complaints. [facility] Medical History Hypercalcemia Positional lightheadedness Normocytic normochromic anemia Postprandial epigastric pain History of GI bleed Acquired deformity of toenail Lumbosacral radiculopathy due to degenerative joint disease of spine Left nephrolithiasis Primary osteoarthritis of right knee Primary osteoarthritis, left shoulder Trigger finger of right hand BPH (benign prostatic hyperplasia) Chronic insomnia Depression Osteoarthritis involving multiple joints on both sides of body HTN (hypertension) Dyslipidemia Diabetes mellitus with complication, with long-term current use of insulin Diabetes mellitus type 2 with retinopathy Surgical History History of right inguinal hernia repair (~11/09/23) Hx of colonoscopy History of esophagogastroduodenoscopy (EGD) History of left inguinal hernia repair (03/24/22) Hx of lithotripsy History of testicular surgery Umbilical hernia Family History Father CVD (cardiovascular disease) Mother Unknown family medical history Social History Housing: Apartment Alcohol intake: current Alcohol intake frequency: a few times a week Alcohol type: beer Comment: COUNTS CORRECT Patient Tobacco Use Status: Former Tobacco user Quit Date: 30 yrs ago Tobacco use type: Cigarette e-Cigarette/Vaping Use: Never Used Second Hand Smoke Exposure: No service: No Current occupational status: employed 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 Cognitive needs: No Hearing needs: No Vision needs: Yes Review of Systems Const Denies chills and Denies fever(s) Card Denies chest pain, Denies dyspnea and Denies dyspnea on exertion Resp Denies cough, Denies dyspnea and Denies dyspnea on exertion GI Denies hematochezia and Denies change in bowel habits Denies hematuria and Denies difficulty urinating Musc Denies back pain and Denies limited range of motion Neuro Denies focal weakness and Denies convulsions Psych Denies depression and Denies mood swings Physical Exam Const General: comfortable and no acute distress Resp Effort & Inspection: normal respiratory effort GI Other: Right inguinal repair site is well healed, not infected, repair site intact Assessment & Plan Assessment & Plan (1) Right inguinal hernia: Comment: Seen on CT scan done 10/08/2023 at ER, referred to surgery Code(s): K40.90 - Unilateral inguinal hernia, without obstruction or gangrene, not specified as recurrent Plan: Status post repair. He is doing very well. Repair site is intact. The incision is well healing. I advised him to avoid lifting anything with 20 lb for at least 3 more weeks. He can follow up on a p.r.n. basis. Coding Level of Care Code Global (32836) Diagnoses Right inguinal hernia K40.90
[2023-11-22 10:56] VITALS: BP 144/94; PULSE 89
== END 2023-11-22 11:18 | disposition home or self-care (01) ==
PROVIDERS: PCP Internal Medicine; Visit Provider Surgery
DX: K40.90 Unilateral inguinal hernia, without obstruction or gangrene, not specified as recurrent (principal)
CPT/HCPCS: 99024

== ENCOUNTER → 2023-11-22 10:50 | Outpatient (BNVA) | payer OTHER, SELFPAY | PROVIDERS: PCP Internal Medicine; Visit Provider Surgery | DX: Z48.815 Encounter for surgical aftercare following surgery on the digestive system (principal); Z98.890 Other specified postprocedural states | CPT/HCPCS: 99212 ==

== ENCOUNTER 2023-12-21 13:50 | Outpatient (AMB) | payer OTHER, SELFPAY ==
--- NOTE | 2023-12-21 14:07 | MHC.OFFVIS ---
Intake Visit Reasons: 6M US(set) Intake Note: Patient is Present for Follow Up Urology Medication:Tadalafil, Vitamin B6 Antibiotic Allergies: None Blood Thinners: Allergies peanut Allergy (Intermediate, Verified 11/22/23 10:57) Shortness of Breath, throat swelling Medication List - Last Reconciled 12/21/23 by Nhan Lin MD atorvastatin (Lipitor) 10 mg PO DAILY blood sugar diagnostic (FreeStyle Lite Strips) check fasting blood sugar twice a day before meals clotrimazole-betamethasone 1-0.05 % 1 appl topical BID 10 days fluoxetine 40 mg (2 x 20 mg) PO QAM insulin detemir U-100 (Levemir U-100 Insulin) 60 units (0.6 mL) subcut BEDTIME insulin syringe-needle U-100 Use to inject insulin once a day lisinopril (Zestril) 20 mg PO DAILY meloxicam 15 mg PO DAILY PRN metformin 1,000 mg PO BID methocarbamol 500 mg PO TID PRN Novolog FlexPen U-100 Insulin (insulin aspart U-100) 12 units (0.12 mL) subcut TID NS omeprazole 40 mg PO BID oxycodone-acetaminophen 5-325 mg (Percocet) 1 tab PO Q4-6H PRN pyridoxine (vitamin B6) 50 mg PO DAILY 90 days tadalafil 20 mg PO ONCE PRN 30 days tadalafil 5 mg PO DAILY 90 days zolpidem (Ambien) 10 mg PO BEDTIME PRN HPI Comments Details: Germán IYER is a very pleasant male. He is a patient of Dr Morgan. He is seen for the following urologic conditions. - testicular pain - nephrolithiasis - lower urinary tract symptoms PVR review 6 weeks post TURP Would restart tadalafil daily And vitamin B6 nephrolithiasis Lower urinary tract symptoms Progressive Hesitancy with feeling of incomplete emptying Current medications terazosin 10 mg PSA 09/14 0.9 GreenLight laser 11/13 Erectile dysfunction setting of type 2 diabetes Type 2 diabetic - HBA1c 06/13 6.8 Progressive Able to obtain but cannot maintain erection Tadalafil daily trial 05/14 with on demand 20 mg Nephrolithiasis Follow-up nephrolithiasis Current therapy includes vitamin B6 Imaging - 05/13 CT scan 1.2 cm left renal stone - 02/11 CT no stone seen Intervention - 11/11 left ESWL Testicular/Scotal orchalgia-swelling:? Primary complaint of?inguinal groins, pain.? The symptoms started or were observed:?since May 2018 ?- prior bilateral hydrocele repair.? The pain is located?bilaterally, groin.? Imaging includes?07/10 , testicular ultrasound, reported as, normal epididiymal head, normal parenchyma and normal flow.? Character of the pain is?constant, chronic.? Based on imaging and exam diagnosis is most consistent with?inguinal disruption ?- bilateral insertion tenderness.? Prior therapy(ies) include?no prior therapy.? Therapeutic plan includes?conservative therapy PFSH Medical History Hypercalcemia Positional lightheadedness Normocytic normochromic anemia Postprandial epigastric pain History of GI bleed Acquired deformity of toenail Lumbosacral radiculopathy due to degenerative joint disease of spine Left nephrolithiasis Primary osteoarthritis of right knee Primary osteoarthritis, left shoulder Trigger finger of right hand BPH (benign prostatic hyperplasia) Chronic insomnia Depression Osteoarthritis involving multiple joints on both sides of body HTN (hypertension) Dyslipidemia Diabetes mellitus with complication, with long-term current use of insulin Diabetes mellitus type 2 with retinopathy Surgical History History of right inguinal hernia repair (~11/09/23) Hx of colonoscopy History of esophagogastroduodenoscopy (EGD) History of left inguinal hernia repair (03/24/22) Hx of lithotripsy History of testicular surgery Umbilical hernia Family History Father CVD (cardiovascular disease) Mother Unknown family medical history Social History Housing: Apartment Alcohol intake: current Alcohol intake frequency: a few times a week Alcohol type: beer Comment: COUNTS CORRECT Patient Tobacco Use Status: Former Tobacco user Tobacco use type: Cigarette e-Cigarette/Vaping Use: Never Used Second Hand Smoke Exposure: No service: No Current occupational status: employed 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 Cognitive needs: No Hearing needs: No Vision needs: Yes Review of Systems Const Denies chills and Denies fever(s) Card Reports no additional complaints and Denies syncope Resp Denies cough GI Denies abdominal pain and Denies heartburn Reports as per HPI and Denies change in libido Neuro Denies syncope Psych Denies change in libido Endo Denies change in libido Physical Exam Const General: cooperative, healthy appearing, comfortable and no acute distress Orientation/consciousness: patient oriented x3 HEENT Face and sinus: Yes normal facial exam Mouth: moist mucous membranes Neck Neck: Yes normal visual inspection, Yes full ROM and Yes trachea midline Chest Chest palpation & inspection: normal inspection of the chest Resp Effort & Inspection: normal respiratory effort, able to speak in complete sentences and no respiratory distress GI Inspection: Yes normal to inspection Back/Spine/Pelvis Cervical Spine: normal cervical lordosis Thoracic/Lumbar Spine: thoracic and lumbar spine normal to inspection Skin General skin exam: no rashes or lesions noted Neuro General: patient oriented x3, gait normal, tone normal and moves all extremities Extrem General: Yes normal to inspection and Yes capillary refill normal Assessment & Plan Assessment & Plan (1) Nephrolithiasis: Code(s): N20.0 - Calculus of kidney Category: Medical (2) Bladder outlet obstruction: Code(s): N32.0 - Bladder-neck obstruction Category: Medical (3) Erectile dysfunction associated with type 2 diabetes mellitus: Code(s): E11.69 - Type 2 diabetes mellitus with other specified complication; N52.1 - Erectile dysfunction due to diseases classified elsewhere Category: Medical Plan Six-month follow-up Orders: Orders Prostate Specific Antigen 6 Months N32.0 - Bladder-neck obstruction Medications: New tadalafil Take 60 minutes before intended activity 20 mg PO ONCE PRN 30 tabs 0RF sexual activity 30 days E11.69 - Type 2 diabetes mellitus with other specified complication, N52.1 - Erectile dysfunction due to diseases classified elsewhere Patient Instructions: Imaging studies, laboratory and physical exam results were discussed and reviewed in detail. No major barriers to patient understanding were identified. An opportunity to ask questions regarding the treatment plan was provided. All questions were answered. The patient expressed understanding and agreement with the above treatment plan. The patient is aware they should contact our office by phone for worsening of their current condition or the appearance of new urologic symptoms. Compliance is encouraged with any medications and followup testing that is ordered. It is a privilege to participate in the urologic care of your patient. If you have any questions or concerns regarding treatment for the above conditions, or other urologic issues, please do not hesitate to contact me. The office telephone contact is [phone]. This note is constructed using voice recognition software. While every effort has been made to ensure accuracy crm specialist errors may have been included. Yours sincerely, Dr Nhan Lin MD, JEFF[facility] - Urology Providers of Expert, Compassionate Care for the Genitourinary System Coding Level of Care Code Est Pt Level 3 (64468) Diagnoses Nephrolithiasis N20.0 Bladder outlet obstruction N32.0 Erectile dysfunction associated with type 2 diabetes mellitus E11.69; N52.1
== END 2023-12-21 14:51 | disposition home or self-care (01) ==
PROVIDERS: PCP Internal Medicine; Visit Provider Urology
DX: N20.0 Calculus of kidney (principal); N32.0 Bladder-neck obstruction; E11.69 Type 2 diabetes mellitus with other specified complication; N52.1 Erectile dysfunction due to diseases classified elsewhere
CPT/HCPCS: 99213

== ENCOUNTER → 2023-12-21 13:50 | Outpatient (BNVA) | payer OTHER, SELFPAY | PROVIDERS: PCP Internal Medicine; Visit Provider Urology | DX: N20.0 Calculus of kidney (principal); N32.0 Bladder-neck obstruction; E11.69 Type 2 diabetes mellitus with other specified complication; N52.1 Erectile dysfunction due to diseases classified elsewhere | CPT/HCPCS: 99212 ==

== ENCOUNTER 2024-03-06 11:16 | Outpatient (REF) | payer MEDICARE, SELFPAY ==
[2024-03-06 13:11] LABS: MANUAL DIFF FLAG NO
[2024-03-06 13:27] LABS: Basophils Absolute Auto 0.1 X10*3/uL (0.0-0.2); Basophils Percent Auto 0.8 % (0-2); Eosinophils Absolute Auto 0.5 X10*3/uL (0.0-0.4); Eosinophils Percent Auto 6.4 % (0-4); Hematocrit 41.2 % (42.0-52.0); Hemoglobin 13.5 g/dl (14.0-18.0); Imm Gran Abs Auto 0.02 X10*3/uL (0.00-0.03); Imm Gran Pct Auto 0.3 % (0.0-0.4); Lymphocytes Absolute Auto 1.9 X10*3/uL (1.2-4.9); Lymphocytes Percent Auto 25.9 % (20-40); Mean Corpuscular HGB Conc 32.8 g/dl (31.0-36.0); Mean Corpuscular Hemoglobin 30.3 pg (27.0-33.0); Mean Corpuscular Volume 92.4 fL (80.0-98.0); Mean Platelet Volume 10.8 fL (9.4-12.4); Monocytes Absolute Auto 0.5 X10*3/uL (0.1-1.2); Monocytes Percent Auto 7.4 % (2-11); Neutrophils Absolute Auto 4.2 x10*3/uL (2.0-8.3); Neutrophils Percent Auto 59.2 % (45-73); Platelet Count 253 X10*3/uL (160-400); Red Blood Count 4.46 X10*6/uL (4.60-5.80); Red Cell Distribution Width 13.1 % (11.0-16.0); White Blood Count 7.2 X10*3/uL (4.8-10.8)
[2024-03-06 13:39] LABS: Estimated Average Glucose 143 mg/dL; Hemoglobin A1c % 6.6 % (<6.0)
[2024-03-06 13:59] LABS: Alanine Aminotransferase 18 U/L (0-40); Anion Gap 12 (12-20); Aspartate Amino Transferase 18 U/L (5-37); Blood Urea Nitrogen 21 mg/dL (9-16); Calcium 8.7 mg/dL (8.4-10.2); Carbon Dioxide 26 mmol/L (22-29); Chloride 107 mmol/L (96-108); Cholesterol 115 mg/dL (<200); Estimated Glomerular Filt Rate > 60; Glucose Fasting 120 mg/dL (60-99); HDL Cholesterol 46 mg/dL (>40); LDL Cholesterol Calculated 56 mg/dL (<100); Potassium 3.9 mmol/L (3.3-5.1); Sodium 141 mmol/L (135-145); Triglycerides 67 mg/dL (<150)
== END 2024-03-06 11:17 | disposition home or self-care (01) ==
LOC: HO.HMGCLDS 11:16
PROVIDERS: PCP Internal Medicine; Visit Provider Internal Medicine
DX: D64.9 Anemia, unspecified (principal); Z87.19 Personal history of other diseases of the digestive system; I10 Essential (primary) hypertension; E78.5 Hyperlipidemia, unspecified; E11.319 Type 2 diabetes mellitus with unspecified diabetic retinopathy without macular edema; E11.8 Type 2 diabetes mellitus with unspecified complications; Z79.4 Long term (current) use of insulin
CPT/HCPCS: 36415; 80048; 80061; 83036; 84450; 84460; 85025

== ENCOUNTER 2024-03-10 09:03 | Outpatient (AMB) | payer MEDICARE, MEDICAID, SELFPAY ==
--- NOTE | 2024-03-10 08:58 | MHC.PC.OV ---
Intake Visit Reasons: f/u DM Intake Note: Pt is having a telehealth visit to f/u DM Allergies peanut Allergy (Intermediate, Verified 03/10/24 09:24) Shortness of Breath, throat swelling Medication List - Last Reconciled 03/10/24 by Rocio Morgan MD atorvastatin (Lipitor) 10 mg PO DAILY blood sugar diagnostic (FreeStyle Lite Strips) check fasting blood sugar twice a day before meals clotrimazole-betamethasone 1-0.05 % 1 appl topical BID 10 days fluoxetine 40 mg (2 x 20 mg) PO QAM insulin detemir U-100 (Levemir U-100 Insulin) 60 units (0.6 mL) subcut BEDTIME insulin syringe-needle U-100 Use to inject insulin once a day lisinopril (Zestril) 20 mg PO DAILY meloxicam 15 mg PO DAILY PRN metformin 1,000 mg PO BID methocarbamol 500 mg PO TID PRN Novolog FlexPen U-100 Insulin (insulin aspart U-100) 12 units (0.12 mL) subcut TID NS omeprazole 40 mg PO BID oxycodone-acetaminophen 5-325 mg (Percocet) 1 tab PO Q4-6H PRN pyridoxine (vitamin B6) 50 mg PO DAILY 90 days tadalafil 5 mg PO DAILY 90 days zolpidem (Ambien) 10 mg PO BEDTIME PRN Tobacco use date assessed: 03/10/24 Dental Screening Dental Screen Date: 03/10/24 Did you have a dental visit in the last 12 months?: No Did you have a dental problem in the last 6 months where you did not have access to dental care?: No Was dental information given to patient?: Patient has dentist HPI f/u DM HPI Details Tele health visit made with 63-year-old male with diabetes mellitus, hyperlipidemia, and normocytic normochromic anemia. He has been compliant with taking his medications, tries to follow recommended diet and has been getting regular exercise. Recent fasting labs showed hemoglobin A1c unchanged at 6.6%, but fasting lipids are within normal limits, and has normocytic hypochromic anemia.. Has been feeling well with no complaints at present time. [facility] Medical History Positional lightheadedness Normocytic normochromic anemia Postprandial epigastric pain History of GI bleed Acquired deformity of toenail Lumbosacral radiculopathy due to degenerative joint disease of spine Left nephrolithiasis Primary osteoarthritis of right knee Primary osteoarthritis, left shoulder Trigger finger of right hand BPH (benign prostatic hyperplasia) Chronic insomnia Depression Osteoarthritis involving multiple joints on both sides of body HTN (hypertension) Dyslipidemia Diabetes mellitus with complication, with long-term current use of insulin Diabetes mellitus type 2 with retinopathy Surgical History History of right inguinal hernia repair (~11/09/23) Hx of colonoscopy History of esophagogastroduodenoscopy (EGD) History of left inguinal hernia repair (03/24/22) Hx of lithotripsy History of testicular surgery Umbilical hernia Family History Father CVD (cardiovascular disease) Mother Unknown family medical history Social History Housing: Apartment Alcohol intake: current Alcohol intake frequency: a few times a week Alcohol type: beer Comment: COUNTS CORRECT Patient Tobacco Use Status: Former Tobacco user Tobacco use type: Cigarette e-Cigarette/Vaping Use: Never Used Second Hand Smoke Exposure: No service: No Current occupational status: employed 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 Junior Kennedy, Brianna Adhikari, Nixon Abreu and colleagues, with an educational milagros from [employer]. Review of Systems Const Denies chills and Denies fever(s) Eyes Details: Sees Dr. Hawkins for his diabetes retinopathy screening ENT Reports no additional complaints Card Denies chest pain, Denies irregular heart rhythm and Denies dyspnea Resp Denies cough and Denies dyspnea GI Denies abdominal pain and Denies heartburn Reports as per HPI Musc Reports stiffness Neuro Reports no additional complaints Psych Reports no additional complaints Endo Reports no additional complaints Bruno/Lymph Reports no additional complaints Physical exam (Primary Care) Tobacco/Smoking Status: Tobacco use Status Tobacco use date assessed 03/10/24 03/10/24 09:02 Patient Tobacco Use Status Former Tobacco user 03/10/24 09:02 Tobacco use type Cigarette 03/10/24 09:02 e-Cigarette/Vaping Use Never Used 03/10/24 09:02 Thrive Assessment: Date of Thrive Assessment Date Thrive assessed 11/04/23 03/10/24 09:02 Telehealth Telehealth [facility] Location of [facility] services: practice address Location of patient: address on file Patient Identification confirmed using: Name, : Yes Telehealth method: video Patient verbally consented to treatment: Yes Patient verbally consented to billing insurance company: Yes Patient informed of any privacy concerns related to visit: Yes Minutes spent on Phone/Video with Pt.: 15 Results Reviewed Results Reviewed: Name: Germán Carlos Age/Sex: 63/M : 1960 Unit#: [id number] Attend Dr: Rocio Morgan MD Re03/06/24 Status: DEP REF Location: [facility] Disch: SPEC : [id number] SUSAN: 03/06/24 STATUS: COMP REQ : [id number] RECD: 03/06/[address]: Rocio Morgan MD COMP: 03/06/24 ENTERED: 03/06/24 [facility] DR: ORDERED: CBC Auto Diff Test Result Flag Reference WBC 7.2 4.8-10.8 X10*3/uL RBC 4.46 L 4.60-5.80 X10*6/uL HGB 13.5 L 14.0-18.0 g/dl HCT 41.2 L 42.0-52.0 % MCV 92.4 80.0-98.0 fL MCH 30.3 27.0-33.0 pg MCHC 32.8 31.0-36.0 g/dl RDW 13.1 11.0-16.0 % PLT 253 160-400 X10*3/uL MPV 10.8 9.4-12.4 fL Neut Pct Auto 59.2 45-73 % ImGran Pct Auto 0.3 0.0-0.4 % Lymp Pct Auto 25.9 20-40 % [place] Pct Auto 7.4 2-11 % Eos Pct Auto 6.4 H 0-4 % Baso Pct Auto 0.8 0-2 % NRBC Pct Auto 0.0 0.0-0.2 /100WBC ANC Neut Abs # 4.2 2.0-8.3 x10*3/uL ImGran Abs Auto 0.02 0.00-0.03 X10*3/uL Lymph Abs Auto 1.9 1.2-4.9 X10*3/uL [place] Abs Auto 0.5 0.1-1.2 X10*3/uL Eos Abs Auto 0.5 H 0.0-0.4 X10*3/uL Baso Abs Auto 0.1 0.0-0.2 X10*3/uL NRBC Abs Auto 0.000 0.0-0.012 X10*3/uL Laboratory Tests 07/01/23 07/06/23 11/04/23 09:50 12:48 10:03 WBC 5.5 Hgb 14.3 Hct 43.3 Plt Count 227 Estimat Average Glucose Hgb A1c (Clinic) 6.5 H 6.6 H Hemoglobin A1c % Urine Creatinine 109.36 Urine Microalbumin 21.0 Microalb/Creat Ratio 19.2 11/08/23 03/06/24 11:48 11:23 WBC Hgb Hct Plt Count Estimat Average Glucose 143 Hgb A1c (Clinic) Hemoglobin A1c % 6.6 H Urine Creatinine 44.09 Urine Microalbumin < 5.0 Microalb/Creat Ratio [facility] Name: Germán Carlos Age/Sex: 63/M : 1960 Unit#: [id number] Attend Dr: Rocio Morgan MD Re03/06/24 Status: DEP REF Location: [facility] Disch: SPEC : [id number] SUSAN: 03/06/24 STATUS: COMP REQ : [id number] RECD: 03/06/[address]: Rocio Morgan MD COMP: 03/06/249 ENTERED: 03/06/[address]: ORDERED: Met Prof Fast, AST, ALT, Lipid Panel Test Result Flag Reference Sodium 141 135-145 mmol/L Potassium 3.9 3.3-5.1 mmol/L CL 107 96-108 mmol/L CO2 26 22-29 mmol/L Gap 12 12-20 BUN 21 H 9-16 mg/dL Creat 0.87 0.5-1.4 mg/dL EGFR > 60 NOTE: For -[place] individuals, multiply the result by 1.210. Chronic Kidney Disease: Estimated GFR < 60 mL/min/1.73m2 Severe Kidney Disease: Estimated GFR < 15 mL/min/1.73m2 FBS 120 H 60-99 mg/dL A fasting glucose from 100-125 mg/dl is considered impaired (pre-diabetes). CA 8.7 # 8.4-10.2 mg/dL AST (GOT) 18 5-37 U/L ALT (GPT) 18 0-40 U/L Triglyceride 67 <150 mg/dL Desirable Triglyceride: less than 150 mg/dL Borderline High Triglyceride 150-199 mg/dL High Triglyceride: 200-499 mg/dL Very High Triglyceride: greater than or equal to 5OO mg/dL Cholesterol 115 <200 mg/dL Desirable Cholesterol: less than 200 mg/dL Borderline High Cholesterol: 200-239 mg/dL High Cholesterol: greater than 239 mg/dL LDL Calculated 56 <100 mg/dL Desirable LDL: less than 100 mg/dL Near Optimal/Above Optimal LDL: 110-129 mg/dL Borderline High LDL: 130-159 mg/dL High LDL: 160-189 mg/dL Very High LDL: greater than or equal to 190 mg/dL HDL 46 >40 mg/dL Desirable HDL: greater than 40 mg/dL Assessment and Plan Assessment & Plan (1) Dyslipidemia: Code(s): E78.5 - Hyperlipidemia, unspecified Plan: Reviewed recent fasting lipid profile with patient with levels within normal limits . Continue atorvastatin 10 mg daily , in addition to adherence to low-cholesterol diet and regular exercise, at least 30 minutes 3 to 4 times a week. Advised patient to make healthy food choices, eat more fruits, vegetables, whole grains, wild caught fish and low-fat dairy. Limit amount of meat and fried or fatty food products, as well as processed foods and fast foods. Follow-up scheduled with repeat fasting lipid panel in 3 months. (2) Diabetes mellitus type 2 with retinopathy: Code(s): E11.319 - Type 2 diabetes mellitus with unspecified diabetic retinopathy without macular edema Qualifiers: Diabetes mellitus jail insulin use: with dedicated intermodal truck driver use Diabetes mellitus macular edema: without macular edema Diabetic retinopathy severity: with mild nonproliferative retinopathy Laterality: bilateral Qualified Code(s): E11.3293 - Type 2 diabetes mellitus with mild nonproliferative diabetic retinopathy without macular edema, bilateral; Z79.4 - intermediate manager (current) use of insulin Plan: Diabetes mellitus controlled slipping, with hemoglobin A1c higher than last check now at 6.6%. Will continue on metformin 1000 mg 1 tablet twice a day, increased Levemir dose to 64 units at night, and continue with sliding scale coverage of NovoLog t.i.d. before meals. Up-to-date with his diabetes retinopathy screening. See him back for follow-up in 3 months (3) Diabetes mellitus with complication, with long-term current use of insulin: Code(s): E11.8 - Type 2 diabetes mellitus with unspecified complications; Z79.4 - intermediate manager (current) use of insulin Plan: Diabetes mellitus controlled slipping, with hemoglobin A1c higher than last check now at 6.6%. Will continue on metformin 1000 mg 1 tablet twice a day, increased Levemir dose to 64 units at night, and continue with sliding scale coverage of NovoLog t.i.d. before meals. Up-to-date with his diabetes retinopathy screening. See him back for follow-up in 3 months (4) Normocytic normochromic anemia: Code(s): D64.9 - Anemia, unspecified Plan: Will check serum protein electrophoresis on next blood work Orders: Orders Lipid Panel 05/23/24 D64.9 - Anemia, unspecified, E11.3293 - Type 2 diabetes mellitus with mild nonproliferative diabetic retinopathy without macular edema, bilateral, E11.8 - Type 2 diabetes mellitus with unspecified complications, E78.5 - Hyperlipidemia, unspecified, I10 - Essential (primary) hypertension, Z79.4 - intermediate manager (current) use of insulin, Z87.19 - Personal history of other diseases of the digestive system Hemoglobin A1c 05/23/24 D64.9 - Anemia, unspecified, E11.3293 - Type 2 diabetes mellitus with mild nonproliferative diabetic retinopathy without macular edema, bilateral, E11.8 - Type 2 diabetes mellitus with unspecified complications, E78.5 - Hyperlipidemia, unspecified, I10 - Essential (primary) hypertension, Z79.4 - prison (current) use of insulin, Z87.19 - Personal history of other diseases of the digestive system Alanine Aminotransferase 05/23/24 D64.9 - Anemia, unspecified, E11.3293 - Type 2 diabetes mellitus with mild nonproliferative diabetic retinopathy without macular edema, bilateral, E11.8 - Type 2 diabetes mellitus with unspecified complications, E78.5 - Hyperlipidemia, unspecified, I10 - Essential (primary) hypertension, Z79.4 - prison (current) use of insulin, Z87.19 - Personal history of other diseases of the digestive system Aspartate Amino Transferase 05/23/24 D64.9 - Anemia, unspecified, E11.3293 - Type 2 diabetes mellitus with mild nonproliferative diabetic retinopathy without macular edema, bilateral, E11.8 - Type 2 diabetes mellitus with unspecified complications, E78.5 - Hyperlipidemia, unspecified, I10 - Essential (primary) hypertension, Z79.4 - prison (current) use of insulin, Z87.19 - Personal history of other diseases of the digestive system Basic Metabolic Panel Fasting 05/23/24 D64.9 - Anemia, unspecified, E11.3293 - Type 2 diabetes mellitus with mild nonproliferative diabetic retinopathy without macular edema, bilateral, E11.8 - Type 2 diabetes mellitus with unspecified complications, E78.5 - Hyperlipidemia, unspecified, I10 - Essential (primary) hypertension, Z79.4 - intermediate manager (current) use of insulin, Z87.19 - Personal history of other diseases of the digestive system Complete Blood Count Auto Diff 05/23/24 D64.9 - Anemia, unspecified, E11.3293 - Type 2 diabetes mellitus with mild nonproliferative diabetic retinopathy without macular edema, bilateral, E11.8 - Type 2 diabetes mellitus with unspecified complications, E78.5 - Hyperlipidemia, unspecified, I10 - Essential (primary) hypertension, Z79.4 - intermediate manager (current) use of insulin, Z87.19 - Personal history of other diseases of the digestive system Protein Electrophoresis, Serum 05/23/24 D64.9 - Anemia, unspecified, E11.3293 - Type 2 diabetes mellitus with mild nonproliferative diabetic retinopathy without macular edema, bilateral, E11.8 - Type 2 diabetes mellitus with unspecified complications, E78.5 - Hyperlipidemia, unspecified, I10 - Essential (primary) hypertension, Z79.4 - intermediate manager (current) use of insulin, Z87.19 - Personal history of other diseases of the digestive system Medications: New acetaminophen ER (Tylenol Arthritis Pain) 650 mg PO Q8H PRN 60 tabs 0RF pain Changed From insulin detemir U-100 (Levemir U-100 Insulin) 60 units (0.6 mL) subcut BEDTIME 20 mL 5RF E11.3293 - Type 2 diabetes mellitus with mild nonproliferative diabetic retinopathy without macular edema, bilateral, E11.8 - Type 2 diabetes mellitus with unspecified complications, Z79.4 - prison (current) use of insulin To insulin detemir U-100 (Levemir U-100 Insulin) 64 units (0.64 mL) subcut BEDTIME 30 days 20 mL 5RF E11.3293 - Type 2 diabetes mellitus with mild nonproliferative diabetic retinopathy without macular edema, bilateral, E11.8 - Type 2 diabetes mellitus with unspecified complications, Z79.4 - intermediate manager (current) use of insulin From Novolog FlexPen U-100 Insulin (insulin aspart U-100) 12 units (0.12 mL) subcut TID 15 mL 0RF NS E11.8 - Type 2 diabetes mellitus with unspecified complications, Z79.4 - prison (current) use of insulin To Novolog FlexPen U-100 Insulin (insulin aspart U-100) Give by sliding scale coverage times a day subcutaneously before meals 15 mL 4RF NS E11.8 - Type 2 diabetes mellitus with unspecified complications, Z79.4 - prison (current) use of insulin Coding Level of Care Code Tele Est Pt Level 4 (01693) Complex EM visit Add On G2211 Diagnoses Dyslipidemia E78.5 Type 2 diabetes mellitus with both eyes affected by mild nonproliferative retinopathy without macular edema, with long-term current use of insulin E11.3293; Z79.4 Diabetes mellitus dedicated intermodal truck driver insulin use: with jail use Diabetes mellitus macular edema: without macular edema Diabetic retinopathy severity: with mild nonproliferative retinopathy Laterality: bilateral Diabetes mellitus with complication, with long-term current use of insulin E11.8; Z79.4 Normocytic normochromic anemia D64.9
== END 2024-03-10 10:55 | disposition home or self-care (01) ==
LOC: HO.HMGC 09:03
PROVIDERS: PCP Internal Medicine; Visit Provider Internal Medicine
DX: E78.5 Hyperlipidemia, unspecified (principal); E11.3293 Type 2 diabetes mellitus with mild nonproliferative diabetic retinopathy without macular edema, bilateral; Z79.4 Long term (current) use of insulin; E11.8 Type 2 diabetes mellitus with unspecified complications; D64.9 Anemia, unspecified
CPT/HCPCS: 99214; G2211

== ENCOUNTER 2024-05-12 10:36 | Outpatient (REF) | payer OTHER, SELFPAY ==
[2024-05-12 14:12] LABS: H Pylori Breath Test Negative (Negative)
== END 2024-05-12 10:37 | disposition home or self-care (01) ==
LOC: HO.LNP 10:36
PROVIDERS: PCP Internal Medicine; Visit Provider Physician Assistant
DX: R14.3 Flatulence (principal)
CPT/HCPCS: 83013; 99212

== ENCOUNTER 2024-05-12 10:36 | Outpatient (AMB) | payer OTHER, SELFPAY ==
[2024-05-12 10:34] VITALS: BP 124/80; PULSE 83; TEMP 36.8; O2SAT 95; BMI 30.1
--- NOTE | 2024-05-12 10:34 | MHC.OFFWIV ---
Intake Vital Signs 05/12/24 10:34 Height 5 ft 7 in Weight 192 lb BMI 30.1 BP 124/80 Blood Pressure Location Lt brachial Position Sitting Pulse 83 Pulse Source Pulse Oximeter Temp 98.2 F Temp Source Oral Pulse Oximetry (%) 95 Oxygen Delivery Method Room Air Intake Visit Reasons: EP-stomach inflamation and excessive of fart Intake Note: patient is here for stomach inflammation with bloating and excessive farting Patient Tobacco Use Status: Former Tobacco user Accompanied by: Self / Same As Patient Allergies peanut Allergy (Intermediate, Verified 05/12/24 10:34) Shortness of Breath, throat swelling Do you need a note to return to daycare/school/sports/work: No HPI HPI Comments History of Present Illness Details Patient is a 63-year-old male complaining of 2 weeks of bloating, passing a lot of gas and malodorous gas as well as some diarrhea. Denies anything bloody or black in his diarrhea. He denies any acid reflux, fevers, nausea or vomiting. He denies any changes in his diet or new medications or recent travel. He states he has tried some [id number] medications that his has given him such as Pepto-Bismol and Tums with no relief. [facility] Medical History Positional lightheadedness Normocytic normochromic anemia Postprandial epigastric pain History of GI bleed Acquired deformity of toenail Lumbosacral radiculopathy due to degenerative joint disease of spine Left nephrolithiasis Primary osteoarthritis of right knee Primary osteoarthritis, left shoulder Trigger finger of right hand BPH (benign prostatic hyperplasia) Chronic insomnia Depression Osteoarthritis involving multiple joints on both sides of body HTN (hypertension) Dyslipidemia Diabetes mellitus with complication, with long-term current use of insulin Diabetes mellitus type 2 with retinopathy Surgical History History of right inguinal hernia repair (~11/09/23) Hx of colonoscopy History of esophagogastroduodenoscopy (EGD) History of left inguinal hernia repair (03/24/22) Hx of lithotripsy History of testicular surgery Umbilical hernia Family History Father CVD (cardiovascular disease) Mother Unknown family medical history Social History Housing: Apartment Alcohol intake: current Alcohol intake frequency: a few times a week Alcohol type: beer Comment: COUNTS CORRECT Patient Tobacco Use Status: Former Tobacco user Tobacco use type: Cigarette e-Cigarette/Vaping Use: Never Used Second Hand Smoke Exposure: No service: No Current occupational status: employed 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 Cognitive needs: No Hearing needs: No Vision needs: Yes Review of Systems Const All systems reviewed & are unremarkable except as noted in HPI and below Physical Exam Vital Signs: Last Vital Signs Temp 98.2 F 05/12/24 10:34 Pulse 83 05/12/24 10:34 BP 124/80 05/12/24 10:34 Pulse Ox 95 05/12/24 10:34 Oxygen Delivery Method Room Air 05/12/24 10:34 BMI result Body Mass Index 30.1 Const General: cooperative, healthy appearing, comfortable, no acute distress and well developed Orientation/consciousness: patient oriented x3 Limitations: no limitations HEENT Head: Yes normal to inspection Ears: hearing grossly normal bilaterally General nose exam: Normal external nose present Face and sinus: Yes normal facial exam Eyes General: appearance normal, both eyes and all related structures Neck Neck: Yes normal visual inspection and Yes full ROM Resp Effort & Inspection: normal respiratory effort and able to speak in complete sentences GI Inspection: Yes normal to inspection Palpation (GI): Soft to palpation and Tenderness to palpation present (GI) (Slight uncomfortableness in the central abdomen) Skin General skin exam: no rashes or lesions noted Neuro General: patient oriented x3 Extrem General: Yes normal to inspection Assessment & Plan Assessment & Plan (1) Excessive gas: Code(s): R14.3 - Flatulence Plan: Vital signs are stable and patient is well-appearing, no red flag warning signs on physical exam. We are doing an H pylori test so while we await the results of that, I will have patient take omeprazole twice a day plus Pepcid. Plan See above Orders: Orders H Pylori Breath Test Today R14.3 - Flatulence Coding Level of Care Code Est Pt Level 4 (52356) Diagnoses Excessive gas R14.3
== END 2024-05-12 11:50 | disposition home or self-care (01) ==
PROVIDERS: PCP Internal Medicine; Visit Provider Physician Assistant
DX: R14.3 Flatulence (principal)

== ENCOUNTER 2024-06-07 09:45 | Outpatient (REF) | payer OTHER, SELFPAY ==
[2024-06-07 13:13] LABS: MANUAL DIFF FLAG NO
[2024-06-07 13:43] LABS: Basophils Absolute Auto 0.1 X10*3/uL (0.0-0.2); Basophils Percent Auto 0.9 % (0-2); Eosinophils Absolute Auto 0.3 X10*3/uL (0.0-0.4); Eosinophils Percent Auto 5.3 % (0-4); Hematocrit 40.2 % (42.0-52.0); Hemoglobin 13.5 g/dl (14.0-18.0); Imm Gran Abs Auto 0.02 X10*3/uL (0.00-0.03); Imm Gran Pct Auto 0.4 % (0.0-0.4); Lymphocytes Absolute Auto 1.6 X10*3/uL (1.2-4.9); Lymphocytes Percent Auto 28.4 % (20-40); Mean Corpuscular HGB Conc 33.6 g/dl (31.0-36.0); Mean Corpuscular Hemoglobin 30.6 pg (27.0-33.0); Mean Corpuscular Volume 91.2 fL (80.0-98.0); Mean Platelet Volume 10.7 fL (9.4-12.4); Monocytes Absolute Auto 0.4 X10*3/uL (0.1-1.2); Monocytes Percent Auto 7.7 % (2-11); Neutrophils Absolute Auto 3.3 x10*3/uL (2.0-8.3); Neutrophils Percent Auto 57.3 % (45-73); Platelet Count 257 X10*3/uL (160-400); Red Blood Count 4.41 X10*6/uL (4.60-5.80); Red Cell Distribution Width 12.8 % (11.0-16.0); White Blood Count 5.7 X10*3/uL (4.8-10.8)
[2024-06-07 14:03] LABS: Estimated Average Glucose 148 mg/dL; Hemoglobin A1C 169.6952 umol/L; Hemoglobin A1c % 6.8 % (<6.0); Total Hemoglobin (HGBA1C) 3371.5849 umol/L
[2024-06-07 14:07] LABS: Alanine Aminotransferase 27 U/L (0-40); Anion Gap 12 (12-20); Aspartate Amino Transferase 22 U/L (5-37); Blood Urea Nitrogen 19 mg/dL (9-16); Carbon Dioxide 28 mmol/L (22-29); Chloride 105 mmol/L (96-108); Cholesterol 131 mg/dL (<200); Estimated Glomerular Filt Rate > 60; Glucose Fasting 85 mg/dL (60-99); HDL Cholesterol 42 mg/dL (>40); LDL Cholesterol Calculated 71 mg/dL (<100); Potassium 4.3 mmol/L (3.3-5.1); Sodium 141 mmol/L (135-145); Triglycerides 91 mg/dL (<150)
[2024-06-09 09:08] LABS: Prot Elec - Albumin 4.4 g/dL (3.8-4.8); Prot Elec - Alpha1 0.3 g/dL (0.2-0.3); Prot Elec - Alpha2 0.7 g/dL (0.5-0.9); Prot Elec - Beta 1 0.5 g/dL (0.4-0.6); Prot Elec - Beta 2 0.5 g/dL (0.2-0.5); Prot Elec - Total Protein 7.3 g/dL (6.1-8.1)
== END 2024-06-07 09:46 | disposition home or self-care (01) ==
LOC: HO.HMGCLDS 09:45
PROVIDERS: PCP Internal Medicine; Visit Provider Internal Medicine
DX: E78.5 Hyperlipidemia, unspecified (principal); E11.3293 Type 2 diabetes mellitus with mild nonproliferative diabetic retinopathy without macular edema, bilateral; Z79.4 Long term (current) use of insulin; E11.8 Type 2 diabetes mellitus with unspecified complications; I10 Essential (primary) hypertension; D64.9 Anemia, unspecified; Z87.19 Personal history of other diseases of the digestive system
CPT/HCPCS: 36415; 80048; 80061; 83036; 84165; 84450; 84460; 85025

== ENCOUNTER 2024-06-09 08:35 | Outpatient (AMB) | payer OTHER, SELFPAY ==
--- NOTE | 2024-06-09 08:34 | A.OFFPC_ITS ---
Intake Visit Reasons: 3 mo. f/u DM, HTN, lipids andr. Intake Note: Pt is here today for his DM,HTN and lipids Allergies peanut Allergy (Intermediate, Verified 06/10/24 04:58) Shortness of Breath, throat swelling Medication List - Last Reconciled 06/09/24 by Rocio Morgan MD acetaminophen ER (Tylenol Arthritis Pain) 650 mg PO Q8H PRN atorvastatin (Lipitor) 10 mg PO DAILY blood sugar diagnostic (FreeStyle Lite Strips) check fasting blood sugar twice a day before meals clotrimazole-betamethasone 1-0.05 % 1 appl topical BID 10 days fluoxetine 40 mg (2 x 20 mg) PO QAM insulin detemir U-100 (Levemir U-100 Insulin) 64 units (0.64 mL) subcut BEDTIME 30 days insulin syringe-needle U-100 Use to inject insulin once a day lisinopril (Zestril) 20 mg PO DAILY meloxicam 15 mg PO DAILY PRN metformin 1,000 mg PO BID methocarbamol 500 mg PO TID PRN Novolog FlexPen U-100 Insulin (insulin aspart U-100) Give by sliding scale coverage times a day subcutaneously before meals NS omeprazole 40 mg PO BID pyridoxine (vitamin B6) 50 mg PO DAILY 90 days tadalafil 5 mg PO DAILY 90 days zolpidem 10 mg PO BEDTIME PRN Tobacco use date assessed: 06/09/24 Dental Screening Dental Screen Date: 06/09/24 Did you have a dental visit in the last 12 months?: Yes Did you have a dental problem in the last 6 months where you did not have access to dental care?: Yes Was dental information given to patient?: Patient has dentist HPI 3 mo. f/u DM, HTN, lipids andr. HPI Details 63-year-old male with diabetes mellitus, hypertension hyperlipidemia, here today for follow-up. He has been taking his medicines as directed, tries to exercise regularly. Recent fasting labs showed serum electrolytes, renal function, fasting lipids, liver enzymes all within normal limits. His hemoglobin A1c however has increased from 6.6-6.8 on latest labs drawn. Noted to have normocytic normochromic anemia, has an appointment with [facility] for an upper endoscopy coming up soon. He is up-to-date with his diabetes retinopathy screening. Complains of recurrent joint pain mainly in fingers, elbows, shoulder hips and knees. Taking Tylenol arthritis which affords only temporary relief. Has tried this friend's diclofenac gel , which has been helping, would like a prescription sent to his pharmacy [facility] Medical History (Updated 06/10/24 @ 05:04 by Rocio Morgan MD) Polyarthralgia Positional lightheadedness Normocytic normochromic anemia Postprandial epigastric pain History of GI bleed Acquired deformity of toenail Lumbosacral radiculopathy due to degenerative joint disease of spine Left nephrolithiasis Primary osteoarthritis of right knee Primary osteoarthritis, left shoulder Trigger finger of right hand BPH (benign prostatic hyperplasia) Chronic insomnia Depression Osteoarthritis involving multiple joints on both sides of body HTN (hypertension) Dyslipidemia Diabetes mellitus with complication, with long-term current use of insulin Diabetes mellitus type 2 with retinopathy Surgical History History of right inguinal hernia repair (~11/09/23) Hx of colonoscopy History of esophagogastroduodenoscopy (EGD) History of left inguinal hernia repair (03/24/22) Hx of lithotripsy History of testicular surgery Umbilical hernia Family History Father CVD (cardiovascular disease) Mother Unknown family medical history Social History Housing: Apartment Alcohol intake: current Alcohol intake frequency: a few times a week Alcohol type: beer Comment: COUNTS CORRECT Patient Tobacco Use Status: Former Tobacco user Tobacco use type: Cigarette e-Cigarette/Vaping Use: Never Used Second Hand Smoke Exposure: No service: No Current occupational status: employed 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 Junior Kennedy, Brianna Adhikari, Nixon Abreu and colleagues, with an educational milagros from [employer] Review of Systems Const Reports no additional complaints Eyes Details: Sees Dr. Hawkins for his diabetes retinopathy screening ENT Reports no additional complaints Card Denies chest pain, Denies irregular heart rhythm and Denies dyspnea Resp Denies cough and Denies dyspnea GI Denies abdominal pain and Denies heartburn Reports no additional complaints Musc Reports arthralgias, Denies joint swelling, Denies limited range of motion, Denies numbness and Reports stiffness Neuro Reports no additional complaints and Denies numbness Psych Reports no additional complaints Endo Reports no additional complaints Brnuo/Lymph Reports no additional complaints Physical exam (Primary Care) Tobacco/Smoking Status: Tobacco use Status Tobacco use date assessed 06/09/24 06/09/24 08:35 Patient Tobacco Use Status Former Tobacco user 06/09/24 08:35 Tobacco use type Cigarette 06/09/24 08:35 e-Cigarette/Vaping Use Never Used 06/09/24 08:35 Thrive Assessment: Date of Thrive Assessment Date Thrive assessed 11/04/23 06/09/24 08:35 Telehealth Telehealth Telehealth Platform: [employer] Location of provider rendering services: practice address Location of patient: address on file Patient Identification confirmed using: Name, : Yes Telehealth method: video Patient verbally consented to treatment: Yes Patient verbally consented to billing insurance company: Yes Patient informed of any privacy concerns related to visit: Yes Minutes spent on Phone/Video with Pt.: 15 Results Reviewed Results Reviewed: Name: Germán Carlos Age/Sex: 63/M : 1960 Unit#: [id number] Attend Dr: Rocio Morgan MD Re06/07/24 Status: DEP REF Location: [facility] Disch: SPEC : [id number] SUSAN: 06/07/24 STATUS: COMP REQ : [id number] RECD: 06/07/[address]: Rocio Morgan MD COMP: 06/07/24 ENTERED: 06/07/[address]: ORDERED: CBC Auto Diff Test Result Flag Reference WBC 5.7 4.8-10.8 X10*3/uL RBC 4.41 L 4.60-5.80 X10*6/uL HGB 13.5 L 14.0-18.0 g/dl HCT 40.2 L 42.0-52.0 % MCV 91.2 80.0-98.0 fL MCH 30.6 27.0-33.0 pg MCHC 33.6 31.0-36.0 g/dl RDW 12.8 11.0-16.0 % PLT 257 160-400 X10*3/uL MPV 10.7 9.4-12.4 fL Neut Pct Auto 57.3 45-73 % ImGran Pct Auto 0.4 0.0-0.4 % Lymp Pct Auto 28.4 20-40 % [place] Pct Auto 7.7 2-11 % Eos Pct Auto 5.3 H 0-4 % Baso Pct Auto 0.9 0-2 % NRBC Pct Auto 0.0 0.0-0.2 /100WBC ANC Neut Abs # 3.3 2.0-8.3 x10*3/uL ImGran Abs Auto 0.02 0.00-0.03 X10*3/uL Lymph Abs Auto 1.6 1.2-4.9 X10*3/uL [place] Abs Auto 0.4 0.1-1.2 X10*3/uL Eos Abs Auto 0.3 0.0-0.4 X10*3/uL Baso Abs Auto 0.1 0.0-0.2 X10*3/uL NRBC Abs Auto 0.000 0.0-0.012 X10*3/uL Name: Germán Carlos Age/Sex: 63/M : 1960 Unit#: [id number] Attend Dr: Rocio Morgan MD Re06/07/24 Status: DEP REF Location: [facility] Disch: SPEC : [id number] SUSAN: 06/07/24 STATUS: COMP REQ : [id number] RECD: 06/07/[address]: Rocio Morgan MD COMP: 06/07/24 ENTERED: 06/07/[address] [facility] [address]: ORDERED: Met Prof Fast, AST, ALT, Lipid Panel Test Result Flag Reference Sodium 141 135-145 mmol/L Potassium 4.3 3.3-5.1 mmol/L CL 105 96-108 mmol/L CO2 28 22-29 mmol/L Gap 12 12-20 BUN 19 H 9-16 mg/dL Creat 0.92 0.5-1.4 mg/dL EGFR > 60 NOTE: For -[place]ogolese individuals, multiply the result by 1.210. Chronic Kidney Disease: Estimated GFR < 60 mL/min/1.73m2 Severe Kidney Disease: Estimated GFR < 15 mL/min/1.73m2 FBS 85 60-99 mg/dL CA 10.0 # 8.4-10.2 mg/dL AST (GOT) 22 5-37 U/L ALT (GPT) 27 0-40 U/L Triglyceride 91 <150 mg/dL Desirable Triglyceride: less than 150 mg/dL Borderline High Triglyceride 150-199 mg/dL High Triglyceride: 200-499 mg/dL Very High Triglyceride: greater than or equal to 5OO mg/dL Cholesterol 131 <200 mg/dL Desirable Cholesterol: less than 200 mg/dL Borderline High Cholesterol: 200-239 mg/dL High Cholesterol: greater than 239 mg/dL LDL Calculated 71 <100 mg/dL Desirable LDL: less than 100 mg/dL Near Optimal/Above Optimal LDL: 110-129 mg/dL Borderline High LDL: 130-159 mg/dL High LDL: 160-189 mg/dL Very High LDL: greater than or equal to 190 mg/dL HDL 42 >40 mg/dL Desirable HDL: greater than 40 mg/dL Note: This HDL assay may give artificially low results in patients with liver disease. Laboratory Tests 03/06/24 06/07/24 11:23 09:52 Estimat Average Glucose 143 148 Hemoglobin A1c % 6.6 H 6.8 H Coding Level of Care Code Tele Est Pt Level 4 (14251) Complex EM visit Add On G2211 Diagnoses Type 2 diabetes mellitus with both eyes affected by mild nonproliferative retinopathy without macular edema, with long-term current use of insulin E11.3293; Z79.4 Diabetes mellitus rn long term care insulin use: with assisted use Diabetes mellitus macular edema: without macular edema Diabetic retinopathy severity: with mild nonproliferative retinopathy Laterality: bilateral Normocytic normochromic anemia D64.9 Dyslipidemia E78.5 Polyarthralgia M25.50 Assessment & Plan Assessment & Plan (1) Diabetes mellitus type 2 with retinopathy: Code(s): E11.319 - Type 2 diabetes mellitus with unspecified diabetic retinopathy without macular edema Category: Medical Qualifiers: Diabetes mellitus assisted insulin use: with rn long term care use Diabetes mellitus macular edema: without macular edema Diabetic retinopathy severity: with mild nonproliferative retinopathy Laterality: bilateral Qualified Code(s): E11.3293 - Type 2 diabetes mellitus with mild nonproliferative diabetic retinopathy without macular edema, bilateral; Z79.4 - buttermaker continuous churn (current) use of insulin Plan: Has mild nonproliferative diabetic retinopathy OU, seen at the [facility], last seen 11/2023, by Dr. Rao. Latest hemoglobin A1c is at 6.8% will continue on current dose of Levemir and mealtime insulin in addition to metformin a 1000 mg 1 tablet twice a day. Refills sent. Reinforced importance of following recommended diet and getting regular exercise at least 15-30 minutes of cardio daily (2) Normocytic normochromic anemia: Code(s): D64.9 - Anemia, unspecified Category: Medical Plan: Has appointment for an upper endoscopy scheduled later this year., followed by GI will repeat another CBC, iron profile in 10/2024 (3) Dyslipidemia: Code(s): E78.5 - Hyperlipidemia, unspecified Category: Medical Plan: Fasting lipids are within normal limits, continued with atorvastatin 10 mg daily. Reinforced importance of following recommended diet and getting regular exercise, repeat fasting lipids ordered for 10/2024 (4) Polyarthralgia: Code(s): M25.50 - Pain in unspecified joint Category: Medical Plan: Prescription sent for diclofenac gel 1%, massaged to affected joints 3 to 4 times a day as needed. Not take additional ibuprofen, Motrin, naproxen, meloxicam when using the gel , but may take Tylenol arthritis tablets in addition to using the gel , 3 times a day as needed Orders: Orders Aspartate Amino Transferase 10/21/24 D64.9 - Anemia, unspecified, E11.3293 - Type 2 diabetes mellitus with mild nonproliferative diabetic retinopathy without macular edema, bilateral, E11.8 - Type 2 diabetes mellitus with unspecified complications, E78.5 - Hyperlipidemia, unspecified, I10 - Essential (primary) hypertension, Z79.4 - care home (current) use of insulin, Z87.19 - Personal history of other diseases of the digestive system Basic Metabolic Panel Fasting 10/21/24 D64.9 - Anemia, unspecified, E11.3293 - Type 2 diabetes mellitus with mild nonproliferative diabetic retinopathy without macular edema, bilateral, E11.8 - Type 2 diabetes mellitus with unspecified complications, E78.5 - Hyperlipidemia, unspecified, I10 - Essential (primary) hypertension, Z79.4 - buttermaker continuous churn (current) use of insulin, Z87.19 - Personal history of other diseases of the digestive system IRON PROFILE 10/21/24 D64.9 - Anemia, unspecified, E11.3293 - Type 2 diabetes mellitus with mild nonproliferative diabetic retinopathy without macular edema, bilateral, E11.8 - Type 2 diabetes mellitus with unspecified complications, E78.5 - Hyperlipidemia, unspecified, I10 - Essential (primary) hypertension, Z79.4 - care home (current) use of insulin, Z87.19 - Personal history of other diseases of the digestive system Alanine Aminotransferase 10/21/24 D64.9 - Anemia, unspecified, E11.3293 - Type 2 diabetes mellitus with mild nonproliferative diabetic retinopathy without macular edema, bilateral, E11.8 - Type 2 diabetes mellitus with unspecified complications, E78.5 - Hyperlipidemia, unspecified, I10 - Essential (primary) hypertension, Z79.4 - care home (current) use of insulin, Z87.19 - Personal history of other diseases of the digestive system Complete Blood Count Auto Diff 10/21/24 D64.9 - Anemia, unspecified, E11.3293 - Type 2 diabetes mellitus with mild nonproliferative diabetic retinopathy without macular edema, bilateral, E11.8 - Type 2 diabetes mellitus with unspecified complications, E78.5 - Hyperlipidemia, unspecified, I10 - Essential (primary) hypertension, Z79.4 - care home (current) use of insulin, Z87.19 - Personal history of other diseases of the digestive system Lipid Panel 10/21/24 D64.9 - Anemia, unspecified, E11.3293 - Type 2 diabetes mellitus with mild nonproliferative diabetic retinopathy without macular edema, bilateral, E11.8 - Type 2 diabetes mellitus with unspecified complications, E78.5 - Hyperlipidemia, unspecified, I10 - Essential (primary) hypertension, Z79.4 - buttermaker continuous churn (current) use of insulin, Z87.19 - Personal history of other diseases of the digestive system Microalbumin, Random (w Creat) 10/21/24 D64.9 - Anemia, unspecified, E11.3293 - Type 2 diabetes mellitus with mild nonproliferative diabetic retinopathy without macular edema, bilateral, E11.8 - Type 2 diabetes mellitus with unspecified complications, E78.5 - Hyperlipidemia, unspecified, I10 - Essential (primary) hypertension, Z79.4 - buttermaker continuous churn (current) use of insulin, Z87.19 - Personal history of other diseases of the digestive system Hemoglobin A1c 10/21/24 D64.9 - Anemia, unspecified, E11.3293 - Type 2 diabetes mellitus with mild nonproliferative diabetic retinopathy without macular edema, bilateral, E11.8 - Type 2 diabetes mellitus with unspecified complications, E78.5 - Hyperlipidemia, unspecified, I10 - Essential (primary) hypertension, Z79.4 - care home (current) use of insulin, Z87.19 - Personal history of other diseases of the digestive system Medications: New diclofenac sodium 1% apply to single knee, ankle, foot; for foot includes sole/toes/top of foot 4 grams topical QID PRN 100 grams 1RF joint pain Refilled pen needle, diabetic (BD Ultra-Fine Original Pen Needle) use as directed 4 times a day, before meals and at bedtime 30 days 200 ea 6RF Novolog FlexPen U-100 Insulin (insulin aspart U-100) Give by sliding scale coverage times a day subcutaneously before meals 15 mL 4RF NS E11.8 - Type 2 diabetes mellitus with unspecified complications, Z79.4 - care home (current) use of insulin Discontinued meloxicam Discontinued Reason: Doctor's Order 15 mg PO DAILY PRN 30 tabs 0RF for pain M19.012 - Primary osteoarthritis, left shoulder, M25.512 - Pain in left shoulder
== END 2024-06-09 09:23 | disposition home or self-care (01) ==
PROVIDERS: PCP Internal Medicine; Visit Provider Internal Medicine
DX: E11.3293 Type 2 diabetes mellitus with mild nonproliferative diabetic retinopathy without macular edema, bilateral (principal); Z79.4 Long term (current) use of insulin; D64.9 Anemia, unspecified; E78.5 Hyperlipidemia, unspecified; M25.50 Pain in unspecified joint

== ENCOUNTER → 2024-06-09 08:35 | Outpatient (BNVA) | payer OTHER, SELFPAY | PROVIDERS: PCP Internal Medicine; Visit Provider Internal Medicine ==

== ENCOUNTER 2024-06-15 12:02 | Outpatient (REF) | payer OTHER, SELFPAY ==
[2024-06-15 13:50] LABS: Prostate Specific Antigen 0.87 ng/mL (<0.05-4.0)
== END 2024-06-15 12:03 | disposition home or self-care (01) ==
LOC: HO.LAB 12:02
PROVIDERS: PCP Internal Medicine; Visit Provider Urology
DX: N32.0 Bladder-neck obstruction (principal); Z12.5 Encounter for screening for malignant neoplasm of prostate
CPT/HCPCS: 36415; 84153

== ENCOUNTER 2024-06-21 14:02 | Outpatient (AMB) | payer OTHER, SELFPAY ==
--- NOTE | 2024-06-21 14:12 | A.OFFVIS_ITS ---
Intake Visit Reasons: 6m/PSA/PVR(set) Intake Note: Patient is present for PSA/PVR Follow Up Urology Med: Vitamin B6, Tadalafil Antibiotic Allergy: None Blood Thinner: None Recent LABS: 06/15/24 PSA: 0.87 06/07/24 Hemoglobin A1C: 6.8 Last PVR: 21ml Todays PVR:0ml Film Replacement Orderer Required: No Accompanied by: Self / Same As Patient Allergies peanut Allergy (Intermediate, Verified 06/21/24 14:16) Shortness of Breath, throat swelling HPI Comments Details: Germán IYER is a very pleasant male. He is a patient of Dr Morgan. He is seen for the following urologic conditions. - testicular pain - nephrolithiasis - lower urinary tract symptoms PVR 0 PSA 0.9 Nephrolithiasis vitamin B6 Erectile dysfunction daily tadalafil with on demand HbA1c 6.8 on insulin Reports urinary urge 2 times per day. We will follow Six-month follow-up UA and renal ultrasound Lower urinary tract symptoms Progressive Hesitancy with feeling of incomplete emptying Current medications terazosin 10 mg PSA 09/14 0.9 GreenLight laser 11/13 Erectile dysfunction setting of type 2 diabetes Type 2 diabetic - HBA1c 06/13 6.8 Progressive Able to obtain but cannot maintain erection Tadalafil daily trial 05/14 with on demand 20 mg Nephrolithiasis Follow-up nephrolithiasis Current therapy includes vitamin B6 Imaging - 05/13 CT scan 1.2 cm left renal stone - 02/11 CT no stone seen Intervention - 11/11 left ESWL Testicular/Scotal orchalgia-swelling:? Primary complaint of?inguinal groins, pain.? The symptoms started or were observed:?since May 2018 ?- prior bilateral hydrocele repair.? The pain is located?bilaterally, groin.? Imaging includes?07/10 , testicular ultrasound, reported as, normal epididiymal head, normal parenchyma and normal flow.? Character of the pain is?constant, chronic.? Based on imaging and exam diagnosis is most consistent with?inguinal disruption ?- bilateral insertion tenderness.? Prior therapy(ies) include?no prior therapy.? Therapeutic plan includes?conservative therapy PFSH Medical History Polyarthralgia Positional lightheadedness Normocytic normochromic anemia Postprandial epigastric pain History of GI bleed Acquired deformity of toenail Lumbosacral radiculopathy due to degenerative joint disease of spine Left nephrolithiasis Primary osteoarthritis of right knee Primary osteoarthritis, left shoulder Trigger finger of right hand BPH (benign prostatic hyperplasia) Chronic insomnia Depression Osteoarthritis involving multiple joints on both sides of body HTN (hypertension) Dyslipidemia Diabetes mellitus with complication, with long-term current use of insulin Diabetes mellitus type 2 with retinopathy Surgical History History of right inguinal hernia repair (~11/09/23) Hx of colonoscopy History of esophagogastroduodenoscopy (EGD) History of left inguinal hernia repair (03/24/22) Hx of lithotripsy History of testicular surgery Umbilical hernia Family History Father CVD (cardiovascular disease) Mother Unknown family medical history Social History Housing: Apartment Alcohol intake: current Alcohol intake frequency: a few times a week Alcohol type: beer Comment: COUNTS CORRECT Patient Tobacco Use Status: Former Tobacco user Tobacco use type: Cigarette e-Cigarette/Vaping Use: Never Used Second Hand Smoke Exposure: No service: No Current occupational status: employed 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 Cognitive needs: No Hearing needs: No Vision needs: Yes Review of Systems Const Denies chills and Denies fever(s) Card Reports no additional complaints and Denies syncope Resp Denies cough GI Denies abdominal pain and Denies heartburn Reports as per HPI and Denies change in libido Neuro Denies syncope Psych Denies change in libido Endo Denies change in libido Physical Exam Const General: cooperative, healthy appearing, comfortable and no acute distress Orientation/consciousness: patient oriented x3 HEENT Face and sinus: Yes normal facial exam Mouth: moist mucous membranes Neck Neck: Yes normal visual inspection, Yes full ROM and Yes trachea midline Chest Chest palpation & inspection: normal inspection of the chest Resp Effort & Inspection: normal respiratory effort, able to speak in complete sentences and no respiratory distress GI Inspection: Yes normal to inspection Back/Spine/Pelvis Cervical Spine: normal cervical lordosis Thoracic/Lumbar Spine: thoracic and lumbar spine normal to inspection Skin General skin exam: no rashes or lesions noted Neuro General: patient oriented x3, gait normal, tone normal and moves all extremities Extrem General: Yes normal to inspection and Yes capillary refill normal Office Procedures Post Void Residual Post Residual Void Post Void Residual (PVR): 0 22424-Jnro Void Residual by ultrasound Assessment & Plan Assessment & Plan (1) Nephrolithiasis: Code(s): N20.0 - Calculus of kidney Category: Medical (2) Bladder outlet obstruction: Code(s): N32.0 - Bladder-neck obstruction Category: Medical (3) Erectile dysfunction associated with type 2 diabetes mellitus: Code(s): E11.69 - Type 2 diabetes mellitus with other specified complication; N52.1 - Erectile dysfunction due to diseases classified elsewhere Category: Medical Plan Six-month follow-up renal ultrasound and UA Orders: Orders AMB Post Void Residual by ultrasound Today N32.0 - Bladder-neck obstruction US renal BI 6 Months N20.0 - Calculus of kidney Patient Instructions: Imaging studies, laboratory and physical exam results were discussed and reviewed in detail. No major barriers to patient understanding were identified. An opportunity to ask questions regarding the treatment plan was provided. All questions were answered. The patient expressed understanding and agreement with the above treatment plan. The patient is aware they should contact our office by phone for worsening of their current condition or the appearance of new urologic symptoms. Compliance is encouraged with any medications and followup testing that is ordered. It is a privilege to participate in the urologic care of your patient. If you have any questions or concerns regarding treatment for the above conditions, or other urologic issues, please do not hesitate to contact me. The office telephone contact is [phone]. This note is constructed using voice recognition software. While every effort has been made to ensure accuracy e commerce analyst errors may have been included. Yours sincerely, Dr Nhan Lin MD, [facility] - Urology Providers of Expert, Compassionate Care for the Genitourinary System Coding Level of Care Code Est Pt Level 3 (77084) Diagnoses Nephrolithiasis N20.0 Bladder outlet obstruction N32.0 Erectile dysfunction associated with type 2 diabetes mellitus E11.69; N52.1 CPT Codes Post Residual Void - PVR CPT Code: 09178-Zudm Void Residual by ultrasound ([id number])
== END 2024-06-21 14:34 | disposition home or self-care (01) ==
LOC: HO.HUSH 14:03
PROVIDERS: PCP Internal Medicine; Visit Provider Urology
DX: N20.0 Calculus of kidney (principal); N32.0 Bladder-neck obstruction; E11.69 Type 2 diabetes mellitus with other specified complication; N52.1 Erectile dysfunction due to diseases classified elsewhere
CPT/HCPCS: 99213

== ENCOUNTER → 2024-06-21 14:02 | Outpatient (BNVA) | payer OTHER, SELFPAY | PROVIDERS: PCP Internal Medicine; Visit Provider Urology | DX: N20.0 Calculus of kidney (principal); N32.0 Bladder-neck obstruction; E11.69 Type 2 diabetes mellitus with other specified complication; N52.1 Erectile dysfunction due to diseases classified elsewhere | CPT/HCPCS: 51798; 99212 ==

== ENCOUNTER 2024-08-04 11:48 | Outpatient (AMB) | payer OTHER, SELFPAY ==
--- NOTE | 2024-08-04 11:58 | MHC.OFFWIV ---
Intake Vital Signs 08/04/24 12:01 Weight 192 lb BP 140/98 H Blood Pressure Location Lt brachial Position Sitting Pulse 74 Pulse Source Pulse Oximeter Pulse Oximetry (%) 98 Oxygen Delivery Method Room Air Intake Visit Reasons: EP-HB/b pressure, headaches,chest tights,unbalance Intake Note: Patient here for elevated BP, headaches, chest tightness which has been going for about 1 week. Patient Tobacco Use Status: Former Tobacco user Allergies peanut Allergy (Intermediate, Verified 08/04/24 12:00) Shortness of Breath, throat swelling Do you need a note to return to daycare/school/sports/work: No HPI HPI Comments History of Present Illness Details This is a 62-year-old male with a past medical history of insulin-dependent diabetes, hypertension and hyperlipidemia presenting for evaluation of chest tightness, elevated blood pressures and a headache that has been ongoing for the past 10 days. Patient states he has been checking his blood pressure at home and the systolic has been as high as 147. Patient has been taking ibuprofen and Tylenol for his headaches and denies having any fevers, chills, visual changes, neck pain or syncope. Patient's last blood glucose was 112 mg/dL today. Patient states he last experienced the chest pressure this morning at 10:00 a.m. which lasted for approximately 20 minutes. The patient is chest pain-free at this time. Patient also reports intermittent shortness of breath with exertion. [facility] Medical History Polyarthralgia Positional lightheadedness Normocytic normochromic anemia Postprandial epigastric pain History of GI bleed Acquired deformity of toenail Lumbosacral radiculopathy due to degenerative joint disease of spine Left nephrolithiasis Primary osteoarthritis of right knee Primary osteoarthritis, left shoulder Trigger finger of right hand BPH (benign prostatic hyperplasia) Chronic insomnia Depression Osteoarthritis involving multiple joints on both sides of body HTN (hypertension) Dyslipidemia Diabetes mellitus with complication, with long-term current use of insulin Diabetes mellitus type 2 with retinopathy Surgical History History of right inguinal hernia repair (~11/09/23) Hx of colonoscopy History of esophagogastroduodenoscopy (EGD) History of left inguinal hernia repair (08/02/22) Hx of lithotripsy History of testicular surgery Umbilical hernia Family History Father CVD (cardiovascular disease) Mother Unknown family medical history Social History Housing: Apartment Alcohol intake: current Alcohol intake frequency: a few times a week Alcohol type: beer Comment: COUNTS CORRECT Patient Tobacco Use Status: Former Tobacco user Tobacco use type: Cigarette e-Cigarette/Vaping Use: Never Used Second Hand Smoke Exposure: No service: No Current occupational status: employed 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 Resp Effort & Inspection: normal respiratory effort, able to speak in complete sentences, abnormal respiratory pattern, no audible wheezes, no cough and no respiratory distress Auscultation: clear to auscultation bilaterally Cardio Rate: regular rate Rhythm: regular rhythm GI Palpation (GI): Soft to palpation, nontender, no guarding and not rigid Skin General skin exam: no rashes or lesions noted Neuro General: patient oriented x3 Psych Appearance: grossly normal Mental Status: mental status grossly normal Insight: Good insight present (Psych) Judgement: Good judgement present (Psych) Results Reviewed Results Reviewed: EKG normal sinus rhythm rate of 73 beats per minute. Assessment & Plan Assessment & Plan (1) Headache: Code(s): R51.9 - Headache, unspecified Qualifiers: Headache type: unspecified Headache chronicity pattern: acute headache Intractability: not intractable Qualified Code(s): R51.9 - Headache, unspecified Plan: Patient will go to the emergency department at [facility] for further evaluation. Expect is called to Adelfo O'Radford, PA-C at 12:31 p.m. (2) Chest pain: Code(s): R07.9 - Chest pain, unspecified Qualifiers: Chest pain type: other chest pain Qualified Code(s): R07.89 - Other chest pain Plan: Patient will go to the emergency department at [facility] for further evaluation. Expect is called to Adelfo Desouza PA-C at 12:31 p.m. Plan Patient will go to the emergency department at [facility] for further evaluation. Expect is called to Adelfo Desouza PA-C at 12:31 p.m. Coding Level of Care Code Est Pt Level 4 (76430) Diagnoses Acute nonintractable headache, unspecified headache type R51.9 Headache type: unspecified Headache chronicity pattern: acute headache Intractability: not intractable Other chest pain R07.89 Chest pain type: other chest pain Time Spent (min) 25
[2024-08-04 12:01] VITALS: BP 140/98; PULSE 74; O2SAT 98
== END 2024-08-04 12:33 | disposition home or self-care (01) ==
PROVIDERS: PCP Internal Medicine; Visit Provider Physician Assistant
DX: R51.9 Headache, unspecified (principal); R07.89 Other chest pain

== ENCOUNTER → 2024-08-04 11:48 | Outpatient (BNVA) | payer OTHER, SELFPAY | PROVIDERS: PCP Internal Medicine; Visit Provider Physician Assistant | DX: R51.9 Headache, unspecified (principal); R07.89 Other chest pain; E11.9 Type 2 diabetes mellitus without complications; I10 Essential (primary) hypertension; E78.5 Hyperlipidemia, unspecified; Z79.4 Long term (current) use of insulin; Z87.891 Personal history of nicotine dependence | CPT/HCPCS: 93005; 99212 ==

== ENCOUNTER 2024-08-04 12:51 | Emergency (ER) | payer OTHER, SELFPAY ==
--- NOTE | ~2024-08-04 | XR_ITS ---
EXAMINATION: XR CHEST CLINICAL INFORMATION: CP COMPARISON: X-ray dated July 23, 2023 TECHNIQUE: 2 views of the chest were obtained. FINDINGS: No consolidation, pleural effusion or pneumothorax. No hyperinflation. Cardiac mediastinal silhouette is normal in size. Multilevel thoracolumbar spondylosis. S-shaped curvature of the thoracolumbar spine. XR/XR chest 2V IMPRESSION: No acute airspace disease. Multilevel spondylosis and likely scoliosis thoracolumbar junction. Electronically signed by: Rambo Vines MD 08/04/2024 01:29 PM [facility]
--- NOTE | ~2024-08-04 | CT_ITS ---
EXAMINATION: CT HEAD WITHOUT CONTRAST CLINICAL INFORMATION: Frontal headache COMPARISON: CT head December 2016 TECHNIQUE: Contiguous axial imaging was performed from the skull base to vertex without intravenous administration of contrast. This CT examination was performed using dose optimization techniques as appropriate, variously including the following: *Automated exposure control *Adjustment of mA and/or kV according to patient size (this includes techniques or standardized protocols for targeted exams where dose is matched to indication/reason for exam; i.e. extremities or head) *Use of iterative reconstruction technique DLP: 764 mGy-cm FINDINGS: There is no mass hemorrhage or cerebral edema. Ventricles and basilar cisterns are normal. Sulci normal. No extra-axial fluid collection. Kenyon white differentiation normal. Soft tissues normal. Osseous structures normal. Sinuses clear. Mastoid air cells clear. CT/CT head/brain wo IV con IMPRESSION: No acute intracranial pathology. Electronically signed by: Matt Moya MD 08/04/2024 06:30 PM [facility]
--- NOTE | 2024-08-04 12:53 | ECG_ITS ---
Test Reason : cp Blood Pressure : / mmHG Vent. Rate : 068 BPM Atrial Rate : 068 BPM P-R Int : 190 ms QRS Dur : 086 ms QT Int : 398 ms P-R-T Axes : 016 024 015 degrees QTc Int : 423 ms Normal sinus rhythm Normal ECG When compared to the previous EKG of No significant changes seen Referred By: Generic ED Physician Electronically Signed By:APRIL PEREZ MD
[2024-08-04 13:11] LABS: MANUAL DIFF FLAG NO
[2024-08-04 13:22] LABS: Basophils Absolute Auto 0.1 X10*3/uL (0.0-0.2); Basophils Percent Auto 0.9 % (0-2); Eosinophils Absolute Auto 0.3 X10*3/uL (0.0-0.4); Hematocrit 40.3 % (42.0-52.0); Hemoglobin 13.4 g/dl (14.0-18.0); Imm Gran Abs Auto 0.01 X10*3/uL (0.00-0.03); Imm Gran Pct Auto 0.2 % (0.0-0.4); Lymphocytes Absolute Auto 1.6 X10*3/uL (1.2-4.9); Lymphocytes Percent Auto 30.8 % (20-40); Mean Corpuscular HGB Conc 33.3 g/dl (31.0-36.0); Mean Corpuscular Hemoglobin 30.7 pg (27.0-33.0); Mean Corpuscular Volume 92.4 fL (80.0-98.0); Mean Platelet Volume 10.6 fL (9.4-12.4); Monocytes Absolute Auto 0.4 X10*3/uL (0.1-1.2); Monocytes Percent Auto 7.4 % (2-11); Neutrophils Absolute Auto 2.9 x10*3/uL (2.0-8.3); Neutrophils Percent Auto 54.7 % (45-73); Platelet Count 256 X10*3/uL (160-400); Red Blood Count 4.36 X10*6/uL (4.60-5.80); Red Cell Distribution Width 12.8 % (11.0-16.0); White Blood Count 5.3 X10*3/uL (4.8-10.8)
[2024-08-04 13:25] LABS: Anion Gap 9 (12-20); Blood Urea Nitrogen 15 mg/dL (9-16); Calcium 9.2 mg/dL (8.4-10.2); Carbon Dioxide 28 mmol/L (22-29); Chloride 108 mmol/L (96-108); Estimated Glomerular Filt Rate > 60; Glucose Random 130 mg/dL (60-115); Potassium 4.3 mmol/L (3.3-5.1); Sodium 141 mmol/L (135-145)
[2024-08-04 13:34] LABS: Troponin-I High Sensitivity < 2.7 ng/L (<3.5-35.0)
[2024-08-04 13:57] VITALS: BP 139/88; PULSE 66; RESP 18; TEMP 37.1; O2SAT 99; BMI 29.4
--- NOTE | 2024-08-04 13:57 | ED_ITS ---
HPI - General Adult General Chief complaint: Chest Pain Stated complaint: chest pain sent from urgent care Time Seen by Provider: 08/04/24 17:18 Source: patient, RN notes reviewed and old records reviewed Mode of arrival: ambulatory Limitations: no limitations History of Present Illness ED Provider: Lyly HPI narrative: 63-year-old male with past medical history significant for type 2 diabetes, hypertension, hyperlipidemia presents for evaluation of chest pain and the headache. Patient went to urgent care today due to a headache for the last week His headache is global He denies any fevers, chills, neck pain. Denies any trauma to the head or neck. Denies any viral symptoms. He was sent to the ER for further evaluation when they asked if he had any chest pain as he has had intermittent chest pain in the last week but no active chest pain No blurry vision nausea vomiting, lightheadedness Related Data Previous Rx's ?Medication ?Instructions ?Recorded clotrimazole-betamethasone 1 1 appl topical BID 10 days #45 06/01/23 %-0.05 % topical cream grams methocarbamol 500 mg tablet 500 mg PO TID PRN muscle spasm #90 07/19/23 tabs tadalafil 5 mg tablet 5 mg PO DAILY 90 days #90 tabs 01/10/24 blood sugar diagnostic (FreeStyle #200 ea 02/23/24 Lite Strips) atorvastatin 10 mg tablet (Lipitor) 10 mg PO DAILY #90 tabs 04/11/24 lisinopril 20 mg tablet (Zestril) 20 mg PO DAILY #90 tabs 04/11/24 pyridoxine (vitamin B6) 50 mg 50 mg PO DAILY 90 days #90 tabs 05/22/24 tablet fluoxetine 20 mg capsule 40 mg (2 x 20 mg) PO QAM #180 caps 06/06/24 metformin 1,000 mg tablet 1,000 mg PO BID #180 tabs 06/06/24 pen needle, diabetic 29 gauge x See Rx Instructions .Route QID 30 06/09/24 1/ (BD Ultra-Fine Original Pen days #200 ea Needle) Novolog FlexPen U-100 Insulin 100 See Rx Instructions subcut TID #15 06/18/24 unit/mL (3 mL) subcutaneous mL (insulin aspart U-100) diclofenac sodium 1 % topical gel 4 g topical QID PRN joint pain 06/18/24 #100 grams insulin detemir U-100 100 unit/mL 64 unit (0.64 mL) subcut BEDTIME 07/09/24 subcutaneous solution (Levemir 30 days #20 mL U-100 Insulin) omeprazole 40 mg capsule,delayed 40 mg PO BID #180 caps 07/18/24 release tadalafil 20 mg tablet 20 mg PO ONCE PRN sexual activity 07/18/24 30 days #30 tabs acetaminophen 650 mg 650 mg PO Q8H PRN pain #60 tabs 07/19/24 tablet,extended release (Tylenol Arthritis Pain) zolpidem 10 mg tablet 10 mg PO BEDTIME PRN sleep #30 tabs 07/22/24 insulin syringe-needle U-100 1 mL #100 ea 08/02/24 31 gauge x 01/05 uugtyooyhv-dvtwifllwqrlx-rapwxyqi 1 cap PO Q4-6H PRN headache #12 08/04/24 50 mg-300 mg-40 mg capsule caps (Fioricet) Allergies Allergy/AdvReac Type Severity Reaction Status Date / Time peanut Allergy Intermediate Shortness Verified 08/04/24 13:58 of Breath, throat swelling Review of Systems 2 Constitutional: Constitutional: Denies body ache(s), Denies chills, Denies fever(s), Denies frequent falls and Reports headache(s) ENT: Denies vertigo, Denies dizziness and Reports headache(s) Cardiovascular: Cardiovascular: Reports chest pain and Denies dyspnea Respiratory: Respiratory: Denies cough and Denies dyspnea Gastrointestinal: Gastrointestinal: Denies abdominal pain, Denies nausea and Denies vomiting Musculoskeletal: Musculoskeletal: Denies back pain Integumentary/Breasts: Skin/Breast: Denies rash Neurologic: Denies vertigo, Denies dizziness, Denies frequent falls and Reports headache(s) [facility] Past Medical History Medical History Polyarthralgia Positional lightheadedness Normocytic normochromic anemia Postprandial epigastric pain History of GI bleed Acquired deformity of toenail Lumbosacral radiculopathy due to degenerative joint disease of spine Left nephrolithiasis Primary osteoarthritis of right knee Primary osteoarthritis, left shoulder Trigger finger of right hand BPH (benign prostatic hyperplasia) Chronic insomnia Depression Osteoarthritis involving multiple joints on both sides of body HTN (hypertension) Dyslipidemia Diabetes mellitus with complication, with long-term current use of insulin Diabetes mellitus type 2 with retinopathy Surgical History History of right inguinal hernia repair (~11/09/23) Hx of colonoscopy History of esophagogastroduodenoscopy (EGD) History of left inguinal hernia repair (03/24/22) Hx of lithotripsy History of testicular surgery Umbilical hernia Family History Family History Father CVD (cardiovascular disease) Mother Unknown family medical history Social History Social History Housing: Apartment Alcohol intake: current Alcohol intake frequency: a few times a week Alcohol type: beer Comment: COUNTS CORRECT Patient Tobacco Use Status: Former Tobacco user Tobacco use type: Cigarette e-Cigarette/Vaping Use: Never Used Second Hand Smoke Exposure: No Advance Directives: No Advance Directives Information Provided: Yes service: No Current occupational status: employed 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 Cognitive needs: No Hearing needs: No Vision needs: Yes Physical Exam ED Vital Signs: Vital Signs - 24 hr 08/04/24 13:57 08/04/24 17:17 Temperature 98.8 F 98 F Pulse Rate 66 74 Respiratory Rate 18 18 Blood Pressure 139/88 142/95 H Pulse Oximetry 99 98 Oxygen Delivery Method Room Air Room Air BMI result Body Mass Index 29.4 Const General: healthy appearing, comfortable, no acute distress, alert and awake Nutritional Appearance: well nourished Orientation/consciousness: patient oriented x3 HENMT Head: Yes normocephalic and Yes atraumatic Eyes Eyelids: Yes eyelids normal Conjunctivae: conjunctivae normal Sclerae: sclerae normal Corneas: corneas normal Pupils: Equal, round and reactive pupils present EOM: EOMs intact bilaterally Neck Neck: Yes full ROM Resp Effort & Inspection: normal respiratory effort, able to speak in complete sentences and not labored Cardio Rate: regular rate Rhythm: regular rhythm GI Inspection: No distended Palpation (GI): Soft to palpation, not firm, nontender, no guarding and not rigid Skin General skin exam: elasticity normal Neuro General: patient oriented x3 Cranial nerves: Yes CN's II-XII intact bilaterally, Yes Equal, round and reactive pupils present and Yes Bilaterally intact EOM present Cognition (Neuro): normal cognition Extrem Other: Moving all extremities well without any obvious deformities Course Course Course Narrative: RME, this is a rapid medical exam performed by Adelfo Desouza please refer to primary provider for complete H&P- 63-year-old male past medical history significant for hypertension, diabetes, hyperlipidemia presents for evaluation of chest pain, headache and lightheadedness. He reports his symptoms started a few days ago. Into urgent care today and referred to the ED due to his chest pain with risk factors. He EKG already performed, plan for labs, troponin with a repeat troponin. His last episode of chest pain was 3 hours prior to arrival. 17:21 Brought patient back into triage. I reviewed his workup with him in his largely unremarkable. The patient reports that he is not having chest pain but went to his doctor primarily for headaches over the last week. He reports the headaches are constant but he has intermittent dizziness associated with the headaches. Denies any history of headaches. He has no upper respiratory symptoms. Plan for CT scan of the brain added on. Medical Decision Making Medical Decision Making [facility] Narrative: 63-year-old male with past medical history as documented above presents for evaluation of headache. He did report intermittent chest pain to urgent care wanting him to be referred to the ER due to risk factors. He denies any active chest pain. His EKG is normal sinus rhythm without ischemia, troponin negative. Viral swabs negative, chest x-ray is clear. He rules out for ACS. A CT scan of the head was ordered due to his headache for the last week. He has a reassuring neurologic exam, no focal neurologic deficits. Plan to discharge with [facility] for his headache and he will follow up his PCP. Differential Diagnosis Differential Diagnoses: The differential diagnosis associated with the presentation includes Acute headache Tension headache Cluster headache CVA less likely Intracranial mass Chest pain ACS Lab Data MDM Lab Attestation statement: I reviewed the patient's lab results. No leukocytosis. The patient does have a mild normocytic anemia which is consistent with his baseline going back at least 3 years. Normal platelet count. No significant electrolyte abnormalities troponin less than 2.7 and repeat troponin 3 hours later also less than 2.7 08/04/24 13:05 08/04/24 13:05 Labs: Lab Results 12/08/04/24 08/04/24 Range/Units 13:05 14:12 15:56 WBC 5.3 (4.8-10.8) X10*3/uL RBC 4.36 L (4.60-5.80) X10*6/uL Hgb 13.4 L (14.0-18.0) g/dl Hct 40.3 L (42.0-52.0) % MCV 92.4 (80.0-98.0) fL MCH 30.7 (27.0-33.0) pg MCHC 33.3 (31.0-36.0) g/dl RDW 12.8 (11.0-16.0) % Plt Count 256 (160-400) X10*3/uL MPV 10.6 (9.4-12.4) fL Immature Gran % (Auto) 0.2 (0.0-0.4) % Neut % (Auto) 54.7 (45-73) % Lymph % (Auto) 30.8 (20-40) % [place] % (Auto) 7.4 (2-11) % Eos % (Auto) 6.0 H (0-4) % Baso % (Auto) 0.9 (0-2) % Lymph # (Auto) 1.6 (1.2-4.9) X10*3/uL [place] # (Auto) 0.4 (0.1-1.2) X10*3/uL Eos # (Auto) 0.3 (0.0-0.4) X10*3/uL Baso # (Auto) 0.1 (0.0-0.2) X10*3/uL Abs Immat Gran (auto) 0.01 (0.00-0.03) X10*3/uL Absolute Neuts (auto) 2.9 (2.0-8.3) x10*3/uL Absolute Nucleated RBC 0.000 (0.0-0.012) X10*3/uL Nucleated RBC % (auto) 0.0 (0.0-0.2) /100WBC Sodium 141 (135-145) mmol/L Potassium 4.3 (3.3-5.1) mmol/L Chloride 108 (96-108) mmol/L Carbon Dioxide 28 (22-29) mmol/L Anion Gap 9 L (12-20) BUN 15 (9-16) mg/dL Creatinine 0.83 (0.5-1.4) mg/dL Estim Creat Clear Calc TNP Estimated GFR > 60 Random Glucose 130 H (60-115) mg/dL Calcium 9.2 D (8.4-10.2) mg/dL Troponin I High Sens < 2.7 < 2.7 (<3.5-35.0) ng/L Influenza Type A (PCR) NEGATIVE (Negative) Influenza Type B (PCR) NEGATIVE (Negative) RSV RNA Qual (PCR) NEGATIVE (Negative) SARS-CoV-2 RNA (RT-PCR) NEGATIVE (Negative) Independent Interpretation I performed an independent interpretation of an: EKG (Normal sinus rhythm with a rate of [address] segment elevations or depressions), Plain X-Ray and CT Scan (Agree with Radiology interpretation) Radiology Impression Discussion of test interpretation with radiology: I have reviewed the radiologist's reading. Radiologist Impression: FINDINGS: There is no mass hemorrhage or cerebral edema. Ventricles and basilar cisterns are normal. Sulci normal. No extra-axial fluid collection. Kenyon white differentiation normal. Soft tissues normal. Osseous structures normal. Sinuses clear. Mastoid air cells clear. CT/CT head/brain wo IV con IMPRESSION: No acute intracranial pathology. Electronically signed by: Matt Moya MD 08/04/2024 06:30 PM EST RP FINDINGS: No consolidation, pleural effusion or pneumothorax. No hyperinflation. Cardiac mediastinal silhouette is normal in size. Multilevel thoracolumbar spondylosis. S-shaped curvature of the thoracolumbar spine. XR/XR chest 2V IMPRESSION: No acute airspace disease. Multilevel spondylosis and likely scoliosis thoracolumbar junction. Electronically signed by: Rambo Vines MD 08/04/2024 01:29 PM EST RP Chronic Conditions Patient?s care impacted by: Diabetes and Hypertension Discharge Plan Discharge Clinical Impression: Headache, Chest pain Patient Disposition: Home, Self-Care Instructions: Acute Headache (ED) Additional Instructions: Your workup in the ER today was reassuring. This includes your blood work, EKG, chest x-ray and your CT scan of the brain. Take Fioricet as needed for headaches Follow-up with your primary doctor Return for new or worsening symptoms Prescriptions: New ikgtvpnfid-khureanboncko-vmpb [Fioricet] 50-300-40 mg capsule 1 cap PO Q4-6H PRN (Reason: headache) Qty: 12 0RF No Action methocarbamol 500 mg tablet 500 mg PO TID PRN (Reason: muscle spasm) Qty: 90 3RF tadalafil 5 mg tablet 5 mg PO DAILY 90 Days Qty: 90 1RF Rx Instructions: Take daily (DME) FreeStyle Lite Strips Strip See Rx Instructions .ROUTE .MEDSUPPLY Qty: 200 8RF Rx Instructions: check fasting blood sugar twice a day before meals atorvastatin [Lipitor] 10 mg tablet 10 mg PO DAILY Qty: 90 1RF lisinopril [Zestril] 20 mg tablet 20 mg PO DAILY Qty: 90 1RF pyridoxine (vitamin B6) 50 mg tablet 50 mg PO DAILY 90 Days Qty: 90 1RF fluoxetine 20 mg capsule 40 mg PO QAM Qty: 180 1RF metformin 1,000 mg tablet 1,000 mg PO BID Qty: 180 1RF insulin aspart U-100 [Novolog FlexPen U-100 Insulin] 100 unit/mL (3 mL) insulin pen See Rx Instructions subcut TID Qty: 15 4RF Rx Instructions: Give by sliding scale coverage times a day subcutaneously before meals diclofenac sodium 1 % gel 4 g topical QID PRN (Reason: joint pain) Qty: 100 1RF Rx Instructions: apply to single knee, ankle, foot; for foot includes sole/toes/top of foot Levemir U-100 Insulin 100 unit/mL solution 64 unit subcut BEDTIME 30 Days Qty: 20 5RF omeprazole 40 mg capsule,delayed release(DR/EC) 40 mg PO BID Qty: 180 0RF tadalafil 20 mg tablet 20 mg PO ONCE PRN (Reason: sexual activity) 30 Days Qty: 30 0RF Rx Instructions: Take 60 minutes before intended activity acetaminophen [Tylenol Arthritis Pain] 650 mg tablet extended release 650 mg PO Q8H PRN (Reason: pain) Qty: 60 0RF zolpidem 10 mg tablet 10 mg PO BEDTIME PRN (Reason: sleep) Qty: 30 0RF (DME) insulin syringe-needle U-100 1 mL 31 gauge x 5/16 syringe See Rx Instructions .ROUTE .MEDSUPPLY Qty: 100 3RF Rx Instructions: Use to inject insulin once a day clotrimazole-betamethasone 1-0.05 % cream 1 appl topical BID 10 Days Qty: 45 0RF pen needle, diabetic [BD Ultra-Fine Orig Pen Needle] 29 gauge x 1/2 needle See Rx Instructions .ROUTE QID 30 Days Qty: 200 6RF Rx Instructions: use as directed 4 times a day, before meals and at bedtime Stand Alone Forms: Work/School Release Print Language: Khmer
[2024-08-04 15:09] LABS: Influenza A PCR NEGATIVE (Negative); Influenza B PCR NEGATIVE (Negative); Resp Syncy Virus RNA Qual PCR NEGATIVE (Negative); SARS COV2 PCR INHOUSE NEGATIVE (Negative)
[2024-08-04 16:31] LABS: Troponin-I High Sensitivity < 2.7 ng/L (<3.5-35.0)
[2024-08-04 17:17] VITALS: BP 142/95; PULSE 74; RESP 18; TEMP 36.6; O2SAT 98
[2024-08-04 19:08] VITALS: BP 142/95; PULSE 74; RESP 18; TEMP 36.6; O2SAT 98
== END 2024-08-04 19:10 | disposition home or self-care (01) ==
PROVIDERS: Physician Assistant; Emergency Provider Emergency Medicine; PCP Internal Medicine
DX: R07.9 Chest pain, unspecified (principal); R51.9 Headache, unspecified; E11.9 Type 2 diabetes mellitus without complications; I10 Essential (primary) hypertension; N40.0 Benign prostatic hyperplasia without lower urinary tract symptoms; Z79.4 Long term (current) use of insulin; Z79.899 Other long term (current) drug therapy; Z03.818 Encounter for observation for suspected exposure to other biological agents ruled out
CPT/HCPCS: 0241U; 36415; 70450; 71046; 80048; 84484; 85025; 93005; 99283; 99284

== ENCOUNTER → 2024-08-04 12:53 | Outpatient (BNV) | payer OTHER, SELFPAY | PROVIDERS: Emergency Provider Emergency Medicine; PCP Internal Medicine; Visit Provider Internal Medicine Cardiovascular Disease | DX: R07.9 Chest pain, unspecified (principal) | CPT/HCPCS: 93010 ==

== ENCOUNTER → 2024-08-04 12:53 | Outpatient (BNV) | payer OTHER, SELFPAY | PROVIDERS: PCP Internal Medicine; Visit Provider Radiology Diagnostic Radiology | DX: R07.9 Chest pain, unspecified (principal) | CPT/HCPCS: 71046 ==

== ENCOUNTER 2024-08-24 12:05 | Day surgery (SDC) | payer OTHER, SELFPAY ==
[2024-04-07 14:05] VITALS: BMI 31.1
--- NOTE | 2024-04-10 12:42 | P.CONAN_ITS ---
HPI - Anesthesia Eval Consult details Narrative: 63yo M for Upper Endoscopy [facility] Active Problems Active Problems: All Active Problems Personal history of colonic polyps (Acute) NSAID induced gastritis (Acute) Nephrolithiasis (Acute) Bladder outlet obstruction (Acute) Erectile dysfunction associated with type 2 diabetes mellitus (Acute) Positional lightheadedness (Acute) Normocytic normochromic anemia (Acute) History of GI bleed (Acute) Primary osteoarthritis, left shoulder (Acute) Acquired deformity of toenail (Acute) HTN (hypertension) (Acute) Dyslipidemia (Acute) Diabetes mellitus type 2 with retinopathy (Acute) Diabetes mellitus with complication, with long-term current use of insulin (Acute) Past Medical History Medical History Positional lightheadedness Normocytic normochromic anemia Postprandial epigastric pain History of GI bleed Acquired deformity of toenail Lumbosacral radiculopathy due to degenerative joint disease of spine Left nephrolithiasis Primary osteoarthritis of right knee Primary osteoarthritis, left shoulder Trigger finger of right hand BPH (benign prostatic hyperplasia) Chronic insomnia Depression Osteoarthritis involving multiple joints on both sides of body HTN (hypertension) Dyslipidemia Diabetes mellitus with complication, with long-term current use of insulin Diabetes mellitus type 2 with retinopathy Family History Family History Father CVD (cardiovascular disease) Mother Unknown family medical history Family history of problems with anesthesia: No Surgical History Surgical History History of right inguinal hernia repair (~11/09/23) Hx of colonoscopy History of esophagogastroduodenoscopy (EGD) History of left inguinal hernia repair (03/24/22) Hx of lithotripsy History of testicular surgery Umbilical hernia History of Problems with Anesthesia: Yes (Slow awakening ) Social History Social History Housing: Apartment Alcohol intake: current Alcohol intake frequency: a few times a week Alcohol type: beer Comment: COUNTS CORRECT Patient Tobacco Use Status: Former Tobacco user Tobacco use type: Cigarette e-Cigarette/Vaping Use: Never Used Second Hand Smoke Exposure: No service: No Current occupational status: employed 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 Cognitive needs: No Hearing needs: No Vision needs: Yes Meds Allergies Allergy/AdvReac Type Severity Reaction Status Date / Time peanut Allergy Intermediate Shortness Verified 03/10/24 09:24 of Breath, throat swelling Exam Height,Weight and Vital Signs: Height 5 ft 7 in Weight 90.18 kg Pertinent Lab Results Pertinent Lab Results: Laboratory Tests 03/06/24 11:23 WBC 7.2 Hgb 13.5 L Hct 41.2 L Plt Count 253 Sodium 141 Potassium 3.9 Chloride 107 Carbon Dioxide 26 BUN 21 H Creatinine 0.87 Assessment and Plan Assessment Anesthesia Assessment: Chart Reviewed Final Anesthetic Review Family History of Problems with Anesthesia: No History of Problems with Anesthesia: Yes (Slow awakening )
--- NOTE | 2024-08-22 09:27 | HO.ANESPROP2 ---
HPI - Anesthesia Eval Consult details Narrative: 63yo M for Upper Endoscopy [facility] Active Problems Active Problems: All Active Problems Chest pain (Acute) Headache (Acute) Polyarthralgia (Acute) Excessive gas (Acute) Personal history of colonic polyps (Acute) NSAID induced gastritis (Acute) Nephrolithiasis (Acute) Bladder outlet obstruction (Acute) Erectile dysfunction associated with type 2 diabetes mellitus (Acute) Positional lightheadedness (Acute) Normocytic normochromic anemia (Acute) History of GI bleed (Acute) Primary osteoarthritis, left shoulder (Acute) Acquired deformity of toenail (Acute) HTN (hypertension) (Acute) Dyslipidemia (Acute) Diabetes mellitus type 2 with retinopathy (Acute) Diabetes mellitus with complication, with long-term current use of insulin (Acute) Past Medical History Medical History Polyarthralgia Positional lightheadedness Normocytic normochromic anemia Postprandial epigastric pain History of GI bleed Acquired deformity of toenail Lumbosacral radiculopathy due to degenerative joint disease of spine Left nephrolithiasis Primary osteoarthritis of right knee Primary osteoarthritis, left shoulder Trigger finger of right hand BPH (benign prostatic hyperplasia) Chronic insomnia Depression Osteoarthritis involving multiple joints on both sides of body HTN (hypertension) Dyslipidemia Diabetes mellitus with complication, with long-term current use of insulin Diabetes mellitus type 2 with retinopathy Family History Family History Father CVD (cardiovascular disease) Mother Unknown family medical history Family history of problems with anesthesia: No Surgical History Surgical History History of right inguinal hernia repair (~11/09/23) Hx of colonoscopy History of esophagogastroduodenoscopy (EGD) History of left inguinal hernia repair (03/24/22) Hx of lithotripsy History of testicular surgery Umbilical hernia History of Problems with Anesthesia: Yes (Slow awakening ) Social History Social History Housing: Apartment Alcohol intake: current Alcohol intake frequency: a few times a week Alcohol type: beer Comment: COUNTS CORRECT Patient Tobacco Use Status: Former Tobacco user Tobacco use type: Cigarette e-Cigarette/Vaping Use: Never Used Second Hand Smoke Exposure: No Advance Directives: No Advance Directives Information Provided: Yes service: No Current occupational status: employed 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
--- NOTE | 2024-08-24 12:20 | MHC.SHP ---
Pre-Procedural Eval Section A - 24 Hr Update-Section A only Date of Service: 08/24/24 Section B - Complete if H&P > 30 days Chief Complaint: melena Details of Present Illness: Hypercalcemia Positional lightheadedness Normocytic normochromic anemia Postprandial epigastric pain History of GI bleed Acquired deformity of toenail Lumbosacral radiculopathy due to degenerative joint disease of spine Left nephrolithiasis Primary osteoarthritis of right knee Primary osteoarthritis, left shoulder Trigger finger of right hand BPH (benign prostatic hyperplasia) Chronic insomnia Depression Osteoarthritis involving multiple joints on both sides of body HTN (hypertension) Dyslipidemia Diabetes mellitus with complication, with long-term current use of insulin Diabetes mellitus type 2 with retinopathy Surgical History Hx of colonoscopy History of esophagogastroduodenoscopy (EGD) History of left inguinal hernia repair (03/24/22) Hx of lithotripsy History of testicular surgery Umbilical hernia Present Medications: see Short Stay Collaborative assessment Allergies: Allergies Allergy/AdvReac Type Severity Reaction Status Date / Time peanut Allergy Intermediate Shortness Verified 08/04/24 13:58 of Breath, throat swelling Review of Systems Review of Systems Comment: Ten point ROS negative Exam Exam Comment: Gen appear: No acute distress HEENT: no icterus Chest: No overt resp distress Abd: soft, nontender, nondistended Psych: Stable affect, answering questions appropriately Neuro: A/Ox3 noted to move all extremities spontaneously Ext: no peripheral edema Plan Diagnosis/Plan: Unchanged I have reviewed the history and physical and performed a pertinent physical examination on my patient. No changes have occurred unless specified. Time Spent With Patient Time: Total time managing care of this patient today ____ minutes.
[2024-08-24 12:25] VITALS: BMI 29.6
[2024-08-24 12:30] VITALS: BP 126/83; PULSE 78; RESP 15; TEMP 36.4; O2SAT 93
--- NOTE | 2024-08-24 12:31 | HO.ANESPROP2 ---
[facility] Active Problems Active Problems: All Active Problems Chest pain (Acute) Headache (Acute) Polyarthralgia (Acute) Excessive gas (Acute) Personal history of colonic polyps (Acute) NSAID induced gastritis (Acute) Nephrolithiasis (Acute) Bladder outlet obstruction (Acute) Erectile dysfunction associated with type 2 diabetes mellitus (Acute) Positional lightheadedness (Acute) Normocytic normochromic anemia (Acute) History of GI bleed (Acute) Primary osteoarthritis, left shoulder (Acute) Acquired deformity of toenail (Acute) HTN (hypertension) (Acute) Dyslipidemia (Acute) Diabetes mellitus type 2 with retinopathy (Acute) Diabetes mellitus with complication, with long-term current use of insulin (Acute) Past Medical History Medical History Polyarthralgia Positional lightheadedness Normocytic normochromic anemia Postprandial epigastric pain History of GI bleed Acquired deformity of toenail Lumbosacral radiculopathy due to degenerative joint disease of spine Left nephrolithiasis Primary osteoarthritis of right knee Primary osteoarthritis, left shoulder Trigger finger of right hand BPH (benign prostatic hyperplasia) Chronic insomnia Depression Osteoarthritis involving multiple joints on both sides of body HTN (hypertension) Dyslipidemia Diabetes mellitus with complication, with long-term current use of insulin Diabetes mellitus type 2 with retinopathy Functional capacity: independent ambulation Family History Family History Father CVD (cardiovascular disease) Mother Unknown family medical history Family history of problems with anesthesia: No Surgical History Surgical History History of right inguinal hernia repair (~11/09/23) Hx of colonoscopy History of esophagogastroduodenoscopy (EGD) History of left inguinal hernia repair (03/24/22) Hx of lithotripsy History of testicular surgery Umbilical hernia History of Problems with Anesthesia: Yes (Slow awakening ) Social History Social History Housing: Apartment Alcohol intake: current Alcohol intake frequency: a few times a week Alcohol type: beer Comment: COUNTS CORRECT Patient Tobacco Use Status: Former Tobacco user Tobacco use type: Cigarette e-Cigarette/Vaping Use: Never Used Second Hand Smoke Exposure: No Use of substances other than those prescribed or required for medical reasons: No Are you DNR?: No Advance Directives: No Advance Directives Information Provided: Yes service: No Current occupational status: employed 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 Cognitive needs: No Hearing needs: No Vision needs: Yes Meds Allergies Allergy/AdvReac Type Severity Reaction Status Date / Time peanut Allergy Intermediate Shortness Verified 08/24/24 12:25 of Breath, throat swelling Active Medications: Current Medications Lactated Ringer's (Lr) 1,000 mls @ 100 mls/hr IVCONT .Q10H SELINA Exam Height,Weight and Vital Signs: Height 5 ft 7 in Weight 85.729 kg Airway Mallampati Class: II TM Dist: >3cm Neck ROM: Full Heart: RRR Lungs: CTA Assessment and Plan Assessment Anesthesia Assessment: Anesthesia Plan Discussed and Chart Reviewed Final Anesthetic Review Family History of Problems with Anesthesia: No History of Problems with Anesthesia: Yes (Slow awakening ) NPO: Yes ASA Class: II Final Preanesthetic Review: Meds/Allgs Chart Reviewed, Consent Obtained/Reviewed and Anes Risks/Benef Reviewed Patient Risk: Low Procedure Risk: Low Anesthetic Plan Anesthetic Plan: MAC: Disposition: Standard PACU
[2024-08-24] MEDS: Lactated Ringers 1,000 ML 100 ML IVCONT (12:48)
[2024-08-24 13:03] VITALS: BP 86/58; PULSE 80; RESP 12; TEMP 36.3; O2SAT 97
--- NOTE | 2024-08-24 13:06 | P.OP_ITS ---
Operative Note Operative Note Date of Service: 08/24/24 Narrative: Procedure: Esophagogastroduodenoscopy Endoscopist: Millicent Navarro MD Indication: GERD, melena Anesthesia Provider: Omari Peace CRNA Anesthesia Type: MAC ?? EGD Procedure:?? The procedure, indications, preparation and potential complications were reviewed with the patient, who indicated understanding and gave written informed consent to proceed. A physical exam was performed. The endoscope was introduced through the mouth, and advanced to the second part of duodenum. The mucosa was carefully examined on slow withdrawal of the endoscope. The patient tolerated the procedure well. There were no immediate complications.? ? EGD Findings:? * Esophagus:? Small erosions and erythema of the GE junction at 39 cm. * Stomach:? Normal mucosa was noted in the stomach. Retroflexion was performed in the cardia that showed a Hill grade 2 hiatal hernia. Random cold forceps gastric biopsies were taken to rule out H Pylori infection. * Duodenum:? Normal mucosa was noted in the whole of the examined duodenum. Cold forceps biopsies were taken from duodenal bulb and second portion of the duodenum to rule out celiac sprue. ? EGD Impressions:? * Grade A esophagitis * Normal stomach (biopsy) * Normal duodenum (biopsy) ?? Recommendations:?? * Follow biopsy results. Our office will call or send a letter with results within 7-10 days. * Continue PPI therapy. * If H pylori +, patient will be prescribed eradication therapy followed by test of cure. * Avoid NSAIDs. Above has been reviewed with the patient.
[2024-08-24 13:21] LABS: Glucose, Whole Blood 110 mg/dL (60-115)
[2024-08-24 13:23] VITALS: BP 108/74; PULSE 77; RESP 16; TEMP 36.3; O2SAT 94
--- NOTE | 2024-08-24 13:56 | HO.POSTANES ---
Post Anesthesia Evaluation Post Anesthesia Evaluation Date of Service: 08/24/24 Vital Signs: Vital Signs Temp Pulse Resp BP Pulse Ox O2 Del Method O2 Flow Rate 08/24/24 13:23 97.3 F 77 16 108/74 94 Room Air 08/24/24 13:03 97.3 F 80 12 86/58 L 97 Simple Mask 4 08/24/24 12:30 97.5 F 78 15 126/83 93 Room Air Mental Status: Awake Pain Control: Satisfactory Nausea/Vomiting: None Hydration: Adequate Anesthesia-Related Issues: No Anes. Related Issues
== END 2024-08-24 13:43 | disposition home or self-care (01) ==
PROVIDERS: PCP Internal Medicine; Visit Provider Internal Medicine
PROC: 0DJ08ZZ Inspection of Upper Intestinal Tract, Via Natural or Artificial Opening Endoscopic (ICD-10-PCS; CPT 43235; principal; 2024-08-24 13:50)
DX: K21.9 Gastro-esophageal reflux disease without esophagitis (principal); Z87.19 Personal history of other diseases of the digestive system; K20.80 Other esophagitis without bleeding; K44.9 Diaphragmatic hernia without obstruction or gangrene; I10 Essential (primary) hypertension; E11.319 Type 2 diabetes mellitus with unspecified diabetic retinopathy without macular edema; E78.5 Hyperlipidemia, unspecified; D64.9 Anemia, unspecified; Z79.4 Long term (current) use of insulin; Z79.84 Long term (current) use of oral hypoglycemic drugs; Z87.442 Personal history of urinary calculi; Z79.899 Other long term (current) drug therapy; Z91.010 Allergy to peanuts; Z98.890 Other specified postprocedural states; Z87.891 Personal history of nicotine dependence
CPT/HCPCS: 43239; 82947; 88305; 88342

== ENCOUNTER → 2024-08-24 12:05 | Outpatient (BNV) | payer OTHER, SELFPAY | PROVIDERS: PCP Internal Medicine; Visit Provider Internal Medicine | DX: K21.00 Gastro-esophageal reflux disease with esophagitis, without bleeding (principal); K92.1 Melena | CPT/HCPCS: 43239 ==

== ENCOUNTER 2024-10-18 11:28 | Outpatient (AMB) | payer OTHER, SELFPAY ==
--- NOTE | 2024-10-18 11:31 | A.OFFVIS_ITS ---
Vital Signs 10/18/24 11:32 Height 5 ft 7 in Weight 196 lb 3.382 oz BMI 30.7 BP 140/89 H Blood Pressure Location Lt brachial Position Sitting Pulse 77 Intake Visit Reasons: Post op Upper endoscopy r/s 09/08 Intake Note: Germán presents in the office as a post up for his EGD. CC: HE states that he eats his stomach gets bloated and when he passes gas lately it is very stinky. He states that is not usual for him. Show Card Writer Required: No Allergies peanut Allergy (Intermediate, Verified 10/18/24 11:37) Shortness of Breath, throat swelling HPI Comments Details: This is a 61y.o M with PMH of T2DM, HTN, ED who presented to the ER for melena last month and is here today for follow up for GI sx as below. Pt reports that almost 3-4 weeks ago, he developed severe epigatric pain with burning, associated with nausea and loss of appetite. He also started noticing black soft stools 2-3 times a day. Eating made sx worse. Also with some correlation to movement. This was in the context of taking motrin/meloxicam 3-4 times a day for arthritis. When he was seen in the ER, he was advised to minimize NSAIDs and given Omepra zole. CBC with mild anemia. Interestingly FOBT was negative. His melena resolved in 3-4 days after starting the Omeprazole and discontinuing NSAIDs. However he continues to have epigastric pain. No diarrhea or bunny blood in stool. No unintentional weight loss. Non smoker, Occ etOH. No fam hx of CRC. Last colonoscopy 2018: (Dr Villagomez) hyperplastic polyp EGD/colo 01/14/23: 1. Normal esophagus 2. Normal stomach (biopsy) 3. Normal duodenum (biopsy) 4. Normal colon mucosa 5. Total of 2 polyps removed from transverse colon. 6. External hemorrhoids Path: A.? Duodenum, biopsy:? Duodenal mucosa with preserved villi and no specific change.? B.? Stomach, random, biopsy:? Gastric antral and body mucosa with mild chronic inactive gastritis and focal intestinal metaplasia; negative for H pylori and dysplasia. C.? Colon, transverse, polyps:? Tubulovillous adenomas with focal serrated features; multiple pieces involved; negative for high-grade dysplasia and carcinoma.? 01/25/23: Reports no acute gastrointestinal complaints. His epigastric pain and nausea and have resolved. EGD and colonoscopy path reviewed with the patient. 11/08/23: For a few weeks has been experiencing epigastric pain which is sharp and associated with frequent burping and soft bowel movements. Noted the color of the stools was like charcoal initially and then improved after 2-3 days. Now brown. Loss of appetite. No nausea or vomiting. Was seen in ER last month for R inguinal hernia sx at which time H/H noted to be lower than baseline. Cont to use NSAIDS (meloxicam) off and on for arthritis pain. USe is limited to 2-3 tiems a week. 08/24/24: * Grade A esophagitis * Normal stomach (biopsy) * Normal duodenum (biopsy) Path: A. Duodenum, biopsy: Duodenal mucosa with preserved villi and no specific change. B. Stomach, random, biopsy: Gastric antral/body mucosa with minimal chronic inactive gastritis; negative for H. pylori, intestinal metaplasia and dysplasia. 10/20/24: Here for follow up. Main complaint today is excessive bloating, burping and flatulence. Reports that the odor of flatulence has changed over the last few months, and he is worried about underlying infection. Otherwise, no changes in appetite, no diarrhea, no fevers no chills. Pt in fact is more constipated, has 2-3 BMs per week. No recent travel outside [facility]. No recent changes in meds. ON LICENSE OF [facility] Medical History Polyarthralgia Positional lightheadedness Normocytic normochromic anemia Postprandial epigastric pain History of GI bleed Acquired deformity of toenail Lumbosacral radiculopathy due to degenerative joint disease of spine Left nephrolithiasis Primary osteoarthritis of right knee Primary osteoarthritis, left shoulder Trigger finger of right hand BPH (benign prostatic hyperplasia) Chronic insomnia Depression Osteoarthritis involving multiple joints on both sides of body HTN (hypertension) Dyslipidemia Diabetes mellitus with complication, with long-term current use of insulin Diabetes mellitus type 2 with retinopathy Surgical History History of right inguinal hernia repair (~11/09/23) Hx of colonoscopy History of esophagogastroduodenoscopy (EGD) History of left inguinal hernia repair (03/24/22) Hx of lithotripsy History of testicular surgery Umbilical hernia Family History Father CVD (cardiovascular disease) Mother Unknown family medical history Social History Housing: Apartment Alcohol intake: current Alcohol intake frequency: a few times a week Alcohol type: beer Comment: COUNTS CORRECT Patient Tobacco Use Status: Former Tobacco user Tobacco use type: Cigarette e-Cigarette/Vaping Use: Never Used Second Hand Smoke Exposure: No service: No Current occupational status: employed 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 Cognitive needs: No Hearing needs: No Vision needs: Yes Review of Systems Const All systems reviewed & are unremarkable except as noted in HPI and below Physical Exam Vital Signs: Last Vital Signs Pulse 77 10/18/24 11:32 BP 140/89 H 10/18/24 11:32 BMI result Body Mass Index 30.7 No apparent distress Nonicteric Abdomen soft, nondistended Alert and oriented x3, normal gait Assessment & Plan Assessment & Plan (1) Excessive gas: Code(s): R14.3 - Flatulence Category: Medical (2) Bloating symptom: Code(s): R14.0 - Abdominal distension (gaseous) Category: Medical (3) Chronic idiopathic constipation: Code(s): K59.04 - Chronic idiopathic constipation Plan DDx include aerophagia, IMO obed as pt constipated, dysmotility. Plan: - Manage constipation primarily. Add fiber, senna and/or miralax as needed - Take simethicone for symptomatic relief Pt to call office in 2-3 weeks if no improvement despite above to consider SIBO testing Medications: New sennosides (senna) 17.2 mg (2 x 8.6 mg) PO DAILY PRN 90 tabs 0RF constipation simethicone (Gas Relief (simethicone)) 80 mg PO BID-QID PRN 90 tabs 1RF abdominal distention psyllium husk (aspartame) 3.4 gram/5.8 gram (Metamucil [facility] Fiber) Take 1-2 tsp mixed in 8 oz water daily 5 grams PO DAILY 660 grams 0RF 90 days Coding Level of Care Code Est Pt Level 4 (43830) Diagnoses Excessive gas R14.3 Bloating symptom R14.0 Chronic idiopathic constipation K59.04
[2024-10-18 11:32] VITALS: BP 140/89; PULSE 77; BMI 30.7
--- OUTSIDE RECORDS SUMMARY | 2024-10-18 14:24 | XMS_ITS ---
Author Organization [facility] Address [address] [place] [address] Care Team Providers Care Food Crops Farm Hand Name Role Phone Cathy FELIX, Rocio Maldonado Primary Care Provider Un available Bro Herring Unavailable [phone] REASON FOR VISIT Cancel Encounters Encounter Location Date Provider Diagnosis [facility] [address] [place] [address] 03/24/2024 Bro Herring Plan Of Treatment No Information Progress Notes * Yvette CARLOSOB:1960 (63 yo M)Acc No.[id number]:03/24/2024 Patient:?Germán Carlos :1960???Age:63 Y???Sex:Male Address:[address] [place] [address] , [place], [address] * true * Date:? Generated for Kendelli ihsan/Rajeev/eTransmitting on:?10/18/2024 02:24 PM EST
--- OUTSIDE RECORDS SUMMARY | 2024-10-18 14:24 | XMS_ITS | Patient Health Record ---
Author Organization [facility] Address [address] [place] [address] Care Team Providers Care Case Making Machine Operator Name Role Phone Cathy FELIX, Rocio Maldonado Primary Care Provider Un available Bro Herring Unavailable [phone] Reason For Referral No Information Encounters Encounter Location Date Provider Diagnosis [facility] [address] [place] [address] 03/24/2024 Bro Herring Plan Of Treatment No Information Insurance Providers Payer Name Payer Address Payer Phone Subscriber Number Group Number Insured Name Patient Relationship to Insured Coverage Start Date Coverage End Date [facility] [employer] Claims [address] [place] [id number] Germán Carlos Self - patient is the insured
--- OUTSIDE RECORDS SUMMARY | 2024-10-18 14:24 | XMS_ITS ---
Author Organization [facility] Address [address] [place] [address] Care Team Providers Care Supervisor Core Shop Name Role Phone Cathy FELIX, Rocio Maldonado Primary Care Provider Un available Bro Herring Unavailable [phone] Encounters Encounter Location Date Provider Diagnosis [facility] [address] [place] [address] 03/28/2024 Bro Herring Plan Of Treatment No Information Progress Notes * Berna CARLOSMorOB:1960 (64 yo M)Acc No.[id number]:03/28/2024 Progress Notes Patient:?Germán CARLOS Provider:?Bro Herring DPM :1960???Age:63 Y???Sex:Male Jared e:03/28/2024 Address:[address] [place], [place] [id number] Pcp:Marvin Jurado Subjective: * Chief Complaints: * ??? * Medical History:? Objective: * Vitals:? Assessment: Plan: * Treatment: * Images: * The named appointment provid er may or may not be the originator of this progress note, and it is not deemed complete until electronically signed by the appointment provider. Sign off status: Pending * Provider:?Bro Herring DPM Date:?2023 Generated for Barbara champagne/Rajeev/eTransmitting on:?10/18/2024 02:24 PM EST
--- OUTSIDE RECORDS SUMMARY | 2024-10-18 14:24 | XMS_ITS | Clinical Summary ---
Author Organization [facility] Address [address] [place] [address] Care Team Providers Care Golf Technician Name Role Phone Unavailable Primary Care Provider Unavailabl e Social History Tobacco Use Types Packs/Day Years Used Date Smoking Tobacco: Never Assessed Sex and Gender Information Value Date Recorded Sex Assigned at Not on file Legal Sex Male 8:51 AM EST Gender Identity Not on file Sexual Orientation Not on file Plan of Treatment Health Maintenance Due Date Last Done Comments DTaP,Tdap,and Td Vaccines (1 - Tdap) 1979 Pneumococcal Vaccine: 50+ Ye ars (1 of 1 - PCV) 2010 Zoster Vaccines (1 of 2) 2010 COVID-19 Vaccine ( - 2023-2 5 season) 2024 Influenza Vaccine (#1) 2024 RSV Immunization Patients 60 + Years Old (1 - 1-dose 75+ series) 2035 HIB Vaccines Aged Out No longer eligi ble based on patient's age to complete this topic HPV Vaccines Aged Out No longer eligi ble based on patient's age to complete this topic Hepatitis A Vaccines Aged Out No long er eligible based on patient's age to complete this topic Hepatitis B Vaccines Aged Out No long er eligible based on patient's age to complete this topic IPV Vaccines Aged Out No longer eligi ble based on patient's age to complete this topic MMR Vaccines Aged Out No longer eligi ble based on patient's age to complete this topic Meningococcal ACWY Vaccine Aged Out N o longer eligible based on patient's age to complete this topic Meningococcal B Vacine Aged Out No lo nger eligible based on patient's age to complete this topic Pneumococcal Vaccine: Pediat rics (0 to 5 Years) and At-Risk Patients (6 to 64 Years) Aged Out No longer eligible b ased on patient's age to complete this topic RSV Immunization Patients Un venkata 20 months Aged Out No longer eligible b ased on patient's age to complete this topic Varicella Vaccines Aged Out No longer eligible based on patient's age to complete this topic
== END 2024-10-18 12:19 | disposition home or self-care (01) ==
PROVIDERS: PCP Internal Medicine; Visit Provider Internal Medicine
DX: R14.3 Flatulence (principal); R14.0 Abdominal distension (gaseous); K59.04 Chronic idiopathic constipation
CPT/HCPCS: 99214

== ENCOUNTER → 2024-10-18 11:28 | Outpatient (BNVA) | payer OTHER, SELFPAY | PROVIDERS: PCP Internal Medicine; Visit Provider Internal Medicine | DX: R14.3 Flatulence (principal); R14.0 Abdominal distension (gaseous); K59.04 Chronic idiopathic constipation; Z98.890 Other specified postprocedural states | CPT/HCPCS: 99212 ==

== ENCOUNTER 2024-11-20 13:45 | Outpatient (REF) | payer OTHER, SELFPAY ==
--- OUTSIDE RECORDS SUMMARY | 2024-11-20 15:32 | XMS_ITS ---
Author Organization [facility] Address [address] [place] [address] Care Team Providers Care Orthopedics Pediatric Physician Name Role Phone Cathy FELIX, Rocio Maldonado Primary Care Provider Un available Bro Herring Unavailable [phone] REASON FOR VISIT Cancel Encounters Encounter Location Date Provider Diagnosis [facility] [address] [place] [address] 03/24/2024 Bro Herring Plan Of Treatment No Information Progress Notes * Yvette CARLOSOB:1960 (63 yo M)Acc No.[id number]:03/24/2024 Patient:?Terrance Germán :1960???Age:63 Y???Sex:Male Address:[address] [place] [address] , [place], [address] * true * Date:? Generated for Kendelli ihsan/Rajeev/eTransmitting on:?11/20/2024 03:31 PM EDT
--- OUTSIDE RECORDS SUMMARY | 2024-11-20 15:32 | XMS_ITS | Clinical Summary ---
Author Organization [facility] ity Address [address] [place] [address] Care Team Providers Care Cooking Instructor Name Role Phone Unavailable Primary Care Provider [...]
--- OUTSIDE RECORDS SUMMARY | 2024-11-20 15:32 | XMS_ITS ---
Author Organization [facility] Address [address] [place] [address] Care Team Providers Care Tape Cutting Machine Operator Name Role Phone Cathy FELIX, Rocio Maldonado Primary Care Provider Un available Bro Herring Unavailable [phone] Encounters Encounter Location Date Provider Diagnosis [facility] [address] [place] [address] 03/28/2024 Bro Herring Plan Of Treatment No Information Progress Notes * Berna CARLOSMorOB:1960 (64 yo M)Acc No.[id number]:03/28/2024 Progress Notes Patient:?Germán CARLOS Provider:?Bro Herring DPM :1960???Age:63 Y???Sex:Male Jared e:03/28/2024 Address:[address] [place], [place] [id number] Pcp:Marvin Jurado Subjective: * Chief Complaints: * ??? * Medical History:? Objective: * Vitals:? Assessment: Plan: * Treatment: * Images: * The named appointment provid er may or may not be the originator of this progress note, and it is not deemed complete until electronically signed by the appointment provider. Sign off status: Pending * Provider:?Bro Herring DPM Date:?2023 Generated for Barbara champagne/Rajeev/eTransmitting on:?11/20/2024 03:31 PM EDT
--- OUTSIDE RECORDS SUMMARY | 2024-11-20 15:32 | XMS_ITS | Patient Health Record ---
Author Organization [facility] Address [address] [place] [address] Care Team Providers Care Tub Operator Name Role Phone Cathy FELIX, Rocio Maldonado Primary Care Provider Un available Bro Herring Unavailable [phone] Reason For Referral No Information Encounters Encounter Location Date Provider Diagnosis [facility] [address] [place] [address] 03/24/2024 Bro Herring Plan Of Treatment No Information Insurance Providers Payer Name Payer Address Payer Phone Subscriber Number Group Number Insured Name Patient Relationship to Insured Coverage Start Date Coverage End Date [facility] [employer] Claims [address] [place]IZ[place] Feng [id number] Germán Carlos Self - patient is the insured
[2024-11-20 16:20] LABS: MANUAL DIFF FLAG NO
[2024-11-20 16:27] LABS: Basophils Absolute Auto 0.1 X10*3/uL (0.0-0.2); Basophils Percent Auto 0.8 % (0-2); Eosinophils Absolute Auto 0.4 X10*3/uL (0.0-0.4); Eosinophils Percent Auto 6.1 % (0-4); Hematocrit 43.1 % (42.0-52.0); Hemoglobin 14.1 g/dl (14.0-18.0); Imm Gran Abs Auto 0.02 X10*3/uL (0.00-0.03); Imm Gran Pct Auto 0.3 % (0.0-0.4); Lymphocytes Absolute Auto 1.8 X10*3/uL (1.2-4.9); Lymphocytes Percent Auto 29.4 % (20-40); Mean Corpuscular HGB Conc 32.7 g/dl (31.0-36.0); Mean Corpuscular Hemoglobin 30.1 pg (27.0-33.0); Mean Corpuscular Volume 92.1 fL (80.0-98.0); Mean Platelet Volume 11.4 fL (9.4-12.4); Monocytes Absolute Auto 0.5 X10*3/uL (0.1-1.2); Monocytes Percent Auto 8.1 % (2-11); Neutrophils Absolute Auto 3.3 x10*3/uL (2.0-8.3); Neutrophils Percent Auto 55.3 % (45-73); Platelet Count 234 X10*3/uL (160-400); Red Blood Count 4.68 X10*6/uL (4.60-5.80); Red Cell Distribution Width 12.8 % (11.0-16.0); White Blood Count 6.1 X10*3/uL (4.8-10.8)
[2024-11-20 16:53] LABS: Creatinine Urine 93.39 mg/dL; Microalbum/Creatinine Ratio Ur 6.4 ug/mg cr (<30)
[2024-11-20 16:55] LABS: Estimated Average Glucose 148 mg/dL; Hemoglobin A1c % 6.8 % (<6.0); Total Hemoglobin (HGBA1C) 3725.3185 umol/L
[2024-11-20 17:29] LABS: Alanine Aminotransferase 38 U/L (0-40); Anion Gap 13 (12-20); Aspartate Amino Transferase 29 U/L (5-37); Blood Urea Nitrogen 13 mg/dL (9-16); Calcium 9.6 mg/dL (8.4-10.2); Carbon Dioxide 28 mmol/L (22-29); Chloride 105 mmol/L (96-108); Cholesterol 144 mg/dL (<200); Estimated Glomerular Filt Rate > 60; Glucose Fasting 122 mg/dL (60-99); HDL Cholesterol 46 mg/dL (>40); Iron 104 mcg/dL (45-160); LDL Cholesterol Calculated 79 mg/dL (<100); Percent Iron Saturation 33 % (15-50); Sodium 142 mmol/L (135-145); Total Iron Binding Capacity 317 mcg/dL (228-428); Triglycerides 97 mg/dL (<150); Unsaturated Iron Binding 213 ug/dL
== END 2024-11-20 13:46 | disposition home or self-care (01) ==
LOC: HO.HMGCLDS 13:45
PROVIDERS: PCP Internal Medicine; Visit Provider Internal Medicine
DX: D64.9 Anemia, unspecified (principal); Z87.19 Personal history of other diseases of the digestive system; I10 Essential (primary) hypertension; E78.5 Hyperlipidemia, unspecified; E11.3293 Type 2 diabetes mellitus with mild nonproliferative diabetic retinopathy without macular edema, bilateral; Z79.4 Long term (current) use of insulin; E11.8 Type 2 diabetes mellitus with unspecified complications
CPT/HCPCS: 36415; 80048; 80061; 82043; 82570; 83036; 83540; 84450; 84460; 85025

== ENCOUNTER 2024-11-22 11:57 | Outpatient (AMB) | payer OTHER, SELFPAY ==
--- NOTE | 2024-11-22 12:13 | MHC.PC.OV ---
Vital Signs 11/22/24 12:15 Height 5 ft 7 in Weight 199 lb BMI 31.2 BP 130/90 H Blood Pressure Location Lt brachial Position Sitting Pulse 79 Pulse Source Pulse Oximeter Pulse Oximetry (%) 98 Intake Visit Reasons: PE Rotary Furnace Operator Required: No Accompanied by: Self / Same As Patient Allergies peanut Allergy (Intermediate, Verified 11/22/24 12:49) Shortness of Breath, throat swelling Medication List - Last Reconciled 11/22/24 by Rocio Morgan MD acetaminophen ER (Tylenol Arthritis Pain) 650 mg PO Q8H PRN atorvastatin (Lipitor) 10 mg PO DAILY blood sugar diagnostic (FreeStyle Lite Strips) check fasting blood sugar twice a day before meals [id number]-qxaidyigsxmju-bxug 50-300-40 mg (Fioricet) 1 cap PO Q4-6H PRN clotrimazole-betamethasone 1-0.05 % 1 appl topical BID 10 days diclofenac sodium 1% 4 grams topical QID PRN fluoxetine 40 mg (2 x 20 mg) PO QAM insulin detemir U-100 (Levemir U-100 Insulin) 64 units (0.64 mL) subcut BEDTIME 30 days insulin syringe-needle U-100 Use to inject insulin once a day lisinopril (Zestril) 20 mg PO DAILY metformin 1,000 mg PO BID Novolog FlexPen U-100 Insulin (insulin aspart U-100) Give by sliding scale coverage times a day subcutaneously before meals NS omeprazole 20 mg PO DAILY psyllium husk (aspartame) 3.4 gram/5.8 gram (Metamucil [facility] Fiber) 5 grams PO DAILY 90 days pyridoxine (vitamin B6) 50 mg PO DAILY 90 days sennosides (senna) 17.2 mg (2 x 8.6 mg) PO DAILY PRN simethicone (Gas Relief (simethicone)) 80 mg PO BID-QID PRN tadalafil 20 mg PO ONCE PRN 30 days tadalafil 5 mg PO DAILY 90 days zolpidem 10 mg PO BEDTIME PRN Tobacco use date assessed: 11/22/24 Fall risk assessment: No Falls in past year Last assessed Fall Risk: 11/22/24 Dental Screening Dental Screen Date: 11/22/24 Did you have a dental visit in the last 12 months?: Yes Did you have a dental problem in the last 6 months where you did not have access to dental care?: No Was dental information given to patient?: Patient has dentist BOO MUÑOZ HPI Details 64-year-old male with history of dyslipidemia, diabetes mellitus, hypertension, arthritis, erectile dysfunction, osteoarthritis, nephrolithiasis, NSAID induced gastritis, here today for his physical exam. He has been trying to adhere to recommended diet, in tries to do at least 30 minutes of exercise twice a week. He had recent upper endoscopy done by which showed presence of esophagitis and hiatal hernia, advised to avoid NSAIDs. Last colonoscopy was done in 2022 with removal of 2 serrated adenomatous polyps, repeat colonoscopy due again in 2025. He is up-to-date with his diabetes retinopathy screening, goes to [facility] 08/2024 with diabetic macular edema OD , and bilateral mild diabetic nonproliferative retinopathy. Latest fasting labs showed normal electrolytes and renal function, with hemoglobin A1c at 6.8%, normal fasting lipids and negative microalbuminuria seen. Blood pressure stable and controlled on present treatment. [facility] Medical History (Updated 11/26/24 @ 05:37 by Rocio Morgan MD) Neuropathy Polyarthralgia Positional lightheadedness Normocytic normochromic anemia Postprandial epigastric pain History of GI bleed Acquired deformity of toenail Lumbosacral radiculopathy due to degenerative joint disease of spine Left nephrolithiasis Primary osteoarthritis of right knee Primary osteoarthritis, left shoulder Trigger finger of right hand BPH (benign prostatic hyperplasia) Chronic insomnia Depression Osteoarthritis involving multiple joints on both sides of body HTN (hypertension) Dyslipidemia Diabetes mellitus with complication, with long-term current use of insulin Diabetes mellitus type 2 with retinopathy Surgical History (Updated 11/26/24 @ 05:27 by Rocio Morgan MD) Hx of transurethral resection of prostate History of right inguinal hernia repair (~11/09/23) Hx of colonoscopy History of esophagogastroduodenoscopy (EGD) History of left inguinal hernia repair (03/24/22) Hx of lithotripsy History of testicular surgery Umbilical hernia Family History Father CVD (cardiovascular disease) Mother Unknown family medical history Social History Housing: Apartment Alcohol intake: current Alcohol intake frequency: a few times a week Alcohol type: beer Comment: COUNTS CORRECT Patient Tobacco Use Status: Former Tobacco user Tobacco use type: Cigarette e-Cigarette/Vaping Use: Never Used Second Hand Smoke Exposure: No service: No Current occupational status: employed 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 1. Little interest or pleasure in doing things: several days 2. Feeling down, depressed, or hopeless: not at all 3. Trouble falling or staying asleep, or sleeping too much: nearly every day 4. Feeling tired or having little energy: several days 5. Poor appetite or overeating: several days 6. Feeling bad about yourself - or that you are a failure or have let yourself or your family down: not at all 7. Trouble concentrating on things, such as reading the newspaper or watching television: not at all 8. Moving or speaking so slowly that other people could have noticed. Or the opposite - being so fidgety or restless that you have been moving around a lot more than usual: not at all 9. Thoughts that you would be better off or of hurting yourself in some way: not at all Total score: 6 Depression Screening Interpretation: Positive (Currently on fluoxetine 40 mg daily) Depression Screening Follow-up: Existing condition and In treatment Depression Screening Done: Yes 83488 - PHQ-9 Billing: Yes Source: Developed by Drs. Junior Kennedy, Brianna Adhikari, Nixon Abreu and colleagues, with an educational milagros from [employer]. Thrive Questionnaire Date Thrive assessed: 11/22/24 I am a: Patient What is your living situation today?: I have a steady place to live Within the past 12 months, did the food you bought not last and you didn't have the money to get more?: Never true Within the past 12 months, did you worry whether your food would run out before you got money to buy more?: Never true Do you have trouble paying for medicines?: No Do you have trouble getting transportation to medical appointments?: No Do you have trouble paying your heating and electricity bill?: No Do you have trouble taking care of your child, family member or friend?: No Do you have trouble with day-to-day activities such as bathing, preparing meals, shopping, managing finances, etc.?: No Are you currently unemployed and looking for a job?: No Are you interested in more education?: No Please select the resources that you would like help with: None Currently or been in a relationship where the following occur: No concerns reported THRIVE Score: 0 AUDIT C Alcohol Use Questionnaire (AUDIT-C) 1. How often do you have a drink containing alcohol?: 2-4 times a month 2. How many drinks containing alcohol do you have on a typical day when you are drinking?: 5 or 6 3. How often do you have six or more drinks on one occasion?: Monthly Total Score: 6 Score Reviewed/Action Taken: Yes YASMEEN-7 AMB Questionnaire YASMEEN-7 Date YASMEEN - 7 assessed: 11/22/24 Feeling nervous, anxious, or on edge: 1 = Several days Not being able to stop or control worryin = Several days Worrying too much about different things: 1 = Several days Trouble relaxin = Not at all Being so restless that it is hard to sit still: 0 = Not at all Becoming easily annoyed or irritable: 1 = Several days Feeling afraid as if something awful might happen: 0 = Not at all Total YASMEEN-7 score (0-4 normal; 5-9 mild; 10-14 moderate; 15-21 severe): 4 Source: Developed by Drs. Junior Kennedy, Brianna Adhikari, Nixon Abreu and colleagues, with an educational milagros from [employer]. YASMEEN-7 Assessment Billing YASMEEN-7 Assessment Tool: YASMEEN-7 Assessment 94213 Review of Systems Const Reports no additional complaints Eyes Details: Goes to [facility] for his diabetic retinopathy screening and eye exam, with mild nonproliferative diabetic retinopathy noted OU Denies change in vision ENT Reports no additional complaints Card Denies chest pain, Denies irregular heart rhythm and Denies dyspnea Resp Denies cough and Denies dyspnea GI Denies abdominal pain, Denies melena, Denies hematochezia, Denies change in bowel habits and Denies heartburn Reports no additional complaints Musc Reports arthralgias, Denies joint swelling, Denies limited range of motion, Denies numbness and Reports stiffness Skin/Breast Denies rash Neuro Reports no additional complaints and Denies numbness Psych Reports no additional complaints Endo Reports no additional complaints Bruno/Lymph Reports no additional complaints Aller/Immun Reports no additional complaints Physical exam (Primary Care) Vital Signs: Last Vital Signs Pulse 79 11/22/24 12:15 BP 130/90 H 11/22/24 12:15 Pulse Ox 98 11/22/24 12:15 BMI result Body Mass Index 31.2 Tobacco/Smoking Status: Tobacco use Status Tobacco use date assessed 11/22/24 11/22/24 12:26 Patient Tobacco Use Status Former Tobacco user 11/22/24 12:15 Tobacco use type Cigarette 11/22/24 12:15 e-Cigarette/Vaping Use Never Used 11/22/24 12:15 PHQ-9: PHQ-9 Score PHQ-9: Total score 6 11/26/24 05:33 Depression Screening Interpretation: Positive (Currently on fluoxetine 40 mg daily) Depression Screening Follow-up: Existing condition and In treatment Thrive Assessment: Date of Thrive Assessment Date Thrive assessed 11/22/24 11/22/24 12:26 Currently or been in a relationship where the following occur: No concerns reported Const General: no acute distress and alert Nutritional Appearance: obese Orientation/consciousness: patient oriented x3 HENMT Mouth: Normal oral and palatal mucosa present, oropharynx normal and moist mucous membranes Eyes General: appearance normal, both eyes and all related structures Conjunctivae: conjunctivae normal Sclerae: sclerae normal Pupils: Equal, round and reactive pupils present EOM: EOMs intact bilaterally Neck Neck: Yes full ROM, Yes no lymphadenopathy and Yes supple Resp Effort & Inspection: normal respiratory effort and able to speak in complete sentences Auscultation: clear to auscultation bilaterally Cardio Rate: regular rate Rhythm: regular rhythm Heart sounds: S1 normal heart sound present and S2 normal heart sound present GI Inspection: Yes obesity Palpation (GI): Soft to palpation, nontender, no guarding and No Rebound tenderness present Auscultation: normal bowel sounds Male General Exam: Yes normal external exam Back/Spine/Pelvis Back: No back tenderness Skin General skin exam: no rashes or lesions noted and other (Callus noted in both feet) Neuro General: patient oriented x3, gait normal, tone normal, moves all extremities, no focal motor deficits and decrease sensation to monofilament (Both feet) Cranial nerves: Yes CN's II-XII intact bilaterally and Yes Equal, round and reactive pupils present Cognition (Neuro): normal cognition Gait exam (Neuro): Normal gait present Extrem General: Yes full ROM, Yes no joint enlargement, Yes no clubbing, cyanosis or edema and Yes no calf tenderness Psych Appearance: grossly normal and well kempt Mental Status: mental status grossly normal Speech and movement: Normal speech and movement present Affect: normal affect Attitude: cooperative Thought process: Normal thought process present Results Reviewed Results Reviewed: Name: Germán Hightower Age/Sex: 64/M : 1960 Unit#: [id number] Attend Dr: Rocio Morgan MD Re11/20/24 Status: DEP REF Location: [facility] Disch: SPEC : [id number] SUSAN: 11/20/24 STATUS: COMP REQ : [id number] RECD: 11/20/[address]: Rocio Morgan MD COMP: 11/20/24 ENTERED: 11/20/[address]: ORDERED: CBC Auto Diff Test Result Flag Reference WBC 6.1 4.8-10.8 X10*3/uL RBC 4.68 4.60-5.80 X10*6/uL HGB 14.1 14.0-18.0 g/dl HCT 43.1 42.0-52.0 % MCV 92.1 80.0-98.0 fL MCH 30.1 27.0-33.0 pg MCHC 32.7 31.0-36.0 g/dl RDW 12.8 11.0-16.0 % PLT 234 160-400 X10*3/uL MPV 11.4 9.4-12.4 fL Neut Pct Auto 55.3 45-73 % ImGran Pct Auto 0.3 0.0-0.4 % Lymp Pct Auto 29.4 20-40 % [place] Pct Auto 8.1 2-11 % Eos Pct Auto 6.1 H 0-4 % Baso Pct Auto 0.8 0-2 % NRBC Pct Auto 0.0 0.0-0.2 /100WBC ANC Neut Abs # 3.3 2.0-8.3 x10*3/uL ImGran Abs Auto 0.02 0.00-0.03 X10*3/uL Lymph Abs Auto 1.8 1.2-4.9 X10*3/uL [place] Abs Auto 0.5 0.1-1.2 X10*3/uL Eos Abs Auto 0.4 0.0-0.4 X10*3/uL Baso Abs Auto 0.1 0.0-0.2 X10*3/uL NRBC Abs Auto 0.000 0.0-0.012 X10*3/uL RUN: 11/22/24 1250 PAGE 1 [facility] [address] [place] [id number] Tube Turner: Constantin Briones M.D. Specimen Inquiry Name: Germán Hightower Age/Sex: 64/M : 1960 Unit#: [id number] Attend Dr: Rocio Morgan MD Re11/20/24 Status: DEP REF Location: [facility] Disch: SPEC : [id number] SUSAN: 11/20/24 STATUS: COMP REQ : [id number] RECD: 11/20/24-[address]: Rocio Morgan MD COMP: 11/20/24 ENTERED: 11/20/[address]: ORDERED: Met Prof Fast, IRON PROF, AST, ALT, Lipid Panel Test Result Flag Reference Sodium 142 135-145 mmol/L Potassium 4.0 3.3-5.1 mmol/L CL 105 96-108 mmol/L CO2 28 22-29 mmol/L Gap 13 12-20 BUN 13 9-16 mg/dL Creat 0.86 0.5-1.4 mg/dL eGFR > 60 Chronic Kidney Disease: Estimated GFR < 60 mL/min/1.73m2 Severe Kidney Disease: Estimated GFR < 15 mL/min/1.73m2 FBS 122 H 60-99 mg/dL A fasting glucose from 100-125 mg/dl is considered impaired (pre-diabetes). CA 9.6 8.4-10.2 mg/dL Iron 104 45-160 mcg/dL TIBC 317 228-428 mcg/dL Saturation 33 15-50 % UIBC 213 ug/dL AST (GOT) 29 5-37 U/L ALT (GPT) 38 0-40 U/L Triglyceride 97 <150 mg/dL Desirable Triglyceride: less than 150 mg/dL Borderline High Triglyceride 150-199 mg/dL High Triglyceride: 200-499 mg/dL Very High Triglyceride: greater than or equal to 5OO mg/dL Cholesterol 144 <200 mg/dL Desirable Cholesterol: less than 200 mg/dL Borderline High Cholesterol: 200-239 mg/dL High Cholesterol: greater than 239 mg/dL LDL Calculated 79 <100 mg/dL Desirable LDL: less than 100 mg/dL Near Optimal/Above Optimal LDL: 110-129 mg/dL Borderline High LDL: 130-159 mg/dL High LDL: 160-189 mg/dL Very High LDL: greater than or equal to 190 mg/dL HDL 46 >40 mg/dL Desirable HDL: greater than 40 mg/dL Note: This HDL assay may give artificially low results in patients with liver disease. Laboratory Tests 11/20/24 13:49 Estimat Average Glucose 148 Hemoglobin A1c % 6.8 H Urine Creatinine 93.39 Urine Microalbumin 6.0 Microalb/Creat Ratio 6.4 Coding Level of Care Code Est Pt Prev Care 40-64y(59416) Diagnoses Annual visit for general adult medical examination with abnormal findings Z00.01 Type 2 diabetes mellitus with both eyes affected by mild nonproliferative retinopathy without macular edema, with long-term current use of insulin E11.3293; Z79.4 Diabetes mellitus shelter insulin use: with shelter use Diabetes mellitus macular edema: without macular edema Diabetic retinopathy severity: with mild nonproliferative retinopathy Laterality: bilateral Diabetes mellitus with complication, with long-term current use of insulin E11.8; Z79.4 Dyslipidemia E78.5 Essential hypertension I10 Hypertension type: essential hypertension Polyarthralgia M25.50 NSAID induced gastritis K29.60; T39.395A Additional Codes YASMEEN-7 Assessment Billing - YASMEEN-7 Assessment Tool: YASMEEN-7 Assessment 99459 ([id number]) PHQ-9 - 79499 - PHQ-9 Billing: Yes ([id number]) Assessment & Plan Assessment & Plan (1) Annual visit for general adult medical examination with abnormal findings: Code(s): Z00.01 - Encounter for general adult medical examination with abnormal findings Plan: Fasting lab results reviewed with patient. Recommended dental visit every 6 months and continue with regular diabetic retinopathy screening yearly and eye exam. Take adequate calcium in diet and vitamin-D 3 at 2000 IU per cap once a day, in addition to weight-bearing exercises to help maintain good muscle tone and weight control. Followed by Urology for his benign prostatic hyperplasia and history of kidney stones. Up-to-date with all his vaccinations, but does not want to get any COVID booster. Repeat colonoscopy due again in 2025 (2) Diabetes mellitus type 2 with retinopathy: Code(s): E11.319 - Type 2 diabetes mellitus with unspecified diabetic retinopathy without macular edema Category: Medical Qualifiers: Diabetes mellitus joint terminal attack controller insulin use: with joint terminal attack controller use Diabetes mellitus macular edema: without macular edema Diabetic retinopathy severity: with mild nonproliferative retinopathy Laterality: bilateral Qualified Code(s): E11.3293 - Type 2 diabetes mellitus with mild nonproliferative diabetic retinopathy without macular edema, bilateral; Z79.4 - terminal gauger supervisor (current) use of insulin Plan: Continue with yearly diabetes retinopathy screening, stressed importance of getting diabetes mellitus well controlled (3) Diabetes mellitus with complication, with long-term current use of insulin: Code(s): E11.8 - Type 2 diabetes mellitus with unspecified complications; Z79.4 - terminal gauger supervisor (current) use of insulin Category: Medical Plan: Hemoglobin A1c at 6.8%, Levemir discontinued, and switched to Lantus at 60 units at night with supper, metformin 1000 mg 1 tablet twice a day and NovoLog insulin given by sliding scale coverage 3 times a day before meals. Up-to-date with his diabetes retinopathy screening. Repeat hemoglobin A1c, electrolytes renal function in March 2025 prior to follow-up visit. Referral to podiatry ordered for diabetes foot exam. Up-to-date with his diabetes retinopathy screening. (4) Dyslipidemia: Code(s): E78.5 - Hyperlipidemia, unspecified Category: Medical Plan: Continued on atorvastatin 10 mg daily. Repeat fasting lipid levels March 2025 (5) HTN (hypertension): Code(s): I10 - Essential (primary) hypertension Category: Medical Qualifiers: Hypertension type: essential hypertension Qualified Code(s): I10 - Essential (primary) hypertension Plan: Blood pressure at goal of less than 130/80. Continue lisinopril 20 mg daily Reinforced importance of following a low sodium diet, getting regular exercise, and lowering stress levels. (6) Polyarthralgia: Code(s): M25.50 - Pain in unspecified joint Category: Medical Plan: Currently taking acetaminophen ER 650 mg every 8 hours as needed for joint pain (7) NSAID induced gastritis: Code(s): K29.60 - Other gastritis without bleeding; T39.395A - Adverse effect of other nonsteroidal anti-inflammatory drugs [NSAID], initial encounter Category: Medical Plan: Avoidance of NSAIDs, currently on omeprazole 20 mg daily and also taking simethicone as needed for gas pains Orders: Orders Basic Metabolic Panel Fasting 03/23/25 E11.3293 - Type 2 diabetes mellitus with mild nonproliferative diabetic retinopathy without macular edema, bilateral, E11.8 - Type 2 diabetes mellitus with unspecified complications, E78.5 - Hyperlipidemia, unspecified, I10 - Essential (primary) hypertension, Z79.4 - terminal gauger supervisor (current) use of insulin Hemoglobin A1c 03/23/25 E11.3293 - Type 2 diabetes mellitus with mild nonproliferative diabetic retinopathy without macular edema, bilateral, E11.8 - Type 2 diabetes mellitus with unspecified complications, E78.5 - Hyperlipidemia, unspecified, I10 - Essential (primary) hypertension, Z79.4 - long-term (current) use of insulin Aspartate Amino Transferase 03/23/25 E11.3293 - Type 2 diabetes mellitus with mild nonproliferative diabetic retinopathy without macular edema, bilateral, E11.8 - Type 2 diabetes mellitus with unspecified complications, E78.5 - Hyperlipidemia, unspecified, I10 - Essential (primary) hypertension, Z79.4 - terminal gauger supervisor (current) use of insulin Alanine Aminotransferase 03/23/25 E11.3293 - Type 2 diabetes mellitus with mild nonproliferative diabetic retinopathy without macular edema, bilateral, E11.8 - Type 2 diabetes mellitus with unspecified complications, E78.5 - Hyperlipidemia, unspecified, I10 - Essential (primary) hypertension, Z79.4 - long-term (current) use of insulin Lipid Panel 03/23/25 E11.3293 - Type 2 diabetes mellitus with mild nonproliferative diabetic retinopathy without macular edema, bilateral, E11.8 - Type 2 diabetes mellitus with unspecified complications, E78.5 - Hyperlipidemia, unspecified, I10 - Essential (primary) hypertension, Z79.4 - terminal gauger supervisor (current) use of insulin Referrals Podiatry Referral E11.3293 - Type 2 diabetes mellitus with mild nonproliferative diabetic retinopathy without macular edema, bilateral, G62.9 - Polyneuropathy, unspecified, Z79.4 - long-term (current) use of insulin Medications: New insulin glargine (Lantus Solostar U-100 Insulin) 60 units (0.6 mL) subcut QPM 15 mL 1RF 3 months E11.3293 - Type 2 diabetes mellitus with mild nonproliferative diabetic retinopathy without macular edema, bilateral, E11.8 - Type 2 diabetes mellitus with unspecified complications, Z79.4 - long-term (current) use of insulin Discontinued insulin detemir U-100 (Levemir U-100 Insulin) Discontinued Reason: Insurance Denied 64 units (0.64 mL) subcut BEDTIME 30 days 20 mL 5RF E11.3293 - Type 2 diabetes mellitus with mild nonproliferative diabetic retinopathy without macular edema, bilateral, E11.8 - Type 2 diabetes mellitus with unspecified complications, Z79.4 - long-term (current) use of insulin
[2024-11-22 12:15] VITALS: BP 130/90; PULSE 79; O2SAT 98; BMI 31.2
--- OUTSIDE RECORDS SUMMARY | 2024-11-22 14:30 | XMS_ITS | Clinical Summary ---
Author Organization [facility] ity Address [address] [place] [address] Care Team Providers Care Tableau Analyst Name Role Phone Unavailable Primary Care Provider [...] 2024 Influenza Vaccine (#1) 2024 RSV Immunization Adult Patie nts (1 - 1-dose 75+ series) 2035 HIB [...]
--- OUTSIDE RECORDS SUMMARY | 2024-11-22 14:31 | XMS_ITS ---
Author Organization [facility] Address [address] [place] [address] Care Team Providers Care Sales Operations Lead Name Role Phone Cathy FELIX, Rocio Maldonado Primary Care Provider Un available Bro Herring Unavailable [phone] REASON FOR VISIT Cancel Encounters Encounter Location Date Provider Diagnosis [facility] [address] [place] [address] 03/24/2024 Bro Herring Plan Of Treatment No Information Progress Notes * Yvette CARLOSOB:1960 (63 yo M)Acc No.[id number]:03/24/2024 Patient:?Terrance Germán :1960???Age:63 Y???Sex:Male Address:[address] [place] [address] , [place], [address] * true * Date:? Generated for Kendelli ihsan/Rajeev/eTransmitting on:?11/22/2024 02:30 PM EDT
--- OUTSIDE RECORDS SUMMARY | 2024-11-22 14:31 | XMS_ITS | Patient Health Record ---
Author Organization [facility] Address [address] [place] [address] Care Team Providers Care Steam Conditioning Operator Name Role Phone Cathy FELIX, Rocio Maldonado Primary Care Provider Un available Bro Herring Unavailable [phone] Reason For Referral No Information Encounters Encounter Location Date Provider Diagnosis [facility] [address] [place] [address] 03/24/2024 Bro Herring Plan Of Treatment No Information Insurance Providers Payer Name Payer Address Payer Phone Subscriber Number Group Number Insured Name Patient Relationship to Insured Coverage Start Date Coverage End Date [facility] [employer] Claims [address] [place] [id number] Germán Carlos Self - patient is the insured
--- OUTSIDE RECORDS SUMMARY | 2024-11-22 14:31 | XMS_ITS ---
Author Organization [facility] Address [address] [place] [address] Care Team Providers Care Chair Installer Name Role Phone Cathy FELIX, Rocio Maldonado Primary Care Provider Un available Bro Herring Unavailable [phone] Encounters Encounter Location Date Provider Diagnosis [facility] [address] [place] [address] 03/28/2024 Bro Herring Plan Of Treatment No Information Progress Notes * Berna CARLOSMorOB:1960 (64 yo M)Acc No.[id number]:03/28/2024 Progress Notes Patient:?Germán CARLOS Provider:?Bro Herring DPM :1960???Age:63 Y???Sex:Male Jared e:03/28/2024 Address:[address] [place], [place] [id number] Pcp:Marvin Jurado Subjective: * Chief Complaints: * ??? * Medical History:? Objective: * Vitals:? Assessment: Plan: * Treatment: * Images: * The named appointment provid er may or may not be the originator of this progress note, and it is not deemed complete until electronically signed by the appointment provider. Sign off status: Pending * Provider:?Bro Herring DPM Date:?2023 Generated for Barbara champagne/Rajeev/eTransmitting on:?11/22/2024 02:30 PM EDT
== END 2024-11-22 13:11 | disposition home or self-care (01) ==
LOC: HO.HMCC 11:58
PROVIDERS: PCP Internal Medicine; Visit Provider Internal Medicine
DX: Z00.01 Encounter for general adult medical examination with abnormal findings (principal); E11.3293 Type 2 diabetes mellitus with mild nonproliferative diabetic retinopathy without macular edema, bilateral; Z79.4 Long term (current) use of insulin; E11.8 Type 2 diabetes mellitus with unspecified complications; E78.5 Hyperlipidemia, unspecified; I10 Essential (primary) hypertension; M25.50 Pain in unspecified joint; K29.60 Other gastritis without bleeding; T39.395A Adverse effect of other nonsteroidal anti-inflammatory drugs [NSAID], initial encounter

== ENCOUNTER → 2024-11-22 11:57 | Outpatient (BNVA) | payer OTHER, SELFPAY | PROVIDERS: PCP Internal Medicine; Visit Provider Internal Medicine | DX: Z00.01 Encounter for general adult medical examination with abnormal findings (principal); E11.3293 Type 2 diabetes mellitus with mild nonproliferative diabetic retinopathy without macular edema, bilateral; Z79.4 Long term (current) use of insulin; E78.5 Hyperlipidemia, unspecified; I10 Essential (primary) hypertension; M25.50 Pain in unspecified joint; K29.60 Other gastritis without bleeding; T39.395D Adverse effect of other nonsteroidal anti-inflammatory drugs [NSAID], subsequent encounter | CPT/HCPCS: 96127; 99396 ==

== ENCOUNTER 2024-12-13 15:42 | Outpatient (REF) | payer OTHER, SELFPAY ==
--- NOTE | ~2024-12-13 | US_ITS ---
CLINICAL HISTORY: N20.0 - Calculus of kidney US renal with Color Doppler Comparison: None Findings: Right kidney normal size and echotexture, 11.3 cm length. No hydronephrosis or mass. Normal color flow. 5 x 5 x 6 mm benign renal cortical cyst midpole. No nephrolithiasis. Left kidney normal size and echotexture, 10.9 cm length. No hydronephrosis calculus or mass. Normal color flow. Impression: 1. No evidence of nephrolithiasis or hydronephrosis. Incidental benign renal cortical cysts on the right. This document has been electronically signed by: Lorne Darden MD on 12/15/2024 12:57:34
--- OUTSIDE RECORDS SUMMARY | 2024-12-13 18:19 | XMS_ITS | Clinical Summary ---
Author Organization [facility] ity Address [address] [place] [address] Care Team Providers Care Burling And Joining Supervisor Name Role Phone Unavailable Primary Care Provider [...] - 2023-2 5 season) 2024 Influenza Vaccine (Season Ended) 2025 RSV Immunization Adult Patie nts (1 - [...] age to complete this topic Meningococcal B Vaccine Aged Out No l onger eligible based on patient's age to complete [...]
--- OUTSIDE RECORDS SUMMARY | 2024-12-13 18:19 | XMS_ITS ---
Author Organization [facility] Address [address] [place] [address] Care Team Providers Care Hospice Spiritual Care Coordinator Name Role Phone Cathy FELIX, Rocio Maldonado Primary Care Provider Un available Bro Herring Unavailable [phone] REASON FOR VISIT Cancel Encounters Encounter Location Date Provider Diagnosis [facility] [address] [place] [address] 03/24/2024 Bro Herring Plan Of Treatment No Information Progress Notes * Yvette CARLOSOB:1960 (63 yo M)Acc No.[id number]:03/24/2024 Patient:?Terrance Germán :1960???Age:63 Y???Sex:Male Address:[address] [place] [address] , [place], [address] * true * Date:? Generated for Printi ihsan/Rajeev/eTransmitting on:?12/13/2024 06:19 PM EDT
--- OUTSIDE RECORDS SUMMARY | 2024-12-13 18:19 | XMS_ITS | Patient Health Record ---
Author Organization [facility] Address [address] [place] [address] Care Team Providers Care Transmission Technician Name Role Phone Cathy FELIX, Rocio Maldonado Primary Care Provider Un available Bro Herring Unavailable [phone] Reason For Referral No Information Encounters Encounter Location Date Provider Diagnosis [facility] [address] [place] [address] 03/24/2024 Bro Herring Plan Of Treatment No Information Insurance Providers Payer Name Payer Address Payer Phone Subscriber Number Group Number Insured Name Patient Relationship to Insured Coverage Start Date Coverage End Date [facility] [employer] Claims [address] [place] [id number] Germán Carlos Self - patient is the insured
--- OUTSIDE RECORDS SUMMARY | 2024-12-13 18:19 | XMS_ITS ---
Author Organization [facility] Address [address] [place] [address] Care Team Providers Care Production Inspector Name Role Phone Cathy FELIX, Rocio Maldonado Primary Care Provider Un available Bro Herring Unavailable [phone] Encounters Encounter Location Date Provider Diagnosis [facility] [address] [place] [address] 03/28/2024 Bro Herring Plan Of Treatment No Information Progress Notes * Berna CARLOSMorOB:1960 (64 yo M)Acc No.[id number]:03/28/2024 Progress Notes Patient:?Germán CARLOS Provider:?Bro Herring DPM :1960???Age:63 Y???Sex:Male Jared e:03/28/2024 Address:[address] [place], [place] [id number] Pcp:Marvin Jurado Subjective: * Chief Complaints: * ??? * Medical History:? Objective: * Vitals:? Assessment: Plan: * Treatment: * Images: * The named appointment provid er may or may not be the originator of this progress note, and it is not deemed complete until electronically signed by the appointment provider. Sign off status: Pending * Provider:?Bro Herring DPM Date:?2023 Generated for Barbara champagne/Rajeev/eTransmitting on:?12/13/2024 06:19 PM EDT
== END 2024-12-13 15:43 | disposition home or self-care (01) ==
LOC: HO.US 15:42
PROVIDERS: PCP Internal Medicine; Visit Provider Urology
DX: N20.0 Calculus of kidney (principal)
CPT/HCPCS: 76775

== ENCOUNTER → 2024-12-13 15:46 | Outpatient (BNV) | payer OTHER, SELFPAY | PROVIDERS: PCP Internal Medicine; Visit Provider Radiology Diagnostic Radiology | DX: N20.0 Calculus of kidney (principal) | CPT/HCPCS: 76775 ==

== ENCOUNTER 2024-12-20 14:20 | Outpatient (AMB) | payer OTHER, SELFPAY ==
--- NOTE | 2024-12-20 14:29 | A.OFFVIS_ITS ---
Intake Visit Reasons: 6m/US/UA/PVR Intake Note: Patient is present for 6M/US/UA/PVR Urology Medication:TADALAFIL,VITAMIN B6 Antibiotic Allergy:NONE Blood Thinner:NONE TODAY'S PVR: 40ML'S Bell Spinner Required: No Allergies peanut Allergy (Intermediate, Verified 12/20/24 14:32) Shortness of Breath, throat swelling HPI Comments Details: Germán IYER is a very pleasant male. He is a patient of Dr Morgan. He is seen for the following urologic conditions. - testicular pain - nephrolithiasis - lower urinary tract symptoms Imaging shows no evidence of stones Nephrolithiasis vitamin B6 Erectile dysfunction daily tadalafil with on demand - not as responsive to 20 mg on demand, may increase to 40 mg on demand. HbA1c 6.8 on insulin - T had been ordered but not completed Reports urinary urge 2 times per day. We will follow Six-month follow-up UA and renal ultrasound Lower urinary tract symptoms Progressive Hesitancy with feeling of incomplete emptying Current medications terazosin 10 mg PSA 09/14 0.9 GreenLight laser 11/13 Erectile dysfunction setting of type 2 diabetes Type 2 diabetic - HBA1c 06/13 6.8 Progressive Able to obtain but cannot maintain erection Tadalafil daily trial 05/14 with on demand 20 mg Nephrolithiasis Follow-up nephrolithiasis Current therapy includes vitamin B6 Imaging - 05/13 CT scan 1.2 cm left renal stone - 02/11 CT no stone seen - 12/15 ultrasound no evidence of stones Intervention - 11/11 left ESWL Testicular/Scotal orchalgia-swelling:? Primary complaint of?inguinal groins, pain.? The symptoms started or were observed:?since May 2018 ?- prior bilateral hydrocele repair.? The pain is located?bilaterally, groin.? Imaging includes?07/10 , testicular ultrasound, reported as, normal epididiymal head, normal parenchyma and normal flow.? Character of the pain is?constant, chronic.? Based on imaging and exam diagnosis is most consistent with?inguinal disruption ?- bilateral insertion tenderness.? Prior therapy(ies) include?no prior therapy.? Therapeutic plan includes?conservative therapy PFSH Medical History (Updated 11/26/24 @ 05:37 by Rocio Morgan MD) Neuropathy Polyarthralgia Positional lightheadedness Normocytic normochromic anemia Postprandial epigastric pain History of GI bleed Acquired deformity of toenail Lumbosacral radiculopathy due to degenerative joint disease of spine Left nephrolithiasis Primary osteoarthritis of right knee Primary osteoarthritis, left shoulder Trigger finger of right hand BPH (benign prostatic hyperplasia) Chronic insomnia Depression Osteoarthritis involving multiple joints on both sides of body HTN (hypertension) Dyslipidemia Diabetes mellitus with complication, with long-term current use of insulin Diabetes mellitus type 2 with retinopathy Surgical History (Updated 11/26/24 @ 05:27 by Rocio Morgan MD) Hx of transurethral resection of prostate History of right inguinal hernia repair (~11/09/23) Hx of colonoscopy History of esophagogastroduodenoscopy (EGD) History of left inguinal hernia repair (03/24/22) Hx of lithotripsy History of testicular surgery Umbilical hernia Family History Father CVD (cardiovascular disease) Mother Unknown family medical history Social History Housing: Apartment Alcohol intake: current Alcohol intake frequency: a few times a week Alcohol type: beer Comment: COUNTS CORRECT Patient Tobacco Use Status: Former Tobacco user Tobacco use type: Cigarette e-Cigarette/Vaping Use: Never Used Second Hand Smoke Exposure: No service: No Current occupational status: employed 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 Cognitive needs: No Hearing needs: No Vision needs: Yes Review of Systems Const Denies chills and Denies fever(s) Card Reports no additional complaints and Denies syncope Resp Denies cough GI Denies abdominal pain and Denies heartburn Reports as per HPI and Denies change in libido Neuro Denies syncope Psych Denies change in libido Endo Denies change in libido Physical Exam Const General: cooperative, healthy appearing, comfortable and no acute distress Orientation/consciousness: patient oriented x3 HEENT Face and sinus: Yes normal facial exam Mouth: moist mucous membranes Neck Neck: Yes normal visual inspection, Yes full ROM and Yes trachea midline Chest Chest palpation & inspection: normal inspection of the chest Resp Effort & Inspection: normal respiratory effort, able to speak in complete sentences and no respiratory distress GI Inspection: Yes normal to inspection Back/Spine/Pelvis Cervical Spine: normal cervical lordosis Thoracic/Lumbar Spine: thoracic and lumbar spine normal to inspection Skin General skin exam: no rashes or lesions noted Neuro General: patient oriented x3, gait normal, tone normal and moves all extremities Extrem General: Yes normal to inspection and Yes capillary refill normal Office Procedures Post Void Residual Post Residual Void Post Void Residual (PVR): 40 12736-Uapc Void Residual by ultrasound Assessment & Plan Assessment & Plan (1) Erectile dysfunction associated with type 2 diabetes mellitus: Code(s): E11.69 - Type 2 diabetes mellitus with other specified complication; N52.1 - Erectile dysfunction due to diseases classified elsewhere Category: Medical (2) BPH (benign prostatic hyperplasia): Code(s): N40.0 - Benign prostatic hyperplasia without lower urinary tract symptoms Category: Medical (3) Nephrolithiasis: Code(s): N20.0 - Calculus of kidney Category: Medical Plan Six-month follow-up Orders: Orders AMB Urinalysis Automated Today Z13.9 - Encounter for screening, unspecified US renal BI 6 Months E11.8 - Type 2 diabetes mellitus with unspecified complications, 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 While every effort has been made to ensure accuracy community health program representative errors may have been included. Imaging studies, laboratory and physical exam results were discussed and reviewed in detail. No major barriers to patient understanding were identified. An opportunity to ask questions regarding the treatment plan was provided. All questions were answered. The patient expressed understanding and agreement with the above treatment plan. The patient is aware they should contact our office by phone for worsening of their current condition or the appearance of new urologic symptoms. Compliance is encouraged with any medications and followup testing that is ordered. It is a privilege to participate in the urologic care of your patient. If you have any questions or concerns regarding treatment for the above conditions, or other urologic issues, please do not hesitate to contact me. The office telephone contact is [phone]. Sincerely, Dr Nhan Lin MD, [facility] - Urology Compassionate Specialist Care for the Genitourinary System Coding Level of Care Code Est Pt Level 4 (01845) Complex EM visit Add On G2211 Diagnoses Erectile dysfunction associated with type 2 diabetes mellitus E11.69; N52.1 BPH (benign prostatic hyperplasia) N40.0 Nephrolithiasis N20.0 CPT Codes Post Residual Void - PVR CPT Code: 56289-Aoik Void Residual by ultrasound ([id number])
--- OUTSIDE RECORDS SUMMARY | 2024-12-20 15:41 | XMS_ITS | Clinical Summary ---
Author Organization [facility] ity Address [address] [place] [address] Care Team Providers Care Medical Technologist Blood Bank Name Role Phone Unavailable Primary Care Provider [...]
--- OUTSIDE RECORDS SUMMARY | 2024-12-20 15:41 | XMS_ITS ---
Author Organization [facility] Address [address] [place] [address] Care Team Providers Care Mannequin Maker Name Role Phone Cathy FELIX, Rocio Maldonado Primary Care Provider Un available Bro Herring Unavailable [phone] Encounters Encounter Location Date Provider Diagnosis [facility] [address] [place] [address] 03/28/2024 Bro Herring Plan Of Treatment No Information Progress Notes * Berna CARLOSMorOB:1960 (64 yo M)Acc No.[id number]:03/28/2024 Progress Notes Patient:?Germán CARLOS Provider:?Bro Herring DPM :1960???Age:63 Y???Sex:Male Jared e:03/28/2024 Address:[address] [place], [place] [id number] Pcp:Marvin Jurado Subjective: * Chief Complaints: * ??? * Medical History:? Objective: * Vitals:? Assessment: Plan: * Treatment: * Images: * The named appointment provid er may or may not be the originator of this progress note, and it is not deemed complete until electronically signed by the appointment provider. Sign off status: Pending * Provider:?Bro Herring DPM Date:?2023 Generated for Barbara champagne/Rajeev/eTransmitting on:?12/20/2024 03:41 PM EDT
--- OUTSIDE RECORDS SUMMARY | 2024-12-20 15:41 | XMS_ITS ---
Author Organization [facility] Address [address] [place] [address] Care Team Providers Care Architectural Model Maker Name Role Phone Cathy FELIX, Rocio Maldonado Primary Care Provider Un available Bro Herring Unavailable [phone] REASON FOR VISIT Cancel Encounters Encounter Location Date Provider Diagnosis [facility] [address] [place] [address] 03/24/2024 Bro Herring Plan Of Treatment No Information Progress Notes * Yvette CARLOSOB:1960 (63 yo M)Acc No.[id number]:03/24/2024 Patient:?Terrance Germán :1960???Age:63 Y???Sex:Male Address:[address] [place] [address] , [place], [address] * true * Date:? Generated for Printi ihsan/Rajeev/eTransmitting on:?12/20/2024 03:41 PM EDT
--- OUTSIDE RECORDS SUMMARY | 2024-12-20 15:41 | XMS_ITS | Patient Health Record ---
Author Organization [facility] Address [address] [place] [address] Care Team Providers Care Teacher Adult Education Name Role Phone Cathy FELIX, Rocio Maldonado Primary Care Provider Un available Bro Herring Unavailable [phone] Reason For Referral No Information Encounters Encounter Location Date Provider Diagnosis [facility] [address] [place] [address] 03/24/2024 Bro Herring Plan Of Treatment No Information Insurance Providers Payer Name Payer Address Payer Phone Subscriber Number Group Number Insured Name Patient Relationship to Insured Coverage Start Date Coverage End Date [facility] [employer] Claims [address] [place] [address] [id number] Germán Carlos Self - patient is the insured
== END 2024-12-20 14:55 | disposition home or self-care (01) ==
LOC: HO.HUSH 14:21
PROVIDERS: PCP Internal Medicine; Visit Provider Urology
DX: E11.69 Type 2 diabetes mellitus with other specified complication (principal); N52.1 Erectile dysfunction due to diseases classified elsewhere; N40.0 Benign prostatic hyperplasia without lower urinary tract symptoms; N20.0 Calculus of kidney; Z13.9 Encounter for screening, unspecified
CPT/HCPCS: 99214; G2211

== ENCOUNTER → 2024-12-20 14:20 | Outpatient (BNVA) | payer OTHER, SELFPAY | PROVIDERS: PCP Internal Medicine; Visit Provider Urology | DX: E11.69 Type 2 diabetes mellitus with other specified complication (principal); N52.1 Erectile dysfunction due to diseases classified elsewhere; N20.0 Calculus of kidney; N40.0 Benign prostatic hyperplasia without lower urinary tract symptoms; Z79.4 Long term (current) use of insulin | CPT/HCPCS: 51798; 81003; 99212 ==

== ENCOUNTER 2025-03-19 11:47 | Outpatient (REF) | payer OTHER, SELFPAY ==
[2025-03-19 12:26] LABS: Hemoglobin A1C 212.7498 umol/L; Total Hemoglobin (HGBA1C) 3840.6922 umol/L
[2025-03-19 12:43] LABS: Alanine Aminotransferase 38 U/L (0-40); Anion Gap 12 (12-20); Aspartate Amino Transferase 25 U/L (5-37); Blood Urea Nitrogen 17 mg/dL (9-16); Calcium 9.5 mg/dL (8.4-10.2); Carbon Dioxide 28 mmol/L (22-29); Chloride 107 mmol/L (96-108); Cholesterol 121 mg/dL (<200); Estimated Glomerular Filt Rate > 60; HDL Cholesterol 40 mg/dL (>40); Potassium 4.7 mmol/L (3.3-5.1); Sodium 142 mmol/L (135-145); Triglycerides 65 mg/dL (<150)
--- OUTSIDE RECORDS SUMMARY | 2025-03-19 12:58 | XMS_ITS | Clinical Summary ---
Author Organization [facility] ity Address [address] [place] [address] Care Team Providers Care Telephone Answering Service Operator Name Role Phone Unavailable Primary Care Provider [...] Vaccine ( - 2023-2 5 season) 2024 Depression Screening 08/23/2024 Influenza Vaccine (#1) 2025 RSV Immunization Adult Patie nts (1 [...]
--- OUTSIDE RECORDS SUMMARY | 2025-03-19 12:59 | XMS_ITS | Patient Health Record ---
Author Organization [facility] Address [address] [place] [address] Care Team Providers Care Pre Fabricator Name Role Phone Cathy FELIX, Rocio Maldonado Primary Care Provider Un available Bro Herring Unavailable [phone] Reason For Referral No Information Encounters Encounter Location Date [facility] [address] [place] [address] 03/24/2024 Bro Herring Plan Of Treatment No Information Insurance Providers Payer Name Payer Address Payer Phone Subscriber Number Group Number Insured Name Patient Relationship to Insured Coverage Start Date Coverage End Date [facility] [employer] Claims [address] [place] [id number] Germán Carlos Self - patient is the insured
== END 2025-03-19 11:48 | disposition home or self-care (01) ==
LOC: HO.LAB 11:47
PROVIDERS: PCP Internal Medicine; Visit Provider Internal Medicine
DX: E11.3293 Type 2 diabetes mellitus with mild nonproliferative diabetic retinopathy without macular edema, bilateral (principal); I10 Essential (primary) hypertension; E78.5 Hyperlipidemia, unspecified; Z79.4 Long term (current) use of insulin
CPT/HCPCS: 36415; 80048; 80061; 83036; 84450; 84460

== ENCOUNTER 2025-03-20 11:48 | Outpatient (AMB) | payer OTHER, SELFPAY ==
--- NOTE | 2025-03-20 12:02 | A.OFFPC_ITS ---
Vital Signs 03/20/25 12:03 Height 5 ft 7 in Weight 200 lb BMI 31.3 BP 110/76 Blood Pressure Location Rt brachial Position Sitting Pulse 79 Pulse Source Pulse Oximeter Pulse Oximetry (%) 97 Intake Visit Reasons: 3 months f/up- A1C needed. Allergies peanut Allergy (Intermediate, Verified 03/20/25 12:27) Shortness of Breath, throat swelling Medication List - Last Reconciled 03/20/25 by Rocio oMrgan MD acetaminophen ER (Tylenol Arthritis Pain) 650 mg PO Q8H PRN atorvastatin (Lipitor) 10 mg PO DAILY blood sugar diagnostic (FreeStyle Lite Strips) check fasting blood sugar twice a day before meals lnfzjwluzl-cdxwicpailldc-spha 50-300-40 mg (Fioricet) 1 cap PO Q4-6H PRN clotrimazole-betamethasone 1-0.05 % 1 appl topical BID 10 days diclofenac sodium 1% 4 grams topical QID PRN fluoxetine 40 mg (2 x 20 mg) PO QAM insulin glargine (Lantus Solostar U-100 Insulin) 60 units (0.6 mL) subcut QPM insulin syringe-needle U-100 Use to inject insulin once a day lisinopril (Zestril) 20 mg PO DAILY metformin 1,000 mg PO BID Novolog FlexPen U-100 Insulin (insulin aspart U-100) Give by sliding scale coverage times a day subcutaneously before meals NS omeprazole 20 mg PO DAILY psyllium husk (Metamucil MultiHealth Fiber) 5 grams PO DAILY 90 days pyridoxine (vitamin B6) 50 mg PO DAILY 90 days sennosides (senna) 17.2 mg (2 x 8.6 mg) PO DAILY PRN simethicone (Gas Relief (simethicone)) 80 mg PO BID-QID PRN tadalafil 5 mg PO DAILY 90 days tadalafil 20 mg PO ONCE PRN 30 days zolpidem 10 mg PO BEDTIME PRN Tobacco use date assessed: 11/22/24 Fall risk assessment: No Falls in past year Last assessed Fall Risk: 03/20/25 Dental Screening Dental Screen Date: 11/22/24 HPI 3 months f/up- A1C needed. HPI Details - The patient is a 64-year-old male pres enting for follow up re: diabetes mellitus and restless leg syndrome. - Diabetes Mellitus: The patient's blood sugar levels have increased from 6.8% to 7.2%, with an average glucose level rising from 148 mg/dL to 160 mg/dL. The patient acknowledges dietary indiscretions, including consumption of ice cream daily, which may contribute to elevated glucose levels. Hecurrently on insulin therapy, including Lantus and Novolog, and metformin at the maximum dose. - Restless Leg Syndrome: The patient rep orts symptoms of crawling, creeping sensations in the legs, primarily at night, which are relieved by movement. - The patient denies anemia and other co nditions such as kidney failure and Parkinson's disease, which could contribute to these symptoms. - Osteoarthritis: The patient experience s joint pain and has been prescribed Celebrex 200 mg daily, with instructions to avoid using diclofenac gel concurrently. [facility] Medical History (Updated 03/20/25 @ 12:37 by Rocio Morgan MD) Restless leg syndrome Neuropathy Polyarthralgia Positional lightheadedness Normocytic normochromic anemia Postprandial epigastric pain History of GI bleed Acquired deformity of toenail Lumbosacral radiculopathy due to degenerative joint disease of spine Left nephrolithiasis Primary osteoarthritis of right knee Primary osteoarthritis, left shoulder Trigger finger of right hand BPH (benign prostatic hyperplasia) Chronic insomnia Depression Osteoarthritis involving multiple joints on both sides of body HTN (hypertension) Dyslipidemia Diabetes mellitus with complication, with long-term current use of insulin Diabetes mellitus type 2 with retinopathy Surgical History Hx of transurethral resection of prostate History of right inguinal hernia repair (~11/09/23) Hx of colonoscopy History of esophagogastroduodenoscopy (EGD) History of left inguinal hernia repair (03/24/22) Hx of lithotripsy History of testicular surgery Umbilical hernia Family History Father CVD (cardiovascular disease) Mother Unknown family medical history Social History Housing: Apartment Alcohol intake: current Alcohol intake frequency: a few times a week Alcohol type: beer Comment: COUNTS CORRECT Patient Tobacco Use Status: Former Tobacco user Tobacco use type: Cigarette e-Cigarette/Vaping Use: Never Used Second Hand Smoke Exposure: No service: No Current occupational status: employed 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 Cognitive needs: No Hearing needs: No Vision needs: Yes Questionnaire Thrive Questionnaire Date Thrive assessed: 03/20/25 I am a: Patient What is your living situation today?: I have a steady place to live Within the past 12 months, did the food you bought not last and you didn't have the money to get more?: Never true Within the past 12 months, did you worry whether your food would run out before you got money to buy more?: Never true Do you have trouble paying for medicines?: No Do you have trouble getting transportation to medical appointments?: No Do you have trouble paying your heating and electricity bill?: No Do you have trouble taking care of your child, family member or friend?: No Do you have trouble with day-to-day activities such as bathing, preparing meals, shopping, managing finances, etc.?: No Are you currently unemployed and looking for a job?: No Are you interested in more education?: No Please select the resources that you would like help with: None Currently or been in a relationship where the following occur: No concerns reported THRIVE Score: 0 YASMEEN-7 AMB Questionnaire YASMEEN-7 Date YASMEEN - 7 assessed: 11/22/24 Source: Developed by Drs. Junior Kennedy, Brianna Adhikari, Nixon Abreu and colleagues, with an educational milagros from [employer]. Review of Systems Const Denies chills and Denies fever(s) Eyes Denies change in vision ENT Reports no additional complaints Card Reports no additional complaints and Denies syncope Resp Denies cough GI Denies abdominal pain and Denies heartburn Reports as per HPI Musc Reports no additional complaints Neuro Denies syncope Endo Reports no additional complaints Bruno/Lymph Reports no additional complaints Aller/Immun Reports no additional complaints Physical exam (Primary Care) Vital Signs: Last Vital Signs Pulse 79 03/20/25 12:03 BP 110/76 03/20/25 12:03 Pulse Ox 97 03/20/25 12:03 BMI result Body Mass Index 31.3 Tobacco/Smoking Status: Tobacco use Status Tobacco use date assessed 11/22/24 03/20/25 12:06 Patient Tobacco Use Status Former Tobacco user 03/20/25 12:06 Tobacco use type Cigarette 03/20/25 12:06 e-Cigarette/Vaping Use Never Used 03/20/25 12:06 Thrive Assessment: Date of Thrive Assessment Date Thrive assessed 03/20/25 03/20/25 12:06 Currently or been in a relationship where the following occur: No concerns reported Results Reviewed Results Reviewed: Laboratory Tests 11/20/24 03/19/25 13:49 11:53 Estimat Average Glucose 160 Hemoglobin A1c % 7.2 H Microalb/Creat Ratio 6.4 Name: Germán Hightower Age/Sex: 64/M : 1960 Unit#: [id number] Attend Dr: Rocio Morgan MD Re03/19/25 Status: DEP [facility] Disch: SPEC : [id number] SUSAN: 03/19/25 STATUS: COMP REQ : [id number] RECD: 03/19/[address]: Rocio Morgan MD COMP: 03/19/25-1242 ENTERED: 03/19/25-[address]: ORDERED: Met Prof Fast, AST, ALT, Lipid Panel Test Result Flag Reference Sodium 142 135-145 mmol/L Potassium 4.7 3.3-5.1 mmol/L CL 107 96-108 mmol/L CO2 28 22-29 mmol/L Gap 12 12-20 BUN 17 H 9-16 mg/dL Creat 1.04 0.5-1.4 mg/dL eGFR > 60 Chronic Kidney Disease: Estimated GFR < 60 mL/min/1.73m2 Severe Kidney Disease: Estimated GFR < 15 mL/min/1.73m2 FBS 85 60-99 mg/dL CA 9.5 8.4-10.2 mg/dL AST (GOT) 25 5-37 U/L ALT (GPT) 38 0-40 U/L Triglyceride 65 <150 mg/dL Desirable Triglyceride: less than 150 mg/dL Borderline High Triglyceride 150-199 mg/dL High Triglyceride: 200-499 mg/dL Very High Triglyceride: greater than or equal to 5OO mg/dL Cholesterol 121 <200 mg/dL Desirable Cholesterol: less than 200 mg/dL Borderline High Cholesterol: 200-239 mg/dL High Cholesterol: greater than 239 mg/dL LDL Calculated 68 <100 mg/dL Desirable LDL: less than 100 mg/dL Near Optimal/Above Optimal LDL: 110-129 mg/dL Borderline High LDL: 130-159 mg/dL High LDL: 160-189 mg/dL Very High LDL: greater than or equal to 190 mg/dL HDL 40 L >40 mg/dL Desirable HDL: greater than 40 mg/dL Note: This HDL assay may give artificially low results in patients with liver disease. 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 without macular edema, with long-term current use of insulin E11.3293; Z79.4 Diabetes mellitus custodial insulin use: with long term care pharmacist use Diabetes mellitus macular edema: without macular edema Diabetic retinopathy severity: with mild nonproliferative retinopathy Laterality: bilateral Diabetes mellitus with complication, with long-term current use of insulin E11.8; Z79.4 Dyslipidemia E78.5 Essential hypertension I10 Hypertension type: essential hypertension Polyarthralgia M25.50 Assessment & Plan Assessment & Plan (1) Diabetes mellitus type 2 with retinopathy: Code(s): E11.319 - Type 2 diabetes mellitus with unspecified diabetic retinopathy without macular edema Category: Medical Qualifiers: Diabetes mellitus custodial insulin use: with custodial use Diabetes mellitus macular edema: without macular edema Diabetic retinopathy severity: with mild nonproliferative retinopathy Laterality: bilateral Qualified Code(s): E11.3293 - Type 2 diabetes mellitus with mild nonproliferative diabetic retinopathy without macular edema, bilateral; Z79.4 - terminal clerk (current) use of insulin (2) Diabetes mellitus with complication, with long-term current use of insulin: Code(s): E11.8 - Type 2 diabetes mellitus with unspecified complications; Z79.4 - correction (current) use of insulin Category: Medical (3) Dyslipidemia: Code(s): E78.5 - Hyperlipidemia, unspecified Category: Medical (4) HTN (hypertension): Code(s): I10 - Essential (primary) hypertension Category: Medical Qualifiers: Hypertension type: essential hypertension Qualified Code(s): I10 - Essential (primary) hypertension (5) Polyarthralgia: Code(s): M25.50 - Pain in unspecified joint Category: Medical Plan The plan for diabetes management includes dietary modifications to reduce high- sugar food intake and adjustments to insulin therapy, specifically considering changes to Lantus and Novolog dosages. For restless leg syndrome, the patient will start ropinirole 0.25 mg at night to alleviate symptoms, with monitoring for effectiveness and side effects. Osteoarthritis management involves prescribing Celebrex 200 mg daily, with instructions to avoid concurrent use of diclofenac gel and to take Tylenol as needed for additional pain relief. Patient was informed and verbally consented to the use of an ambient scribe for clinic note documentation during this visit. Orders: Orders Alanine Aminotransferase 06/02/25 E11.3293 - Type 2 diabetes mellitus with mild nonproliferative diabetic retinopathy without macular edema, bilateral, E11.8 - Type 2 diabetes mellitus with unspecified complications, E78.5 - Hyperlipidemia, unspecified, G25.81 - Restless legs syndrome, I10 - Essential (primary) hypertension, M25.50 - Pain in unspecified joint, Z79.4 - terminal clerk (current) use of insulin Hemoglobin and Hematocrit 06/02/25 E11.3293 - Type 2 diabetes mellitus with mild nonproliferative diabetic retinopathy without macular edema, bilateral, E11.8 - Type 2 diabetes mellitus with unspecified complications, E78.5 - Hyperlipidemia, unspecified, G25.81 - Restless legs syndrome, I10 - Essential (primary) hypertension, M25.50 - Pain in unspecified joint, Z79.4 - terminal clerk (current) use of insulin Hemoglobin A1c 06/02/25 E11.3293 - Type 2 diabetes mellitus with mild nonproliferative diabetic retinopathy without macular edema, bilateral, E11.8 - Type 2 diabetes mellitus with unspecified complications, E78.5 - Hyperlipidemia, unspecified, G25.81 - Restless legs syndrome, I10 - Essential (primary) hypertension, M25.50 - Pain in unspecified joint, Z79.4 - terminal clerk (current) use of insulin Lipid Panel 06/02/25 E11.3293 - Type 2 diabetes mellitus with mild nonproliferative diabetic retinopathy without macular edema, bilateral, E11.8 - Type 2 diabetes mellitus with unspecified complications, E78.5 - Hyperlipidemia, unspecified, G25.81 - Restless legs syndrome, I10 - Essential (primary) hypertension, M25.50 - Pain in unspecified joint, Z79.4 - correction (current) use of insulin Aspartate Amino Transferase 06/02/25 E11.3293 - Type 2 diabetes mellitus with mild nonproliferative diabetic retinopathy without macular edema, bilateral, E11.8 - Type 2 diabetes mellitus with unspecified complications, E78.5 - Hyperlipidemia, unspecified, G25.81 - Restless legs syndrome, I10 - Essential (primary) hypertension, M25.50 - Pain in unspecified joint, Z79.4 - terminal clerk (current) use of insulin Medications: New celecoxib 200 mg PO DAILY PRN 30 caps 1RF pain ropinirole administer 1-3 hours before bedtime 0.25 mg PO BEDTIME 30 tabs 5RF Discontinued diclofenac sodium 1% apply to single knee, ankle, foot; for foot includes sole/toes/top of foot Discontinued Reason: Doctor's Order 4 grams topical QID PRN 100 grams 1RF joint pain
[2025-03-20 12:03] VITALS: BP 110/76; PULSE 79; O2SAT 97; BMI 31.3
--- OUTSIDE RECORDS SUMMARY | 2025-03-20 12:51 | XMS_ITS | Patient Health Record ---
Author Organization [facility] Address [address] [place] [address] Care Team Providers Care Rn Provider Relations Name Role Phone Cathy FELIX, Rocio Maldonado Primary Care Provider Un available Bro Herring Unavailable [phone] Reason For Referral No Information Encounters Encounter Location Date Provider Diagnosis [facility] [address] [place] [address] 03/24/2024 Bro Herring Plan Of Treatment No Information Insurance Providers Payer Name Payer Address Payer Phone Subscriber Number Group Number Insured Name Patient Relationship to Insured Coverage Start Date Coverage End Date [facility] [employer] Claims [address] [place] [id number] Germán Carlos Self - patient is the insured
--- OUTSIDE RECORDS SUMMARY | 2025-03-20 12:51 | XMS_ITS | Clinical Summary ---
Author Organization [facility] ity Address [address] [place] [address] Care Team Providers Care Container Finishing Inspector Name Role Phone Unavailable Primary Care Provider [...]
== END 2025-03-20 12:47 | disposition home or self-care (01) ==
LOC: HO.HMCC 11:49
PROVIDERS: PCP Internal Medicine; Visit Provider Internal Medicine
DX: E11.3293 Type 2 diabetes mellitus with mild nonproliferative diabetic retinopathy without macular edema, bilateral (principal); Z79.4 Long term (current) use of insulin; E11.8 Type 2 diabetes mellitus with unspecified complications; E78.5 Hyperlipidemia, unspecified; I10 Essential (primary) hypertension; M25.50 Pain in unspecified joint

== ENCOUNTER → 2025-03-20 11:48 | Outpatient (BNVA) | payer OTHER, SELFPAY | PROVIDERS: PCP Internal Medicine; Visit Provider Internal Medicine | DX: E11.3293 Type 2 diabetes mellitus with mild nonproliferative diabetic retinopathy without macular edema, bilateral (principal); E11.8 Type 2 diabetes mellitus with unspecified complications; E78.5 Hyperlipidemia, unspecified; I10 Essential (primary) hypertension; M25.50 Pain in unspecified joint; Z79.4 Long term (current) use of insulin | CPT/HCPCS: 99212 ==

== ENCOUNTER 2025-06-05 14:11 | Outpatient (AMB) | payer OTHER, SELFPAY ==
--- OUTSIDE RECORDS SUMMARY | 2024-03-28 06:00 | XMS_ITS ---
Author Organization [facility] Address [address] [place] [phone] Care Team Providers Care Sawdust Drier Name Role Phone Cathy FELIX, Rocio Maldonado Primary Care Provider Un available Bro Herring Unavailable [phone] Encounters Encounter Location Date Provider Diagnosis [facility] [address] [place] [address] 03/28/2024 Bro Herring Plan Of Treatment No Information Progress Notes * Yvette CARLOSOB:1960 (64 yo M)Acc No.[id number]:03/28/2024 Progress Notes Patient: Germán JIANG Provider: Ro Herring DPM :1960 A ge:63 Y S ex:Male Date:03/28/2024 Address:[address] [place], [place] [id number] Pcp:Marvin Jurado Subjective: * Chief Complaints: * [...] 0 03/28/2024 Generated for Barbara champagne/Rajeev/Jaimeitting on: 05:09 PM EDT
[2025-06-05 14:16] VITALS: BP 142/86; PULSE 82; TEMP 36.7; O2SAT 98; BMI 32.1
--- NOTE | 2025-06-05 14:16 | MHC.OFFWIV ---
Intake Vital Signs 06/05/25 14:16 Height 5 ft 7 in Weight 205 lb BMI 32.1 BP 142/86 H Blood Pressure Location Rt brachial Position Sitting Pulse 82 Pulse Source Pulse Oximeter Temp 98.1 F Temp Source Oral Pulse Oximetry (%) 98 Oxygen Delivery Method Room Air Intake Visit Reasons: EP-?UTI Intake Note: pt presents with urine urgency, burning at the end of peeing, low abdominal pressure- reports s/s x1 mo Patient Tobacco Use Status: Former Tobacco user Allergies peanut Allergy (Intermediate, Verified 06/05/25 14:23) Shortness of Breath, throat swelling Do you need a note to return to daycare/school/sports/work: No HPI HPI Comments History of Present Illness Details History - The patient is a 64-year-old male presenting with urinary urgency and pain with urination. - Reports of urinary urgency have persisted for several weeks, requiring immediate bathroom access. - Dysuria occurs at the end of urination, without hematuria or malodorous urine. - No fevers have been reported. - A renal ultrasound is scheduled for June 18 - Blood glucose levels remain stable with no recent increases. - Urology appt in 12/15: Reports urinary urge 2 times per day. We will follow Six-month follow-up UA and renal ultrasound Lower urinary tract symptoms Progressive Hesitancy with feeling of incomplete emptying Current medications terazosin 10 mg PSA 09/14 0.9 GreenLight laser 11/13 Physical Exam General: Cooperative, healthy appearing, comfortable, no acute distress and well developed Orientation: Patient oriented x3 Limitations: No limitations Head: Normal to inspection Ears: Hearing grossly normal bilaterally Face and sinus: Normal facial exam Neck: Normal visual inspection and Yes full ROM Respiratory: Normal respiratory effort and able to speak in complete sentences. Skin: No rashes or lesions noted Neuro: Patient oriented x3, gait normal Review of Systems - Genitourinary: Reports urinary urgency and dysuria. Denies hematuria and malodorous urine. - Constitutional: Denies fever. All systems reviewed and are unremarkable except as noted in HPI [facility] Medical History (Updated 06/05/25 @ 14:40 by Vanessa To PA-C) Restless leg syndrome Neuropathy Polyarthralgia Positional lightheadedness Normocytic normochromic anemia Postprandial epigastric pain History of GI bleed Acquired deformity of toenail Lumbosacral radiculopathy due to degenerative joint disease of spine Left nephrolithiasis Primary osteoarthritis of right knee Primary osteoarthritis, left shoulder Trigger finger of right hand BPH (benign prostatic hyperplasia) Chronic insomnia Depression Osteoarthritis involving multiple joints on both sides of body HTN (hypertension) Dyslipidemia Diabetes mellitus with complication, with long-term current use of insulin Diabetes mellitus type 2 with retinopathy Surgical History Hx of transurethral resection of prostate History of right inguinal hernia repair (~11/09/23) Hx of colonoscopy History of esophagogastroduodenoscopy (EGD) History of left inguinal hernia repair (03/24/22) Hx of lithotripsy History of testicular surgery Umbilical hernia Family History Father CVD (cardiovascular disease) Mother Unknown family medical history Social History Housing: Apartment Alcohol intake: current Alcohol intake frequency: a few times a week Alcohol type: beer Comment: COUNTS CORRECT Patient Tobacco Use Status: Former Tobacco user Tobacco use type: Cigarette e-Cigarette/Vaping Use: Never Used Second Hand Smoke Exposure: No service: No Current occupational status: employed 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 Cognitive needs: No Hearing needs: No Vision needs: Yes Physical Exam Vital Signs: Last Vital Signs Temp 98.1 F 06/05/25 14:16 Pulse 82 06/05/25 14:16 BP 142/86 H 06/05/25 14:16 Pulse Ox 98 06/05/25 14:16 Oxygen Delivery Method Room Air 06/05/25 14:16 BMI result Body Mass Index 32.1 Assessment & Plan Assessment & Plan (1) UTI (urinary tract infection): Code(s): N39.0 - Urinary tract infection, site not specified Qualifiers: Urinary tract infection type: acute cystitis Hematuria presence: without hematuria Qualified Code(s): N30.00 - Acute cystitis without hematuria Plan: Plan - UA with no evidence of infection, 1+ bili only - sent urine culture to evaluate for infection. - Will treat based on symptoms. Cefuroxime, 250 mg every 12 hours for five days, for suspected urinary tract infection. - Complete renal ultrasound on June 18 to assess renal and bladder health. - Advise follow-up with Dr. Lin if symptoms persist after antibiotic treatment, with an appointment on June 20. Patient was informed and verbally consented to the use of an ambient scribe for clinic note documentation during this visit. Medications: New cefuroxime axetil 500 mg PO Q12H 10 tabs 0RF Coding Level of Care Code Est Pt Level 3 (71615) Diagnoses Acute cystitis without hematuria N30.00 Urinary tract infection type: acute cystitis Hematuria presence: without hematuria
--- OUTSIDE RECORDS SUMMARY | 2025-06-05 17:09 | XMS_ITS | Patient Health Record ---
[facility] Address [address] [place] [address] Care Team Providers Care Security System Analyst Name Role Phone Cathy FELIX, Rocio Maldonado Primary Care Provider Un available Bro Herring Unavailable [phone] Reason For Referral No Information Plan Of Treatment No Information Insurance Providers Payer Name Payer Address Payer Phone Subscriber Number Group Number Insured Name Patient Relationship to Insured Coverage Start Date Coverage End Date [facility] [employer] Claims [address] [place] [id number] Germán Carlos Self - patient is the insured
== END 2025-06-05 15:22 | disposition home or self-care (01) ==
PROVIDERS: PCP Internal Medicine; Visit Provider Physician Assistant
DX: N30.00 Acute cystitis without hematuria (principal)

== ENCOUNTER 2025-06-05 14:11 | Outpatient (REF) | payer OTHER, SELFPAY ==
--- OUTSIDE RECORDS SUMMARY | 2025-06-05 18:50 | XMS_ITS | Clinical Summary ---
Author Organization [facility] ity Address [address] [place] [address] Care Team Providers Care Cloth Tester Quality Name Role Phone Unavailable Primary Care Provider [...] 2010 Zoster Vaccines (1 of 2) 2010 Depression Screening 08/23/2024 COVID-19 Vaccine (1 - 2023-2 5 season) 2025 Influenza Vaccine (#1) 2025 RSV Immunization Adult [...]
== END 2025-06-05 14:12 | disposition home or self-care (01) ==
LOC: HO.LNP 14:11
PROVIDERS: PCP Internal Medicine; Visit Provider Physician Assistant
DX: N30.00 Acute cystitis without hematuria (principal)
CPT/HCPCS: 99212

== ENCOUNTER 2025-06-06 08:36 | Outpatient (REF) | payer OTHER, SELFPAY ==
--- OUTSIDE RECORDS SUMMARY | 2024-03-28 06:00 | XMS_ITS ---
Author Organization [facility] Address [address] [place] [phone] Care Team Providers Care Master Of Ceremonies Name Role Phone Cathy FELIX, Rocio Maldonado Primary Care Provider Un available Bro Herring Unavailable [phone] Encounters Encounter Location Date Provider Diagnosis [facility] [address] [place] [address] 03/28/2024 Bro Herring Plan Of Treatment No Information Progress Notes * Yvette CARLOSOB:1960 (64 yo M)Acc No.[id number]:03/28/2024 Progress Notes Patient: Germán JIANG Provider: Ro Herring DPM :1960 A ge:63 Y S ex:Male Date:03/28/2024 Address:[address] [place], [place] [phone] Pcp:Marvin Jurado Subjective: * Chief Complaints: * [...] 0 03/28/2024 Generated for Barbara champagne/Rajeev/Jaimeitting on: 09:03 AM EDT
--- OUTSIDE RECORDS SUMMARY | 2025-06-06 09:03 | XMS_ITS | Clinical Summary ---
Author Organization [facility] ity Address [address] [place] [address] Care Team Providers Care Monorail Crane Operator Name Role Phone Unavailable Primary Care [...]
--- OUTSIDE RECORDS SUMMARY | 2025-06-06 09:04 | XMS_ITS | Patient Health Record ---
[facility] Address [address] [place] [address] Care Team Providers Care Marker Machine Name Role Phone Cathy FELIX, Rocio Maldonado Primary Care Provider Un available Bro Herring Unavailable [phone] Reason For Referral No Information Plan Of Treatment No Information Insurance Providers Payer Name Payer Address Payer Phone Subscriber Number Group Number Insured Name Patient Relationship to Insured Coverage Start Date Coverage End Date [facility] [employer] Claims [address] [place] [address] [id number] Germán Carlos Self - patient is the insured
== END 2025-06-06 08:37 | disposition home or self-care (01) ==
LOC: HO.LAB 08:36
PROVIDERS: Visit Provider Physician Assistant
DX: N39.0 Urinary tract infection, site not specified (principal)
CPT/HCPCS: 87086

== ENCOUNTER 2025-06-11 10:56 | Outpatient (REF) | payer OTHER, SELFPAY ==
[2025-06-11 11:55] LABS: Hematocrit 42.4 % (42.0-52.0); Hemoglobin 14.2 g/dl (14.0-18.0)
[2025-06-11 11:58] LABS: Total Hemoglobin (HGBA1C) 3536.9614 umol/L
[2025-06-11 12:29] LABS: Alanine Aminotransferase 39 U/L (0-40); Aspartate Amino Transferase 31 U/L (5-37); Cholesterol 137 mg/dL (<200); HDL Cholesterol 39 mg/dL (>40); Triglycerides 87 mg/dL (<150)
== END 2025-06-11 10:57 | disposition home or self-care (01) ==
LOC: HO.LAB 10:56
PROVIDERS: Absent Provider Urology; PCP Internal Medicine; Visit Provider Internal Medicine
DX: E11.3293 Type 2 diabetes mellitus with mild nonproliferative diabetic retinopathy without macular edema, bilateral (principal); E78.5 Hyperlipidemia, unspecified; I10 Essential (primary) hypertension; M25.50 Pain in unspecified joint; G25.81 Restless legs syndrome; Z79.4 Long term (current) use of insulin
CPT/HCPCS: 36415; 80061; 83036; 84403; 84450; 84460; 85014; 85018

== ENCOUNTER 2025-06-18 13:15 | Outpatient (REF) | payer OTHER, SELFPAY ==
--- OUTSIDE RECORDS SUMMARY | 2024-03-28 06:00 | XMS_ITS ---
Author Organization [facility] Address [address] [place] [phone] Care Team Providers Care Telesales Manager Name Role Phone Cathy FELIX, Rocio Maldonado Primary Care Provider Un available Bro Herring Unavailable [phone] Encounters Encounter Location Date Provider Diagnosis [facility] [address] [place] [address] 03/28/2024 Bro Herring Plan Of Treatment No Information Progress Notes * Yvette CARLOSOB:1960 (64 yo M)Acc No.[id number]:03/28/2024 Progress Notes Patient: Germán JIANG Provider: Ro Herring DPM :1960 A ge:63 Y S ex:Male Date:03/28/2024 Address:[address] [place], [place] [id number] Pcp:Marvin Jurado Subjective: * Chief Complaints: * [...] 0 03/28/2024 Generated for Barbara champagne/Rajeev/Jaimeitting on: 04:51 PM EDT
--- NOTE | ~2025-06-18 | US_ITS ---
EXAMINATION: US KIDNEY BILATERAL HISTORY: E11.8 - Type 2 diabetes mellitus with unspecified complications TECHNIQUE: Real-time grayscale ultrasound imaging of the kidneys was performed and images were reviewed. COMPARISON: Comparison is made with the prior examination dated 12/13/2024. FINDINGS: Right kidney: The right kidney measures 10.9 x 6.1 x 5.2 cm. Renal parenchymal echotexture and thickness are normal. There is a 6 x 5 x 5 mm cyst in the interpolar region. There is no hydronephrosis or renal calculi. Left Kidney: The left kidney measures 11.2 x 6.5 x 5.1 cm. Renal parenchymal echotexture and thickness are normal. There are no masses. There is no hydronephrosis or renal calculi. US/US renal BI IMPRESSION: 6 mm right renal cyst. Otherwise unremarkable renal ultrasound. Electronically signed by: Juinor Shoemaker MD 06/18/2025 02:33 PM EDT
--- OUTSIDE RECORDS SUMMARY | 2025-06-18 16:51 | XMS_ITS | Patient Health Record ---
[facility] Address [address] [place] [address] Care Team Providers Care Patch Washer Name Role Phone Cathy FELIX, Rocio Maldonado Primary Care Provider Un available Bro Herring Unavailable [phone] Reason For Referral No Information Plan Of Treatment No Information Insurance Providers Payer Name Payer Address Payer Phone Subscriber Number Group Number Insured Name Patient Relationship to Insured Coverage Start Date Coverage End Date [facility] [employer] Claims [address] [place] [address] [id number] Germán Carlos Self - patient is the insured
--- OUTSIDE RECORDS SUMMARY | 2025-06-18 16:51 | XMS_ITS | Clinical Summary ---
Author Organization [facility] ity Address [address] [place] [address] Care Team Providers Care Carburetor Repairer Name Role Phone Unavailable Primary Care Provider [...]
== END 2025-06-18 13:16 | disposition home or self-care (01) ==
LOC: HO.US 13:15
PROVIDERS: PCP Internal Medicine; Visit Provider Urology
DX: E11.8 Type 2 diabetes mellitus with unspecified complications (principal); Z79.4 Long term (current) use of insulin
CPT/HCPCS: 76775

== ENCOUNTER → 2025-06-18 13:16 | Outpatient (BNV) | payer OTHER, SELFPAY | PROVIDERS: PCP Internal Medicine; Visit Provider Radiology Diagnostic Radiology | DX: E11.8 Type 2 diabetes mellitus with unspecified complications (principal) | CPT/HCPCS: 76775 ==

== ENCOUNTER 2025-06-20 13:53 | Outpatient (AMB) | payer OTHER, SELFPAY ==
--- OUTSIDE RECORDS SUMMARY | 2024-03-28 06:00 | XMS_ITS ---
Author Organization [facility] Address [address] [place] [phone] Care Team Providers Care Canadian Bacon Tier Name Role Phone Cathy FELIX, Rocio Maldonado Primary Care Provider Un available Bro Herring Unavailable [phone] Encounters Encounter Location Date Provider Diagnosis [facility] [address] [place] [address] 03/28/2024 Bro Herring Plan Of Treatment No Information Progress Notes * Yvette CARLOSOB:1960 (64 yo M)Acc No.[id number]:03/28/2024 Progress Notes Patient: Germán JIANG Provider: Ro Herring DPM :1960 A ge:63 Y S ex:Male Date:03/28/2024 Address:[address] [place], [place] [id number] Pcp:Marvin Jurado Subjective: * Chief Complaints: * [...] 0 03/28/2024 Generated for Barbara champagne/Rajeev/Jaimeitting on: 05:49 PM EDT
--- NOTE | 2025-06-20 14:12 | MHC.OFFVIS ---
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 He is a patient of Dr Morgan. He is seen for the following urologic conditions. - testicular pain - nephrolithiasis - lower urinary tract symptoms Six-month follow-up UA normal T 06/16 460 Had issues with urinary urgency and frequency after trial of recent different formulation of insulin - Basaglar Would like refill on tadalafil Erectile dysfunction daily tadalafil with on demand - not as responsive to 20 mg on demand, may increase to 40 mg on demand. HbA1c 6.8 on insulin Lower urinary tract symptoms Progressive Hesitancy with feeling of incomplete emptying Current medications terazosin 10 mg PSA 09/14 0.9 GreenLight laser 11/13 Erectile dysfunction setting of type 2 diabetes Type 2 diabetic - HBA1c 06/13 6.8 Progressive Able to obtain but cannot maintain erection Tadalafil daily trial 05/14 with on demand 20 mg Nephrolithiasis Follow-up nephrolithiasis Current therapy includes vitamin B6 Imaging - 05/13 CT scan 1.2 cm left renal stone - 02/11 CT no stone seen - 12/15 ultrasound no evidence of stones Intervention - 11/11 left ESWL Testicular/Scotal orchalgia-swelling:? Primary complaint of?inguinal groins, pain.? The symptoms started or were observed:?since May 2018 ?- prior bilateral hydrocele repair.? The pain is located?bilaterally, groin.? Imaging includes?07/10 , testicular ultrasound, reported as, normal epididiymal head, normal parenchyma and normal flow.? Character of the pain is?constant, chronic.? Based on imaging and exam diagnosis is most consistent with?inguinal disruption ?- bilateral insertion tenderness.? Prior therapy(ies) include?no prior therapy.? Therapeutic plan includes?conservative therapy PFSH Medical History (Updated 06/05/25 @ 14:40 by Vanessa To PA-C) Restless leg syndrome Neuropathy Polyarthralgia Positional lightheadedness Normocytic normochromic anemia Postprandial epigastric pain History of GI bleed Acquired deformity of toenail Lumbosacral radiculopathy due to degenerative joint disease of spine Left nephrolithiasis Primary osteoarthritis of right knee Primary osteoarthritis, left shoulder Trigger finger of right hand BPH (benign prostatic hyperplasia) Chronic insomnia Depression Osteoarthritis involving multiple joints on both sides of body HTN (hypertension) Dyslipidemia Diabetes mellitus with complication, with long-term current use of insulin Diabetes mellitus type 2 with retinopathy Surgical History Hx of transurethral resection of prostate History of right inguinal hernia repair (~11/09/23) Hx of colonoscopy History of esophagogastroduodenoscopy (EGD) History of left inguinal hernia repair (03/24/22) Hx of lithotripsy History of testicular surgery Umbilical hernia Family History Father CVD (cardiovascular disease) Mother Unknown family medical history Social History Housing: Apartment Alcohol intake: current Alcohol intake frequency: a few times a week Alcohol type: beer Comment: COUNTS CORRECT Patient Tobacco Use Status: Former Tobacco user Tobacco use type: Cigarette e-Cigarette/Vaping Use: Never Used Second Hand Smoke Exposure: No service: No Current occupational status: employed 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 Cognitive needs: No Hearing needs: No Vision needs: Yes Review of Systems Const Denies chills and Denies fever(s) Card Reports no additional complaints and Denies syncope Resp Denies cough GI Denies abdominal pain and Denies heartburn Reports as per HPI and Denies change in libido Neuro Denies syncope Psych Denies change in libido Endo Denies change in libido Physical Exam Const General: cooperative, healthy appearing, comfortable and no acute distress Orientation/consciousness: patient oriented x3 HEENT Face and sinus: Yes normal facial exam Mouth: moist mucous membranes Neck Neck: Yes normal visual inspection, Yes full ROM and Yes trachea midline Chest Chest palpation & inspection: normal inspection of the chest Resp Effort & Inspection: normal respiratory effort, able to speak in complete sentences and no respiratory distress GI Inspection: Yes normal to inspection Back/Spine/Pelvis Cervical Spine: normal cervical lordosis Thoracic/Lumbar Spine: thoracic and lumbar spine normal to inspection Skin General skin exam: no rashes or lesions noted Neuro General: patient oriented x3, gait normal, tone normal and moves all extremities Extrem General: Yes normal to inspection and Yes capillary refill normal Office Procedures Post Void Residual Post Residual Void Post Void Residual (PVR): 19 [id number] Void Residual by ultrasound Assessment & Plan Assessment & Plan (1) BPH (benign prostatic hyperplasia): Code(s): N40.0 - Benign prostatic hyperplasia without lower urinary tract symptoms Category: Medical (2) Erectile dysfunction associated with type 2 diabetes mellitus: Code(s): E11.69 - Type 2 diabetes mellitus with other specified complication; N52.1 - Erectile dysfunction due to diseases classified elsewhere Category: Medical (3) Complicated UTI (urinary tract infection): Code(s): N39.0 - Urinary tract infection, site not specified Category: Medical Plan Refill medications 12 month follow-up Orders: Orders AMB Post Void Residual by ultrasound Today N40.0 - Benign prostatic hyperplasia without lower urinary tract symptoms AMB Urinalysis Automated Today Z13.9 - Encounter for screening, unspecified Medications: Refilled tadalafil Take daily 5 mg PO DAILY 90 tabs 3RF 90 days E11.69 - Type 2 diabetes mellitus with other specified complication, N52.1 - Erectile dysfunction due to diseases classified elsewhere tadalafil Take 60 minutes before intended activity 20 mg PO ONCE PRN 30 tabs 1RF sexual activity 30 days E11.69 - Type 2 diabetes mellitus with other specified complication, N52.1 - Erectile dysfunction due to diseases classified elsewhere Patient Instructions: This note is constructed using voice recognition software. While every effort has been made to ensure accuracy oil expeller errors may have been included. Imaging studies, laboratory and physical exam results were discussed and reviewed in detail. No major barriers to patient understanding were identified. An opportunity to ask questions regarding the treatment plan was provided. All questions were answered. The patient expressed understanding and agreement with the above treatment plan. The patient is aware they should contact our office by phone for worsening of their current condition or the appearance of new urologic symptoms. Compliance is encouraged with any medications and followup testing that is ordered. It is a privilege to participate in the urologic care of your patient. If you have any questions or concerns regarding treatment for the above conditions, or other urologic issues, please do not hesitate to contact me. The office telephone contact is [phone]. Sincerely, Dr Nhan Lin MD, [facility] - Urology Compassionate Specialist Care for the Genitourinary System Coding Level of Care Code Est Pt Level 3 (07723) Complex EM visit Add On G2211 Diagnoses BPH (benign prostatic hyperplasia) N40.0 Erectile dysfunction associated with type 2 diabetes mellitus E11.69; N52.1 Complicated UTI (urinary tract infection) N39.0 CPT Codes Post Residual Void - PVR CPT Code: 28087-[id number] Void Residual by ultrasound ([id number])
--- OUTSIDE RECORDS SUMMARY | 2025-06-20 17:50 | XMS_ITS | Patient Health Record ---
[facility] Address [address] [place] [id number] Care Team Providers Care Linux Admin Engineer Name Role Phone Cathy FELIX, Rocio Maldonado Primary Care Provider Un available Bro Herring Unavailable [phone] Reason For Referral No Information Plan Of Treatment No Information Insurance Providers Payer Name Payer Address Payer Phone Subscriber Number Group Number Insured Name Patient Relationship to Insured Coverage Start Date Coverage End Date [facility] [employer] Claims [address] [place] [id number] Germán Carlos Self - patient is the insured
--- OUTSIDE RECORDS SUMMARY | 2025-06-20 17:50 | XMS_ITS | Clinical Summary ---
Author Organization [facility] ity Address [address] [place] [address] Care Team Providers Care Alarm Mechanism Adjuster Name Role Phone Unavailable Primary Care Provider [...]
== END 2025-06-20 14:44 | disposition home or self-care (01) ==
LOC: HO.HUSH 13:54
PROVIDERS: PCP Internal Medicine; Visit Provider Urology
DX: N40.0 Benign prostatic hyperplasia without lower urinary tract symptoms (principal); E11.69 Type 2 diabetes mellitus with other specified complication; N52.1 Erectile dysfunction due to diseases classified elsewhere; N39.0 Urinary tract infection, site not specified
CPT/HCPCS: 99213

== ENCOUNTER → 2025-06-20 13:53 | Outpatient (BNVA) | payer OTHER, SELFPAY | PROVIDERS: PCP Internal Medicine; Visit Provider Urology | DX: N40.0 Benign prostatic hyperplasia without lower urinary tract symptoms (principal); N20.0 Calculus of kidney; E11.69 Type 2 diabetes mellitus with other specified complication; N52.1 Erectile dysfunction due to diseases classified elsewhere; N39.0 Urinary tract infection, site not specified; Z13.9 Encounter for screening, unspecified | CPT/HCPCS: 51798; 99212 ==

== ENCOUNTER 2025-07-25 10:39 | Outpatient (AMB) | payer OTHER, SELFPAY ==
--- OUTSIDE RECORDS SUMMARY | 2024-03-28 05:00 | XMS_ITS ---
Author Organization [facility] Address [address] [place] [id number] Care Team Providers Care Storekeeper Helper Name Role Phone Cathy FELIX, Rocio Maldonado Primary Care Provider Un available Bro Herring Unavailable [phone] Encounters Encounter Location Date Provider Diagnosis [facility] [address] [place] [address] 03/28/2024 Bro Herring Plan Of Treatment No Information Progress Notes * Yvette CARLOSOB:1960 (64 yo M)Acc No.[id number]:03/28/2024 Progress Notes Patient: Germán JIANG Provider: Ro Herring DPM :1960 A ge:63 Y S ex:Male Date:03/28/2024 Address:[address] [place], [place] [id number] Pcp:Marvin Jurado Subjective: * Chief Complaints: * [...] DPM Date: 0 03/28/2024 Generated for Barbara champagne/Rajeev/Jaimeitting on: 09/25/2024 12:13 PM EST
[2025-07-25 10:47] VITALS: BP 138/82; PULSE 83; RESP 16; TEMP 36.6; O2SAT 94; BMI 31.5
--- NOTE | 2025-07-25 10:47 | A.OFFPC_ITS ---
Vital Signs 07/25/25 10:47 Height 5 ft 7 in Weight 201 lb BMI 31.5 BP 138/82 Blood Pressure Location Rt brachial Position Sitting Respiration 16 Pulse 83 Pulse Source Pulse Oximeter Temp 97.9 F Temp Source Oral Pulse Oximetry (%) 94 Oxygen Delivery Method Room Air Intake Visit Reasons: DM Intake Note: Pt is here today for his DM f/u Strain Technician Required: No Allergies peanut Allergy (Intermediate, Verified 07/25/25 11:08) Shortness of Breath, throat swelling Medication List - Last Reconciled 07/25/25 by Rocio Morgan MD acetaminophen ER (Tylenol Arthritis Pain) 650 mg PO Q8H PRN atorvastatin (Lipitor) 10 mg PO DAILY blood sugar diagnostic (FreeStyle Lite Strips) check fasting blood sugar twice a day before meals pmwaltfxkw-sojdgitlfxjyk-rtvl 50-300-40 mg (Fioricet) 1 cap PO Q4-6H PRN celecoxib 200 mg PO DAILY PRN clotrimazole-betamethasone 1-0.05 % 1 appl topical BID 10 days fluoxetine 40 mg (2 x 20 mg) PO QAM insulin syringe-needle U-100 Use to inject insulin once a day lisinopril (Zestril) 20 mg PO DAILY metformin 1,000 mg PO BID Novolog FlexPen U-100 Insulin (insulin aspart U-100) Give by sliding scale coverage times a day subcutaneously before meals NS omeprazole 20 mg PO DAILY psyllium husk (Metamucil MultiHealth Fiber) 5 grams PO DAILY 90 days pyridoxine (vitamin B6) 50 mg PO DAILY 90 days ropinirole 0.25 mg PO BEDTIME sennosides (senna) 17.2 mg (2 x 8.6 mg) PO DAILY PRN simethicone 80 mg PO BID-QID tadalafil 5 mg PO DAILY 90 days tadalafil 20 mg PO ONCE PRN 30 days zolpidem 10 mg PO BEDTIME PRN Tobacco use date assessed: 07/25/25 Dental Screening Dental Screen Date: 07/25/25 Did you have a dental visit in the last 12 months?: Yes Did you have a dental problem in the last 6 months where you did not have access to dental care?: No Was dental information given to patient?: Patient has dentist HPI DM HPI0 Details The patient is a 64-year-old male here today for his follow-up The patient has a history of diabetes mellitus and had been taking Basaglar insulin, which was stopped a couple of weeks after starting it due to polyuria. The patient was previously on Lantus, using 60 units at night, but was switched to Basaglar because Lantus was not covered by insurance at that time. The patient's last A1c was 6.8, and the patient has been monitoring blood glucose three times a day. 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 Ba, with the last appointment being in May of the previous year. The patient reports recent blurry vision, particularly in the left eye, despite having had prior cataract removal. Regarding urinary symptoms, the patient continues to experience polyuria and has developed new-onset dysuria at the end of urination and some pelvic pain. A urologist, Dr. Lin, was seen a couple of months ago and attributed the symptoms to high blood sugar levels. For pain management, the patient reports that celecoxib is not effective. The patient has a history of arthritis and uses a diclofenac cream for shoulder pain. Complains of a recurrent itchy rash in the groin area when sweating, particularly after exercise. FORMERLY [facility], 1928–1983 Medical History Restless leg syndrome Neuropathy Polyarthralgia Positional lightheadedness Normocytic normochromic anemia Postprandial epigastric pain History of GI bleed Acquired deformity of toenail Lumbosacral radiculopathy due to degenerative joint disease of spine Left nephrolithiasis Primary osteoarthritis of right knee Primary osteoarthritis, left shoulder Trigger finger of right hand BPH (benign prostatic hyperplasia) Chronic insomnia Depression Osteoarthritis involving multiple joints on both sides of body HTN (hypertension) Dyslipidemia Diabetes mellitus with complication, with long-term current use of insulin Diabetes mellitus type 2 with retinopathy Surgical History Hx of transurethral resection of prostate History of right inguinal hernia repair (~11/09/23) Hx of colonoscopy History of esophagogastroduodenoscopy (EGD) History of left inguinal hernia repair (03/24/22) Hx of lithotripsy History of testicular surgery Umbilical hernia Family History Father CVD (cardiovascular disease) Mother Unknown family medical history Social History Housing: Apartment Alcohol intake: current Alcohol intake frequency: a few times a week Alcohol type: beer Comment: COUNTS CORRECT Patient Tobacco Use Status: Former Tobacco user Tobacco use type: Cigarette e-Cigarette/Vaping Use: Never Used Second Hand Smoke Exposure: No service: No Current occupational status: employed 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 1. Little interest or pleasure in doing things: several days 2. Feeling down, depressed, or hopeless: not at all 3. Trouble falling or staying asleep, or sleeping too much: nearly every day 4. Feeling tired or having little energy: several days 5. Poor appetite or overeating: several days 6. Feeling bad about yourself - or that you are a failure or have let yourself or your family down: not at all 7. Trouble concentrating on things, such as reading the newspaper or watching television: not at all 8. Moving or speaking so slowly that other people could have noticed. Or the opposite - being so fidgety or restless that you have been moving around a lot more than usual: not at all 9. Thoughts that you would be better off or of hurting yourself in some way: not at all Total score: 6 Depression Screening Interpretation: Negative Depression Screening Done: Yes Source: Developed by Drs. Junior Kennedy, Brianna Adhikari, Nixon Abreu and colleagues, with an educational milagros from [employer]. Thrive Questionnaire Date Thrive assessed: 11/22/24 I am a: Patient What is your living situation today?: I have a steady place to live Within the past 12 months, did the food you bought not last and you didn't have the money to get more?: Never true Within the past 12 months, did you worry whether your food would run out before you got money to buy more?: Never true Do you have trouble paying for medicines?: No Do you have trouble getting transportation to medical appointments?: No Do you have trouble paying your heating and electricity bill?: No Do you have trouble taking care of your child, family member or friend?: No Do you have trouble with day-to-day activities such as bathing, preparing meals, shopping, managing finances, etc.?: No Are you currently unemployed and looking for a job?: No Are you interested in more education?: No Please select the resources that you would like help with: None Currently or been in a relationship where the following occur: No concerns reported THRIVE Score: 0 AUDIT C Alcohol Use Questionnaire (AUDIT-C) 1. How often do you have a drink containing alcohol?: 2-4 times a month 2. How many drinks containing alcohol do you have on a typical day when you are drinking?: 5 or 6 3. How often do you have six or more drinks on one occasion?: Monthly Total Score: 6 YASMEEN-7 AMB Questionnaire YASMEEN-7 Date YASMEEN - 7 assessed: 07/25/25 Feeling nervous, anxious, or on edge: 0 = Not at all Not being able to stop or control worryin = Not at all Worrying too much about different things: 0 = Not at all Trouble relaxin = Not at all Being so restless that it is hard to sit still: 0 = Not at all Becoming easily annoyed or irritable: 0 = Not at all Feeling afraid as if something awful might happen: 0 = Not at all Total YASMEEN-7 score (0-4 normal; 5-9 mild; 10-14 moderate; 15-21 severe): 0 Source: Developed by Drs. Junior Kennedy, Brianna Adhikari, Nixon Abreu and colleagues, with an educational milagros from [employer]. Review of Systems Const Reports no additional complaints Eyes Reports no additional complaints ENT Reports no additional complaints Card Reports no additional complaints Resp Denies cough GI Denies abdominal pain and Denies heartburn Reports as per HPI Musc Reports no additional complaints Skin/Breast Reports as per HPI Neuro Reports no additional complaints Psych Reports no additional complaints Endo Reports no additional complaints Bruno/Lymph Reports no additional complaints Aller/Immun Reports no additional complaints Physical exam (Primary Care) Vital Signs: Last Vital Signs Temp 97.9 F 07/25/25 10:47 Pulse 83 07/25/25 10:47 Resp 16 07/25/25 10:47 BP 138/82 07/25/25 10:47 Pulse Ox 94 07/25/25 10:47 Oxygen Delivery Method Room Air 07/25/25 10:47 BMI result Body Mass Index 31.5 Tobacco/Smoking Status: Tobacco use Status Tobacco use date assessed 07/25/25 07/25/25 10:53 Patient Tobacco Use Status Former Tobacco user 07/25/25 10:53 Tobacco use type Cigarette 07/25/25 10:53 e-Cigarette/Vaping Use Never Used 07/25/25 10:53 PHQ-9: PHQ-9 Score PHQ-9: Total score 6 07/25/25 11:10 Depression Screening Interpretation: Negative Thrive Assessment: Date of Thrive Assessment Date Thrive assessed 11/22/24 07/25/25 10:53 Currently or been in a relationship where the following occur: No concerns reported Const General: no acute distress and alert Nutritional Appearance: obese Orientation/consciousness: patient oriented x3 HENMT Mouth: Normal oral and palatal mucosa present, oropharynx normal and moist mucous membranes Eyes General: appearance normal, both eyes and all related structures Neck Neck: Yes full ROM, Yes no lymphadenopathy and Yes supple Resp Effort & Inspection: normal respiratory effort and able to speak in complete sentences Auscultation: clear to auscultation bilaterally Cardio Rate: regular rate Rhythm: regular rhythm Heart sounds: S1 normal heart sound present and S2 normal heart sound present GI Inspection: Yes obesity Palpation (GI): Soft to palpation, nontender, no guarding and No Rebound tenderness present Auscultation: normal bowel sounds Male General Exam: Yes normal external exam Skin General skin exam: no rashes or lesions noted and other (Callus noted in both feet) Neuro General: patient oriented x3, gait normal, tone normal, moves all extremities, no focal motor deficits and decrease sensation to monofilament (Both feet) Cranial nerves: Yes CN's II-XII intact bilaterally Cognition (Neuro): normal cognition Gait exam (Neuro): Normal gait present Extrem General: Yes full ROM, Yes no joint enlargement, Yes no clubbing, cyanosis or edema and Yes no calf tenderness Psych Appearance: grossly normal and well kempt Mental Status: mental status grossly normal Speech and movement: Normal speech and movement present Affect: normal affect Results Reviewed Results Reviewed: Name: Germán Hightower Age/Sex: 64/M : 1960 Unit#: [id number] Attend Dr: Rocio Morgan MD Re06/11/25 Status: DEP REF Location: .LAB Disch: SPEC : [id number] SUSAN: 06/11/25 STATUS: COMP REQ : [id number] RECD: 06/11/[address]: Rocio Morgan MD COMP: 06/11/25 ENTERED: 06/11/[address]: ORDERED: AST, ALT, Lipid Panel Test Result Flag Reference AST (GOT) 31 5-37 U/L ALT (GPT) 39 0-40 U/L Triglyceride 87 <150 mg/dL Desirable Triglyceride: less than 150 mg/dL Borderline High Triglyceride 150-199 mg/dL High Triglyceride: 200-499 mg/dL Very High Triglyceride: greater than or equal to 5OO mg/dL Cholesterol 137 <200 mg/dL Desirable Cholesterol: less than 200 mg/dL Borderline High Cholesterol: 200-239 mg/dL High Cholesterol: greater than 239 mg/dL LDL Calculated 81 <100 mg/dL Desirable LDL: less than 100 mg/dL Near Optimal/Above Optimal LDL: 110-129 mg/dL Borderline High LDL: 130-159 mg/dL High LDL: 160-189 mg/dL Very High LDL: greater than or equal to 190 mg/dL HDL 39 L >40 mg/dL Desirable HDL: greater than 40 mg/dL Note: This HDL assay may give artificially low results in patients with liver disease. Laboratory Tests 06/11/25 11:12 Hgb 14.2 Hct 42.4 Estimat Average Glucose 148 Hemoglobin A1c % 6.8 H Coding Level of Care Code Est Pt Level 4 (90507) Diagnoses Type 2 diabetes mellitus with both eyes affected by mild nonproliferative retinopathy without macular edema, with long-term current use of insulin E11.3293; Z79.4 Diabetes mellitus extermination inspector insulin use: with extermination inspector use Diabetes mellitus macular edema: without macular edema Diabetic retinopathy severity: with mild nonproliferative retinopathy Laterality: bilateral Urinary frequency R35.0 Intertrigo L30.4 Assessment & Plan Assessment & Plan (1) Diabetes mellitus type 2 with retinopathy: Code(s): E11.319 - Type 2 diabetes mellitus with unspecified diabetic retinopathy without macular edema Category: Medical Qualifiers: Diabetes mellitus [facility] insulin use: with extermination inspector use Diabetes mellitus macular edema: without macular edema Diabetic retinopathy severity: with mild nonproliferative retinopathy Laterality: bilateral Qualified Code (s): E11.3293 - Type 2 diabetes mellitus with mild nonproliferative diabetic retinopathy without macular edema, bilateral; Z79.4 - shelter (current) use of insulin Plan: he patient's glycemic control is good with an A1c of 6.8, but the patient self- discontinued Basaglar due to polyuria. The plan is to switch back to Lantus, as it is now covered by insurance. A prescription for Lantus 60 units subcutaneously once daily at bedtime will be sent for a 3-month supply. Prescriptions for NovoLog pen needles, Freestyle test strips, and lancets will also be sent. The patient is advised to reduce blood glucose monitoring to once daily (fasting) due to good control. Fasting labs, including A1c, lipids, and a metabolic panel, will be ordered for one week prior to the follow-up appointment. The patient has a history of mild non-proliferative diabetic retinopathy and is now reporting new blurry vision in the left eye. This warrants further evaluation. The patient is advised to schedule a follow-up appointment with the rda, Dr. Ba, as the patient is overdue for the annual exam. (2) Urinary frequency: Code(s): R35.0 - Frequency of micturition Plan: he patient reports persistent urinary frequency and new-onset terminal dysuria, which did not resolve after stopping Basaglar. A urinalysis ordered. The patient will be notified if the results are abnormal. The patient is also encouraged to inform the urologist, Dr. Lin, of these persistent symptoms. (3) Intertrigo: Code(s): L30.4 - Erythema intertrigo Plan: describes an itchy rash in the groin exacerbated by sweat, consistent with a fungal infection. Prescription sent for clotrimazole-betamethasone to be used as directed Orders: Orders UA CC w/rflx Micro + Cult 07/25/25 R35.0 - Frequency of micturition Medications: New lancets (FreeStyle Lancets) Check fasting glucose once a day 100 ea 8RF E11.3293 - Type 2 diabetes mellitus with mild nonproliferative diabetic retinopathy without macular edema, bilateral, E11.8 - Type 2 diabetes mellitus with unspecified complications, Z79.4 - shelter (current) use of insulin Lantus Solostar U-100 Insulin (insulin glargine) 60 units (0.6 mL) subcut QPM 15 mL 2RF 3 months NS E11.3293 - Type 2 diabetes mellitus with mild nonproliferative diabetic retinopathy without macular edema, bilateral, E11.8 - Type 2 diabetes mellitus with unspecified complications, 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.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 insulin Changed From pen needle, diabetic use as directed 4 times a day, before meals and at bedtime 30 days 200 ea 6RF E11.3293 - Type 2 diabetes mellitus with mild nonproliferative diabetic retinopathy without macular edema, bilateral, E11.8 - Type 2 diabetes mellitus with unspecified complications, Z79.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 insulin To pen needle, diabetic use as directed 4 times a day, before meals and at bedtime 200 ea 6RF 30 days E11.3293 - Type 2 diabetes mellitus with mild nonproliferative diabetic retinopathy without macular edema, bilateral, E11.8 - Type 2 diabetes mellitus with unspecified complications, Z79.4 - shelter (current) use of insulin Refilled clotrimazole-betamethasone 1-0.05 % 1 appl topical BID 45 grams 0RF 10 days blood sugar diagnostic (FreeStyle Lite Strips) check fasting blood sugar twice a day before meals 200 ea 8RF E11.319 - Type 2 diabetes mellitus with unspecified diabetic retinopathy without macular edema, E11.8 - Type 2 diabetes mellitus with unspecified complications, Z79.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 insu aminah Discontinued insulin syringe-needle U-100 Discontinued Reason: Stopped on Transfer Use to inject insulin once a day 100 ea 3RF E11.8 - Type 2 diabetes mellitus with unspecified complications, Z79.4 - shelter (current) use of insulin celecoxib Discontinued Reason: Patient Refused 200 mg PO DAILY PRN 30 caps 0RF pain
--- OUTSIDE RECORDS SUMMARY | 2025-07-25 12:14 | XMS_ITS | Clinical Summary ---
Author Organization [facility] Address [address] [place] [address] Phone Care Team Providers Care Oracle Bpm Consultant Name Role Phone Physician, No Pcp Primary Care Provider Unavaila ble Allergies No known active allergies Medications atorvastatin (LIPITOR) 10 mg tablet Take 1 tablet (10 mg total) by mouth 1 (one) time each day. 04/13/2025 Active celecoxib (CeleBREX) 200 mg capsule Take 1 capsule (200 mg total) by mouth 1 (one) time each day if needed for mild pain. 06/21/2025 Active FLUoxetine (PROzac) 20 mg capsule Take 2 capsules (40 mg total) by mouth 1 (one) time each day in the morning. 05/08/2025 Active Lantus Solostar U-100 Insulin 100 unit/mL (3 mL) injection pen Inject 60 Units under the skin 1 (one) time each day in the morning. 02/19/2025 Active lisinopriL (PRINIVIL,ZESTR IL) 20 mg tablet Take 1 tablet (20 mg total) by mouth 1 (one) time each day. 04/13/2025 Active metFORMIN (GLUCOPHAGE) 1,000 mg tablet Take 1 tablet (1,000 mg total) by mouth 2 (two) times a day. Active omeprazole (PriLOSEC) [address] capsule Take 1 capsule (20 mg total) by mouth 1 (one) time each day. 06/22/2025 Active pyridoxine (B-6) 50 mg tablet Take 1 tablet (50 mg total) by mouth 1 (one) time each day. 04/30/2025 Active rOPINIRole (REQUIP) 0.25 mg tablet Take 1 tablet (0.25 mg total) by mouth at bedtime. 04/17/2025 Active simethicone (MYLICON) 80 mg chewable tablet Chew 1 tablet (80 mg total) every 6 (six) hours if needed for flatulence. 06/20/2025 Active zolpidem (AMBIEN) 10 mg tablet Take 1 tablet (10 mg total) by mouth at bedtime as needed for sleep. 06/25/2025 Active Active Problems No known active problems Resolved Problems Problem Noted Date Diagnosed Date Resolved Date Small bowel obstruction ([facility] V24, [facility] V28) 07/06/2025 07/07/2025 Encounters Date Type Department Care Team Description 07/05/2025 8:48 PM EST - 07/07/2025 3:47 PM EST Hospital Encounter [facility] [address] [place] [id number] Dasha Kent MD Morrison, Daniel M, MD Kela, Kashyap Devendrabhai, MD Small bowel obstruction ([facility] V24, [facility] V28) (Primary Dx) Discharge Disposition: Home or Self Care from Last 3 Months Surgical History Surgery Date Site/Laterality Comments HERNIA REPAIR Medical History Medical History Date Comments Diabetes mellitus ([facility] V24, [facility] V28) Hypertension Hyperlipidemia GERD (gastroesophageal reflux disease) Depression Social History Tobacco Use Types Packs/Day Years Used Date Smoking Tobacco: Never Smokeless Tobacco: Never Tobacco Cessation:Counseling Given: Not Answered Alcohol Use Standard Drinks/Week Comments Not Currently 0 (1 standard drink = 0.6 oz pur e alcohol) Housing Instability Answer Date Recorde d Are you worried that in the next 2 months you may not have stable housing? No 07/06/2025 Food Access & Nutrition Answer Date Rec orded Do you have access to a vari ety of food including fruits and vegetables? No 07/06/2025 Access to Healthcare Answer Date Record ed Within the last 3 months, kyle w many times did you visit the emergency department for your medical care? 0 07/06/2025 Health Literacy Answer Date Recorded How often do you need to hav e someone help you when you read instructions, pamphlets, or other written material from your doctor or pharmacy? Never 07/06/2025 Caregiver: How often do you need to have someone help you when you read instructions, pamphlets, or other written material from your doctor or pharmacy? Not on file 07/06/2025 Financial Risk Answer Date Recorded How hard is it for you to pa y for the very basics like food, housing, medical care, and air conditioning / heating? Not very hard 07/06/2025 Transportation Answer Date Recorded Has the lack of transportati on kept you from meetings, work, or from getting things needed for daily living? No Has the lack of transportati on kept you from medical appointments or from getting medications? No 07/06/2025 Social Isolation Answer Date Recorded How often do you feel lonely or isolated from th ose around you? Often 07/06/2025 Food Risk Answer Date Recorded Within the past 12 months we worried whether our food would run out before we got money to buy more. Never true 07/06/2025 Within the past 12 months th e food we bought just didn't last and we didn't have money to get more. Never true 07/06/2025 Dependent Care Answer Date Recorded Do you need help finding or paying for care for your loved ones. For example, early childhood worker or elderly care for an older adult? No 07/06/2025 Education Answer Date Recorded Do you think completing more education or training, like finishing a GED, going to college, or learning a trade, would be helpful for you? No 07/06/2025 Employment and Income Answer Date Recor ded During the last four weeks, have you been actively looking for work? No 07/06/2025 Living Situation Answer Date Recorded What is your living situation? Unrecognized valu e 07/06/2025 Interpersonal Safety Answer Date Record ed Physical Abuse Unrecognized value 07/06/2025 Verbal Abuse Unrecognized value 07/06/2025 Sex and Gender Information Value Date Recorded Sex Assigned at Not on file Legal Sex Male 8:51 AM EST Gender Identity Not on file Sexual Orientation Not on file Obstetrics History Last Filed Vital Signs Vital Sign Reading Time Taken Comments Blood Pressure 152/89 07/07/2025 2:47 PM EST Pulse 73 07/07/2025 2:47 PM EST Temperature 36.1 C (97 F) 07/07/2025 2:47 PM EST Respiratory Rate 18 07/07/2025 2:47 PM EST Oxygen Saturation 97% 07/07/2025 2:47 PM EST Inhaled Oxygen Concentration - - Weight 90.7 kg (200 lb) 07/05/2025 7:36 PM EST Height 170.2 cm (5' 7 ) 07/05/2025 7:36 PM EST Body Mass Index 31.32 07/05/2025 7:36 PM EST Plan of Treatment Health Maintenance Due Date Last Done Comments Colorectal Cancer Screening: Colonoscopy 1960 Diabetes: Annual Foot Exam 1970 Diabetes: Annual Retina Eye Exam 1970 Depression Screening 08/23/2024 COVID-19 Vaccine ( season) 2025 07/14/2024, 08/18/2023, 07/28/2022, Additional history exists Cholesterol Screening (Lipid Panel) 07/05/2025 Diabetes: Annual Urine Albumin-Creatinine Ratio (uACR) 07/05/2025 Diabetes: Blood Sugar Control Test (HGBA1C) 07/05/2025 HIV Screening 07/05/2025 Hepatitis C Screening 07/05/2025 Medicare Annual Wellness Visit 07/05/2025 DTaP,Tdap,and Td Vaccines (2 - Td or Tdap) 06/05/2026 06/05/2016 Social Influencers of Health Screening 07/06/2026 07/06/2025 Diabetes: Annual GFR (Glomerular Filtration Rate) 07/07/2026 07/07/2025, 07/06/2025, 07/05/2025 Hypertension/CHF/CAD Annual BMP Blood Test 07/07/2026 07/07/2025, 07/06/2025, 07/05/2025 Zoster Vaccines Completed 08/18/2023, 05/19/2022 RSV Immunization Adult Patients Completed 06/17/2024 Influenza Vaccine Completed 04/25/2025, , 05/21/2023, Additional history exists Pneumococcal Vaccine: 50+ Years Completed 04/25/2025, 08/30/2017 HIB Vaccines Aged Out No longer eligi [...] to complete this topic RSV Immunization Patients Under 20 months Aged Out No longer eligible based on patient's age to complete this topic Varicella Vaccines Aged Out No longer eligible based on patient's age to complete this topic Procedures Procedure Name Priority Date/Time Associated Diagnosis Comments ECG ANNOTATED 07/10/2025 POCT GLUCOSE BLOOD Routine 07/07/2025 11 :34 AM EST POCT GLUCOSE BLOOD Routine 07/07/2025 8: 39 AM EST POCT GLUCOSE BLOOD Routine 07/07/2025 6: 42 AM EST RECHECK ABORH Routine 07/07/2025 6:39 AM EST CBC WITH AUTO DIFFERENTIAL Routine 07/07/2025 6:39 AM EST PHOSPHORUS Routine 07/07/2025 6:39 AM EST MAGNESIUM Routine 07/07/2025 6:39 AM EST CBC AND DIFFERENTIAL Routine 07/07/2025 6:39 AM EST BASIC METABOLIC PANEL Routine 07/07/2025 6:39 AM EST TYPE AND SCREEN Routine 07/07/2025 6:39 AM EST POCT GLUCOSE BLOOD Routine 07/06/2025 11 :35 PM EST XR SMALL BOWEL SERIES Routine 07/06/2025 6:36 PM EST POCT GLUCOSE BLOOD Routine 07/06/2025 6: 05 PM EST POCT GLUCOSE BLOOD Routine 07/06/2025 2: 38 PM EST XR ABDOMEN 1 VIEW Routine 07/06/2025 9:1 1 AM EST CBC WITH AUTO DIFFERENTIAL Routine 07/06/2025 4:34 AM EST CBC AND DIFFERENTIAL Routine 07/06/2025 4:34 AM EST PHOSPHORUS Routine 07/06/2025 4:32 AM EST MAGNESIUM Routine 07/06/2025 4:32 AM EST BASIC METABOLIC PANEL Routine 07/06/2025 4:32 AM EST LACTATE, WITH REFLEX STAT 07/06/2025 4:31 AM EST XR CHEST 1 VIEW STAT 07/06/2025 1:41 AM EST POCT GLUCOSE BLOOD Routine 07/06/2025 1: 30 AM EST KENYON URINE CULTURE TUBE Routine 07/05/2025 11:41 PM EST EXTRA TUBES Routine 07/05/2025 11:41 PM EST URINALYSIS WITH REFLEX MICROSCOPIC STAT 07/05/2025 11:41 PM EST URINALYSIS WITH REFLEX MICROSCOPIC STAT 07/05/2025 11:[address] ABDOMEN PELVIS W CONTRAST STAT 07/05/2025 9:45 PM EST TROPONIN I HIGH SENSITIVITY STAT 07/05/2025 8:13 PM EST CBC WITH AUTO DIFFERENTIAL STAT 07/05/2025 8:13 PM EST LIPASE STAT 07/05/2025 8:13 PM EST COMPREHENSIVE METABOLIC PANEL STAT 07/05/2025 8:13 PM EST CBC AND DIFFERENTIAL STAT 07/05/2025 8:13 PM EST ECG 12-LEAD STAT 07/05/2025 8:09 PM EST POCT GLUCOSE BLOOD Routine 07/05/2025 7: 39 PM EST from Last 3 Months Results * ECG-Annotated (07/10/2025) us Provider Onbase MD ECG ORDERABLES Final Result * (ABNORMAL) POCT Glucose, blood (07/07/2025 11:34 AM EST) Only the most recent of8 resultswithin the time period is included. Glucose POCT 189(H) 70 - 100 mg/dL 07/07/2025 11:[address] [facility] Blood Capillary blood specimen / Unknown 07/07/2025 11:34 AM EST 07/07/2025 11:36 AM EST Tree Carlson MD LAB POINT O F CARE TEST DOCKED DEVICE UNSOLICITED RESULTS Final Result [facility] [address] [place] [address], [place] [phone] * Recheck blood typing (07/07/2025 6:39 AM EST) ABO Group A 07/07/2025 8:[address] [facility] Rh Type Positive 07/07/2025 8:[address] [facility] Blood Venous blood specimen / Unknown Venipuncture / Unknown 07/07/2025 6:39 AM EST 07/07/2025 7:22 AM EST us Kirt JOHNSON LAB BLOOD BANK TEST ORDERABLES F inal Result [facility] [address] [place] [address], * (ABNORMAL) CBC auto differential (07/07/2025 6:39 AM EST) Only the most recent of3 resultswithin the time period is included. WBC 7.6 4.8 - 10.8 K/mcL LAB HEMETOLOGY METHOD 07/07/2025 8:39 AM [facility] RBC 4.10(L) 4.50 - 5.50 M/mcL LAB HEMETOLOGY METHOD 07/07/2025 8:39 AM [facility] Hemoglobin 12.6(L) 13.5 - 17.5 g/dL LAB HEMETOLOGY METHOD 07/07/2025 8:39 AM [facility] Hematocrit 38.3(L) 42.0 - 54.0 % LAB HEMETOLOGY METHOD 07/07/2025 8:39 AM [facility] MCV 93.4 79.0 - 98.0 FL LAB HEMETOLOGY METHOD 07/07/2025 8:39 AM [facility] MCH 30.7 27.0 - 32.0 pcg LAB HEMETOLOGY METHOD 07/07/2025 8:39 AM [facility] MCHC 32.9 32.0 - 37.0 g/dL LAB HEMETOLOGY METHOD 07/07/2025 8:39 AM [facility] RDW 13.0 11.0 - 15.0 % LAB HEMETOLOGY METHOD 07/07/2025 8:39 AM [facility] Platelets 223 130 - 400 K/mcL LAB HEMETOLOGY METHOD 07/07/2025 8:39 AM [facility] MPV 10.9 7.0 - 11.0 FL LAB HEMETOLOGY METHOD 07/07/2025 8:39 AM [facility] NRBC 0.0 <1.0 % LAB HEMETOLOGY METHOD 07/07/2025 8:39 AM [facility] NRBC Absolute 0.00 <0.10 K/mcL LAB HEMETOLOGY METHOD 07/07/2025 8:39 AM [facility] Neutrophils Relative 58.9 % LAB HEMETOLOGY METHOD 07/07/2025 8:39 AM [facility] Lymphocytes Relative 26.4 % LAB HEMETOLOGY METHOD 07/07/2025 8:39 AM [facility] Monocytes Relative 8.7 % LAB HEMETOLOGY METHOD 07/07/2025 8:39 AM [facility] Eosinophils Relative 5.4 % LAB HEMETOLOGY METHOD 07/07/2025 8:39 AM [facility] Basophils Relative 0.3 % LAB HEMETOLOGY METHOD 07/07/2025 8:39 AM [facility] Immature Granulocytes Relative 0.3 % LAB HEMETOLOGY METHOD 07/07/2025 8:39 AM [facility] Neutrophils Absolute 4.46 1.50 - 7.00 K/mcL LAB HEMETOLOGY METHOD 07/07/2025 8:39 AM [facility] Lymphocytes Absolute 2.00 1.00 - 5.00 K/mcL LAB HEMETOLOGY METHOD 07/07/2025 8:39 AM [facility] Monocytes Absolute 0.66 0.20 - 1.00 K/mcL LAB HEMETOLOGY METHOD 07/07/2025 8:39 AM [facility] Eosinophils Absolute 0.41 0.00 - 0.50 K/mcL LAB HEMETOLOGY METHOD 07/07/2025 8:39 AM [facility] Basophils Absolute 0.02 0.00 - 0.20 K/mcL LAB HEMETOLOGY METHOD 07/07/2025 8:[address] [facility] Immature Granulocytes Absolute 0.02 0.00 - 0.03 K/[facility] LAB HEMETOLOGY METHOD 07/07/2025 8:[address] [facility] Blood Venous blood specimen / Unknown Venipuncture / Unknown 07/07/2025 6:39 AM EST 07/07/2025 7:22 AM EST us Clare J[facility] LAB BLOOD ORDERABLES Final Res ult [facility] [address] [place] [address], [place] [phone] * Type and screen (07/07/2025 6:39 AM EST) ABO Group A 07/07/2025 8:[address] [facility] Rh Type Positive 07/07/2025 8:[address] [facility] Antibody Screen Negative 07/07/2025 8:[address] [facility] Blood Venous blood specimen / Unknown Venipuncture / Unknown 07/07/2025 6:39 AM EST 07/07/2025 7:22 AM EST us Kirt JOHNSON LAB BLOOD BANK TEST ORDERABLES F inal Result [facility] [address] [place] [address], [place] [phone] * Phosphorus (07/07/2025 6:39 AM EST) Only the most recent of2 resultswithin the time period is included. Phosphorus 2.8 2.5 - 4.5 mg/dL LAB CHEMISTRY METHOD 07/07/2025 8:06 AM [facility] Blood Venous blood specimen / Unknown Venipuncture / Unknown 07/07/2025 6:39 AM EST 07/07/2025 7:22 AM EST Clare [facility] LAB BLOOD ORDERABLES Final Res ult [facility] [address] [place] [address], [place] [phone] * Magnesium (07/07/2025 6:39 AM EST) Only the most recent of2 resultswithin the time period is included. Pathologist [facility] Magnesium 2.0 1.9 - 2.6 mg/dL LAB CHEMISTRY METHOD 07/07/2025 8:06 AM [facility] Blood Venous blood specimen / Unknown Venipuncture / Unknown 07/07/2025 6:39 AM EST 07/07/2025 7:22 AM EST Clare [facility]OHNSON LAB BLOOD ORDERABLES Final Res ult Performing Organization Address [facility]/ZIP Co de Phone Number [facility] [address] [place] [address], [place] [phone] * (ABNORMAL) Basic metabolic panel (07/07/2025 6:39 AM EST) Only the most recent of2 resultswithin the time period is included. Sodium 142 133 - 145 mmol/L LAB CHEMISTRY METHOD 07/07/2025 8:06 AM [facility] Potassium 4.7 3.5 - 5.5 mmol/L LAB CHEMISTRY METHOD 07/07/2025 8:06 AM [facility] Chloride 111(H) 96 - 110 mmol/L LAB CHEMISTRY METHOD 07/07/2025 8:06 AM [facility] CO2 25 21 - 32 mmol/L LAB CHEMISTRY METHOD 07/07/2025 8:06 AM [facility] Anion Gap 6 3 - 11 LAB CHEMISTRY METHOD 07/07/2025 8:06 AM [facility] Glucose 117(H) 70 - 100 mg/dL LAB CHEMISTRY METHOD 07/07/2025 8:06 AM [facility] BUN 18 5 - 25 mg/dL LAB CHEMISTRY METHOD 07/07/2025 8:06 AM [facility] Creatinine 0.97 0.70 - 1.30 mg/dL LAB CHEMISTRY METHOD 07/07/2025 8:06 AM [facility] eGFR 87 >=60 mL/min/1. 73m2 LAB CHEMISTRY METHOD 07/07/2025 8:06 AM [facility] Comment:Calculation based on the Chronic Kidney Disease Epidemiology Collaboration (CKD-EPI) equation refit without adjustment for race. BUN/Creatinine Ratio 18.6 LAB CHEMISTRY METHOD 07/07/2025 8:06 AM [facility] Calcium 8.5 8.5 - 10.5 mg/dL LAB CHEMISTRY METHOD 07/07/2025 8:06 AM [facility] Blood Venous blood specimen / Unknown Venipuncture / Unknown 07/07/2025 6:39 AM EST 07/07/2025 7:22 AM EST us Clare JOHNSON LAB BLOOD ORDERABLES Final Res ult [facility] [address] [place] [address], * XR Small Bowel Series (07/06/2025 6:36 PM EST) Anatomical Region Laterality Modality Head and Neck Radiographic Yeni ging 07/09/2025 8:16 AM EST Impressions 07/09/2025 8:20 AM EST Gastrografin challenge demonstrates no evidence of bowel obstruction. -------- FINAL REPORT -------- Dictated By: Jagjit Johnston Dictated Date: 07/09/2025 08:16 ET Assigned Physician: Jagjit Johnston Reviewed and Electronically Signed By: Jagjit Johnston Signed Date: 07/09/2025 08:20 ET Workstation ID: [id number] Transcribed By: Self Edit Transcribed Date: 07/09/2025 08:16 ET Narrative 07/09/2025 8:20 AM EST HISTORY: The patient is a 64-year-old male with suspected small bowel obstruction. FINDINGS: Quality Worker AP radiograph of the abdomen demonstrates a nasogastric tube with the lower portion in the abdominal left upper quadrant, presumably within the stomach. There are degenerative changes and dextroscoliosis of the lumbar spine. The bowel gas pattern is nonobstructive. No mass or radiopaque calculus is seen. Gastrografin was administered through the nasogastric tube and serial abdominal radiographs are obtained. The first radiograph demonstrates contrast within the stomach, duodenum, and proximal jejunum; these structures are not dilated. On the 4 hour radiograph, contrast is seen to have traversed the small bowel and is now within the colon from the cecum to the rectum. Technologist notes indicates that the patient had a bowel movement prior to obtaining this radiograph. The 8 hour radiograph demonstrates that more contrast has progressed into the transverse, descending, and rectosigmoid colon. Procedure Note Jagjit Johnston MD - 07/09/2025 HISTORY: The patient is a 64-year-old male with suspected small bowelobstruction. FINDINGS: Quality Worker AP radiograph of the abdomen demonstrates a nasogastrictube with the lower portion in the abdominal left upper quadrant,presumably within the stomach. There are degenerative changes anddextroscoliosis of the lumbar spine. The bowel gas pattern isnonobstructive. No mass or radiopaque calculus is seen. Gastrografin was administered through the nasogastric tube and serialabdominal radiographs are obtained. The first radiograph demonstratescontrast within the stomach, duodenum, and proximal jejunum; thesestructures are not dilated. On the 4 hour radiograph, contrast is seen tohave traversed the small bowel and is now within the colon from the cecumto the rectum. Technologist notes indicates that the patient had a bowelmovement prior to obtaining this radiograph. The 8 hour radiographdemonstrates that more contrast has progressed into the transverse,descending, and rectosigmoid colon. IMPRESSION: Gastrografin challenge demonstrates no evidence of bowel obstruction. -------- FINAL REPORT -------- Dictated By: Jagjit Johnston Dictated Date: 07/09/2025 08:16 ET Assigned Physician: Jagjit Johnston Reviewed and Electronically Signed By: Jagjit Johnston Signed Date: 07/09/2025 08:20 ET Workstation ID: [id number] Transcribed By: Self Edit Transcribed Date: 07/09/2025 08:16 ET Abi JOHNSON IMG FLUOROSCOPY PROCEDURES F inal Result * XR Abdomen 1 View (07/06/2025 9:11 AM EST) Anatomical Region Laterality Modality Body Radiographic Yeni ging 07/06/2025 12:0 4 PM EST Impressions 07/06/2025 12:06 PM EST A nasogastric tube is present, in good position. The bowel gas pattern is nonobstructive. Code 03267 -------- FINAL REPORT -------- Dictated By: Jagjit Johnston Dictated Date: 07/06/2025 12:04 ET Assigned Physician: Jagjit Johnston Reviewed and Electronically Signed By: Jagjit Johnston Signed Date: 07/06/2025 12:06 ET Workstation ID: [id number] Transcribed By: Self Edit Transcribed Date: 07/06/2025 12:04 ET Narrative 07/06/2025 12:06 PM EST HISTORY: The patient is a 64-year-old male who was undergone placement a nasogastric tube. FINDINGS: Supine radiograph of the abdomen demonstrates a nasogastric tube with the lower portion, including the sidehole, in the abdominal left upper quadrant, presumably within the stomach. There are degenerative changes and dextroscoliosis of lumbar spine. The bowel gas pattern is nonobstructive. Procedure Note Jagjit Johnston MD - 07/06/2025 HISTORY: The patient is a 64-year-old male who was undergone placement anasogastric tube. FINDINGS: Supine radiograph of the abdomen demonstrates a nasogastric tubewith the lower portion, including the sidehole, in the abdominal leftupper quadrant, presumably within the stomach. There are degenerativechanges and dextroscoliosis of lumbar spine. The bowel gas pattern isnonobstructive. IMPRESSION: A nasogastric tube is present, in good position. The bowel gas pattern isnonobstructive. Code 78534 -------- FINAL REPORT -------- Dictated By: Jagjit Johnston Dictated Date: 07/06/2025 12:04 ET Assigned Physician: Jagjit Johnston Reviewed and Electronically Signed By: Jagjit Johnston Signed Date: 07/06/2025 12:06 ET Workstation ID: [id number] Transcribed By: Self Edit Transcribed Date: 07/06/2025 12:04 ET Kirt JOHNSON IMG XR PROCEDURES Final Result * Lactate, with reflex (07/06/2025 4:31 AM EST) LACTIC ACID 1.1 0.4 - 2.0 mmol/L LAB CHEMISTRY METHOD 07/06/2025 5:[address] [facility] Blood Venous blood specimen / Unknown Venipuncture / Unknown 07/06/2025 4:31 AM EST 07/06/2025 4:40 AM EST Dasha Kent MD LAB BLOOD ORDERABLES Final Result [facility] [address] [place] [address], [place] [phone] * XR Chest 1 View (07/06/2025 1:41 AM EST) Anatomical Region Laterality Modality Body Radiographic Yeni ging 07/06/2025 10:4 3 AM EST Impressions 07/06/2025 10:43 AM EST No acute findings. -------- FINAL REPORT -------- Dictated By: Efe Casanova Dictated Date: 07/06/2025 10:43 ET Assigned Physician: Efe Casanova Reviewed and Electronically Signed By: Efe Casanova Signed Date: 07/06/2025 10:43 ET Workstation ID: [id number] Transcribed By: Self Edit Transcribed Date: 07/06/2025 10:43 ET Narrative 07/06/2025 10:43 AM EST PROCEDURE: AP chest radiograph. HISTORY: NG tube placement. COMPARISON: 07/04/2009. FINDINGS: Enteric tube courses subdiaphragmatically with the tip in the expected location of the gastric fundus. Mildly hypoventilatory inspiratory effort. Lungs, pleural spaces, pulmonary vasculature, and cardiomediastinal contours are normal. Procedure Note Efe Casanova MD - 07/06/2025 PROCEDURE: AP chest radiograph. HISTORY: NG tube placement. COMPARISON: 07/04/2009. FINDINGS: Enteric tube courses subdiaphragmatically with the tip in the expectedlocation of the gastric fundus. Mildly hypoventilatory inspiratoryeffort. Lungs, pleural spaces, pulmonary vasculature, andcardiomediastinal contours are normal. IMPRESSION: No acute findings. -------- FINAL REPORT -------- Dictated By: Efe Casanova Dictated Date: 07/06/2025 10:43 ET Assigned Physician: Efe Casanova Reviewed and Electronically Signed By: Efe Casanova Signed Date: 07/06/2025 10:43 ET Workstation ID: [id number] Transcribed By: Self Edit Transcribed Date: 07/06/2025 10:43 ET us Dasha Kent MD IMG XR PROCEDURES Final Res ult * (ABNORMAL) Urinalysis with reflex microscopic (07/05/2025 11:41 PM EST) Specific [place] Urine >1.045(H) 1.003 - 1.030 LAB URINALYSIS - AUTOMATED METHOD 07/05/2025 11:[address] [facility] pH, Urine 8.0 5.0 - 8.0 pH LAB URINALYSIS - AUTOMATED METHOD 07/05/2025 11:[address] [facility] Leukocytes, Urine Negative Negative LAB URINALYSIS - AUTOMATED METHOD 07/05/2025 11:51 PM [facility] Nitrite, Urine Negative Negative LAB URINALYSIS - AUTOMATED METHOD 07/05/2025 11:51 PM [facility] Protein, Urine Trace <=Trace mg/dL LAB URINALYSIS - AUTOMATED METHOD 07/05/2025 11:51 PM [facility] Glucose, Urine Negative Negative mg/dL LAB URINALYSIS - AUTOMATED METHOD 07/05/2025 11:51 PM [facility] Ketones, Urine Negative Negative mg/dL LAB URINALYSIS - AUTOMATED METHOD 07/05/2025 11:51 PM [facility] Urobilinogen , Urine 1.0 0.2 - 1.0 mg/dL LAB URINALYSIS - AUTOMATED METHOD 07/05/2025 11:51 PM [facility] Bilirubin, Urine Negative Negative LAB URINALYSIS - AUTOMATED METHOD 07/05/2025 11:51 PM [facility] Blood, Urine Negative Negative LAB URINALYSIS - AUTOMATED METHOD 07/05/2025 11:51 PM [facility] Urine Urine specimen obtained by clean catch procedure / Unknown Non-blood Collection / Unknown 07/05/2025 11:41 PM EST 07/05/2025 11:47 PM EST Dasha Kent MD LAB URINE ORDERABLES Final Result [facility] [address] [place] [address], * [place] urine culture tube (07/05/2025 11:41 PM EST) Extra Tube Hold for add-ons. 07/06/2025 1:07 AM [facility] Comment:Auto resulted. Urine Urine specimen obtained by clean catch procedure / Unknown Non-blood Collection / Unknown 07/05/2025 11:41 PM EST 07/05/2025 11:47 PM EST us Dasha Kent MD LAB URINE ORDERABLES Final Result [facility] [address] [place] [address], [place] [phone] * CT Abdomen Pelvis w Contrast (07/05/2025 9:45 PM EST) Anatomical Region Laterality Modality Body Computed Tomogra phy 07/05/2025 10:2 8 PM EST Addenda Addendum by Gerard Butcher MD on 07/05/2025 10:31 PM EST ADDENDUM: This report was discussed with DASHA KENT MD on Jul 05, 2025 22:31:00 EST. This document has been electronically signed by: Silvina Houser on 07/05/2025 22:31:21 Impressions 07/05/2025 10:28 PM EST Findings consistent with small-bowel obstruction with possible transition point in the right mid to lower abdomen. Nonemergent/incidental findings above. This document has been electronically signed by: Gerard Butcher MD on 07/05/2025 22:28:48 Narrative 07/05/2025 10:28 PM EST INDICATION: Abdominal pain, acute, no prior medical history CT Abdomen and Pelvis W Contrast COMPARISON: None provided FINDINGS: Right lower lung discoid atelectasis. Mild elevation of the right hemidiaphragm. Normal liver. Normal spleen. Normal kidneys. Normal adrenal glands. Normal pancreas. No visible cholelithiasis. No biliary dilation. Air-fluid levels and solid stool in dilated small bowel loops measuring up to 3.6 cm in diameter. There is a possible transition point in the right mid to lower abdomen. No mucosal thickening or pneumatosis. Normal appendix. Unremarkable bladder. Mildly enlarged prostate. No ascites. No pneumoperitoneum. No lymphadenopathy. No acute fracture. Lumbar dextroscoliosis. Degenerative changes in the spine. No abdominal aortic aneurysm. Procedure Note Gerard Butcher MD - 07/05/2025 INDICATION: Abdominal pain, acute, no prior medical history CT Abdomen and Pelvis W Contrast COMPARISON: None provided FINDINGS: Right lower lung discoid atelectasis. Mild elevation of the right hemidiaphragm. Normal liver. Normal spleen. Normal kidneys. Normal adrenal glands. Normal pancreas. No visible cholelithiasis. No biliary dilation. Air-fluid levels and solid stool in dilated small bowel loops measuringup to 3.6 cm in diameter. There is a possible transition point in the right mid to lower abdomen. No mucosal thickening or pneumatosis. Normal appendix. Unremarkable bladder. Mildly enlarged prostate. No ascites. No pneumoperitoneum. No lymphadenopathy. No acute fracture. Lumbar dextroscoliosis. Degenerative changes in the spine. No abdominal aortic aneurysm. IMPRESSION: Findings consistent with small-bowel obstruction with possibletransition point in the right mid to lower abdomen. Nonemergent/incidental findings above. This document has been electronically signed by: Gerrad Butcher MD on 07/05/2025 22:28:48 Dasha Kent MD IMG CT PROCEDURES Edited Re sult - Final * Troponin I high sensitivity (07/05/2025 8:13 PM EST) High Sensitivity Troponin I 3 <=79 ng/L LAB CHEMISTRY METHOD 07/05/2025 8:[address] [facility] Blood Venous blood specimen / Unknown Venipuncture / Unknown 07/05/2025 8:13 PM EST 07/05/2025 8:[address] [facility] - 07/05/2025 8:59 PM EST High levels of biotin in samples may falsely decrease hsTroponin values. Use caution when interpreting hsTroponin results in patients taking biotin who exhibit renal impairment (eGFR <60) or in patients taking more than 20 mg/day of biotin. Dasha Kent MD LAB BLOOD ORDERABLES Final Result [facility] [address] [place] [address], * Lipase (07/05/2025 8:13 PM EST) Lipase 27 13 - 75 unit/L LAB CHEMISTRY METHOD 07/05/2025 9:00 PM [facility] Blood Venous blood specimen / Unknown Venipuncture / Unknown 07/05/2025 8:13 PM EST 07/05/2025 8:27 PM EST Dasha Kent MD LAB BLOOD ORDERABLES Final Result [facility] [address] [place] [address], [place] [phone] * (ABNORMAL) Comprehensive metabolic panel (07/05/2025 8:13 PM EST) [facility] Sodium 137 133 - 145 mmol/L LAB CHEMISTRY METHOD 07/05/2025 9:00 PM [facility] Potassium 4.4 3.5 - 5.5 mmol/L LAB CHEMISTRY METHOD 07/05/2025 9:00 PM [facility] Chloride 103 96 - 110 mmol/L LAB CHEMISTRY METHOD 07/05/2025 9:00 PM [facility] CO2 27 21 - 32 mmol/L LAB CHEMISTRY METHOD 07/05/2025 9:00 PM [facility] Anion Gap 7 3 - 11 LAB CHEMISTRY METHOD 07/05/2025 9:00 PM [facility] Glucose 122(H) 70 - 100 mg/dL LAB CHEMISTRY METHOD 07/05/2025 9:00 PM [facility] BUN 17 5 - 25 mg/dL LAB CHEMISTRY METHOD 07/05/2025 9:00 PM [facility] Creatinine 1.20 0.70 - 1.30 mg/dL LAB CHEMISTRY METHOD 07/05/2025 9:00 PM [facility] eGFR 68 >=60 mL/min/1. 73m2 LAB CHEMISTRY METHOD 07/05/2025 9:00 PM [facility] Comment:Calculation based on the Chronic Kidney Disease Epidemiology Collaboration (CKD-EPI) equation refit without adjustment for race. BUN/Creatinine Ratio 14.2 LAB CHEMISTRY METHOD 07/05/2025 9:00 PM [facility] Calcium 10.4 8.5 - 10.5 mg/dL LAB CHEMISTRY METHOD 07/05/2025 9:00 PM [facility] AST (SGOT) 19 10 - 42 unit/L LAB CHEMISTRY METHOD 07/05/2025 9:00 PM [facility] ALT (SGPT) 36 10 - 60 unit/L LAB CHEMISTRY METHOD 07/05/2025 9:00 PM [facility] Alkaline Phosphatase 75 42 - 121 unit/L LAB CHEMISTRY METHOD 07/05/2025 9:00 PM [facility] Total Protein 7.7 6.0 - 8.0 g/dL LAB CHEMISTRY METHOD 07/05/2025 9:00 PM [facility] Albumin 4.2 3.2 - 5.0 g/dL LAB CHEMISTRY METHOD 07/05/2025 9:00 PM [facility] Total Bilirubin 0.5 0.0 - 1.4 mg/dL LAB CHEMISTRY METHOD 07/05/2025 9:00 PM [facility] Blood Venous blood specimen / Unknown Venipuncture / Unknown 07/05/2025 8:13 PM EST 07/05/2025 8:27 PM EST us Dasha Kent MD LAB BLOOD ORDERABLES Final Result [facility] [address] [place] [address], * ECG 12 lead (07/05/2025 8:09 PM EST) Ventricular Rate ECG 80 BPM GEMUSE Atrial Rate 80 BPM GEMUSE P-R Interval 140 ms GEMUSE QRS Duration 84 ms GEMUSE Q-T Interval 382 ms GEMUSE QTc 440 ms GEMUSE P Wave [place] 51 degrees GEMUSE R [place] 65 degrees GEMUSE T [place] 56 degrees GEMUSE ECG Interpretation Normal sinus rhythm Normal ECG When compared with ECG of 29-DEC-2009 04:04, No significant change was found Confirmed by THALIA SEARS ([id number]) on 07/08/2025 7:59:18 AM GEMUSE 07/05/2025 8:09 PM EST 07/08/2025 7:59 AM EST us Dasha Kent MD ECG ORDERABLES Final Resul t GEMUSE from Last 3 Months Insurance [employer] MED[employer] Member Subscriber Plan / Payer (Ef fective 2024-Present) Name:GERMÁN CARLOS Relation to Subscriber:Self Name:Germán Carlos Payer ID:[id number] Group ID:[id number] Type:Not on file Address: [place] [address] [address] [id number] Advance Directives * Full Code - Default (Latest Code Status on File) Date Activated Date Inactivated Comments 07/06/2025 4:53 AM 07/07/2025 5:57 PM This is or venkata is used when code status has not been discussed with the patient, or code status is otherwise unknown/unconfirmed To update the patient's code status, place a code status order. Do not modify or discontinue any currently active code status orders. Healthcare Agents on File Name Relationship Healthcare Agent Ara Bedoya Partner Health Care Agent Care Teams Oracle Bpm Consultant Relationship Specialty Start Date End Date Physician, No Pcp PCP - General 07/05/25
--- OUTSIDE RECORDS SUMMARY | 2025-07-25 12:14 | XMS_ITS | Patient Health Record ---
[facility] Address [address] [place] [id number] Care Team Providers Care Supervisor Production Department Name Role Phone Cathy FELIX, Rocio Maldonado Primary Care Provider Un available Bro Herring Unavailable [phone] Reason For Referral No Information Plan Of Treatment No Information Insurance Providers Payer Name Payer Address Payer Phone Subscriber Number Group Number Insured Name Patient Relationship to Insured Coverage Start Date Coverage End Date [facility] [employer] Claims [address] [place] [id number] Germán Carlos Self - patient is the insured
== END 2025-07-25 11:28 | disposition home or self-care (01) ==
LOC: HO.HMCC 10:39
PROVIDERS: PCP Internal Medicine; Visit Provider Internal Medicine
DX: E11.3293 Type 2 diabetes mellitus with mild nonproliferative diabetic retinopathy without macular edema, bilateral (principal); Z79.4 Long term (current) use of insulin; R35.0 Frequency of micturition; L30.4 Erythema intertrigo

== ENCOUNTER 2025-07-25 10:39 | Outpatient (REF) | payer OTHER, SELFPAY ==
[2025-07-25 13:36] LABS: Appearance Urine Clear; Glucose Urine UA Negative (Negative); PH 5.5 (5.0-9.0); Specific Gravity - Urine 1.025 (1.005-1.025); UMIC TRIGGER UACC YES
== END 2025-07-25 10:40 | disposition home or self-care (01) ==
LOC: HO.HMGCLDS 10:39
PROVIDERS: PCP Internal Medicine; Visit Provider Internal Medicine
DX: R35.0 Frequency of micturition (principal); E11.3293 Type 2 diabetes mellitus with mild nonproliferative diabetic retinopathy without macular edema, bilateral; L30.4 Erythema intertrigo; Z79.4 Long term (current) use of insulin
CPT/HCPCS: 81001; 96127; 99212

== ENCOUNTER 2025-08-02 11:54 | Outpatient (REF) | payer OTHER, SELFPAY ==
[2025-08-02 14:37] LABS: Resp Syncy Virus RNA Qual PCR NEGATIVE (Negative); SARS COV2 PCR INHOUSE NEGATIVE (Negative)
== END 2025-08-02 11:55 | disposition home or self-care (01) ==
LOC: HO.LAB 11:54
PROVIDERS: Nurse Practitioner Family; PCP Internal Medicine
DX: J06.9 Acute upper respiratory infection, unspecified (principal); Z79.899 Other long term (current) drug therapy
CPT/HCPCS: 87637; 99212

== ENCOUNTER 2025-08-02 11:54 | Outpatient (AMB) | payer OTHER, SELFPAY ==
[2025-08-02 12:04] VITALS: BP 144/100; PULSE 90; TEMP 37; O2SAT 96; BMI 32.3
--- NOTE | 2025-08-02 12:04 | MHC.OFFWIV ---
Intake Vital Signs 08/02/25 12:04 Height 5 ft 7 in Weight 206 lb BMI 32.3 BP 144/100 H Blood Pressure Location Lt brachial Position Sitting Pulse 90 Pulse Source Pulse Oximeter Temp 98.6 F Temp Source Oral Pulse Oximetry (%) 96 Oxygen Delivery Method Room Air Intake Visit Reasons: EP-cough, body ache, chest & sinus congestion Intake Note: pt presents with worsening chest congestion with productive cough, sinus congestion and body aches over the last 5 days Patient Tobacco Use Status: Former Tobacco user Allergies peanut Allergy (Intermediate, Verified 08/02/25 12:08) Shortness of Breath, throat swelling HPI HPI Comments History of Present Illness Details 64-year-old male presents with 5 days of upper respiratory symptoms. Reports worsening chest congestion and productive cough, along with sinus congestion and body aches. Denies fever, chills, nausea, vomiting, or known sick contacts. He has not taken any OTC medications for symptom relief. FOR[facility]LY [facility], [facility] Medical History (Updated 08/02/25 @ 12:13 by Dana Moran NP) Acute respiratory disease Restless leg syndrome Neuropathy Polyarthralgia Positional lightheadedness Normocytic normochromic anemia Postprandial epigastric pain History of GI bleed Acquired deformity of toenail Lumbosacral radiculopathy due to degenerative joint disease of spine Left nephrolithiasis Primary osteoarthritis of right knee Primary osteoarthritis, left shoulder Trigger finger of right hand BPH (benign prostatic hyperplasia) Chronic insomnia Depression Osteoarthritis involving multiple joints on both sides of body HTN (hypertension) Dyslipidemia Diabetes mellitus with complication, with long-term current use of insulin Diabetes mellitus type 2 with retinopathy Surgical History Hx of transurethral resection of prostate History of right inguinal hernia repair (~11/09/23) Hx of colonoscopy History of esophagogastroduodenoscopy (EGD) History of left inguinal hernia repair (03/24/22) Hx of lithotripsy History of testicular surgery Umbilical hernia Family History Father CVD (cardiovascular disease) Mother Unknown family medical history Social History Housing: Apartment Alcohol intake: current Alcohol intake frequency: a few times a week Alcohol type: beer Comment: COUNTS CORRECT Patient Tobacco Use Status: Former Tobacco user Tobacco use type: Cigarette e-Cigarette/Vaping Use: Never Used Second Hand Smoke Exposure: No service: No Current occupational status: employed 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 Cognitive needs: No Hearing needs: No Vision needs: Yes Review of Systems Const All systems reviewed & are unremarkable except as noted in HPI and below Physical Exam Vital Signs: Last Vital Signs Temp 98.6 F 08/02/25 12:04 Pulse 90 08/02/25 12:04 BP 144/100 H 08/02/25 12:04 Pulse Ox 96 08/02/25 12:04 Oxygen Delivery Method Room Air 08/02/25 12:04 BMI result Body Mass Index 32.3 Const General: no acute distress Nutritional Appearance: obese Orientation/consciousness: patient oriented x3 HEENT Head: Yes normocephalic Ears: external ears normal and TM abnormal with fluid behind the TM bilateral General nose exam: Normal external nose present and Nasal discharge present Face and sinus: Yes sinuses nontender Mouth: moist mucous membranes Throat: Yes uvula midline Resp Effort & Inspection: normal respiratory effort and able to speak in complete sentences Auscultation: clear to auscultation bilaterally, no crackles, no rales, no rhonchi and no wheezes Cardio Heart sounds: S1 normal heart sound present and S2 normal heart sound present Neuro General: patient oriented x3, gait normal and moves all extremities Psych Speech and movement: Normal speech and movement present Assessment & Plan Assessment & Plan (1) Acute respiratory disease: Code(s): J06.9 - Acute upper respiratory infection, unspecified Plan: Acute Upper Respiratory Infection Chest congestion / productive cough ? likely viral etiology at this stage Sinus congestion / myalgias consistent with viral URI Recommend supportive care: Increase fluids, Rest, Warm humidifier, saline nasal spray OTC options: Guaifenesin for congestion, Acetaminophen/Ibuprofen for body aches. No indication for antibiotics at this time given symptoms and lack of fever or concerning exam findings. Ordered SARs. Orders: Orders SARS-CoV2/FLU/RSV Today J06.9 - Acute upper respiratory infection, unspecified Medications: New dextromethorphan-guaifenesin 5-100 mg/5 mL (Robitussin Cough-Chest Congestion DM) 10 mL PO Q4-8H PRN 1,000 mL 0RF cough J06.9 - Acute upper respiratory infection, unspecified Refilled acetaminophen ER (Tylenol Arthritis Pain) 650 mg PO Q8H PRN 60 tabs 0RF pain J06.9 - Acute upper respiratory infection, unspecified Discontinued ytiujswnsm-rzekdurenwewd-zwgy 50-300-40 mg (Fioricet) Discontinued Reason: Patient Completed Course 1 cap PO Q4-6H PRN 12 caps 0RF headache Coding Level of Care Code Est Pt Level 4 (64150) Diagnoses Acute respiratory disease J06.9 Time Spent (min) 20
== END 2025-08-02 12:36 | disposition home or self-care (01) ==
PROVIDERS: PCP Internal Medicine; Visit Provider Nurse Practitioner Family
DX: J06.9 Acute upper respiratory infection, unspecified (principal)

== ENCOUNTER 2025-08-22 09:27 | Outpatient (AMB) | payer OTHER, SELFPAY ==
--- OUTSIDE RECORDS SUMMARY | 2024-03-28 05:00 | XMS_ITS ---
Author Organization [facility] Address [address] [place] [id number] Care Team Providers Care Exec. Creative Director Name Role Phone Cathy FELIX, Rocio Maldonado Primary Care Provider Un available Bro Herring Unavailable [phone] Encounters Encounter Location Date Provider Diagnosis [facility] [address] [place] [address] 03/28/2024 Bro Herring Plan Of Treatment No Information Progress Notes * Yvette CARLOSOB:1960 (64 yo M)Acc No.[id number]:03/28/2024 Progress Notes Patient: Germán JIANG Provider: Ro Herring DPM :1960 A ge:63 Y S ex:Male Date:03/28/2024 Address:[address] [place], [place] [id number] Pcp:Marvin Jurado Subjective: * Chief Complaints: * * Medical History: Objective: * Vitals: Assessment: Plan: * Treatment: * Images: * The named appointment provid er may or may not be the originator of this progress note, and it is not deemed complete until electronically signed by the appointment provider. Sign off status: Pending * Provider: Ro Herring DPM Date: 0 03/28/2024 Generated for Barbara champagne/Rajeev/Vipin on: 09:48 AM EST
--- NOTE | 2025-08-22 09:33 | MHC.OFFVIS ---
Vital Signs 08/22/25 09:39 Height 5 ft 7 in Weight 202 lb 13.204 oz BMI 31.8 BP 133/82 Blood Pressure Location Lt brachial Position Sitting Pulse 80 Intake Visit Reasons: omeprazole Intake Note: Germán presents in the office as a follow up for omeprazole. CC: States that he is still having bloating after he eats and reflux. Hotel [employer] Dining Room Cashier Required: No Allergies peanut Allergy (Intermediate, Verified 08/22/25 09:39) Shortness of Breath, throat swelling HPI Comments Details: This is a 61y.o M with PMH of T2DM, HTN, ED who presented to the ER for melena last month and is here today for follow up for GI sx as below. Pt reports that almost 3-4 weeks ago, he developed severe epigatric pain with burning, associated with nausea and loss of appetite. He also started noticing black soft stools 2-3 times a day. Eating made sx worse. Also with some correlation to movement. This was in the context of taking motrin/meloxicam 3-4 times a day for arthritis. When he was seen in the ER, he was advised to minimize NSAIDs and given Omeprazole. CBC with mild anemia. Interestingly FOBT was negative. His melena resolved in 3-4 days after starting the Omeprazole and discontinuing NSAIDs. However he continues to have epigastric pain. No diarrhea or bunny blood in stool. No unintentional weight loss. Non smoker, Occ etOH. No fam hx of CRC. Last colonoscopy 2018: (Dr Villagomez) hyperplastic polyp EGD/colo 01/14/23: 1. Normal esophagus 2. Normal stomach (biopsy) 3. Normal duodenum (biopsy) 4. Normal colon mucosa 5. Total of 2 polyps removed from transverse colon. 6. External hemorrhoids Path: A.? Duodenum, biopsy:? Duodenal mucosa with preserved villi and no specific change.? B.? Stomach, random, biopsy:? Gastric antral and body mucosa with mild chronic inactive gastritis and focal intestinal metaplasia; negative for H pylori and dysplasia. C.? Colon, transverse, polyps:? Tubulovillous adenomas with focal serrated features; multiple pieces involved; negative for high-grade dysplasia and carcinoma.? 01/25/23: Reports no acute gastrointestinal complaints. His epigastric pain and nausea and have resolved. EGD and colonoscopy path reviewed with the patient. 11/08/23: For a few weeks has been experiencing epigastric pain which is sharp and associated with frequent burping and soft bowel movements. Noted the color of the stools was like charcoal initially and then improved after 2-3 days. Now brown. Loss of appetite. No nausea or vomiting. Was seen in ER last month for R inguinal hernia sx at which time H/H noted to be lower than baseline. Cont to use NSAIDS (meloxicam) off and on for arthritis pain. USe is limited to 2-3 tiems a week. 08/24/24: Grade A esophagitis Normal stomach (biopsy) Normal duodenum (biopsy) Path: A. Duodenum, biopsy: Duodenal mucosa with preserved villi and no specific change. B. Stomach, random, biopsy: Gastric antral/body mucosa with minimal chronic inactive gastritis; negative for H. pylori, intestinal metaplasia and dysplasia. 10/20/24: Here for follow up. Main complaint today is excessive bloating, burping and flatulence. Reports that the odor of flatulence has changed over the last few months, and he is worried about underlying infection. Otherwise, no changes in appetite, no diarrhea, no fevers no chills. Pt in fact is more constipated, has 2-3 BMs per week. No recent travel outside [facility]. No recent changes in meds. 08/22/25: Presenting for follow-up and management of persistent constipation and bloating. He reports ongoing symptoms of bloating and flatulence, which occur after eating. Regarding his bowel habits, the patient reports having approximately three bowel movements per week and needing to strain significantly. He was previously advised to take MiraLax daily but has not been using it consistently, and he has been using simethicone for bloating. The patient's past medical history is significant for TVA polyps found in 2022 and diabetes mellitus. --- Pt was informed and consented to the use of ambient scribe for this encounter. --- [facility] Medical History Acute respiratory disease Restless leg syndrome Neuropathy Polyarthralgia Positional lightheadedness Normocytic normochromic anemia Postprandial epigastric pain History of GI bleed Acquired deformity of toenail Lumbosacral radiculopathy due to degenerative joint disease of spine Left nephrolithiasis Primary osteoarthritis of right knee Primary osteoarthritis, left shoulder Trigger finger of right hand BPH (benign prostatic hyperplasia) Chronic insomnia Depression Osteoarthritis involving multiple joints on both sides of body HTN (hypertension) Dyslipidemia Diabetes mellitus with complication, with long-term current use of insulin Diabetes mellitus type 2 with retinopathy Surgical History Hx of transurethral resection of prostate History of right inguinal hernia repair (~11/09/23) Hx of colonoscopy History of esophagogastroduodenoscopy (EGD) History of left inguinal hernia repair (03/24/22) Hx of lithotripsy History of testicular surgery Umbilical hernia Family History Father CVD (cardiovascular disease) Mother Unknown family medical history Social History Housing: Apartment Alcohol intake: current Alcohol intake frequency: a few times a week Alcohol type: beer Comment: COUNTS CORRECT Patient Tobacco Use Status: Former Tobacco user Tobacco use type: Cigarette e-Cigarette/Vaping Use: Never Used Second Hand Smoke Exposure: No service: No Current occupational status: employed 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 - Gastrointestinal: Reports postprandial bloating, increased flatulence, and constipation with approximately three bowel movements per week that require straining. - Allergies: Denies allergies to antibiotics. Physical Exam Exam Exam: Physical Exam Vital Signs: Last Vital Signs Pulse 80 08/22/25 09:39 BP 133/82 08/22/25 09:39 BMI result Body Mass Index 31.8 Assessment & Plan Assessment & Plan (1) Chronic idiopathic constipation: Code(s): K59.04 - Chronic idiopathic constipation (2) Excessive gas: Code(s): R14.3 - Flatulence Category: Medical (3) Bloating symptom: Code(s): R14.0 - Abdominal distension (gaseous) Category: Medical (4) Personal history of colonic polyps: Code(s): Z86.010 - Personal history of colon polyps Category: Medical Plan Assessment and Plan 1. Chronic Constipation 2. Bloating Ddx include CIC with bloating, IMO, SIBO. Breath testing for SIBO reviewed but pt declines testing due to OOP cost. He is agreeable to proceeding with empirical treatment instead, Plan: - Cipro 500 twice daily for 10 days - OK to take an rctd-jzt-pkwidre probiotic, while taking this. - Daily MiraLax to manage constipation. - Cont fiber supplement. 2. History of Colonic Polyps - The patient had x2 TVA polyps found on a 2022 colonoscopy. Plan: - Schedule colo summer 2025. Office will contact the patient to arrange scheduling Follow up 6 months Orders: Referrals GI Procedure Notification Z86.010 - Personal history of colon polyps Medications: New polyethylene glycol 3350 (Miralax) Skip for diarrhea 17 grams PO DAILY 238 grams 0RF 90 days ciprofloxacin HCl (Cipro) 500 mg PO BID 20 tabs 0RF 10 days Coding Level of Care Code Est Pt Level 4 (37804) Diagnoses Chronic idiopathic constipation K59.04 Excessive gas R14.3 Bloating symptom R14.0 Personal history of colonic polyps Z86.010
[2025-08-22 09:39] VITALS: BP 133/82; PULSE 80; BMI 31.8
--- OUTSIDE RECORDS SUMMARY | 2025-08-22 09:49 | XMS_ITS | Patient Health Record ---
[facility] Organization [facility] Address [address] [place] [id number] Care Team Providers Care Bag Washer Name Role Phone Cathy FELIX, Rocio Maldonado Primary Care Provider Un available Bro Herring Unavailable [phone] Reason For Referral No Information Plan Of Treatment No Information Insurance Providers Payer Name Payer Address Payer Phone Subscriber Number Group Number Insured Name Patient Relationship to Insured Coverage Start Date Coverage End Date [facility] [employer] Claims [address] [place] [id number] Germán Carlos Self - patient is the insured
--- OUTSIDE RECORDS SUMMARY | 2025-08-22 09:49 | XMS_ITS | Clinical Summary ---
Author Organization [facility] Address [address] [place] [address] Phone Care Team Providers Care Retail Brand Ambassador Name Role Phone Physician, No Pcp Primary [...] Diagnosed Date Resolved Date Small bowel obstruction 07/06/202506/23 Encounters Date Type Department Care Team Description 07/05/2025 8:48 PM EST - 07/07/2025 3:47 PM EST Hospital Encounter [facility] [address] [place] [id number] Dasha Kent MD Morrison, Daniel M, MD Kela, Kashyap Devendrabhai, MD Small bowel obstruction ([facility] V24, [facility] V28) (Primary Dx) Discharge Disposition: Home or Self Care from Last 3 Months Surgical History Surgery Date Site/Laterality Comments HERNIA REPAIR Medical History Medical History Date Comments Diabetes mellitus (CMS/[facility] V24, CMS/[facility] V28) Hypertension Hyperlipidemia GERD (gastroesophageal reflux disease) [...] care for your loved ones. For example, children's nursery assistant or elderly care for an older adult? [...] on file Sexual Orientation Not on file Last Filed Vital Signs Vital Sign Reading [...] Done Comments Colorectal Cancer Screening: Colonoscopy 1960 Drug Screen 1960 Non-Opioid Controlled Substance Agreement 1960 Diabetes: Annual Foot Exam 1970 Diabetes: [...] - 100 mg/dL 07/07/2025 11:34 AM EST [facility] Blood Capillary blood specimen / Unknown 07/07/2025 11:34 AM EST 07/07/2025 11:36 AM EST Tree Carlson MD LAB POINT O F CARE TEST DOCKED DEVICE UNSOLICITED RESULTS Final Result [facility] [address] [place] [address], [place] [phone] * Recheck blood typing (07/07/2025 6:39 AM EST) ABO Group A 07/07/2025 8:56 AM EST [facility] Rh Type Positive 07/07/2025 8:56 AM EST [facility] Blood Venous blood specimen / Unknown Venipuncture / Unknown 07/07/2025 6:39 AM EST 07/07/2025 7:22 AM EST us Kirt JOHNSON LAB BLOOD BANK TEST ORDERABLES F inal Result [facility] [address] [place] [address], * (ABNORMAL) CBC auto differential (07/07/2025 6:39 AM EST) Only the most recent of3 resultswithin the time period is included. WBC 7.6 4.8 - 10.8 K/mcL LAB HEMETOLOGY METHOD 07/07/2025 8:39 AM [facility] RBC 4.10(L) 4.50 - 5.50 M/mcL LAB HEMETOLOGY METHOD 07/07/2025 8:39 AM [facility] Hemoglobin 12.6(L) 13.5 - 17.5 g/dL LAB HEMETOLOGY METHOD 07/07/2025 8:39 AM [facility] Hematocrit 38.3(L) 42.0 - 54.0 % LAB HEMETOLOGY METHOD 07/07/2025 8:39 AM [facility] MCV 93.4 79.0 - 98.0 FL LAB HEMETOLOGY METHOD 07/07/2025 8:39 AM [facility] MCH 30.7 27.0 - 32.0 pcg LAB HEMETOLOGY METHOD 07/07/2025 8:39 AM [facility] MCHC 32.9 32.0 - 37.0 g/dL LAB HEMETOLOGY METHOD 07/07/2025 8:39 AM [facility] RDW 13.0 11.0 - 15.0 % LAB HEMETOLOGY METHOD 07/07/2025 8:39 AM [facility] Platelets 223 130 - 400 K/mcL LAB HEMETOLOGY METHOD 07/07/2025 8:39 AM [facility] MPV 10.9 7.0 - 11.0 FL LAB HEMETOLOGY METHOD 07/07/2025 8:39 AM [facility] NRBC 0.0 <1.0 % LAB HEMETOLOGY METHOD 07/07/2025 8:39 AM [facility] NRBC Absolute 0.00 <0.10 K/mcL LAB HEMETOLOGY METHOD 07/07/2025 8:39 AM [facility] Neutrophils Relative 58.9 % LAB HEMETOLOGY METHOD 07/07/2025 8:39 AM [facility] Lymphocytes Relative 26.4 % LAB HEMETOLOGY METHOD 07/07/2025 8:39 AM [facility] Monocytes Relative 8.7 % LAB HEMETOLOGY METHOD 07/07/2025 8:39 AM [facility] Eosinophils Relative 5.4 % LAB HEMETOLOGY METHOD 07/07/2025 8:39 AM [facility] Basophils Relative 0.3 % LAB HEMETOLOGY METHOD 07/07/2025 8:39 AM [facility] Immature Granulocytes Relative 0.3 % LAB HEMETOLOGY METHOD 07/07/2025 8:39 AM [facility] Neutrophils Absolute 4.46 1.50 - 7.00 K/mcL LAB HEMETOLOGY METHOD 07/07/2025 8:39 AM [facility] Lymphocytes Absolute 2.00 1.00 - 5.00 K/mcL LAB HEMETOLOGY METHOD 07/07/2025 8:39 AM [facility] Monocytes Absolute 0.66 0.20 - 1.00 K/mcL LAB HEMETOLOGY METHOD 07/07/2025 8:39 AM [facility] Eosinophils Absolute 0.41 0.00 - 0.50 K/mcL LAB HEMETOLOGY METHOD 07/07/2025 8:39 AM [facility] Basophils Absolute 0.02 0.00 - 0.20 K/mcL LAB HEMETOLOGY METHOD 07/07/2025 8:39 AM EST [facility] Immature Granulocytes Absolute 0.02 0.00 - 0.03 K/[facility] LAB HEMETOLOGY METHOD 07/07/2025 8:39 AM EST [facility] Blood Venous blood specimen / Unknown Venipuncture / Unknown 07/07/2025 6:39 AM EST 07/07/2025 7:22 AM EST us Clare JOHNSON LAB BLOOD ORDERABLES Final Res ult [facility] [address] [place] [address], [place] [phone] * Type and screen (07/07/2025 6:39 AM EST) ABO Group A 07/07/2025 8:32 AM EST [facility] Rh Type Positive 07/07/2025 8:32 AM EST [facility] Antibody Screen Negative 07/07/2025 8:32 AM EST [facility] Blood Venous blood specimen / Unknown Venipuncture / Unknown 07/07/2025 6:39 AM EST 07/07/2025 7:22 AM EST us Kirt JOHNSON LAB BLOOD BANK TEST ORDERABLES F inal Result [facility] [address] [place] [address], [place] [phone] * Phosphorus (07/07/2025 6:39 AM EST) Only the most recent of2 resultswithin the time period is included. Phosphorus 2.8 2.5 - 4.5 mg/dL LAB CHEMISTRY METHOD 07/07/2025 8:06 AM EST [facility] Blood Venous blood specimen / Unknown Venipuncture / Unknown 07/07/2025 6:39 AM EST 07/07/2025 7:22 AM EST Clare JOHNSON LAB BLOOD ORDERABLES Final Res ult Performing Organization Address [facility]/ZIP Co de Phone Number [facility] [address] [place] [address], [place] [phone] * Magnesium (07/07/2025 6:39 AM EST) Only the most recent of2 resultswithin the time period is included. Magnesium 2.0 1.9 - 2.6 mg/dL LAB CHEMISTRY METHOD 07/07/2025 8:06 AM [facility] Blood Venous blood specimen / Unknown Venipuncture / Unknown 07/07/2025 6:39 AM EST 07/07/2025 7:22 AM EST Clare JOHNSON LAB BLOOD ORDERABLES Final Res ult Performing Organization Address [facility]/ZIP Co de Phone Number [facility] [address] [place] [address], [place] [phone] * (ABNORMAL) Basic metabolic panel (07/07/2025 6:39 AM EST) Only the most recent of2 resultswithin the time period is included. Sodium 142 133 - 145 mmol/L LAB CHEMISTRY METHOD 07/07/2025 8:06 AM [facility] Potassium 4.7 3.5 - 5.5 mmol/L LAB CHEMISTRY METHOD 07/07/2025 8:06 AM [facility] Chloride 111(H) 96 - 110 mmol/L LAB CHEMISTRY METHOD 07/07/2025 8:06 AM [facility] CO2 25 21 - 32 mmol/L LAB CHEMISTRY METHOD 07/07/2025 8:06 AM [facility] Anion Gap 6 3 - 11 LAB CHEMISTRY METHOD 07/07/2025 8:06 AM [facility] Glucose 117(H) 70 - 100 mg/dL LAB CHEMISTRY METHOD 07/07/2025 8:06 AM [facility] BUN 18 5 - 25 mg/dL LAB CHEMISTRY METHOD 07/07/2025 8:06 AM [facility] Creatinine 0.97 0.70 - 1.30 mg/dL LAB CHEMISTRY METHOD 07/07/2025 8:06 AM [facility] eGFR 87 >=60 mL/min/1. 73m2 LAB CHEMISTRY METHOD 07/07/2025 8:06 AM [facility] Comment:Calculation based on the Chronic Kidney Disease Epidemiology Collaboration (CKD-EPI) equation refit without adjustment for race. BUN/Creatinine Ratio 18.6 LAB CHEMISTRY METHOD 07/07/2025 8:06 AM [facility] Calcium 8.5 8.5 - 10.5 mg/dL LAB CHEMISTRY METHOD 07/07/2025 8:06 AM [facility] Blood Venous blood specimen / Unknown Venipuncture / Unknown 07/07/2025 6:39 AM EST 07/07/2025 7:22 AM EST us Clare JOHNSON LAB BLOOD ORDERABLES Final Res ult [facility] [address] [place] [address], * XR Small Bowel Series (07/06/2025 6:36 [...] Signed Date: 07/09/2025 08:20 ET Workstation ID: [id number] Transcribed By: Self Edit Transcribed Date: 07/09/2025 08:16 ET Narrative 07/09/2025 8:20 AM EST HISTORY: The patient is a 64-year-old male with suspected small bowel obstruction. FINDINGS: Transit Coach Operator AP radiograph of the abdomen demonstrates a [...] 64-year-old male with suspected small bowelobstruction. FINDINGS: Transit Coach Operator AP radiograph of the abdomen demonstrates a [...] Signed Date: 07/09/2025 08:20 ET Workstation ID: [id number] Transcribed By: Self Edit Transcribed Date: 07/09/2025 08:16 ET Abi JOHNSON IMG FLUOROSCOPY PROCEDURES F inal Result * XR Abdomen 1 View (07/06/2025 9:11 AM EST) Anatomical Region Laterality Modality Body Radiographic Yeni ging 07/06/2025 12:0 4 PM EST Impressions 07/06/2025 12:06 PM EST A nasogastric tube is present, in good position. The bowel gas pattern is nonobstructive. Code 85253 -------- FINAL REPORT -------- Dictated By: Jagjit Johnston Dictated Date: 07/06/2025 12:04 ET Assigned Physician: Jagjit Johnston Reviewed and Electronically Signed By: Jagjit Johnston Signed Date: 07/06/2025 12:06 ET Workstation ID: [id number] Transcribed By: Self Edit Transcribed Date: 07/06/2025 [...] position. The bowel gas pattern isnonobstructive. Code 72862 -------- FINAL REPORT -------- Dictated By: Jagjit Johnston Dictated Date: 07/06/2025 12:04 ET Assigned Physician: Jagjit Johnston Reviewed and Electronically Signed By: Jagjit Johnston Signed Date: 07/06/2025 12:06 ET Workstation ID: [id number] Transcribed By: Self Edit Transcribed Date: 07/06/2025 12:04 ET Kirt JOHNSON IMG XR PROCEDURES Final Result * Lactate, with reflex (07/06/2025 4:31 AM EST) LACTIC ACID 1.1 0.4 - 2.0 mmol/L LAB CHEMISTRY METHOD 07/06/2025 5:07 AM EST [facility] Blood Venous blood specimen / Unknown Venipuncture / Unknown 07/06/2025 4:31 AM EST 07/06/2025 4:40 AM EST Dasha Kent MD LAB BLOOD ORDERABLES Final Result [facility] [address] [place] [address], [place] [phone] * XR Chest 1 View (07/06/2025 1:41 AM EST) Anatomical Region Laterality Modality Body Radiographic Yeni ging 07/06/2025 10:4 3 AM EST Impressions 07/06/2025 10:43 AM EST No acute findings. -------- FINAL REPORT -------- Dictated By: Efe Casanova Dictated Date: 07/06/2025 10:43 ET Assigned Physician: Efe Casanova Reviewed and Electronically Signed By: Efe Casanova Signed Date: 07/06/2025 10:43 ET Workstation ID: [id number] Transcribed By: Self Edit Transcribed Date: 07/06/2025 [...] Signed Date: 07/06/2025 10:43 ET Workstation ID: [id number] Transcribed By: Self Edit Transcribed Date: 07/06/2025 10:43 ET us Dasha Kent MD IMG XR PROCEDURES Final Res ult * (ABNORMAL) Urinalysis with reflex microscopic (07/05/2025 11:41 PM EST) [place] Urine >1.045(H) 1.003 - 1.030 LAB URINALYSIS - AUTOMATED METHOD 07/05/2025 11:51 PM EST [facility] pH, Urine 8.0 5.0 - 8.0 pH LAB URINALYSIS - AUTOMATED METHOD 07/05/2025 11:51 PM EST [facility] Leukocytes, Urine Negative Negative LAB URINALYSIS - AUTOMATED METHOD 07/05/2025 11:51 PM [facility] Nitrite, Urine Negative Negative LAB URINALYSIS - AUTOMATED METHOD 07/05/2025 11:51 PM [facility] Protein, Urine Trace <=Trace mg/dL LAB URINALYSIS - AUTOMATED METHOD 07/05/2025 11:51 PM [facility] Glucose, Urine Negative Negative mg/dL LAB URINALYSIS - AUTOMATED METHOD 07/05/2025 11:51 PM [facility] Ketones, Urine Negative Negative mg/dL LAB URINALYSIS - AUTOMATED METHOD 07/05/2025 11:51 PM [facility] Urobilinogen , Urine 1.0 0.2 - 1.0 mg/dL LAB URINALYSIS - AUTOMATED METHOD 07/05/2025 11:51 PM [facility] Bilirubin, Urine Negative Negative LAB URINALYSIS - AUTOMATED METHOD 07/05/2025 11:51 PM [facility] Blood, Urine Negative Negative LAB URINALYSIS - AUTOMATED METHOD 07/05/2025 11:51 PM [facility] Urine Urine specimen obtained by clean catch procedure / Unknown Non-blood Collection / Unknown 07/05/2025 11:41 PM EST 07/05/2025 11:47 PM EST Dasha Kent MD LAB URINE ORDERABLES Final Result [facility] [address] [place] [address], * Kenyon urine culture tube (07/05/2025 11:41 PM EST) Extra Tube Hold for add-ons. 07/06/2025 1:07 AM [facility] Comment:Auto resulted. Urine Urine specimen obtained by clean catch procedure / Unknown Non-blood Collection / Unknown 07/05/2025 11:41 PM EST 07/05/2025 11:47 PM EST Dasha Kent MD LAB URINE ORDERABLES Final Result [facility] [address] [place] [address], [place] [phone] * CT Abdomen Pelvis w Contrast (07/05/2025 [...] by: Gerard Butcher MD on 07/05/2025 22:28:48 Dasha Kent MD IMG CT PROCEDURES Edited Re sult - Final * Troponin I high sensitivity (07/05/2025 8:13 PM EST) Pathologist [facility] High Sensitivity Troponin I 3 <=79 ng/L LAB CHEMISTRY METHOD 07/05/2025 8:59 PM EST [facility] Blood Venous blood specimen / Unknown Venipuncture / Unknown 07/05/2025 8:13 PM EST 07/05/2025 8:27 PM EST Narrative [facility] - 07/05/2025 8:59 PM EST High levels of biotin in samples may falsely decrease hsTroponin values. Use caution when interpreting hsTroponin results in patients taking biotin who exhibit renal impairment (eGFR <60) or in patients taking more than 20 mg/day of biotin. Dasha Kent MD LAB BLOOD ORDERABLES Final Result [facility] [address] [place] [address], * Lipase (07/05/2025 8:13 PM EST) Lipase 27 13 - 75 unit/L LAB CHEMISTRY METHOD 07/05/2025 9:00 PM [facility] Blood Venous blood specimen / Unknown Venipuncture / Unknown 07/05/2025 8:13 PM EST 07/05/2025 8:27 PM EST us Dasha Kent MD LAB BLOOD ORDERABLES Final Result [facility] [address] [place] [address], [place] [phone] * (ABNORMAL) Comprehensive metabolic panel (07/05/2025 8:13 PM EST) Pathologist [facility] Sodium 137 133 - 145 mmol/L LAB CHEMISTRY METHOD 07/05/2025 9:00 PM [facility] Potassium 4.4 3.5 - 5.5 mmol/L LAB CHEMISTRY METHOD 07/05/2025 9:00 PM [facility] Chloride 103 96 - 110 mmol/L LAB CHEMISTRY METHOD 07/05/2025 9:00 PM [facility] CO2 27 21 - 32 mmol/L LAB CHEMISTRY METHOD 07/05/2025 9:00 PM [facility] Anion Gap 7 3 - 11 LAB CHEMISTRY METHOD 07/05/2025 9:00 PM [facility] Glucose 122(H) 70 - 100 mg/dL LAB CHEMISTRY METHOD 07/05/2025 9:00 PM [facility] BUN 17 5 - 25 mg/dL LAB CHEMISTRY METHOD 07/05/2025 9:00 PM [facility] Creatinine 1.20 0.70 - 1.30 mg/dL LAB CHEMISTRY METHOD 07/05/2025 9:00 PM [facility] eGFR 68 >=60 mL/min/1. 73m2 LAB CHEMISTRY METHOD 07/05/2025 9:00 PM [facility] Comment:Calculation based on the Chronic Kidney Disease Epidemiology Collaboration (CKD-EPI) equation refit without adjustment for race. BUN/Creatinine Ratio 14.2 LAB CHEMISTRY METHOD 07/05/2025 9:00 PM [facility] Calcium 10.4 8.5 - 10.5 mg/dL LAB CHEMISTRY METHOD 07/05/2025 9:00 PM [facility] AST (SGOT) 19 10 - 42 unit/L LAB CHEMISTRY METHOD 07/05/2025 9:00 PM [facility] ALT (SGPT) 36 10 - 60 unit/L LAB CHEMISTRY METHOD 07/05/2025 9:00 PM [facility] Alkaline Phosphatase 75 42 - 121 unit/L LAB CHEMISTRY METHOD 07/05/2025 9:00 PM [facility] Total Protein 7.7 6.0 - 8.0 g/dL LAB CHEMISTRY METHOD 07/05/2025 9:00 PM [facility] Albumin 4.2 3.2 - 5.0 g/dL LAB CHEMISTRY METHOD 07/05/2025 9:00 PM [facility] Total Bilirubin 0.5 0.0 - 1.4 mg/dL LAB CHEMISTRY METHOD 07/05/2025 9:00 PM [facility] Blood Venous blood specimen / Unknown Venipuncture / Unknown 07/05/2025 8:13 PM EST 07/05/2025 8:27 PM EST us Dasha Kent MD LAB BLOOD ORDERABLES Final Result [facility] [address] [place] [address], * ECG 12 lead (07/05/2025 8:09 PM EST) Ventricular Rate ECG 80 BPM GEMUSE Atrial Rate 80 BPM GEMUSE P-R Interval 140 ms GEMUSE QRS Duration 84 ms GEMUSE Q-T Interval 382 ms GEMUSE QTc 440 ms GEMUSE P Wave Roland 51 degrees GEMUSE R Roland 65 degrees GEMUSE T Roland 56 degrees GEMUSE ECG Interpretation Normal sinus rhythm Normal ECG When compared with ECG of 29-DEC-2009 04:04, No significant change was found Confirmed by THALIA SEARS ([id number]) on 07/08/2025 7:59:18 AM GEMUSE 07/05/2025 8:09 PM EST 07/08/2025 7:59 AM EST us Dasha Kent MD ECG ORDERABLES Final Resul t GEMUSE from Last [address] [place] [address] [place] [address] MEDICARE Member Subscriber Plan / Payer (Ef fective 2024-Present) Name:GERMÁN CARLOS Relation to Subscriber:Self Name:Germán Carlos Payer ID:[id number] Group ID:[id number] Type:Not on file Address: [place] [address] [address] [id number] Advance Directives * Full Code - Default [...] Agents on File Name Relationship Healthcare Agent Kieraga mode Bedoya Partner Health Care Agent Care Teams Retail Brand Ambassador Relationship Specialty Start Date End Date Physician, No Pcp PCP - General 07/05/25
== END 2025-08-22 10:14 | disposition home or self-care (01) ==
LOC: HO.HGI 09:28
PROVIDERS: PCP Internal Medicine; Visit Provider Internal Medicine
DX: K59.04 Chronic idiopathic constipation (principal); R14.3 Flatulence; R14.0 Abdominal distension (gaseous); Z86.0100 Personal history of colon polyps, unspecified
CPT/HCPCS: 99214

== ENCOUNTER → 2025-08-22 09:27 | Outpatient (BNVA) | payer OTHER, SELFPAY | PROVIDERS: PCP Internal Medicine; Visit Provider Internal Medicine | DX: K59.04 Chronic idiopathic constipation (principal); R14.3 Flatulence; R14.0 Abdominal distension (gaseous); Z86.0100 Personal history of colon polyps, unspecified | CPT/HCPCS: 99212 ==